=== PATIENT | male | born 1940 | race Caucasian/White ===

== ENCOUNTER → 2020-06-15 13:26 | Outpatient (BNVA) | payer MEDICARE, SELFPAY | PROVIDERS: PCP Nurse Practitioner Acute Care; Referring Provider Nurse Practitioner Acute Care; Visit Provider Internal Medicine | DX: I48.20 Chronic atrial fibrillation, unspecified (principal); Z51.81 Encounter for therapeutic drug level monitoring; Z79.01 Long term (current) use of anticoagulants | CPT/HCPCS: 85610 ==

== ENCOUNTER → 2020-07-13 13:25 | Outpatient (BNVA) | payer MEDICARE, SELFPAY | PROVIDERS: PCP Nurse Practitioner Acute Care; Visit Provider Internal Medicine | DX: I48.20 Chronic atrial fibrillation, unspecified (principal); Z79.01 Long term (current) use of anticoagulants; Z51.81 Encounter for therapeutic drug level monitoring | CPT/HCPCS: 85610; 99211 ==

== ENCOUNTER → 2020-08-10 13:23 | Outpatient (BNVA) | payer MEDICARE, SELFPAY | PROVIDERS: PCP Nurse Practitioner Acute Care; Referring Provider Nurse Practitioner Acute Care; Visit Provider Internal Medicine | DX: I48.20 Chronic atrial fibrillation, unspecified (principal); Z51.81 Encounter for therapeutic drug level monitoring; Z79.01 Long term (current) use of anticoagulants | CPT/HCPCS: 85610; 99211 ==

== ENCOUNTER → 2020-09-14 13:11 | Outpatient (BNVA) | payer MEDICARE, SELFPAY | PROVIDERS: PCP Internal Medicine; Visit Provider Internal Medicine | DX: I48.20 Chronic atrial fibrillation, unspecified (principal); Z79.01 Long term (current) use of anticoagulants; Z51.81 Encounter for therapeutic drug level monitoring | CPT/HCPCS: 85610; 99211 ==

== ENCOUNTER → 2020-10-12 13:17 | Outpatient (BNVA) | payer MEDICARE, SELFPAY | PROVIDERS: PCP Internal Medicine; Visit Provider Internal Medicine | DX: I48.20 Chronic atrial fibrillation, unspecified (principal); Z51.81 Encounter for therapeutic drug level monitoring; Z79.01 Long term (current) use of anticoagulants | CPT/HCPCS: 85610; 99211 ==

== ENCOUNTER → 2020-11-09 13:16 | Outpatient (BNVA) | payer MEDICARE, SELFPAY | PROVIDERS: PCP Internal Medicine; Visit Provider Internal Medicine | DX: I48.20 Chronic atrial fibrillation, unspecified (principal); Z51.81 Encounter for therapeutic drug level monitoring; Z79.01 Long term (current) use of anticoagulants | CPT/HCPCS: 85610; 99211 ==

== ENCOUNTER → 2021-01-11 13:04 | Outpatient (BNVA) | payer MEDICARE, SELFPAY | PROVIDERS: PCP Internal Medicine; Visit Provider Internal Medicine | DX: I48.20 Chronic atrial fibrillation, unspecified (principal); Z79.01 Long term (current) use of anticoagulants; Z51.81 Encounter for therapeutic drug level monitoring | CPT/HCPCS: 85610; 99211 ==

== ENCOUNTER → 2021-02-15 13:07 | Outpatient (BNVA) | payer MEDICARE, SELFPAY | PROVIDERS: PCP Internal Medicine; Visit Provider Internal Medicine | DX: I48.20 Chronic atrial fibrillation, unspecified (principal); Z51.81 Encounter for therapeutic drug level monitoring; Z79.01 Long term (current) use of anticoagulants | CPT/HCPCS: 85610; 99211 ==

== ENCOUNTER → 2021-03-15 13:08 | Outpatient (BNVA) | payer MEDICARE, SELFPAY | PROVIDERS: PCP Internal Medicine; Visit Provider Internal Medicine | DX: I48.20 Chronic atrial fibrillation, unspecified (principal); Z51.81 Encounter for therapeutic drug level monitoring; Z79.01 Long term (current) use of anticoagulants | CPT/HCPCS: 85610; 99211 ==

== ENCOUNTER → 2021-04-12 14:24 | Outpatient (BNVA) | payer MEDICARE, SELFPAY | PROVIDERS: PCP Internal Medicine; Visit Provider Internal Medicine | DX: I48.20 Chronic atrial fibrillation, unspecified (principal); Z51.81 Encounter for therapeutic drug level monitoring; Z79.01 Long term (current) use of anticoagulants | CPT/HCPCS: 85610; 99211 ==

== ENCOUNTER → 2021-05-17 13:02 | Outpatient (BNVA) | payer MEDICARE, SELFPAY | PROVIDERS: PCP Internal Medicine; Visit Provider Internal Medicine | DX: I48.20 Chronic atrial fibrillation, unspecified (principal); Z51.81 Encounter for therapeutic drug level monitoring; Z79.01 Long term (current) use of anticoagulants | CPT/HCPCS: 85610; 99211 ==

== ENCOUNTER → 2021-06-14 13:04 | Outpatient (BNVA) | payer MEDICARE, SELFPAY | PROVIDERS: PCP Internal Medicine; Visit Provider Internal Medicine | DX: I48.20 Chronic atrial fibrillation, unspecified (principal); Z51.81 Encounter for therapeutic drug level monitoring; Z79.01 Long term (current) use of anticoagulants | CPT/HCPCS: 85610; 99211 ==

== ENCOUNTER → 2021-07-12 13:11 | Outpatient (BNVA) | payer MEDICARE, SELFPAY | PROVIDERS: PCP Internal Medicine; Visit Provider Internal Medicine | DX: I48.20 Chronic atrial fibrillation, unspecified (principal); Z51.81 Encounter for therapeutic drug level monitoring; Z79.01 Long term (current) use of anticoagulants | CPT/HCPCS: 85610; 99211 ==

== ENCOUNTER → 2021-08-09 13:18 | Outpatient (BNVA) | payer MEDICARE, SELFPAY | PROVIDERS: PCP Internal Medicine; Visit Provider Internal Medicine | DX: I48.20 Chronic atrial fibrillation, unspecified (principal); Z51.81 Encounter for therapeutic drug level monitoring; Z79.01 Long term (current) use of anticoagulants | CPT/HCPCS: 85610; 99211 ==

== ENCOUNTER → 2021-08-23 13:17 | Outpatient (BNVA) | payer MEDICARE, SELFPAY | PROVIDERS: PCP Internal Medicine; Visit Provider Internal Medicine | DX: I48.20 Chronic atrial fibrillation, unspecified (principal); Z51.81 Encounter for therapeutic drug level monitoring; Z79.01 Long term (current) use of anticoagulants | CPT/HCPCS: 85610; 99211 ==

== ENCOUNTER → 2021-09-20 13:16 | Outpatient (BNVA) | payer MEDICARE, SELFPAY | PROVIDERS: PCP Internal Medicine; Visit Provider Internal Medicine | DX: I48.20 Chronic atrial fibrillation, unspecified (principal); Z51.81 Encounter for therapeutic drug level monitoring; Z79.01 Long term (current) use of anticoagulants | CPT/HCPCS: 85610; 99211 ==

== ENCOUNTER → 2021-10-18 13:29 | Outpatient (BNVA) | payer MEDICARE, SELFPAY | PROVIDERS: PCP Internal Medicine; Visit Provider Internal Medicine | DX: I48.20 Chronic atrial fibrillation, unspecified (principal); Z51.81 Encounter for therapeutic drug level monitoring; Z79.01 Long term (current) use of anticoagulants | CPT/HCPCS: 85610; 99211 ==

== ENCOUNTER → 2021-11-15 13:04 | Outpatient (BNVA) | payer MEDICARE, SELFPAY | PROVIDERS: PCP Internal Medicine; Visit Provider Internal Medicine | DX: I48.20 Chronic atrial fibrillation, unspecified (principal); Z51.81 Encounter for therapeutic drug level monitoring; Z79.01 Long term (current) use of anticoagulants | CPT/HCPCS: 85610; 99211 ==

== ENCOUNTER → 2021-12-13 13:05 | Outpatient (BNVA) | payer MEDICARE, SELFPAY | PROVIDERS: PCP Internal Medicine; Visit Provider Internal Medicine | DX: I48.20 Chronic atrial fibrillation, unspecified (principal); Z51.81 Encounter for therapeutic drug level monitoring; Z79.01 Long term (current) use of anticoagulants | CPT/HCPCS: 85610; 99211 ==

== ENCOUNTER → 2022-01-10 13:00 | Outpatient (BNVA) | payer MEDICARE, SELFPAY | PROVIDERS: PCP Internal Medicine; Visit Provider Internal Medicine | DX: I48.20 Chronic atrial fibrillation, unspecified (principal); Z79.01 Long term (current) use of anticoagulants; Z51.81 Encounter for therapeutic drug level monitoring | CPT/HCPCS: 85610; 99211 ==

== ENCOUNTER → 2022-02-07 13:07 | Outpatient (BNVA) | payer MEDICARE, SELFPAY | PROVIDERS: PCP Internal Medicine; Visit Provider Internal Medicine | DX: I48.20 Chronic atrial fibrillation, unspecified (principal); Z79.01 Long term (current) use of anticoagulants; Z51.81 Encounter for therapeutic drug level monitoring | CPT/HCPCS: 85610; 99211 ==

== ENCOUNTER → 2022-03-14 13:20 | Outpatient (BNVA) | payer MEDICARE, SELFPAY | PROVIDERS: Visit Provider Internal Medicine | DX: I48.20 Chronic atrial fibrillation, unspecified (principal); Z51.81 Encounter for therapeutic drug level monitoring; Z79.01 Long term (current) use of anticoagulants | CPT/HCPCS: 85610; 99211 ==

== ENCOUNTER → 2022-04-11 13:05 | Outpatient (BNVA) | payer MEDICARE, SELFPAY | PROVIDERS: Visit Provider Internal Medicine | DX: I48.20 Chronic atrial fibrillation, unspecified (principal); Z79.01 Long term (current) use of anticoagulants; Z51.81 Encounter for therapeutic drug level monitoring | CPT/HCPCS: 85610; 99211 ==

== ENCOUNTER → 2022-05-09 13:04 | Outpatient (BNVA) | payer MEDICARE, SELFPAY | PROVIDERS: Visit Provider Internal Medicine | DX: I48.20 Chronic atrial fibrillation, unspecified (principal); Z79.01 Long term (current) use of anticoagulants; Z51.81 Encounter for therapeutic drug level monitoring | CPT/HCPCS: 85610; 99211 ==

== ENCOUNTER → 2022-06-13 12:59 | Outpatient (BNVA) | payer MEDICARE, SELFPAY | PROVIDERS: Visit Provider Internal Medicine | DX: I48.20 Chronic atrial fibrillation, unspecified (principal); Z79.01 Long term (current) use of anticoagulants; Z51.81 Encounter for therapeutic drug level monitoring | CPT/HCPCS: 85610; 99211 ==

== ENCOUNTER → 2022-07-11 13:03 | Outpatient (BNVA) | payer MEDICARE, SELFPAY | PROVIDERS: Visit Provider Internal Medicine | DX: I48.20 Chronic atrial fibrillation, unspecified (principal); Z79.01 Long term (current) use of anticoagulants; Z51.81 Encounter for therapeutic drug level monitoring | CPT/HCPCS: 85610; 99211 ==

== ENCOUNTER → 2022-08-15 13:00 | Outpatient (BNVA) | payer MEDICARE, SELFPAY | PROVIDERS: PCP Family Medicine; Visit Provider Internal Medicine | DX: I48.20 Chronic atrial fibrillation, unspecified (principal); Z79.01 Long term (current) use of anticoagulants; Z51.81 Encounter for therapeutic drug level monitoring | CPT/HCPCS: 85610; 99211 ==

== ENCOUNTER → 2022-09-19 13:08 | Outpatient (BNVA) | payer MEDICARE, SELFPAY | PROVIDERS: PCP Family Medicine; Visit Provider Internal Medicine | DX: I48.20 Chronic atrial fibrillation, unspecified (principal); Z79.01 Long term (current) use of anticoagulants; Z51.81 Encounter for therapeutic drug level monitoring | CPT/HCPCS: 85610; 99211 ==

== ENCOUNTER → 2022-10-17 13:01 | Outpatient (BNVA) | payer MEDICARE, SELFPAY | PROVIDERS: PCP Family Medicine; Visit Provider Internal Medicine | DX: I48.20 Chronic atrial fibrillation, unspecified (principal); Z79.01 Long term (current) use of anticoagulants; Z51.81 Encounter for therapeutic drug level monitoring | CPT/HCPCS: 85610; 99211 ==

== ENCOUNTER → 2022-11-14 13:01 | Outpatient (BNVA) | payer MEDICARE, SELFPAY | PROVIDERS: PCP Family Medicine; Visit Provider Internal Medicine | DX: I48.20 Chronic atrial fibrillation, unspecified (principal); Z79.01 Long term (current) use of anticoagulants; Z51.81 Encounter for therapeutic drug level monitoring | CPT/HCPCS: 85610; 99211 ==

== ENCOUNTER → 2022-12-12 12:57 | Outpatient (BNVA) | payer MEDICARE, SELFPAY | PROVIDERS: PCP Family Medicine; Visit Provider Internal Medicine | DX: I48.20 Chronic atrial fibrillation, unspecified (principal); Z79.01 Long term (current) use of anticoagulants; Z51.81 Encounter for therapeutic drug level monitoring | CPT/HCPCS: 85610; 99211 ==

== ENCOUNTER → 2023-01-09 13:04 | Outpatient (BNVA) | payer MEDICARE, SELFPAY | PROVIDERS: PCP Family Medicine; Visit Provider Internal Medicine | DX: I48.20 Chronic atrial fibrillation, unspecified (principal); Z79.01 Long term (current) use of anticoagulants; Z51.81 Encounter for therapeutic drug level monitoring | CPT/HCPCS: 85610; 99211 ==

== ENCOUNTER → 2023-02-13 13:00 | Outpatient (BNVA) | payer MEDICARE, SELFPAY | PROVIDERS: PCP Family Medicine; Visit Provider Internal Medicine | DX: I48.20 Chronic atrial fibrillation, unspecified (principal); Z79.01 Long term (current) use of anticoagulants; Z51.81 Encounter for therapeutic drug level monitoring | CPT/HCPCS: 85610; 99211 ==

== ENCOUNTER 2023-03-20 13:03 | Outpatient (AMB) | payer MEDICARE, SELFPAY ==
[2023-03-20 13:12] LABS: Prothrombin Time Whole Bld POC 31.8 sec (11.1-13.5); ~PT, ~INR - Anti Coag Clinic 2.7 (0.9-1.1)
--- NOTE | 2023-03-20 13:15 | MHC.OFFVISCO ---
Intake Intake Visit Reasons: Anticoagulation Allergies No Known Allergies Allergy (Verified 03/20/23 13:05) Medication List - Last Reconciled 03/20/23 by Vicky Wade RN diltiazem HCl ER (DILT-XR) 180 mg PO DAILY hydrochlorothiazide 12.5 mg PO DAILY metoprolol succinate ER 50 mg PO DAILY warfarin 5 mg See Protocol PO DAILY Nursing Note NO CP,SOB,DIET/MED CHANGES,FALLS OR SX OF BLEEDING. CONTINUE PRESENT DOSE AND FOLLOW-UP IN 4 WEEKS. GOOD UNDERSTANDING OF DOSING INSTR. Coding Level of Care Code Est Patient Level 1 Diagnoses Current use of anticoagulant therapy Z79.01 Assessment & Plan Assessment & Plan (1) Current use of anticoagulant therapy: Code(s): Z79.01 - [facility] (current) use of anticoagulants Category: Medical
== END 2023-03-20 13:17 | disposition home or self-care (01) ==
LOC: HO.ACS 13:03
PROVIDERS: PCP Family Medicine; Visit Provider Internal Medicine
DX: Z79.01 Long term (current) use of anticoagulants (principal)

== ENCOUNTER → 2023-03-20 13:03 | Outpatient (BNVA) | payer MEDICARE, SELFPAY | PROVIDERS: PCP Family Medicine; Visit Provider Internal Medicine | DX: I48.20 Chronic atrial fibrillation, unspecified (principal); Z79.01 Long term (current) use of anticoagulants; Z51.81 Encounter for therapeutic drug level monitoring | CPT/HCPCS: 85610; 99211 ==

== ENCOUNTER 2023-04-17 13:03 | Outpatient (AMB) | payer MEDICARE, SELFPAY ==
[2023-04-17 13:09] LABS: Prothrombin Time Whole Bld POC 35.4 sec (11.1-13.5); ~PT, ~INR - Anti Coag Clinic 2.9 (0.9-1.1)
--- NOTE | 2023-04-17 13:12 | MHC.OFFVISCO ---
Intake Intake Visit Reasons: Anticoagulation Allergies No Known Allergies Allergy (Verified 04/17/23 13:04) Medication List - Last Reconciled 04/17/23 by Bozena Mccracken RN diltiazem HCl ER (DILT-XR) 180 mg PO DAILY hydrochlorothiazide 12.5 mg PO DAILY metoprolol succinate ER 50 mg PO DAILY warfarin 5 mg See Protocol PO DAILY Nursing Note Amb to [facility] feeling well Medications and supplements reviewed No changes in health, diet, medications, or supplements Denies any unusual signs and symptoms of bruising, bleeding Denies any new Chest pain, SOB, or clotting INR: 2.9 in therapeutic range Nutritional guidance given: have a green today then balance greens and reds in diet, be aware of raising effect of the [place] tomatoes Dose: continue usual dosing; 2.5mg x 1 day and 5mg x 6 days F/U INR: 4 weeks Patient verbalizes understanding of instructions given with accurate read back/ teach back of dosing Coding Level of Care Code Est Patient Level 1 Diagnoses Current use of anticoagulant therapy Z79.01 Time Spent (min) 15 Assessment & Plan Assessment & Plan (1) Current use of anticoagulant therapy: Code(s): 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
== END 2023-04-17 13:15 | disposition home or self-care (01) ==
LOC: HO.ACS 13:03
PROVIDERS: PCP Family Medicine; Visit Provider Internal Medicine
DX: Z79.01 Long term (current) use of anticoagulants (principal)

== ENCOUNTER → 2023-04-17 13:03 | Outpatient (BNVA) | payer MEDICARE, SELFPAY | PROVIDERS: PCP Family Medicine; Visit Provider Internal Medicine | DX: I48.20 Chronic atrial fibrillation, unspecified (principal); Z79.01 Long term (current) use of anticoagulants; Z51.81 Encounter for therapeutic drug level monitoring | CPT/HCPCS: 85610; 99211 ==

== ENCOUNTER 2023-05-15 13:02 | Outpatient (AMB) | payer MEDICARE, SELFPAY ==
--- NOTE | 2023-05-15 13:08 | MHC.OFFVISCO ---
Intake Intake Visit Reasons: Anticoagulation Allergies No Known Allergies Allergy (Verified 05/15/23 13:04) Medication List - Last Reconciled 05/15/23 by Jennifer Tolentino RN diltiazem HCl ER (DILT-XR) 180 mg PO DAILY hydrochlorothiazide 12.5 mg PO DAILY metoprolol succinate ER 50 mg PO DAILY warfarin 5 mg See Protocol PO DAILY Nursing Note INR 2.9 in therapeutic range Medications and supplements reviewed No changes in health, diet, medications, or supplements, Denies any signs and symptoms of bleeding or bruising or clotting. 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
[2023-05-15 13:09] LABS: Prothrombin Time Whole Bld POC 34.5 sec (11.1-13.5); ~PT, ~INR - Anti Coag Clinic 2.9 (0.9-1.1)
== END 2023-05-15 13:14 | disposition home or self-care (01) ==
LOC: HO.ACS 13:02
PROVIDERS: PCP Family Medicine; Visit Provider Internal Medicine
DX: Z79.01 Long term (current) use of anticoagulants (principal)

== ENCOUNTER → 2023-05-15 13:02 | Outpatient (BNVA) | payer MEDICARE, SELFPAY | PROVIDERS: PCP Family Medicine; Visit Provider Internal Medicine | DX: I48.20 Chronic atrial fibrillation, unspecified (principal); Z79.01 Long term (current) use of anticoagulants; Z51.81 Encounter for therapeutic drug level monitoring | CPT/HCPCS: 85610; 99211 ==

== ENCOUNTER 2023-06-12 13:02 | Outpatient (AMB) | payer MEDICARE, SELFPAY ==
--- NOTE | 2023-06-12 13:11 | MHC.OFFVISCO ---
Intake Intake Visit Reasons: Anticoagulation Allergies No Known Allergies Allergy (Verified 06/12/23 13:03) Medication List - Last Reconciled 06/12/23 by Bozena Mccracken, RN diltiazem HCl ER (DILT-XR) 180 mg PO DAILY hydrochlorothiazide 12.5 mg PO DAILY metoprolol succinate ER 50 mg PO DAILY warfarin 5 mg See Protocol PO DAILY Nursing Note Amb to [facility] feeling well Medications and supplements reviewed No changes in health, diet, medications, or supplements Denies any unusual signs and symptoms of bruising, bleeding Denies any new Chest pain, SOB, or clotting INR: 2.9 in therapeutic range (same x last 3 visits) Nutritional guidance given: can add an extra good green in weekly as top of range and balance greens and reds in diet Dose: continue usual dosing; 2.5mg x 1 day and 5mg x 6 days F/U INR: 4 weeks Patient verbalizes understanding of instructions given with accurate read back/ teach back of dosing Coding Level of Care Code Est Patient Level 1 Diagnoses Current use of anticoagulant therapy Z79.01 Time Spent (min) 15 Assessment & Plan Assessment & Plan (1) Current use of anticoagulant therapy: Code(s): Z79.01 - nursing home (current) use of anticoagulants Category: Medical
== END 2023-06-12 13:16 | disposition home or self-care (01) ==
LOC: HO.ACS 13:02
PROVIDERS: PCP Family Medicine; Visit Provider Internal Medicine
DX: Z79.01 Long term (current) use of anticoagulants (principal)

== ENCOUNTER → 2023-06-12 13:02 | Outpatient (BNVA) | payer MEDICARE, SELFPAY | PROVIDERS: PCP Family Medicine; Visit Provider Internal Medicine | DX: I48.20 Chronic atrial fibrillation, unspecified (principal); Z79.01 Long term (current) use of anticoagulants; Z51.81 Encounter for therapeutic drug level monitoring | CPT/HCPCS: 85610; 99211 ==

== ENCOUNTER 2023-07-10 13:00 | Outpatient (AMB) | payer MEDICARE, SELFPAY ==
[2023-07-10 13:06] LABS: Prothrombin Time Whole Bld POC 40.5 sec (11.1-13.5); ~PT, ~INR - Anti Coag Clinic 3.4 (0.9-1.1)
--- NOTE | 2023-07-10 13:16 | MHC.OFFVISCO ---
Intake Intake Visit Reasons: Anticoagulation Allergies No Known Allergies Allergy (Verified 07/10/23 13:00) Medication List - Last Reconciled 07/10/23 by Jennifer Tolentino RN diltiazem HCl ER (DILT-XR) 180 mg PO DAILY hydrochlorothiazide 12.5 mg PO DAILY metoprolol succinate ER 50 mg PO DAILY warfarin 5 mg See Protocol PO DAILY Nursing Note INR: 3.4 OUT OF therapeutic range Medications and supplements reviewed EATING ALOT OF ALMOND DARK ANGELICA ICE CREAM Denies any signs and symptoms of bleeding or bruising or clotting. Bleeding, bruising, clotting discussed Nutritional guidance given - EAT RAMIREZ GREENS LIKE SPINACH WEEKLY Dose: ALREADY TOOK TODAY'S DOSE 2.5MG SAT THEN RESUME 5MG C 6 DAYS /2.5MG THUR - IF SITLL ELEVATED THEN DECREASE TO 2.5MG X 2 DAYS F/U INR: 5 WEEKS PER PT INSISTINCE - HE IS AWAR OF RISKS ]Patient verbalizes understanding of instructions given Coding Level of Care Code Est Patient Level 1 Diagnoses Current use of anticoagulant therapy Z79.01 Results AMB INR Fingerstick AMB INR Fingerstick 3.4 Last Edit by Jennifer Tolentino RN on 07/10/23 13:06 manual entry Assessment & Plan Assessment & Plan (1) Current use of anticoagulant therapy: Code(s): 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
== END 2023-07-10 13:21 | disposition home or self-care (01) ==
LOC: HO.ACS 13:00
PROVIDERS: PCP Family Medicine; Visit Provider Internal Medicine
DX: Z79.01 Long term (current) use of anticoagulants (principal)

== ENCOUNTER → 2023-07-10 13:00 | Outpatient (BNVA) | payer MEDICARE, SELFPAY | PROVIDERS: PCP Family Medicine; Visit Provider Internal Medicine | DX: I48.20 Chronic atrial fibrillation, unspecified (principal); Z79.01 Long term (current) use of anticoagulants; Z51.81 Encounter for therapeutic drug level monitoring | CPT/HCPCS: 85610; 99211 ==

== ENCOUNTER 2023-08-14 13:00 | Outpatient (AMB) | payer MEDICARE, SELFPAY ==
--- NOTE | 2023-08-14 13:04 | MHC.OFFVISCO ---
Intake Intake Visit Reasons: Anticoagulation Allergies No Known Allergies Allergy (Verified 08/14/23 13:01) Medication List - Last Reconciled 08/14/23 by Wen Rooney RN diltiazem HCl ER (DILT-XR) 180 mg PO DAILY hydrochlorothiazide 12.5 mg PO DAILY metoprolol succinate ER 50 mg PO DAILY warfarin 5 mg See Protocol PO DAILY Nursing Note INR: 2.7- in therapeutic range of 2-3 Medications and supplements reviewed- no changes No changes in health, diet, medications, or supplements, Denies any signs and symptoms of bleeding or bruising or clotting. 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
[2023-08-14 13:07] LABS: Prothrombin Time Whole Bld POC 32.3 sec (11.1-13.5); ~PT, ~INR - Anti Coag Clinic 2.7 (0.9-1.1)
== END 2023-08-14 13:11 | disposition home or self-care (01) ==
LOC: HO.ACS 13:01
PROVIDERS: PCP Family Medicine; Visit Provider Internal Medicine
DX: Z79.01 Long term (current) use of anticoagulants (principal)

== ENCOUNTER → 2023-08-14 13:00 | Outpatient (BNVA) | payer MEDICARE, SELFPAY | PROVIDERS: PCP Family Medicine; Visit Provider Internal Medicine | DX: I48.20 Chronic atrial fibrillation, unspecified (principal); Z79.01 Long term (current) use of anticoagulants; Z51.81 Encounter for therapeutic drug level monitoring | CPT/HCPCS: 85610; 99211 ==

== ENCOUNTER 2023-09-11 12:58 | Outpatient (AMB) | payer MEDICARE, SELFPAY ==
--- NOTE | 2023-09-11 13:05 | MHC.OFFVISCO ---
Intake Intake Visit Reasons: Anticoagulation Allergies No Known Allergies Allergy (Verified 09/11/23 13:02) Medication List - Last Reconciled 09/11/23 by Wen Rooney RN diltiazem HCl ER (DILT-XR) 180 mg PO DAILY hydrochlorothiazide 12.5 mg PO DAILY metoprolol succinate ER 50 mg PO DAILY warfarin 5 mg See Protocol PO DAILY Nursing Note INR: 2.7- in therapeutic range of 2-3 Medications and supplements reviewed No changes in health, diet, medications, or supplements, Denies any signs and symptoms of bleeding or bruising or clotting. 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
== END 2023-09-11 13:10 | disposition home or self-care (01) ==
LOC: HO.ACS 12:58
PROVIDERS: PCP Family Medicine; Visit Provider Internal Medicine
DX: Z79.01 Long term (current) use of anticoagulants (principal)

== ENCOUNTER → 2023-09-11 12:58 | Outpatient (BNVA) | payer MEDICARE, SELFPAY | PROVIDERS: PCP Family Medicine; Visit Provider Internal Medicine | DX: I48.20 Chronic atrial fibrillation, unspecified (principal); Z79.01 Long term (current) use of anticoagulants; Z51.81 Encounter for therapeutic drug level monitoring | CPT/HCPCS: 85610; 99211 ==

== ENCOUNTER 2023-10-16 12:58 | Outpatient (AMB) | payer MEDICARE, SELFPAY ==
--- NOTE | 2023-10-16 13:16 | MHC.OFFVISCO ---
Intake Intake Visit Reasons: Anticoagulation Allergies No Known Allergies Allergy (Verified 10/16/23 13:02) Medication List - Last Reconciled 10/16/23 by Jennifer Tolentino RN diltiazem HCl ER (DILT-XR) 180 mg PO DAILY hydrochlorothiazide 12.5 mg PO DAILY metoprolol succinate ER 50 mg PO DAILY warfarin 5 mg See Protocol PO DAILY Nursing Note INR: 2.9 in therapeutic range Medications and supplements reviewed No changes in health, medications, or supplements, may be eating more root vegetables and soups that may be raising the INR Denies any signs and symptoms of bleeding or bruising or clotting. Bleeding, bruising, clotting discussed Nutritional guidance given Dose: keep same 2.5mg x 1 day/ 5mg x 6 days F/U INR: 4 weeks Patient verbalizes understanding of instructions given Questionnaires HAS-BLED Does the patient had uncontrolled Hypertension?: No Does the patient have renal disease?: No Does the patient have liver disease?: No Does the patient have a history of stroke?: No Has the patient had major bleeding or predisposition to bleeding?: No Does the patient have labile INRs?: No Is the patient over 65 years of age?: Yes Is the patient on medications that gives them a predisposition to bleeding?: No Does the patient use alcohol?: No HAS-BLED Score: 1 CHADSVASC Age: 75 or over Gender: Male Does the patient have a history of CHF?: No Does the patient have a history of Hypertension?: Yes Does the patient have a history of Stroke/TIA/Thromboembolism?: No Does the patient have a history of Vascular Disease (prior OK, PAD or aortic plaque)?: No Does the patient have a history of Diabetes?: No CHADS VACS Score: 3 Nasim Prediction Score Rsk VTE Active Cancer: No Previous VTE, excluding superficial vein thrombosis: No Reduced mobility: No Already known Thrombophilic Condition: Yes With-in last month Trauma and/or Surgery: No Elderly 70 year or older: Yes Heart and/or Respiratory Failure: No Acute Myocardial infarction and/or Ischemic Stroke: No Acute Infection and/or Rheumatologic Disorder: No Obesity (BMI 30 or greater): No Ongoing Hormonal Treatment: No Score: 4 Nasim Score less than 4; Low Risk of VTE Nasim Score 4 or greater; High Risk of VTE Coding Level of Care Code Est Patient Level 1 Diagnoses Current use of anticoagulant therapy Z79.01 Results AMB INR Fingerstick AMB INR Fingerstick 2.9 Last Edit by Jennifer Tolentino RN on 10/16/23 13:12 manual entry Assessment & Plan Assessment & Plan (1) Current use of anticoagulant therapy: Code(s): 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
[2023-10-16 14:24] LABS: Prothrombin Time Whole Bld POC 35.2 sec (11.1-13.5); ~PT, ~INR - Anti Coag Clinic 2.9 (0.9-1.1)
== END 2023-10-16 13:22 | disposition home or self-care (01) ==
LOC: HO.ACS 12:59
PROVIDERS: PCP Family Medicine; Visit Provider Internal Medicine
DX: Z79.01 Long term (current) use of anticoagulants (principal)

== ENCOUNTER → 2023-10-16 12:58 | Outpatient (BNVA) | payer MEDICARE, SELFPAY | PROVIDERS: PCP Family Medicine; Visit Provider Internal Medicine | DX: I48.20 Chronic atrial fibrillation, unspecified (principal); Z79.01 Long term (current) use of anticoagulants; Z51.81 Encounter for therapeutic drug level monitoring | CPT/HCPCS: 85610; 99211 ==

== ENCOUNTER 2023-11-13 13:04 | Outpatient (AMB) | payer MEDICARE, SELFPAY ==
[2023-11-13 13:10] LABS: Prothrombin Time Whole Bld POC 31.3 sec (11.1-13.5); ~PT, ~INR - Anti Coag Clinic 2.6 (0.9-1.1)
--- NOTE | 2023-11-13 13:11 | MHC.OFFVISCO ---
Intake Intake Visit Reasons: Anticoagulation Allergies No Known Allergies Allergy (Verified 11/13/23 13:04) Medication List - Last Reconciled 11/13/23 by Jennifer Tolentino RN diltiazem HCl ER (DILT-XR) 180 mg PO DAILY hydrochlorothiazide 12.5 mg PO DAILY metoprolol succinate ER 50 mg PO DAILY warfarin 5 mg See Protocol PO DAILY Nursing Note INR: 2.6 in therapeutic range Medications and supplements reviewed No changes in health, diet, medications, or supplements, Denies any signs and symptoms of bleeding or bruising or clotting. 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
== END 2023-11-13 13:16 | disposition home or self-care (01) ==
LOC: HO.ACS 13:04
PROVIDERS: PCP Family Medicine; Visit Provider Internal Medicine
DX: Z79.01 Long term (current) use of anticoagulants (principal)

== ENCOUNTER → 2023-11-13 13:04 | Outpatient (BNVA) | payer MEDICARE, SELFPAY | PROVIDERS: PCP Family Medicine; Visit Provider Internal Medicine | DX: I48.20 Chronic atrial fibrillation, unspecified (principal); Z79.01 Long term (current) use of anticoagulants; Z51.81 Encounter for therapeutic drug level monitoring | CPT/HCPCS: 85610; 99211 ==

== ENCOUNTER 2023-12-18 13:06 | Outpatient (AMB) | payer MEDICARE, SELFPAY ==
[2023-12-18 13:12] LABS: Prothrombin Time Whole Bld POC 39.2 sec (11.1-13.5); ~PT, ~INR - Anti Coag Clinic 3.3 (0.9-1.1)
--- NOTE | 2023-12-18 13:21 | MHC.OFFVISCO ---
Intake Intake Visit Reasons: Anticoagulation Allergies No Known Allergies Allergy (Verified 12/18/23 13:08) Medication List - Last Reconciled 12/18/23 by Bozena Keane, TRUDY diltiazem HCl ER (DILT-XR) 180 mg PO DAILY hydrochlorothiazide 12.5 mg PO DAILY metoprolol succinate ER 50 mg PO DAILY warfarin 5 mg See Protocol PO DAILY Nursing Note INR 3.3?out of therapeutic range Medications and supplements reviewed: no changes Patient status: no changes Medications or supplements: same Diet: pt states he had peanuts yesterday and maybe that is the reason why the INR is high out of range Denies any signs and symptoms of bleeding or clotting or unusual bruising Bleeding, bruising, clotting discussed Nutritional guidance given: to have greens today and tomorrow Dose: continue same dose of 2.5mg X 1 day and 5mg X6 days F/U INR Date : 4 weeks?? Patient verbalizing understanding of instructions given. 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
== END 2023-12-18 13:25 | disposition home or self-care (01) ==
LOC: HO.ACS 13:06
PROVIDERS: PCP Family Medicine; Visit Provider Internal Medicine
DX: Z79.01 Long term (current) use of anticoagulants (principal)

== ENCOUNTER → 2023-12-18 13:06 | Outpatient (BNVA) | payer MEDICARE, SELFPAY | PROVIDERS: PCP Family Medicine; Visit Provider Internal Medicine | DX: I48.20 Chronic atrial fibrillation, unspecified (principal); Z79.01 Long term (current) use of anticoagulants; Z51.81 Encounter for therapeutic drug level monitoring | CPT/HCPCS: 85610; 99211 ==

== ENCOUNTER 2024-01-15 13:03 | Outpatient (AMB) | payer MEDICARE, SELFPAY ==
[2024-01-15 13:08] LABS: Prothrombin Time Whole Bld POC 40.4 sec (11.1-13.5); ~PT, ~INR - Anti Coag Clinic 3.4 (0.9-1.1)
--- NOTE | 2024-01-15 13:17 | MHC.OFFVISCO ---
Intake Intake Visit Reasons: Anticoagulation Allergies No Known Allergies Allergy (Verified 01/15/24 13:04) Medication List - Last Reconciled 01/15/24 by Vicky Wade RN diltiazem HCl ER (DILT-XR) 180 mg PO DAILY hydrochlorothiazide 12.5 mg PO DAILY metoprolol succinate ER 50 mg PO DAILY warfarin 5 mg See Protocol PO DAILY Nursing Note PT.STATES THAT HE HAS HAD INCREASED STRESS WHICH MAY BE CONTRIBUTING TO RECENT ELEVATED INR'S. NO CP,SOB,DIET/MED CHANGES OR SX OF BLEEDING. HOLD WARFARIN TOMORROW(TOOK 5MG TODAY) THEN RESUME USUAL DOSE AND FOLLOW-UP IN 4 WEEKS. GOOD UNDERSTANDING OF DOSING INSTR. 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
== END 2024-01-15 13:19 | disposition home or self-care (01) ==
LOC: HO.ACS 13:03
PROVIDERS: PCP Family Medicine; Visit Provider Internal Medicine
DX: Z79.01 Long term (current) use of anticoagulants (principal)

== ENCOUNTER → 2024-01-15 13:03 | Outpatient (BNVA) | payer MEDICARE, SELFPAY | PROVIDERS: PCP Family Medicine; Visit Provider Internal Medicine | DX: I48.20 Chronic atrial fibrillation, unspecified (principal); Z51.81 Encounter for therapeutic drug level monitoring; Z79.01 Long term (current) use of anticoagulants | CPT/HCPCS: 85610; 99211 ==

== ENCOUNTER 2024-02-12 13:01 | Outpatient (AMB) | payer MEDICARE, SELFPAY ==
--- NOTE | 2024-02-12 13:09 | MHC.OFFVISCO ---
Intake Intake Visit Reasons: Anticoagulation Allergies No Known Allergies Allergy (Verified 02/12/24 13:05) Medication List - Last Reconciled 02/12/24 by Wen Rooney RN diltiazem HCl ER (DILT-XR) 180 mg PO DAILY hydrochlorothiazide 12.5 mg PO DAILY metoprolol succinate ER 50 mg PO DAILY warfarin 5 mg See Protocol PO DAILY Nursing Note INR: 2.7- in therapeutic range of 2-3 Medications and supplements reviewed- no changes No changes in health, diet, medications, or supplements, Denies any signs and symptoms of bleeding or bruising or clotting. 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
[2024-02-12 13:10] LABS: Prothrombin Time Whole Bld POC 32.9 sec (11.1-13.5); ~PT, ~INR - Anti Coag Clinic 2.7 (0.9-1.1)
== END 2024-02-12 13:14 | disposition home or self-care (01) ==
LOC: HO.ACS 13:01
PROVIDERS: PCP Family Medicine; Visit Provider Internal Medicine
DX: Z79.01 Long term (current) use of anticoagulants (principal)

== ENCOUNTER → 2024-02-12 13:01 | Outpatient (BNVA) | payer MEDICARE, SELFPAY | PROVIDERS: PCP Family Medicine; Visit Provider Internal Medicine | DX: I48.20 Chronic atrial fibrillation, unspecified (principal); Z79.01 Long term (current) use of anticoagulants; Z51.81 Encounter for therapeutic drug level monitoring | CPT/HCPCS: 85610; 99211 ==

== ENCOUNTER 2024-03-18 13:03 | Outpatient (AMB) | payer MEDICARE, SELFPAY ==
[2024-03-18 13:09] LABS: Prothrombin Time Whole Bld POC 34.6 sec (11.1-13.5); ~PT, ~INR - Anti Coag Clinic 2.9 (0.9-1.1)
--- NOTE | 2024-03-18 13:14 | MHC.OFFVISCO ---
Intake Intake Visit Reasons: Anticoagulation Allergies No Known Allergies Allergy (Verified 03/18/24 13:05) Medication List - Last Reconciled 03/18/24 by Bozena Keane RN diltiazem HCl ER (DILT-XR) 180 mg PO DAILY hydrochlorothiazide 12.5 mg PO DAILY metoprolol succinate ER 50 mg PO DAILY warfarin 5 mg See Protocol PO DAILY Nursing Note INR: 2.9 in therapeutic range of 2-3 Medications and supplements reviewed No changes in health, diet, medications, or supplements, Denies any signs and symptoms of bleeding or bruising or clotting. 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
== END 2024-03-18 13:17 | disposition home or self-care (01) ==
LOC: HO.ACS 13:03
PROVIDERS: PCP Family Medicine; Visit Provider Internal Medicine
DX: Z79.01 Long term (current) use of anticoagulants (principal)

== ENCOUNTER → 2024-03-18 13:03 | Outpatient (BNVA) | payer MEDICARE, SELFPAY | PROVIDERS: PCP Family Medicine; Visit Provider Internal Medicine | DX: I48.20 Chronic atrial fibrillation, unspecified (principal); Z79.01 Long term (current) use of anticoagulants; Z51.81 Encounter for therapeutic drug level monitoring | CPT/HCPCS: 85610; 99211 ==

== ENCOUNTER 2024-04-15 13:03 | Outpatient (AMB) | payer MEDICARE, SELFPAY ==
[2024-04-15 13:12] LABS: Prothrombin Time Whole Bld POC 29.4 sec (11.1-13.5); ~PT, ~INR - Anti Coag Clinic 2.5 (0.9-1.1)
--- NOTE | 2024-04-15 13:13 | MHC.OFFVISCO ---
Intake Intake Visit Reasons: Anticoagulation Allergies No Known Allergies Allergy (Verified 04/15/24 13:07) Medication List - Last Reconciled 04/15/24 by Bozena Keane RN diltiazem HCl ER (DILT-XR) 180 mg PO DAILY hydrochlorothiazide 12.5 mg PO DAILY metoprolol succinate ER 50 mg PO DAILY warfarin 5 mg See Protocol PO DAILY Nursing Note INR: 2.5 in therapeutic range of 2-3 Medications and supplements reviewed No changes in health, diet, medications, or supplements, Denies any signs and symptoms of bleeding or bruising or clotting. Bleeding, bruising, clotting discussed Nutritional guidance given Dose: continue same dose of 5mg X 6 days and 2.5mg X 1 day F/U INR: 4 weeks Patient verbalizes understanding of instructions given Coding Level of Care Code Est Patient Level 1 Diagnoses Current use of anticoagulant therapy Z79.01 Results AMB INR Fingerstick AMB INR Fingerstick 2.5 Last Edit by Bozena Keane RN on 04/15/24 13:13 interface delay Assessment & Plan Assessment & Plan (1) Current use of anticoagulant therapy: Code(s): Z79.01 - [facility] (current) use of anticoagulants Category: Medical
== END 2024-04-15 13:57 | disposition home or self-care (01) ==
LOC: HO.ACS 13:03
PROVIDERS: PCP Family Medicine; Visit Provider Internal Medicine
DX: Z79.01 Long term (current) use of anticoagulants (principal)

== ENCOUNTER → 2024-04-15 13:03 | Outpatient (BNVA) | payer MEDICARE, SELFPAY | PROVIDERS: PCP Family Medicine; Visit Provider Internal Medicine | DX: I48.20 Chronic atrial fibrillation, unspecified (principal); Z79.01 Long term (current) use of anticoagulants; Z51.81 Encounter for therapeutic drug level monitoring | CPT/HCPCS: 85610; 99211 ==

== ENCOUNTER 2024-05-13 13:00 | Outpatient (AMB) | payer MEDICARE, SELFPAY ==
[2024-05-13 13:07] LABS: Prothrombin Time Whole Bld POC 38.4 sec (11.1-13.5); ~PT, ~INR - Anti Coag Clinic 3.2 (0.9-1.1)
--- NOTE | 2024-05-13 13:16 | MHC.OFFVISCO ---
Intake Intake Visit Reasons: Anticoagulation Allergies No Known Allergies Allergy (Verified 05/13/24 13:03) Medication List - Last Reconciled 05/13/24 by Vicky Wade RN diltiazem HCl ER (DILT-XR) 180 mg PO DAILY hydrochlorothiazide 12.5 mg PO DAILY metoprolol succinate ER 50 mg PO DAILY warfarin 5 mg See Protocol PO DAILY Nursing Note NO CP,SOB,DIET/MED CHANGES,FALLS OR SX OF BLEEDING. REDUCE OSE SLIGHTLY TODAY THEN RESUME PRESENT DOSE AND FOLLOW-UP IN 4 WEEKS. GOOD UNDRSTANDING OF DOSING INSTR. 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
== END 2024-05-13 13:19 | disposition home or self-care (01) ==
LOC: HO.ACS 13:00
PROVIDERS: PCP Family Medicine; Visit Provider Internal Medicine
DX: Z79.01 Long term (current) use of anticoagulants (principal)

== ENCOUNTER → 2024-05-13 13:00 | Outpatient (BNVA) | payer MEDICARE, SELFPAY | PROVIDERS: PCP Family Medicine; Visit Provider Internal Medicine | DX: I48.20 Chronic atrial fibrillation, unspecified (principal); Z79.01 Long term (current) use of anticoagulants; Z51.81 Encounter for therapeutic drug level monitoring | CPT/HCPCS: 85610; 99211 ==

== ENCOUNTER 2024-06-10 13:03 | Outpatient (AMB) | payer MEDICARE, SELFPAY ==
[2024-06-10 13:12] LABS: ~PT, ~INR - Anti Coag Clinic 3.1 (0.9-1.1)
--- NOTE | 2024-06-10 13:18 | MHC.OFFVISCO ---
Intake Intake Visit Reasons: Anticoagulation Allergies No Known Allergies Allergy (Verified 06/10/24 13:06) Medication List - Last Reconciled 06/10/24 by Jennifer Tolentino RN diltiazem HCl ER (DILT-XR) 180 mg PO DAILY hydrochlorothiazide 12.5 mg PO DAILY metoprolol succinate ER 50 mg PO DAILY warfarin 5 mg See Protocol PO DAILY Nursing Note INR: 3.1 ALMOST in therapeutic range Medications and supplements reviewed No changes in medications, or supplements, He states he lost a few lbs - face appears thinner, states eating a little less, Recently had flu vaccine 2 days ago - may have affected the INR Denies any signs and symptoms of bleeding or bruising or clotting. 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
== END 2024-06-10 13:21 | disposition home or self-care (01) ==
LOC: HO.ACS 13:03
PROVIDERS: PCP Family Medicine; Visit Provider Internal Medicine
DX: Z79.01 Long term (current) use of anticoagulants (principal)

== ENCOUNTER → 2024-06-10 13:03 | Outpatient (BNVA) | payer MEDICARE, SELFPAY | PROVIDERS: PCP Family Medicine; Visit Provider Internal Medicine | DX: I48.20 Chronic atrial fibrillation, unspecified (principal); Z79.01 Long term (current) use of anticoagulants; Z51.81 Encounter for therapeutic drug level monitoring | CPT/HCPCS: 85610; 99211 ==

== ENCOUNTER 2024-07-15 13:00 | Outpatient (AMB) | payer MEDICARE, SELFPAY ==
[2024-07-15 13:20] LABS: Prothrombin Time Whole Bld POC 42.3 sec (11.1-13.5); ~PT, ~INR - Anti Coag Clinic 3.5 (0.9-1.1)
--- NOTE | 2024-07-15 13:32 | MHC.OFFVISCO ---
Intake Intake Visit Reasons: Anticoagulation Allergies No Known Allergies Allergy (Verified 07/15/24 13:14) Medication List - Last Reconciled 07/15/24 by Bozena Mccracken, RN diltiazem HCl ER (DILT-XR) 180 mg PO DAILY hydrochlorothiazide 12.5 mg PO DAILY metoprolol succinate ER 50 mg PO DAILY warfarin 5 mg See Protocol PO DAILY Nursing Note Amb to [facility] feeling well, pt HAVASUPAI Medications and supplements reviewed No changes in health, diet, medications, or supplements, Denies any signs and symptoms of bleeding, bruising, or clotting. Bleeding, bruising, clotting discussed INR 3.5 above therapeutic range, noted that pt has been running above range last couple visits (months) Dose: decrease dose today to 2.5mg (vs 5mg) then resume usual dosing 5mg x 6 days and 2.5mg x 1 day pt is not a green eater sts he will have broccoli if he goes out to dinner otherwise no real greens F/U INR: recommended 2 weeks so we could see if needs a weekly dosing adjustment, pt sts 4 weeks Patient verbalizes understanding of instructions given Coding Level of Care Code Est Patient Level 1 Diagnoses Current use of anticoagulant therapy Z79.01 Time Spent (min) 15 Assessment & Plan Assessment & Plan (1) Current use of anticoagulant therapy: Code(s): Z79.01 - [facility] (current) use of anticoagulants Category: Medical
== END 2024-07-15 13:37 | disposition home or self-care (01) ==
LOC: HO.ACS 13:00
PROVIDERS: PCP Family Medicine; Visit Provider Internal Medicine
DX: Z79.01 Long term (current) use of anticoagulants (principal)

== ENCOUNTER → 2024-07-15 13:00 | Outpatient (BNVA) | payer MEDICARE, SELFPAY | PROVIDERS: PCP Family Medicine; Visit Provider Internal Medicine | DX: I48.20 Chronic atrial fibrillation, unspecified (principal); Z79.01 Long term (current) use of anticoagulants; Z51.81 Encounter for therapeutic drug level monitoring | CPT/HCPCS: 85610; 99211 ==

== ENCOUNTER 2024-08-12 13:03 | Outpatient (AMB) | payer MEDICARE, SELFPAY ==
[2024-08-12 13:09] LABS: Prothrombin Time Whole Bld POC 33.9 sec (11.1-13.5); ~PT, ~INR - Anti Coag Clinic 2.8 (0.9-1.1)
--- NOTE | 2024-08-12 13:15 | MHC.OFFVISCO ---
Intake Intake Visit Reasons: Anticoagulation Allergies No Known Allergies Allergy (Verified 08/12/24 13:04) Medication List - Last Reconciled 08/12/24 by Bozena Keane RN diltiazem HCl ER (DILT-XR) 180 mg PO DAILY hydrochlorothiazide 12.5 mg PO DAILY metoprolol succinate ER 50 mg PO DAILY warfarin 5 mg See Protocol PO DAILY Nursing Note INR: 2.8 in therapeutic range of 2-3 Medications and supplements reviewed No changes in health, diet, medications, or supplements, Denies any signs and symptoms of bleeding or bruising or clotting. 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
== END 2024-08-12 13:16 | disposition home or self-care (01) ==
LOC: HO.ACS 13:03
PROVIDERS: PCP Family Medicine; Visit Provider Internal Medicine
DX: Z79.01 Long term (current) use of anticoagulants (principal)

== ENCOUNTER → 2024-08-12 13:03 | Outpatient (BNVA) | payer MEDICARE, SELFPAY | PROVIDERS: PCP Family Medicine; Visit Provider Internal Medicine | DX: I48.20 Chronic atrial fibrillation, unspecified (principal); Z79.01 Long term (current) use of anticoagulants; Z51.81 Encounter for therapeutic drug level monitoring | CPT/HCPCS: 85610; 99211 ==

== ENCOUNTER 2024-09-09 13:04 | Outpatient (AMB) | payer MEDICARE, SELFPAY ==
[2024-09-09 13:19] LABS: Prothrombin Time Whole Bld POC 29.9 sec (11.1-13.5); ~PT, ~INR - Anti Coag Clinic 2.5 (0.9-1.1)
--- NOTE | 2024-09-09 13:22 | MHC.OFFVISCO ---
Intake Intake Visit Reasons: Anticoagulation Allergies No Known Allergies Allergy (Verified 09/09/24 13:14) Medication List - Last Reconciled 09/09/24 by Jennifer Tolentino RN diltiazem HCl ER (DILT-XR) 180 mg PO DAILY hydrochlorothiazide 12.5 mg PO DAILY metoprolol succinate ER 50 mg PO DAILY warfarin 5 mg See Protocol PO DAILY Nursing Note INR: 2.5 in therapeutic range Medications and supplements reviewed No changes in health, diet, medications, or supplements, Denies any signs and symptoms of bleeding or bruising or clotting. 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
== END 2024-09-09 13:23 | disposition home or self-care (01) ==
LOC: HO.ACS 13:04
PROVIDERS: PCP Family Medicine; Visit Provider Internal Medicine
DX: Z79.01 Long term (current) use of anticoagulants (principal)

== ENCOUNTER → 2024-09-09 13:04 | Outpatient (BNVA) | payer MEDICARE, SELFPAY | PROVIDERS: PCP Family Medicine; Visit Provider Internal Medicine | DX: I48.20 Chronic atrial fibrillation, unspecified (principal); Z79.01 Long term (current) use of anticoagulants; Z51.81 Encounter for therapeutic drug level monitoring | CPT/HCPCS: 85610; 99211 ==

== ENCOUNTER → 2024-10-14 12:59 | Outpatient (AMB) | payer MEDICARE, SELFPAY ==
[2024-10-14 13:07] LABS: Prothrombin Time Whole Bld POC 30.1 sec (11.1-13.5); ~PT, ~INR - Anti Coag Clinic 2.5 (0.9-1.1)
== END | disposition home or self-care (01) ==
PROVIDERS: PCP Family Medicine; Visit Provider Internal Medicine

== ENCOUNTER → 2024-10-14 12:59 | Outpatient (BNVA) | payer MEDICARE, SELFPAY | PROVIDERS: PCP Family Medicine; Visit Provider Internal Medicine | DX: I48.20 Chronic atrial fibrillation, unspecified (principal); Z79.01 Long term (current) use of anticoagulants; Z51.81 Encounter for therapeutic drug level monitoring | CPT/HCPCS: 85610; 99211 ==

== ENCOUNTER 2024-11-11 13:01 | Outpatient (AMB) | payer MEDICARE, SELFPAY ==
[2024-11-11 13:12] LABS: Prothrombin Time Whole Bld POC 43.1 sec (11.1-13.5); ~PT, ~INR - Anti Coag Clinic 3.6 (0.9-1.1)
--- NOTE | 2024-11-11 13:17 | MHC.OFFVISCO ---
Intake Intake Visit Reasons: Anticoagulation Allergies No Known Allergies Allergy (Verified 11/11/24 13:07) Medication List - Last Reconciled 11/11/24 by Bozena Mccracken RN diltiazem HCl ER (DILT-XR) 180 mg PO DAILY hydrochlorothiazide 12.5 mg PO DAILY metoprolol succinate ER 50 mg PO DAILY warfarin 5 mg See Protocol PO DAILY Nursing Note Arrival: Patient arrives to [facility] amb, feeling well Status: Denies changes in health, diet, medications or supplements. Denies symptoms of bleeding, bruising or clotting. INR: 3.6 above therapeutic range Therapeutic Range: 2.0-3.0 Dose: reviewed previous dose history and will decrease dose today to 2.5mg vs 5 mg and pt will resume usual dosing tomorrow (2.5mg on and 5mg all other days) Nutritional Guidance:pt indicated he didn't have usual liverwurst sandwiches or greens this past week will increase greens over next 2 days then resume usual diet. Review food list weekly, especially during the holidays, seasonal changes and celebrations. Continue to eat a consistent and balanced diet to keep INR in therapeutic range. Follow-up Appointment: recommended 2 weeks pt sts he relys on a ride so it has to be 12/09/24 scheduled Instructed to monitor for possible increased bruising bleeding. Patient verbalizes understanding of instructions given regarding dosing, diet and next follow-up appointment with read back. Coding Level of Care Code Est Patient Level 1 Diagnoses Current use of anticoagulant therapy Z79.01 Time Spent (min) 15 Assessment & Plan Assessment & Plan (1) Current use of anticoagulant therapy: Code(s): Z79.01 - intermodal customer service (current) use of anticoagulants Category: Medical
--- OUTSIDE RECORDS SUMMARY | 2024-11-11 14:42 | XMS_ITS | Clinical Summary ---
Author Organization [facility] Address [address] [place] [address] Care Team Providers Care Molecular Biologist Name Role Phone Magdalene Barba MD Primary Care Provider Allergies No known active allergies Medications warfarin (COUMADIN) 5 mg tablet TAKE 1 TABLET BY MOUTH ONCE DAILY *MAY CAUSE HEAVY BLEEDING. TAKE AT SAME TIME EVERY DAY. DO NOT CHANGE DIETARY HABITS.* 4 Active hydroCHLOROthi azide 12.5 mg tablet Take 1 tablet by mouth once daily 90 tablet 5 Active metoprolol succinate (TOPROL-XL) 50 mg 24 hr tablet Take 1 tablet by mouth once daily 90 tablet 1 5 Active dilTIAZem XR (DILT-XR) 180 mg 24 hr capsule Take 1 capsule by mouth once daily 90 capsule 1 5 Active metoprolol succinate (TOPROL-XL) 50 mg 24 hr tablet Take 1 Tablet by mouth daily. 4 11/02/19 25 Discontinued dilTIAZem XR (DILT-XR) 180 mg 24 hr capsule Take 1 capsule by mouth once daily 4 11/02/19 25 Discontinued Active Problems Problem Noted Date Diagnosed Date Aneurysm of ascending aorta 06/28/2021 Overview (08/17/2024): Last Assessment & Plan: The patient has a history of ascending aortic aneurysm. His last echocardiogram in March 2022 showed ascending aorta dilation of 4.2 cm. We will update a new echocardiogram to reevaluate for progression. Shortness of breath 02/08/2021 Overview (08/17/2024): Last Assessment & Plan: The patient has been noticing exertional dyspnea. Recent echocardiogram showed normal LV systolic function. The patient does have risk factors for CAD, including: Former smoker and I did hypertension. As such, I will order a stress test in order to evaluate for the possibility of ischemic heart disease as a cause of his exertional symptoms. COVID-19 virus infection 01/24/2021 Prediabetes 05/28/2020 Bilateral hearing loss 08/25/2019 HTN (hypertension) 08/25/2019 Overview (08/17/2024): Last Assessment & Plan: The patient has a history of arterial hypertension. The patient's blood pressure today was noted to be well controlled. We'll continue his current antihypertensive medication regimen. Longstanding persistent atrial fibrillation 08/07 Overview (08/17/2024): Last Assessment & Plan: The patient has a history of atrial fibrillation. The patient continues on rate control therapy with metoprolol and diltiazem. Resting heart rate was noted to be adequate. Also, the patient has a [id number] score of 3 and continues on anticoagulation therapy with warfarin. He denies any excessive bruising or bleeding. We will continue current therapies. Immunizations Name Administration Dates Next Due COVID-19 (Moderna/Spikevax) 12yo and older 06/16/2024,2023 Influenza trivalent, 0.5mL ( Fluad) 65yo and older 06/08/2024,06/05/2023,05/30/2022,2020,06/13/2020 Pfizer SARS-CoV-2 COVID-19, mRNA, LNP-S, preservative free 01/07/2022,08/07/2021,01/04/2021,2020 Surgical History Surgery Date Site/Laterality Comments CATARACT EXTRACTION Left PROCEDURE: HISTORICAL CATARACT REMOVAL; COMMENT: 03/22/2020 Medical History Medical History Date Comments Hypertension DX:Hypertension Atrial fibrillation (CMS/HCC) DX :Atrial fibrillation (HCC) History of tobacco abuse 08/20/2020 DX:Hist ory of tobacco abuse Family History Medical History Relation Name Comments Colon cancer Neg Hx Relation Name Status Comments Daughter Alive Father Mother Sister Alive Social History Tobacco Use Types Packs/Day Years Used Date Smoking Tobacco: Former Cigarettes Smokeless Tobacco: Former Alcohol Use Standard Drinks/Week Comments Yes 1 (1 standard drink = 0.6 oz pur e alcohol) Sex and Gender Information Value Date Recorded Sex Assigned at Not on file Legal Sex Male 8:35 AM EST Gender Identity Not on file Sexual Orientation Not on file Obstetrics History Last Filed Vital Signs Vital Sign Reading Time Taken Comments Blood Pressure 102/58 06/08/2024 1:04 PM EDT Pulse 54 06/08/2024 1:04 PM EDT Temperature - - Respiratory Rate - - Oxygen Saturation - - Inhaled Oxygen Concentration - - Weight 84.8 kg (187 lb) 06/08/2024 1:04 PM EDT Height 182.9 cm (6') 06/08/2024 1:04 PM EDT Body Mass Index 25.36 06/08/2024 1:04 PM EDT Plan of Treatment Upcoming Encounters Date Type Department Care Team (Late st Contact Info) Description 12/08/2024 2:00 PM EDT Office Visit Adult Medicine - [address] [id number] Magdalene Barba MD [address] [place] [id number] Health Maintenance Due Date Last Done Comments DTaP,Tdap,and Td Vaccines (1 - Tdap) 1960 Pneumococcal Vaccine: 50+ Years (1 of 1 - PCV) 1991 Zoster Vaccines (1 of 2) 1991 RSV Immunization Patients 60+ Years Old (1 - 1-dose 75+ series) 2016 Depression Screening 08/16/2022 Falls Risk Assessment 08/16/2022 Social Influencers of Health Screening 08/16/2022 Hypertension/CHF/CAD Annual BMP Blood Test 11/17/2024 11/18/2023 Cholesterol Screening (Lipid Panel) 05/15/2028 05/15/2023 Influenza Vaccine Completed 06/08/2024, , 05/30/2022, Additional history exists COVID-19 Vaccine Completed 06/16/2024, 11/2022, 01/07/2022, Additional history exists HIB Vaccines Aged Out No longer eligi ble based on patient's age to complete this topic HPV Vaccines Aged Out No longer eligi ble based on patient's age to complete this topic Hepatitis A Vaccines Aged Out No long er eligible based on patient's age to complete this topic Hepatitis B Vaccines Aged Out No long er eligible based on patient's age to complete this topic IPV Vaccines Aged Out No longer eligi ble based on patient's age to complete this topic MMR Vaccines Aged Out No longer eligi ble based on patient's age to complete this topic Meningococcal ACWY Vaccine Aged Out N o longer eligible based on patient's age to complete this topic Meningococcal B Vacine Aged Out No lo nger eligible based on patient's age to complete this topic RSV Immunization Patients Under 20 months Aged Out No longer eligible based on patient's age to complete this topic Varicella Vaccines Aged Out No longer eligible based on patient's age to complete this topic Procedures Procedure Name Priority Date/Time Associated Diagnosis Comments ANNUAL BMP BLOOD TEST Routine 11/18/2023 LIPID PANEL Routine 05/15/2023 from Last 3 Months or Most Recently Relevant to Health Maintenance Results * Annual BMP Blood Test (11/18/2023) Pathologist [facility] Annual BMP Blood Test abstracted Historical Provider HEALTH MAINTENANCE Final Result * Lipid panel (05/15/2023) Pathologist [facility] LDL/HDL Ratio 3 0 - 4 Triglycerides 83 0 - 150 mg/dL Cholesterol 151 0 - 200 mg/dL HDL 51 >=40 mg/dL LDL Cholesterol 84 0 - 100 mg/dL Blood Venous blood specimen / Unknown Historical Provider LAB BLOOD ORDERABLES Tracy l Result from Last 3 Months or Most Recently Relevant to Health Maintenance Advance Directives Documents on File Type Date Recorded Patient Combustion Analyst Expl anation Health Care Decision (hx) 12/15/2020 AD VERGARA DIRECTIVE Health Care Decision (hx) 12/15/2020 AD VERGARA DIRECTIVE Health Care Decision (hx) 12/15/2020 AD VERGARA DIRECTIVE Health Care Decision (hx) 12/15/2020 AD VERGARA DIRECTIVE Health Care Decision (hx) 12/15/2020 AD VERGARA DIRECTIVE Health Care Decision (hx) 12/15/2020 AD VERGARA DIRECTIVE Care Teams Molecular Biologist Relationship Specialty Start Date End Date Magdalene Barba MD [address] [place] [address] PCP - General Internal Medicine 11/21/21
== END 2024-11-11 13:27 | disposition home or self-care (01) ==
LOC: HO.ACS 13:01
PROVIDERS: PCP Family Medicine; Visit Provider Internal Medicine
DX: Z79.01 Long term (current) use of anticoagulants (principal)

== ENCOUNTER → 2024-11-11 13:01 | Outpatient (BNVA) | payer MEDICARE, SELFPAY | PROVIDERS: PCP Family Medicine; Visit Provider Internal Medicine | DX: I48.20 Chronic atrial fibrillation, unspecified (principal); Z79.01 Long term (current) use of anticoagulants; Z51.81 Encounter for therapeutic drug level monitoring | CPT/HCPCS: 85610; 99211 ==

== ENCOUNTER 2024-12-09 13:00 | Outpatient (AMB) | payer MEDICARE, SELFPAY ==
[2024-12-09 13:11] LABS: Prothrombin Time Whole Bld POC 27.7 sec (11.1-13.5); ~PT, ~INR - Anti Coag Clinic 2.3 (0.9-1.1)
--- NOTE | 2024-12-09 13:15 | MHC.OFFVISCO ---
Intake Intake Visit Reasons: Anticoagulation Allergies No Known Allergies Allergy (Verified 12/09/24 13:05) Medication List - Last Reconciled 12/09/24 by Jennifer Tolentino RN diltiazem HCl ER (DILT-XR) 180 mg PO DAILY hydrochlorothiazide 12.5 mg PO DAILY metoprolol succinate ER 50 mg PO DAILY warfarin 5 mg See Protocol PO DAILY Nursing Note pt walks to clinic on own A+Ox3 daughter brings him He is well and states he had a clean bill of health with his last Dr appt INR: 2.3 in therapeutic range Medications and supplements reviewed No changes in health, diet, medications, or supplements, Denies any signs and symptoms of bleeding or bruising or clotting. Bleeding, bruising, clotting discussed Nutritional guidance given - cont to eat a mix of fruits and vegetables that balance your INR Dose: keep same dose 2.5mg x 1 day / 5mg x 6 days F/U INR: 1 month Patient verbalizes understanding of instructions given Coding Level of Care Code Est Patient Level 1 Diagnoses Current use of anticoagulant therapy Z79.01 Results AMB INR Fingerstick AMB INR Fingerstick 2.3 Last Edit by Jennifer Tolentino RN on 12/09/24 13:12 manual entry Assessment & Plan Assessment & Plan (1) Current use of anticoagulant therapy: Code(s): Z79.01 - terminal operations supervisor (current) use of anticoagulants Category: Medical
--- OUTSIDE RECORDS SUMMARY | 2024-12-09 14:51 | XMS_ITS | Encounter Summary ---
Author Organization [facility] Address [address] [place] [address] Care Team Providers Care Recruitment Coordinator Name Role Phone Magdalene Barba MD Primary Care Provider Reason for Visit * Reason Comments Follow-up Encounter Details Date Type Department Care Team (Late st Contact Info) Description 12/08/2024 2:00 PM EDT Office Visit Adult Medicine [facility] [address] [place] [phone] Magdalene Barba MD [address] [place] [address] Medicare annual wellness visit, subsequent (Primary Dx); Primary hypertension; Pre-diabetes; Paroxysmal atrial fibrillation (CMS/HCC) Social History Tobacco Use Types Packs/Day Years Used Date Smoking Tobacco: Former Cigarettes Smokeless Tobacco: Former Tobacco Cessation:Counseling Given: Not Answered Alcohol Use Standard Drinks/Week Comments Yes 1 (1 standard drink = 0.6 oz pur e alcohol) Sex and Gender Information Value Date Recorded Sex Assigned at Not on file Legal Sex Male 8:35 AM EST Gender Identity Not on file Sexual Orientation Not on file documented as of this encounter Last Filed Vital Signs Vital Sign Reading Time Taken Comments Blood Pressure 130/70 12/08/2024 1:51 PM EDT Pulse 84 12/08/2024 1:51 PM EDT Temperature 36.1 ??C (97 ??F) 12/08/2024 1:51 PM EDT Respiratory Rate - - Oxygen Saturation - - Inhaled Oxygen Concentration - - Weight 84.6 kg (186 lb 9.6 oz) 12/08/2024 1:51 P M EDT Height 180.3 cm (5' 11 ) 12/08/2024 1:51 PM EDT Body Mass Index 26.03 12/08/2024 1:51 PM EDT documented in this encounter Progress Notes * Magdalene Barba MD - 12/08/2024 2:00 PM EDTAssociated Problem(s): HTN (hypertension) BP well controlled on HCTZ Orders: Comprehensive metabolic panel; Future Lipid panel with reflex to direct LDL; Future CBC and differential; Future Hemoglobin A1c; Future Thyroid stimulating hormone with reflex to free t4 and free t3; Future * Magdalene Barba MD - 12/08/2024 2:00 PM EDT Chief Complaint Wellness visit Patient Name: Giovanni Brumfield Date of : 1940 Race: White Ethnicity: Not Hispan/Lat Date of Service: 12/08/2024 Giovanni is a 84 y.o. male presenting for Follow-up History of Present Illness I am seeing Giovanni today for a wellness visit. He is driven to his appt by daughter Anastacio. He lives with his grandson and 7 yr great grand daughter. Is independent with ADLs and able to makea meal, does his own laundry and some house keeping. Daughter helps pay the bills. Self admnisters his medications. Noticed he has lost weight 3lbs in 12months-reports apetite has decreased as he aged. Energy levelsare good. Atrial fibrillation-rate controlled on diltiazem and toprol. On coumadin for anticoagulation( inr checks at [place]). 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 Denies any CP, SOB, palpitations. BMP was done recently. He is prediabetic. Immunizations: Immunization History Administered Date(s) Administered COVID-19 (Moderna/Spikevax) 12yo and older 2023, 06/16/2024 Influenza trivalent, 0.5mL (Fluad) 65yo and older 06/13/2020, 07/08/2021, 05/30/2022, 06/05/2023, 06/08/2024 Pfizer (ages 12 & older) Bivalent, COVID-19 07/08/2022 Pfizer SARS-CoV-2 COVID-19, mRNA, LNP-S, preservative free 11/26/2020, 01/04/2021, 08/07/2021, 01/07/2022 Hospitalization in the last year: Has not been hospitalized in the past 12 months. Current Providers and Suppliers: Patient Care Team: Magdalene Barba MD as PCP - General (Internal Medicine) Patient does not have/use current medical supplier Medications Current Outpatient Medications Medication Sig Dispense Refill dilTIAZem XR (DILT-XR) 180 mg 24 hr capsule Take 1 capsule by mouth once daily 90 capsule 1 hydroCHLOROthiazide 12.5 mg tablet Take 1 tablet by mouth once daily 90 tablet 0 metoprolol succinate (TOPROL-XL) 50 mg 24 hr tablet Take 1 tablet by mouth once daily 90 tablet 1 warfarin (COUMADIN) 5 mg tablet TAKE 1 TABLET BY MOUTH ONCE DAILY *MAY CAUSE HEAVY BLEEDING. TAKE AT SAME TIME EVERY DAY. DO NOT CHANGE DIETARY HABITS.* No current facility-administered medications for this visit. No Known Allergies Comprehensive Medical and Social History I reviewed the following portions of the patient's chart in this encounter and updated as appropriate: Tobacco Allergies Meds Problems Med Hx Surg Hx Fam Hx Soc Hx Patient Active Problem List Diagnosis Aneurysm of ascending aorta (CMS/HCC) Bilateral hearing loss COVID-19 virus infection HTN (hypertension) Longstanding persistent atrial fibrillation (CMS/HCC) Shortness of breath Prediabetes Past Medical History: Diagnosis Date Atrial fibrillation (CMS/HCC) DX:Atrial fibrillation (HCC) History of tobacco abuse 08/20/2020 DX:History of tobacco abuse Hypertension DX:Hypertension Family History Problem Relation Name Age of Onset Colon cancer Neg Hx Giovanni reports that he has quit smoking. His smoking use included cigarettes. He has quit using smokeless tobacco. He reports current alcohol use of about 1.0 standard drink of alcohol per week. He reports that he does not use drugs. Social History Substance and Sexual Activity Sexual Activity Not Currently Past Surgical History: Procedure Laterality Date CATARACT EXTRACTION Left PROCEDURE: HISTORICAL CATARACT REMOVAL; COMMENT: 03/22/2020 Health Maintenance Topic Date Due DTaP,Tdap,and Td Vaccines (1 - Tdap) Never done Pneumococcal Vaccine: 50+ Years (1 of 1 - PCV) Never done Zoster Vaccines (1 of 2) Never done RSV Immunization Adult Patients (1 - 1-dose 75+ series) Never done Social Influencers of Health Screening Never done Hypertension/CHF/CAD Annual BMP Blood Test 11/24/2025 Falls Risk Assessment 12/08/2025 Depression Screening 12/08/2025 Medicare Annual Wellness Visit 12/08/2025 Cholesterol Screening (Lipid Panel) 05/15/2028 Influenza Vaccine Completed COVID-19 Vaccine Completed HIB Vaccines Aged Out Hepatitis B Vaccines Aged Out IPV Vaccines Aged Out Hepatitis A Vaccines Aged Out MMR Vaccines Aged Out Varicella Vaccines Aged Out Meningococcal ACWY Vaccine Aged Out Meningococcal B Vacine Aged Out HPV Vaccines Aged Out RSV Immunization Patients Under 20 months Aged Out Immunization History Administered Date(s) Administered COVID-19 (Moderna/Spikevax) 12yo and older 2023, 06/16/2024 Influenza trivalent, 0.5mL (Fluad) 65yo and older 06/13/2020, 07/08/2021, 05/30/2022, 06/05/2023, 06/08/2024 Pfizer (ages 12 & older) Bivalent, COVID-19 07/08/2022 Pfizer SARS-CoV-2 COVID-19, mRNA, LNP-S, preservative free 11/26/2020, 01/04/2021, 08/07/2021, 01/07/2022 Depression Screening (PHQ2/9): Depression Screening Over the last 2 weeks, how often have you been bothered by little interest or pleasure in doing things?: Not at all Over the last 2 weeks, how often have you been bothered by feeling down, depressed, or hopeless?: Not at all Depression Risk: 0 PHQ9 Full Set of Questions Over the last 2 weeks, how often have you been bothered by little interest or pleasure in doing things?: Not at all Over the last 2 weeks, how often have you been bothered by feeling down, depressed, or hopeless?: Not at all Depression Risk Score NEW: 0 Depression Plan : Screen was negative Anxiety Screening: none Alcohol Screening: none Substance Abuse Screening: none Pain: Pain Medications: Patient does not take any opioid medications BMI: Body mass index is 26.03 kg/m??. The BMI is in the acceptable range. Functional Ability and Level of Safety Review Health Status: In general, the patient reports health as: good In general, patient reports life as: good Patient reports sleep pattern as: sleeping well Have you seen a dentist in the last year?: No Activity of Daily Living (ADLs): Do you need help from others for your personal care such as eating, dressing, toileting, or gettingaround the house?: No Do you experience incontinence?: No Instrumental Activities of Daily Living (IADLs): Do you need help with using the telephone?: No Do you need help with shopping?: No Do you need help with food preparation?: No Do you need help with housekeeping?: Yes Do you need help with laundry?: No Do you need help handling finances?: Yes Do you drive?: No Do you manage your own medication?: Yes, independent Physical Activity: Do you exercise for about 20 minutes or more three days a week?: Yes, most of the time Nutritional Assessment: Do you eat a balanced diet including daily serving of fruits, vegetables, and whole grains?: Yes, most of the time Social Influencer of Health (SIOH): Fall Risk: Have you fallen in the past year? no. Are you worried about falling? no. . Mini Cog Clock Drawing Test: 2 Word Recall: 3 Mini Cog Score: 5 Mini Cog Results: Negative screen for dementia Hearing: No data recorded Vision Screening No data recorded Review of Systems GENERAL: No malaise, significant weight loss or fever HEENT: No changes in hearing or vision, nose bleeds or other nasal problems NECK: No lumps, goiter, pain or significant neck swelling RESPIRATORY: No cough, wheezing or shortness of breath CARDIOVASCULAR: No chest pain, leg swelling or palpitations GI: No constipation/diarrhea. No abdominal discomfort, blood in stools or black stools : No dysuria, frequency or incontinence MUSCULOSKELETAL: No joint pain or swelling, back pain, or muscle pain. PSYCH: No sleep disturbance, mood disorder or recent psychosocial stressors. NEURO: No persistent headache, syncope, seizures, weakness or numbness The remainder of review of systems is noncontributory. Code status: Daughter is his agent Health Maintenance Topic Date Due DTaP,Tdap,and Td Vaccines (1 - Tdap) Never done Pneumococcal Vaccine: 50+ Years (1 of 1 - PCV) Never done Zoster Vaccines (1 of 2) Never done RSV Immunization Adult Patients (1 - 1-dose 75+ series) Never done Social Influencers of Health Screening Never done Hypertension/CHF/CAD Annual BMP Blood Test 11/24/2025 Falls Risk Assessment 12/08/2025 Depression Screening 12/08/2025 Medicare Annual Wellness Visit 12/08/2025 Cholesterol Screening (Lipid Panel) 05/15/2028 Influenza Vaccine Completed COVID-19 Vaccine Completed HIB Vaccines Aged Out Hepatitis B Vaccines Aged Out IPV Vaccines Aged Out Hepatitis A Vaccines Aged Out MMR Vaccines Aged Out Varicella Vaccines Aged Out Meningococcal ACWY Vaccine Aged Out Meningococcal B Vacine Aged Out HPV Vaccines Aged Out RSV Immunization Patients Under 20 months Aged Out Objective Vitals: 12/08/24 1351 BP: 130/70 Pulse: 84 Temp: 36.1 ??C (97 ??F) TempSrc: Temporal Weight: 84.6 kg (186 lb 9.6 oz) Height: 1.803 m (71 ) PHYSICAL EXAM: APPEARANCE: Alert and in no acute distress HEART: RRR with normal S1 and S2, no murmurs LUNG:Clear to auscultation NEURO: AAO x3, no focal deficits GAIT; normal Assessment & Plan Medicare annual wellness visit, subsequent No signs of depression or dementia. Fall precautions discussed. Orders: Comprehensive metabolic panel; Future Lipid panel with reflex to direct LDL; Future CBC and differential; Future Hemoglobin A1c; Future Thyroid stimulating hormone with reflex to free t4 and free t3; Future Primary hypertension BP well controlled on HCTZ Orders: Comprehensive metabolic panel; Future Lipid panel with reflex to direct LDL; Future CBC and differential; Future Hemoglobin A1c; Future Thyroid stimulating hormone with reflex to free t4 and free t3; Future Pre-diabetes Monitor [id number]. Orders: Comprehensive metabolic panel; Future Lipid panel with reflex to direct LDL; Future CBC and differential; Future Hemoglobin A1c; Future Thyroid stimulating hormone with reflex to free t4 and free t3; Future Paroxysmal atrial fibrillation (CMS/HCC) Rate controlled on toprol and cardizem. Fby cardio. On coumadin,, INR monitored at [facility]. Orders: Comprehensive metabolic panel; Future Lipid panel with reflex to direct LDL; Future CBC and differential; Future Hemoglobin A1c; Future Thyroid stimulating hormone with reflex to free t4 and free t3; Future Get labs prior to next visit. Follow up in about 6 months (around 06/09/2025) for chronic care management w/ julian. documented in this encounter Plan of Treatment Upcoming Encounters Date Type Department Care Team (Late st Contact Info) Description 06/16/2025 3:30 PM EDT Office Visit Adult Medicine - [address] [phone] Julian Caro PA [address] [place] [id number] Scheduled Orders Name Type Priority Associated Diagnoses Orde r Schedule Comprehensive metabolic panel Lab Routine Medicare annual wellness visit, subsequent Primary hypertension Pre-diabetes Paroxysmal atrial fibrillation (CMS/HCC) Expected: 12/08/2024 (Approximate), Expires: 12/08/2025 Lipid panel with reflex to direct LDL Lab Routine Medicare annual wellness visit, subsequent Primary hypertension Pre-diabetes Paroxysmal atrial fibrillation (CMS/HCC) 1 Occurrences starting 12/08/2024 until 12/08/2025 CBC and differential Lab Routine Medicare annual wellness visit, subsequent Primary hypertension Pre-diabetes Paroxysmal atrial fibrillation (CMS/HCC) Expected: 12/08/2024 (Approximate), Expires: 12/08/2025 Hemoglobin A1c Lab Routine Medicare annual wellness visit, subsequent Primary hypertension Pre-diabetes Paroxysmal atrial fibrillation (CMS/HCC) Expected: 12/08/2024 (Approximate), Expires: 12/08/2025 Thyroid stimulating hormone with reflex to free t4 and free t3 Lab Routine Medicare annual wellness visit, subsequent Primary hypertension Pre-diabetes Paroxysmal atrial fibrillation (CMS/HCC) 1 Occurrences starting 12/08/2024 until 12/08/2025 documented as of this encounter Visit Diagnoses Diagnosis Medicare annual wellness visit, subsequent- Primary Primary hypertension Unspecified essential hypertension Pre-diabetes Other abnormal glucose Paroxysmal atrial fibrillation (CMS/HCC) Atrial fibrillation documented in this encounter Additional Health Concerns Assessment Noted Time PHQ-9 Depression Total Score: 0 12/09/19 25 2:20 PM EDT documented as of this encounter Care Teams Recruitment Coordinator Relationship Specialty Start Date End Date Magdalene Barba MD [address] [place] [id number] PCP - General Internal Medicine 11/21/21 documented as of this encounter
--- OUTSIDE RECORDS SUMMARY | 2024-12-09 14:51 | XMS_ITS | Clinical Summary ---
Author Organization [facility] [address] [facility] Address [address] [place] [address] Phone Care Team Providers Care Seal Delivery Vehicle Team Technician Name Role Phone Magdalene Barba MD Primary Care Provider Allergies No known active allergies Medications warfarin (COUMADIN) 5 mg tablet TAKE 1 TABLET BY MOUTH ONCE DAILY *MAY CAUSE HEAVY BLEEDING. TAKE AT SAME TIME EVERY DAY. DO NOT CHANGE DIETARY HABITS.* 12/07/2023 Active hydroCHLOROthia zide 12.5 mg tablet Take 1 tablet by mouth once daily 90 tablet 10/06/2024 Active metoprolol succinate (TOPROL-XL) 50 mg 24 hr tablet Take 1 tablet by mouth once daily 90 tablet 1 11/02/2024 Active dilTIAZem XR (DILT-XR) 180 mg 24 hr capsule Take 1 capsule by mouth once daily 90 capsule 1 11/02/2024 Active Active Problems Problem Noted Date Diagnosed Date [...] We'll continue his current antihypertensive medication regimen. Assessment & Plan (12/08/2024 2:36 PM EDT): BP well controlled on HCTZ Orders: Comprehensive metabolic panel; Future Lipid panel with reflex to direct LDL; Future CBC and differential; Future Hemoglobin A1c; Future Thyroid stimulating hormone with reflex to free t4 and free t3; Future Longstanding persistent atrial fibrillation 08/07 Overview (08/17/2024): Last Assessment & Plan: The patient has a history of atrial fibrillation. The patient continues on rate control therapy with metoprolol and diltiazem. Resting heart rate was noted to be adequate. Also, the patient has a PHF2AD1-FABg score of 3 and continues on anticoagulation therapy with warfarin. He denies any excessive bruising or bleeding. We will continue current therapies. Encounters Date Type Department Care Team Description 12/08/2024 2:00 PM EDT Office Visit Adult Medicine [address] [phone] Magdalene Barba MD Medicare annual wellness visit, subsequent (Primary Dx); Primary hypertension; Pre-diabetes; Paroxysmal atrial fibrillation (CMS/HCC) from Last 3 Months Immunizations Name Administration Dates Next Due COVID-19 [...] Mass Index 26.03 12/08/2024 1:51 PM EDT Plan of Treatment Upcoming Encounters Date Type Department Care Team (Late st Contact Info) Description 06/16/2025 3:30 PM EDT Office Visit Adult Medicine - [address] [phone] Julian Caro PA [address] [place] [address] Health Maintenance Due Date Last Done Comments DTaP,Tdap,and Td Vaccines (1 - Tdap) 1959 Pneumococcal Vaccine: 50+ Years (1 of 1 - PCV) 1991 Zoster Vaccines (1 of 2) 1991 RSV Immunization Adult Patients (1 - 1-dose 75+ series) 2016 Social Influencers of Health Screening 08/16/2022 Hypertension/CHF/CAD Annual BMP Blood Test 11/24/2025 11/24/2024, 11/18/2023 Depression Screening 12/08/2025 12/08/2024 Falls Risk Assessment 12/08/2025 12/08/2024 Medicare Annual Wellness Visit 12/08/2025 12/08/2024 Cholesterol Screening (Lipid Panel) 05/15/2028 05/15/2023 Influenza Vaccine Completed 06/08/2024, , 05/30/2022, Additional history exists COVID-19 Vaccine Completed 06/16/2024, 11/2022, 07/08/2022, Additional history exists HIB Vaccines Aged Out [...] Procedure Name Priority Date/Time Associated Diagnosis Comments BASIC METABOLIC PANEL Routine 11/24/2024 11:53 AM EDT Longstanding persistent atrial fibrillation (CMS/HCC) LIPID PANEL Routine 05/15/2023 from Last 3 Months or Most Recently Relevant to Health Maintenance Results * (ABNORMAL) Basic metabolic panel (11/24/2024 11:53 AM EDT) Sodium 138 133 - 145 mmol/L LAB CHEMISTRY METHOD 11/24/2024 3:28 PM [facility] Potassium 3.7 3.5 - 5.5 mmol/L LAB CHEMISTRY METHOD 11/24/2024 3:28 PM [facility] Chloride 102 96 - 110 mmol/L LAB CHEMISTRY METHOD 11/24/2024 3:28 PM [facility] CO2 28 21 - 32 mmol/L LAB CHEMISTRY METHOD 11/24/2024 3:28 PM [facility] Anion Gap 8 3 - 11 LAB CHEMISTRY METHOD 11/24/2024 3:28 PM [facility] Glucose 104(H) 70 - 100 mg/dL LAB CHEMISTRY METHOD 11/24/2024 3:28 PM [facility] BUN 22 5 - 25 mg/dL LAB CHEMISTRY METHOD 11/24/2024 3:28 PM [facility] Creatinine 0.82 0.70 - 1.30 mg/dL LAB CHEMISTRY METHOD 11/24/2024 3:28 PM [facility] eGFR 87 >=60 mL/min/1. 73m2 LAB CHEMISTRY METHOD 11/24/2024 3:28 PM [facility] Comment:Calculation based on the??Chronic Kidney Disease Epidemiology Collaboration (CKD-EPI) equation refit??without adjustment for race. BUN/Creatinine Ratio 26.8 LAB CHEMISTRY METHOD 11/24/2024 3:28 PM [facility] Calcium 9.6 8.5 - 10.5 mg/dL LAB CHEMISTRY METHOD 11/24/2024 3:28 PM [facility] Blood Venous blood specimen / Unknown Venipuncture / Unknown 11/24/2024 11:53 AM EDT 11/24/2024 11:53 AM EDT Armando Gilbert MD LAB BLOOD ORDERABLES F [facility]al [facility] [address] [place] [address], * Lipid panel (05/15/2023) LDL/HDL Ratio 3 0 - 4 Triglycerides 83 0 - 150 mg/dL Cholesterol 151 0 - 200 mg/dL HDL 51 >=40 mg/dL LDL Cholesterol 84 0 - 100 mg/dL Blood Venous blood specimen / Unknown us Historical Provider LAB BLOOD ORDERABLES Tracy l Result from Last 3 Months or Most Recently Relevant to Health Maintenance Insurance [employer] MEDICARE Advance Directives Documents on File Type Date Recorded Patient Rare/Endangered Species Specialist Expl anation Health Care Decision (hx) 12/15/2020 AD [place]GARA DIRECTIVE Health Care Decision (hx) 12/15/2020 AD [place]GARA DIRECTIVE Health Care Decision (hx) 12/15/2020 AD [place]GARA DIRECTIVE Health Care Decision (hx) 12/15/2020 AD [place]GARA DIRECTIVE Health Care Decision (hx) 12/15/2020 AD VERGARA DIRECTIVE Health Care Decision (hx) 12/15/2020 AD VERGARA DIRECTIVE Care Teams Seal Delivery Vehicle Team Technician Relationship Specialty Start Date End Date Magdalene Barba MD [address] [place] [id number] PCP - General Internal Medicine 11/21/21
== END 2024-12-09 13:17 | disposition home or self-care (01) ==
LOC: HO.ACS 13:00
PROVIDERS: PCP Family Medicine; Visit Provider Internal Medicine Medical Oncology
DX: Z79.01 Long term (current) use of anticoagulants (principal)

== ENCOUNTER → 2024-12-09 13:00 | Outpatient (BNVA) | payer MEDICARE, SELFPAY | PROVIDERS: PCP Family Medicine; Visit Provider Internal Medicine Medical Oncology | DX: I48.20 Chronic atrial fibrillation, unspecified (principal); Z51.81 Encounter for therapeutic drug level monitoring; Z79.01 Long term (current) use of anticoagulants | CPT/HCPCS: 85610; 99211 ==

== ENCOUNTER 2025-01-13 13:06 | Outpatient (AMB) | payer MEDICARE, SELFPAY ==
--- OUTSIDE RECORDS SUMMARY | 2025-01-13 13:10 | XMS_ITS | Clinical Summary ---
Author Organization [address] [facility] Address [address] [place] [address] Phone Care Team Providers Care Broommaker Name Role Phone Magdalene Barba MD Primary Care Provider Allergies No known active allergies Medications metoprolol succinate (TOPROL-XL) 50 mg 24 hr tablet Take 1 tablet by mouth once daily 90 tablet 1 5 Active dilTIAZem XR (DILT-XR) 180 mg 24 hr capsule Take 1 capsule by mouth once daily 90 capsule 1 5 Active warfarin (COUMADIN) 5 mg tablet TAKE 1 TABLET BY MOUTH ONCE DAILY MAY CAUSE HEAVY BLEEDING. TAKE AT SAME TIME EVERY DAY. DO NOT CHANGE DIETARY HABITS 90 tablet 1 5 Active hydroCHLOROthi azide 12.5 mg tablet Take 1 tablet by mouth once daily 90 tablet 1 5 Active warfarin (COUMADIN) 5 mg tablet TAKE 1 TABLET BY MOUTH ONCE DAILY *MAY CAUSE HEAVY BLEEDING. TAKE AT SAME TIME EVERY DAY. DO NOT CHANGE DIETARY HABITS.* 4 01/05/20 25 Discontinued hydroCHLOROthi azide 12.5 mg tablet Take 1 tablet by mouth once daily 90 tablet 5 01/04/20 25 Discontinued Active Problems Problem Noted Date Diagnosed Date Aneurysm of ascending aorta (CMS/HCC V24) 2020 Overview (08/17/2024): Last Assessment & Plan: The [...] t4 and free t3; Future Longstanding persistent atri al fibrillation (CMS/HCC V24, CMS/HCC V28) 08/25/2019 Overview (08/17/2024): Last Assessment & Plan: The patient has a history of atrial fibrillation. The patient continues on rate control therapy with metoprolol and diltiazem. Resting heart rate was noted to be adequate. Also, the patient has a [id number] score of 3 and continues on anticoagulation therapy with warfarin. He denies any excessive bruising or bleeding. We will continue current therapies. Encounters Date Type Department Care Team Description 12/08/2024 2:00 PM EDT Office Visit Adult Medicine - [address] [phone] Magdalene Barba MD Medicare annual wellness visit, subsequent (Primary Dx); Primary hypertension; Pre-diabetes; Paroxysmal atrial fibrillation (CMS/HCC V24, [facility] V28) from Last 3 Months Immunizations Name Administration Dates Next Due COVID-19 (Moderna/Spikevax) 12yo and older 06/16/2024,2023 Influenza trivalent, 0.5mL ( Fluad) 65yo and older 06/08/2024,06/05/2023,05/30/2022,2020,06/13/2020 Pfizer SARS-CoV-2 COVID-19, mRNA, LNP-S, preservative free 01/07/2022,08/07/2021,01/04/2021,2020 Surgical History Surgery Date Site/Laterality Comments CATARACT EXTRACTION Left PROCEDURE: HISTORICAL CATARACT REMOVAL; COMMENT: 03/22/2020 Medical History Medical History Date Comments Hypertension DX:Hypertension Atrial fibrillation ([facility] V24, [facility] V28) DX:Atrial fibrillation (HCC) History of tobacco abuse [...] PM EDT Office Visit Adult Medicine - [place] [address] [place] [phone] Julian Caro PA [address] [place] [address] Health Maintenance Due Date Last Done Comments DTaP,Tdap,and Td Vaccines (1 - Tdap) 1959 Pneumococcal Vaccine: 50+ Years (1 of 1 - PCV) 1991 Zoster Vaccines (1 of 2) 1991 RSV Immunization Adult Patients (1 - 1-dose 75+ series) 2016 Social Influencers of Health Screening 08/16/2022 COVID-19 Vaccine ( season) 2024 06/16/2024, 2023, 07/08/2022, Additional history exists Hypertension/CHF/CAD Annual BMP Blood Test 11/24/2025 11/24/2024, 11/18/2023 Depression Screening 12/08/2025 12/08/2024 Falls Risk Assessment 12/08/2025 12/08/2024 Medicare Annual Wellness Visit 12/08/2025 12/08/2024 Cholesterol Screening (Lipid Panel) 05/15/2028 05/15/2023 Influenza Vaccine Completed 06/08/2024, , 05/30/2022, Additional history exists HIB Vaccines Aged Out [...] age to complete this topic Meningococcal B Vaccine Aged Out No l onger eligible based on patient's age to complete this topic RSV Immunization Patients Under 20 months Aged Out No longer eligible based on patient's age to complete this topic Varicella Vaccines Aged Out No longer eligible based on patient's age to complete this topic Procedures Procedure Name Priority Date/Time Associated Diagnosis Comments BASIC METABOLIC PANEL Routine 11/24/2024 11:53 AM EDT Longstanding persistent atrial fibrillation (CMS/HCC V24, CMS/HCC V28) LIPID PANEL Routine 05/15/2023 from Last 3 Months or Most Recently Relevant to Health Maintenance Results * (ABNORMAL) Basic metabolic panel (11/24/2024 11:53 AM EDT) Sodium 138 133 - 145 mmol/L LAB CHEMISTRY METHOD 11/24/2024 3:28 PM [facility] Potassium 3.7 3.5 - 5.5 mmol/L LAB CHEMISTRY METHOD 11/24/2024 3:28 PM [facility] Chloride 102 96 - 110 mmol/L LAB CHEMISTRY METHOD 11/24/2024 3:28 PM [facility] CO2 28 21 - 32 mmol/L LAB CHEMISTRY METHOD 11/24/2024 3:28 PM [facility] Anion Gap 8 3 - 11 LAB CHEMISTRY METHOD 11/24/2024 3:28 PM [facility] Glucose 104(H) 70 - 100 mg/dL LAB CHEMISTRY METHOD 11/24/2024 3:28 PM [facility] BUN 22 5 - 25 mg/dL LAB CHEMISTRY METHOD 11/24/2024 3:28 PM [facility] Creatinine 0.82 0.70 - 1.30 mg/dL LAB CHEMISTRY METHOD 11/24/2024 3:28 PM [facility] eGFR 87 >=60 mL/min/1. 73m2 LAB CHEMISTRY METHOD 11/24/2024 3:28 PM [facility] Comment:Calculation based on the??Chronic Kidney Disease Epidemiology Collaboration (CKD-EPI) equation refit??without adjustment for race. BUN/Creatinine Ratio 26.8 LAB CHEMISTRY METHOD 11/24/2024 3:28 PM EDT [facility] Calcium 9.6 8.5 - 10.5 mg/dL LAB CHEMISTRY METHOD 11/24/2024 3:28 PM EDT [facility] Blood Venous blood specimen / Unknown Venipuncture / Unknown 11/24/2024 11:53 AM EDT 11/24/2024 11:53 AM EDT Armando Gilbert MD LAB BLOOD ORDERABLES F inal Result [facility] ([facility] [address] [place] [address], * Lipid panel (05/15/2023) LDL/HDL Ratio 3 0 - 4 Triglycerides 83 0 - 150 mg/dL Cholesterol 151 0 - 200 mg/dL HDL 51 >=40 mg/dL LDL Cholesterol 84 0 - 100 mg/dL Blood Venous blood specimen / Unknown Historical Provider LAB BLOOD ORDERABLES Tracy l Result from Last 3 Months or Most Recently Relevant to Health Maintenance Insurance [facility] MEDICARE Advance Directives Documents on File Type Date Recorded 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
--- NOTE | 2025-01-13 13:12 | MHC.OFFVISCO ---
Intake Intake Visit Reasons: Anticoagulation Allergies No Known Allergies Allergy (Verified 01/13/25 13:06) Medication List - Last Reconciled 01/13/25 by Bozena Keane RN diltiazem HCl ER (DILT-XR) 180 mg PO DAILY hydrochlorothiazide 12.5 mg PO DAILY metoprolol succinate ER 50 mg PO DAILY warfarin 5 mg See Protocol PO DAILY Nursing Note INR: 2.7 in therapeutic range of 2-3 Medications and supplements reviewed No changes in health, diet, medications, or supplements, Denies any signs and symptoms of bleeding or bruising or clotting. Bleeding, bruising, clotting discussed Nutritional guidance given Dose: 5mg X 6 days and 2.5mg X 1 day () F/U INR: 4 weeks Patient verbalizes understanding of instructions given Coding Level of Care Code Est Patient Level 1 Diagnoses Current use of anticoagulant therapy Z79.01 Results AMB INR Fingerstick AMB INR Fingerstick 2.7 Last Edit by Bozena Keane RN on 01/13/25 13:12 INTERFACE DELAY Assessment & Plan Assessment & Plan (1) Current use of anticoagulant therapy: Code(s): Z79.01 - terminal carman (current) use of anticoagulants Category: Medical
[2025-01-13 13:21] LABS: ~PT, ~INR - Anti Coag Clinic 2.7 (0.9-1.1)
== END 2025-01-13 13:17 | disposition home or self-care (01) ==
LOC: HO.ACS 13:06
PROVIDERS: PCP Family Medicine; Visit Provider Internal Medicine Medical Oncology
DX: Z79.01 Long term (current) use of anticoagulants (principal)

== ENCOUNTER → 2025-01-13 13:06 | Outpatient (BNVA) | payer MEDICARE, SELFPAY | PROVIDERS: PCP Family Medicine; Visit Provider Internal Medicine Medical Oncology | DX: I48.20 Chronic atrial fibrillation, unspecified (principal); Z79.01 Long term (current) use of anticoagulants; Z51.81 Encounter for therapeutic drug level monitoring | CPT/HCPCS: 85610; 99211 ==

== ENCOUNTER 2025-02-10 13:04 | Outpatient (AMB) | payer MEDICARE, SELFPAY ==
--- OUTSIDE RECORDS SUMMARY | 2025-02-10 13:06 | XMS_ITS | Clinical Summary ---
Author Organization LL [address] [facility] Address [address] [place] [address] Phone Care Team Providers Care Flat Folder Name Role Phone Magdalene Barba MD Primary Care Provider Allergies No known active allergies Medications metoprolol succinate (TOPROL-XL) 50 mg 24 hr tablet Take 1 tablet by mouth once daily 90 tablet 1 11/02/2024 Active dilTIAZem XR (DILT-XR) 180 mg 24 hr capsule Take 1 capsule by mouth once daily 90 capsule 1 11/02/2024 Active warfarin (COUMADIN) 5 mg tablet TAKE 1 TABLET BY MOUTH ONCE DAILY MAY CAUSE HEAVY BLEEDING. TAKE AT SAME TIME EVERY DAY. DO NOT CHANGE DIETARY HABITS 90 tablet 1 01/04/2025 Active hydroCHLOROthia zide 12.5 mg tablet Take 1 tablet by mouth once daily 90 tablet 1 01/03/2025 Active Active Problems Problem Noted Date Diagnosed Date Aneurysm of ascending aorta (CMS/[facility] V24) 2020 Overview (08/17/2024): Last Assessment & [...] be adequate. Also, the patient has a [id number] score of 3 and continues on anticoagulation therapy with warfarin. He denies any excessive bruising or bleeding. We will continue current therapies. Encounters Date Type Department Care Team Description 12/08/2024 2:00 PM EDT Office Visit Adult Medicine [address] [phone] Magdalene Barba MD Medicare annual wellness visit, subsequent (Primary Dx); Primary hypertension; Pre-diabetes; Paroxysmal atrial fibrillation (CMS/HCC V24, CMS/HCC V28) from Last 3 Months Immunizations Name Administration Dates Next Due COVID-19 (Moderna/Spikevax) 12yo and older 06/16/2024,2023 Influenza trivalent, 0.5mL ( Fluad) 65yo and older 06/08/2024,06/05/2023,05/30/2022,2020,06/13/2020 Pfizer SARS-CoV-2 COVID-19, mRNA, LNP-S, preservative free 01/07/2022,08/07/2021,01/04/2021,2020 Surgical History Surgery Date Site/Laterality Comments CATARACT EXTRACTION Left PROCEDURE: HISTORICAL CATARACT REMOVAL; COMMENT: 03/22/2020 Medical History Medical History Date Comments Hypertension DX:Hypertension Atrial fibrillation (CMS/HCC V24, CMS/HCC V28) DX:Atrial fibrillation (HCC) History of tobacco [...] PM EDT Office Visit Adult Medicine - [address] [phone] Julian Caro, PA [address] [place] [address] Health Maintenance Due Date Last Done Comments [...] mmol/L LAB CHEMISTRY METHOD 11/24/2024 3:28 PM [facility] Potassium 3.7 3.5 - 5.5 mmol/L LAB CHEMISTRY METHOD 11/24/2024 3:28 PM [facility] Chloride 102 96 - 110 mmol/L LAB CHEMISTRY METHOD 11/24/2024 3:28 PM [facility] CO2 28 21 - 32 mmol/L LAB CHEMISTRY METHOD 11/24/2024 3:28 PM [facility] Anion Gap 8 3 - 11 LAB CHEMISTRY METHOD 11/24/2024 3:28 PM [facility] Glucose 104(H) 70 - 100 mg/dL LAB CHEMISTRY METHOD 11/24/2024 3:28 PM [facility] BUN 22 5 - 25 mg/dL LAB CHEMISTRY METHOD 11/24/2024 3:28 PM [facility] Creatinine 0.82 0.70 - 1.30 mg/dL LAB CHEMISTRY METHOD 11/24/2024 3:28 PM [facility] eGFR 87 >=60 mL/min/1. 73m2 LAB CHEMISTRY METHOD 11/24/2024 3:28 PM [facility] Comment:Calculation based on the??Chronic Kidney Disease Epidemiology Collaboration (CKD-EPI) equation refit??without adjustment for race. BUN/Creatinine Ratio 26.8 LAB CHEMISTRY METHOD 11/24/2024 3:28 PM [facility] Calcium 9.6 8.5 - 10.5 mg/dL LAB CHEMISTRY METHOD 11/24/2024 3:28 PM EDT [facility] Blood Venous blood specimen / Unknown Venipuncture / Unknown 11/24/2024 11:53 AM EDT 11/24/2024 11:53 AM EDT Armando Gilbert MD LAB BLOOD ORDERABLES F inal Result [facility] [address] [place] [address], * Lipid panel (05/15/2023) LDL/HDL Ratio 3 0 - 4 Triglycerides 83 0 - 150 mg/dL Cholesterol 151 0 - 200 mg/dL HDL 51 >=40 mg/dL LDL Cholesterol 84 0 - 100 mg/dL Blood Venous blood specimen / Unknown Historical Provider LAB BLOOD ORDERABLES Tracy l Result from Last 3 Months or Most Recently Relevant to Health Maintenance Insurance [employer] [place] [address] Advance Directives Documents on File Type Date Recorded 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
[2025-02-10 13:10] LABS: Prothrombin Time Whole Bld POC 26.5 sec (11.1-13.5); ~PT, ~INR - Anti Coag Clinic 2.2 (0.9-1.1)
--- NOTE | 2025-02-10 13:16 | MHC.OFFVISCO ---
Intake Intake Visit Reasons: Anticoagulation Allergies No Known Allergies Allergy (Verified 02/10/25 13:05) Medication List - Last Reconciled 02/10/25 by Bozena Keane, RN diltiazem HCl ER (DILT-XR) 180 mg PO DAILY hydrochlorothiazide 12.5 mg PO DAILY metoprolol succinate ER 50 mg PO DAILY warfarin 5 mg See Protocol PO DAILY Nursing Note INR: 2.2 in therapeutic range of 2-3 Medications and supplements reviewed No changes in health, diet, medications, or supplements, Denies any signs and symptoms of bleeding or bruising or clotting. Bleeding, bruising, clotting discussed Nutritional guidance given to avoid greens today and to focus on foods that raise INR. Food list reviewed. 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
== END 2025-02-10 13:19 | disposition home or self-care (01) ==
LOC: HO.ACS 13:04
PROVIDERS: PCP Family Medicine; Visit Provider Internal Medicine Medical Oncology
DX: Z79.01 Long term (current) use of anticoagulants (principal)

== ENCOUNTER → 2025-02-10 13:04 | Outpatient (BNVA) | payer MEDICARE, SELFPAY | PROVIDERS: PCP Family Medicine; Visit Provider Internal Medicine Medical Oncology | DX: I48.20 Chronic atrial fibrillation, unspecified (principal); Z79.01 Long term (current) use of anticoagulants; Z51.81 Encounter for therapeutic drug level monitoring | CPT/HCPCS: 85610; 99211 ==

== ENCOUNTER 2025-03-17 13:02 | Outpatient (AMB) | payer MEDICARE, SELFPAY ==
--- OUTSIDE RECORDS SUMMARY | 2025-03-17 13:06 | XMS_ITS | Clinical Summary ---
Author Organization LL [address] [facility] Address [address] [place] [address] Phone Care Team Providers Care Adjunct Professor Name Role Phone Magdalene Barba MD Primary [...] Date Diagnosed Date Aneurysm of ascending aorta (CMS/[facility] V24) 2020 Overview (08/17/2024): Last Assessment & [...] be adequate. Also, the patient has a [id number] score of 3 and continues on anticoagulation [...] 84 12/08/2024 1:51 PM EDT Temperature 36.1 C (97 F) 12/08/2024 1:51 PM EDT Respiratory Rate - [...] PM EDT Office Visit Adult Medicine - [address] [phone] Julian Caro PA [address] [place] [address] Health Maintenance Due Date Last Done Comments DTaP,Tdap,and Td Vaccines (1 - Tdap) 1959 Pneumococcal Vaccine: 50+ Years (1 of 1 - PCV) 1991 Zoster Vaccines (1 of 2) 1991 RSV Immunization Adult Patients (1 - 1-dose 75+ series) 2016 Social Influencers of Health Screening 08/16/2022 COVID-19 Vaccine ( season) 2024 06/16/2024, 2023, 07/08/2022, Additional history exists Influenza Vaccine (#1) 2025 , 06/05/2023, 05/30/2022, Additional history exists Hypertension/CHF/CAD Annual BMP Blood Test 11/24/2025 11/24/2024, 11/18/2023 Depression Screening 12/08/2025 12/08/2024 Falls Risk Assessment 12/08/2025 12/08/2024 Medicare Annual Wellness Visit 12/08/2025 12/08/2024 Cholesterol Screening (Lipid Panel) 05/15/2028 05/15/2023 HIB Vaccines Aged Out No longer eligi [...] mmol/L LAB CHEMISTRY METHOD 11/24/2024 3:28 PM [facility] Potassium 3.7 3.5 - 5.5 mmol/L LAB CHEMISTRY METHOD 11/24/2024 3:28 PM [facility] Chloride 102 96 - 110 mmol/L LAB CHEMISTRY METHOD 11/24/2024 3:28 PM [facility] CO2 28 21 - 32 mmol/L LAB CHEMISTRY METHOD 11/24/2024 3:28 PM [facility] Anion Gap 8 3 - 11 LAB CHEMISTRY METHOD 11/24/2024 3:28 PM [facility] Glucose 104(H) 70 - 100 mg/dL LAB CHEMISTRY METHOD 11/24/2024 3:28 PM [facility] BUN 22 5 - 25 mg/dL LAB CHEMISTRY METHOD 11/24/2024 3:28 PM [facility] Creatinine 0.82 0.70 - 1.30 mg/dL LAB CHEMISTRY METHOD 11/24/2024 3:28 PM [facility] eGFR 87 >=60 mL/min/1. 73m2 LAB CHEMISTRY METHOD 11/24/2024 3:28 PM [facility] Comment:Calculation based on the Chronic Kidney Disease Epidemiology Collaboration (CKD-EPI) equation refit without adjustment for race. 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
[2025-03-17 13:08] LABS: Prothrombin Time Whole Bld POC 32.8 sec (11.1-13.5); ~PT, ~INR - Anti Coag Clinic 2.7 (0.9-1.1)
--- NOTE | 2025-03-17 13:15 | MHC.OFFVISCO ---
Intake Intake Visit Reasons: Anticoagulation Allergies No Known Allergies Allergy (Verified 03/17/25 13:02) Medication List - Last Reconciled 03/17/25 by Bozena Keane RN diltiazem HCl ER (DILT-XR) 180 mg PO DAILY hydrochlorothiazide 12.5 mg PO DAILY metoprolol succinate ER 50 mg PO DAILY warfarin 5 mg See Protocol PO DAILY Nursing Note INR: 2.7 in therapeutic range of 2-3 Medications and supplements reviewed No changes in health, diet, medications, or supplements, Denies any signs and symptoms of bleeding or bruising or clotting. Bleeding, bruising, clotting discussed Nutritional guidance given Dose: 5mg X 6 days and 2.5mg X 1 day () F/U INR: 5 weeks per pt request Patient verbalizes understanding of instructions given Coding Level of Care Code Est Patient Level 1 Diagnoses Current use of anticoagulant therapy Z79.01 Results AMB INR Fingerstick AMB INR Fingerstick 2.7 Last Edit by Bozena Keane RN on 03/17/25 13:07 interface delay Assessment & Plan Assessment & Plan (1) Current use of anticoagulant therapy: Code(s): Z79.01 - [facility] (current) use of anticoagulants Category: Medical
== END 2025-03-17 13:35 | disposition home or self-care (01) ==
LOC: HO.ACS 13:02
PROVIDERS: PCP Family Medicine; Visit Provider Internal Medicine Medical Oncology
DX: Z79.01 Long term (current) use of anticoagulants (principal)

== ENCOUNTER → 2025-03-17 13:02 | Outpatient (BNVA) | payer MEDICARE, SELFPAY | PROVIDERS: PCP Family Medicine; Visit Provider Internal Medicine Medical Oncology | DX: I48.20 Chronic atrial fibrillation, unspecified (principal); Z79.01 Long term (current) use of anticoagulants; Z51.81 Encounter for therapeutic drug level monitoring | CPT/HCPCS: 85610; 99211 ==

== ENCOUNTER 2025-04-21 13:03 | Outpatient (AMB) | payer MEDICARE, SELFPAY ==
--- OUTSIDE RECORDS SUMMARY | 2025-04-21 13:04 | XMS_ITS | Clinical Summary ---
Author Organization LL [address] [facility] Address [address] [place] [address] Phone Care Team Providers Care Title Agent Name Role Phone Magdalene Barba MD Primary [...] Date Diagnosed Date Aneurysm of ascending aorta (CMS/[facility] V24) 2020 Overview (08/17/2024): Last Assessment & [...] be adequate. Also, the patient has a [id number] score of 3 and continues on anticoagulation therapy with warfarin. He denies any excessive bruising or bleeding. We will continue current therapies. Encounters Date Type Department Care Team Description 04/10/2025 Telephone Adult Medicine [address] [phone] Magdalene Barba MD Faxed Order- INR renewal form from Last 3 Months Immunizations Name Administration [...] PM EDT Office Visit Adult Medicine - [place] [address] [place] [phone] Julian Caro PA [address] [place] [address] Health Maintenance Due Date Last Done Comments DTaP,Tdap,and Td Vaccines (1 - Tdap) 1959 Pneumococcal Vaccine: 50+ Years (1 of 1 - PCV) 1991 Zoster Vaccines (1 of 2) 1991 RSV Immunization Adult Patients (1 - 1-dose 75+ series) 2016 Social Influencers of Health Screening 08/16/2022 COVID-19 Vaccine (8 - season) 2024 06/16/2024, 2023, 07/08/2022, Additional history exists Influenza Vaccine (#1) 2025 , 06/05/2023, 05/30/2022, Additional history exists Hypertension/CHF/CAD Annual BMP Blood Test 11/24/2025 11/24/2024, 11/18/2023 Falls Risk Assessment 12/08/2025 12/08/2024 Medicare Annual Wellness Visit 12/08/2025 12/08/2024 Cholesterol Screening (Lipid Panel) 05/15/2028 05/15/2023 Depression Screening Completed 12/08/2024 HIB Vaccines Aged Out No longer eligi [...] mmol/L LAB CHEMISTRY METHOD 11/24/2024 3:28 PM [facility] Potassium 3.7 3.5 - 5.5 mmol/L LAB CHEMISTRY METHOD 11/24/2024 3:28 PM [facility] Chloride 102 96 - 110 mmol/L LAB CHEMISTRY METHOD 11/24/2024 3:28 PM [facility] CO2 28 21 - 32 mmol/L LAB CHEMISTRY METHOD 11/24/2024 3:28 PM [facility] Anion Gap 8 3 - 11 LAB CHEMISTRY METHOD 11/24/2024 3:28 PM [facility] Glucose 104(H) 70 - 100 mg/dL LAB CHEMISTRY METHOD 11/24/2024 3:28 PM [facility] BUN 22 5 - 25 mg/dL LAB CHEMISTRY METHOD 11/24/2024 3:28 PM [facility] Creatinine 0.82 0.70 - 1.30 mg/dL LAB CHEMISTRY METHOD 11/24/2024 3:28 PM [facility] eGFR 87 >=60 mL/min/1. 73m2 LAB CHEMISTRY METHOD 11/24/2024 3:28 PM [facility] Comment:Calculation based on the Chronic Kidney Disease Epidemiology Collaboration (CKD-EPI) equation refit without adjustment for race. BUN/Creatinine Ratio 26.8 LAB CHEMISTRY METHOD 11/24/2024 3:28 PM [facility] Calcium 9.6 8.5 - 10.5 mg/dL LAB CHEMISTRY METHOD 11/24/2024 3:28 PM [facility] Blood Venous blood specimen / Unknown Venipuncture / Unknown 11/24/2024 11:53 AM EDT 11/24/2024 11:53 AM EDT Armando Gilbert MD LAB BLOOD ORDERABLES F inal Result [facility] [address] [place] [address], [place] [phone] * Lipid panel (05/15/2023) LDL/HDL Ratio 3 0 - 4 Triglycerides 83 0 - 150 mg/dL Cholesterol 151 0 - 200 mg/dL HDL 51 >=40 mg/dL LDL Cholesterol 84 0 - 100 mg/dL Blood Venous blood specimen / Unknown Historical Provider LAB BLOOD ORDERABLES Tracy l Result from Last 3 Months or Most Recently Relevant to Health Maintenance Insurance [facility] MEDICARE Advance Directives Documents on File Type Date Recorded Patient K 12 Principal Expl anation Health Care Decision (hx) 12/15/2020 AD VERGARA DIRECTIVE Health Care Decision (hx) 12/15/2020 AD VERGARA DIRECTIVE Health Care Decision (hx) 12/15/2020 AD VERGARA DIRECTIVE Health Care Decision (hx) 12/15/2020 AD VERGARA DIRECTIVE Health Care Decision (hx) 12/15/2020 AD VERGARA DIRECTIVE Health Care Decision (hx) 12/15/2020 AD VERGARA DIRECTIVE Care Teams Title Agent Relationship Specialty Start Date End Date Magdalene Barba MD [address] [place] [address] PCP - General Internal Medicine 11/21/21
[2025-04-21 13:09] LABS: Prothrombin Time Whole Bld POC 26.3 sec (11.1-13.5); ~PT, ~INR - Anti Coag Clinic 2.2 (0.9-1.1)
--- NOTE | 2025-04-21 13:22 | MHC.OFFVISCO ---
Intake Intake Visit Reasons: Anticoagulation Allergies No Known Allergies Allergy (Verified 04/21/25 13:05) Medication List - Last Reconciled 04/21/25 by Vicky Wade RN diltiazem HCl ER (DILT-XR) 180 mg PO DAILY hydrochlorothiazide 12.5 mg PO DAILY metoprolol succinate ER 50 mg PO DAILY warfarin 5 mg See Protocol PO DAILY Nursing Note NO CP,SOB,DIET/MED CHANGES,FALLS OR SX OF BLEEDING. CONTINUR PRESENT DOSING AND FOLLOW-UP IN 4 WEEKS GOOD UNDERSTANDING OF DOSING INSTR. 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
== END 2025-04-21 13:31 | disposition home or self-care (01) ==
LOC: HO.ACS 13:03
PROVIDERS: PCP Family Medicine; Visit Provider Internal Medicine Medical Oncology
DX: Z79.01 Long term (current) use of anticoagulants (principal)

== ENCOUNTER → 2025-04-21 13:03 | Outpatient (BNVA) | payer MEDICARE, SELFPAY | PROVIDERS: PCP Family Medicine; Visit Provider Internal Medicine Medical Oncology | DX: Z51.81 Encounter for therapeutic drug level monitoring (principal); Z79.01 Long term (current) use of anticoagulants | CPT/HCPCS: 85610; 99211 ==

== ENCOUNTER 2025-05-19 13:05 | Outpatient (AMB) | payer MEDICARE, SELFPAY ==
[2025-05-19 13:10] LABS: Prothrombin Time Whole Bld POC 31.3 sec (11.1-13.5); ~PT, ~INR - Anti Coag Clinic 2.6 (0.9-1.1)
--- NOTE | 2025-05-19 13:17 | MHC.OFFVISCO ---
Intake Intake Visit Reasons: Anticoagulation Allergies No Known Allergies Allergy (Verified 05/19/25 13:06) Medication List - Last Reconciled 05/19/25 by Bozena Keane, TRUDY diltiazem HCl ER (DILT-XR) 180 mg PO DAILY hydrochlorothiazide 12.5 mg PO DAILY metoprolol succinate ER 50 mg PO DAILY warfarin 5 mg See Protocol PO DAILY Nursing Note INR: 2.6 in therapeutic range of 2-3 Medications and supplements reviewed No changes in health, diet, medications, or supplements, Denies any signs and symptoms of bleeding or bruising or clotting. Bleeding, bruising, clotting discussed Nutritional guidance given Dose: 5mg X 6 days and 2.5mg X 1 day () F/U INR: 5 weeks Patient verbalizes understanding of instructions given Coding Level of Care Code Est Patient Level 1 Diagnoses Current use of anticoagulant therapy Z79.01 Assessment & Plan Assessment & Plan (1) Current use of anticoagulant therapy: Code(s): Z79.01 - prison (current) use of anticoagulants Category: Medical
--- OUTSIDE RECORDS SUMMARY | 2025-05-19 15:37 | XMS_ITS | Clinical Summary ---
Author Organization [address] [facility] Address [address] [place] [address] Phone Care Team Providers Care Sales Support Advisor Name Role Phone Magdalene Barba MD Primary [...] once daily 90 tablet 1 5 Active metoprolol succinate (TOPROL-XL) 50 mg 24 hr tablet Take 1 tablet by mouth once daily 90 tablet 1 5 Active dilTIAZem XR (DILT-XR) 180 mg 24 hr capsule Take 1 capsule by mouth once daily 90 capsule 1 5 Active metoprolol succinate (TOPROL-XL) 50 mg 24 hr tablet Take 1 tablet by mouth once daily 90 tablet 1 5 05/04/20 25 Discontinued dilTIAZem XR (DILT-XR) 180 mg 24 hr capsule Take 1 capsule by mouth once daily 90 capsule 1 5 05/04/20 25 Discontinued Active Problems Problem Noted Date [...] be adequate. Also, the patient has a [id number] score of 3 and continues on anticoagulation therapy with warfarin. He denies any excessive bruising or bleeding. We will continue current therapies. Encounters Date Type Department Care Team Description 04/10/2025 Telephone Adult Medicine - [address] [address] Magdalene Barba MD from Last 3 Months Immunizations Name Administration [...] Upcoming Encounters Date Type Department Care Team ([facility] st Contact Info) Description 06/16/2025 3:30 PM EDT Office Visit Adult Medicine [address] [address] Julian Caro PA [facility] [place] [address] Health Maintenance Due Date Last Done Comments DTaP,Tdap,and Td Vaccines (1 - Tdap) 1960 Pneumococcal Vaccine: 50+ Years (1 of 1 - PCV) 1991 Zoster Vaccines (1 of 2) 1991 RSV Immunization Adult Patients (1 - 1-dose 75+ series) 2016 Social Influencers of Health Screening 08/16/2022 COVID-19 Vaccine ( season) 2025 06/16/2024, 2023, 07/08/2022, Additional history exists Influenza Vaccine (#1) 2025 , 06/05/2023, 05/30/2022, Additional history exists Falls Risk Assessment 12/08/2025 12/08/2024 Medicare Annual Wellness Visit 12/08/2025 12/08/2024 Hypertension/CHF/CAD Annual BMP Blood Test 05/17/2026 05/17/2025, 11/24/2024, 11/18/2023 Cholesterol Screening (Lipid Panel) 05/17/2030 05/17/2025, 05/15/2023 Depression Screening Completed 12/08/2024 HIB Vaccines [...] Procedure Name Priority Date/Time Associated Diagnosis Comments CBC WITH AUTO DIFFERENTIAL Routine 05/17/2025 12:04 PM EDT Medicare annual wellness visit, subsequent Primary hypertension Pre-diabetes Paroxysmal atrial fibrillation ([facility]/HCC V24, CMS/HCC V28) THYROID STIMULATING HORMONE WITH REFLEX TO FREE T4 AND FREE T3 Routine 05/17/2025 12:04 PM EDT Medicare annual wellness visit, subsequent Primary hypertension Pre-diabetes Paroxysmal atrial fibrillation ([facility]/HCC V24, CMS/HCC V28) HEMOGLOBIN A1C Routine 05/17/2025 12:04 PM EDT Medicare annual wellness visit, subsequent Primary hypertension Pre-diabetes Paroxysmal atrial fibrillation (CMS/HCC V24, CMS/HCC V28) CBC AND DIFFERENTIAL Routine 05/17/2025 12:04 PM EDT Medicare annual wellness visit, subsequent Primary hypertension Pre-diabetes Paroxysmal atrial fibrillation (CMS/HCC V24, CMS/HCC V28) LIPID PANEL WITH REFLEX TO DIRECT LDL Routine 05/17/2025 12:04 PM EDT Medicare annual wellness visit, subsequent Primary hypertension Pre-diabetes Paroxysmal atrial fibrillation (CMS/HCC V24, CMS/HCC V28) COMPREHENSIVE METABOLIC PANEL Routine 05/17/2025 12:04 PM EDT Medicare annual wellness visit, subsequent Primary hypertension Pre-diabetes Paroxysmal atrial fibrillation ([facility]/HCC V24, CMS/HCC V28) from Last 3 Months Results * Thyroid stimulating hormone with reflex to free t4 and free t3 (05/17/2025 12:04 PM EDT) TSH 2.75 0.40 - 4.00 mcIU/mL LAB CHEMISTRY METHOD 05/17/2025 2:26 PM EDT [facility] ([facility]) [facility] Blood Venous blood specimen / Unknown Venipuncture / Unknown 05/17/2025 12:04 PM EDT 05/17/2025 12:04 PM EDT us Magdalene Barba MD LAB BLOOD ORDERABLES F inal Result Performing Organization Address City/[facility]/ZIP Co de Phone Number [facility] [address] [place] [address], [place] [phone] * Lipid panel with reflex to direct LDL (05/17/2025 12:04 PM EDT) Cholesterol 137 0 - 200 mg/dL LAB CHEMISTRY METHOD 05/17/2025 1:48 PM EDT [facility] Triglycerides 66 0 - 150 mg/dL LAB CHEMISTRY METHOD 05/17/2025 1:48 PM EDT [facility] HDL 63 >=40 mg/dL LAB CHEMISTRY METHOD 05/17/2025 1:48 PM EDT [facility] LDL Calculated 61 0 - 100 mg/dL LAB CHEMISTRY METHOD 05/17/2025 1:48 PM EDT [facility] Comment:Estimated LDL Calcul ated using equation: Total cholesterol - HDL cholesterol - (Triglycerides/5) VLDL Cholesterol Kavon 13.2 mg/dL LAB CHEMISTRY METHOD 05/17/2025 1:48 PM EDT [facility] Non HDL Chol. (LDL+VLDL) 74 <145 mg/dL LAB CHEMISTRY METHOD 05/17/2025 1:48 PM EDT [facility] Chol/HDL Ratio 2.2 0.0 - 4.4 LAB CHEMISTRY METHOD 05/17/2025 1:48 PM EDT [facility] Blood Venous blood specimen / Unknown Venipuncture / Unknown 05/17/2025 12:04 PM EDT 05/17/2025 12:04 PM EDT Magdalene Barba MD LAB BLOOD ORDERABLES F inal Result [facility] [address] [place] [address], [place] [phone] * (ABNORMAL) CBC auto differential (05/17/2025 12:04 PM EDT) [facility] WBC 8.4 4.8 - 10.8 K/mcL LAB HEMETOLOGY METHOD 05/17/2025 1:38 PM EDT [facility] RBC 4.70 4.50 - 5.50 M/mcL LAB HEMETOLOGY METHOD 05/17/2025 1:38 PM EDT [facility] Hemoglobin 14.6 13.5 - 17.5 g/dL LAB HEMETOLOGY METHOD 05/17/2025 1:38 PM EDT [facility] Hematocrit 44.9 42.0 - 54.0 % LAB HEMETOLOGY METHOD 05/17/2025 1:38 PM EDT [facility] MCV 94.7 79.0 - 98.0 FL LAB HEMETOLOGY METHOD 05/17/2025 1:38 PM [facility] MCH 30.8 27.0 - 32.0 pcg LAB HEMETOLOGY METHOD 05/17/2025 1:38 PM EDT [facility] MCHC 32.5 32.0 - 37.0 g/dL LAB HEMETOLOGY METHOD 05/17/2025 1:38 PM EDT [facility] RDW 15.3(H) 11.0 - 15.0 % LAB HEMETOLOGY METHOD 05/17/2025 1:38 PM EDT [facility] Platelets 184 130 - 400 K/mcL LAB HEMETOLOGY METHOD 05/17/2025 1:38 PM EDT [facility] MPV 12.1(H) 7.0 - 11.0 FL LAB HEMETOLOGY METHOD 05/17/2025 1:38 PM EDT [facility] NRBC 0.0 <1.0 % LAB HEMETOLOGY METHOD 05/17/2025 1:38 PM EDT [facility] NRBC Absolute 0.00 <0.10 K/[facility] LAB HEMETOLOGY METHOD 05/17/2025 1:38 PM [facility] Neutrophils Relative 67.3 % LAB HEMETOLOGY METHOD 05/17/2025 1:38 PM [facility] Lymphocytes Relative 22.6 % LAB HEMETOLOGY METHOD 05/17/2025 1:38 PM [facility] Monocytes Relative 7.3 % LAB HEMETOLOGY METHOD 05/17/2025 1:38 PM [facility] Eosinophils Relative 1.3 % LAB HEMETOLOGY METHOD 05/17/2025 1:38 PM [facility] Basophils Relative 1.1 % LAB HEMETOLOGY METHOD 05/17/2025 1:38 PM [facility] Immature Granulocytes Relative 0.4 % LAB HEMETOLOGY METHOD 05/17/2025 1:38 PM [facility] Neutrophils Absolute 5.65 1.50 - 7.00 K/mcL LAB HEMETOLOGY METHOD 05/17/2025 1:38 PM [facility] Lymphocytes Absolute 1.90 1.00 - 5.00 K/mcL LAB HEMETOLOGY METHOD 05/17/2025 1:38 PM [facility] Monocytes Absolute 0.61 0.20 - 1.00 K/mcL LAB HEMETOLOGY METHOD 05/17/2025 1:38 PM [facility] Eosinophils Absolute 0.11 0.00 - 0.50 K/mcL LAB HEMETOLOGY METHOD 05/17/2025 1:38 PM [facility] Basophils Absolute 0.09 0.00 - 0.20 K/mcL LAB HEMETOLOGY METHOD 05/17/2025 1:38 PM [facility] Immature Granulocytes Absolute 0.03 0.00 - 0.03 K/mcL LAB HEMETOLOGY METHOD 05/17/2025 1:38 PM [facility] Blood Venous blood specimen / Unknown Venipuncture / Unknown 05/17/2025 12:04 PM EDT 05/17/2025 12:04 PM EDT Magdalene Barba MD LAB BLOOD ORDERABLES F inal Result Performing Organization Address [facility]/ZIP Co de Phone Number [facility] [address] [place] [address], [place] [phone] * Hemoglobin A1c (05/17/2025 12:04 PM EDT) [facility] Hemoglobin A1C 6.3 <6.5 % LAB CHEMISTRY METHOD 05/17/2025 9:41 PM EDT [facility] Mean Bld Glu Estim. 134 mg/dL LAB CHEMISTRY METHOD 05/17/2025 9:41 PM EDT [facility] Blood Venous blood specimen / Unknown Venipuncture / Unknown 05/17/2025 12:04 PM EDT 05/17/2025 12:04 PM EDT Magdalene Barba MD LAB BLOOD ORDERABLES F inal Result Performing Organization Address [facility]/ZIP Co de Phone Number [facility] [address] [place] [address], [place] [phone] * (ABNORMAL) Comprehensive metabolic panel (05/17/2025 12:04 PM EDT) [facility] Sodium 140 133 - 145 mmol/L LAB CHEMISTRY METHOD 05/17/2025 1:48 PM EDT [facility] Potassium 4.0 3.5 - 5.5 mmol/L LAB CHEMISTRY METHOD 05/17/2025 1:48 PM EDT [facility] Chloride 105 96 - 110 mmol/L LAB CHEMISTRY METHOD 05/17/2025 1:48 PM EDT [facility] CO2 32 21 - 32 mmol/L LAB CHEMISTRY METHOD 05/17/2025 1:48 PM [facility] Anion Gap 3 3 - 11 LAB CHEMISTRY METHOD 05/17/2025 1:48 PM [facility] Glucose 111(H) 70 - 100 mg/dL LAB CHEMISTRY METHOD 05/17/2025 1:48 PM [facility] BUN 22 5 - 25 mg/dL LAB CHEMISTRY METHOD 05/17/2025 1:48 PM [facility] Creatinine 0.90 0.70 - 1.30 mg/dL LAB CHEMISTRY METHOD 05/17/2025 1:48 PM [facility] eGFR 85 >=60 mL/min/1. 73m2 LAB CHEMISTRY METHOD 05/17/2025 1:48 PM [facility] Comment:Calculation based on the Chronic Kidney Disease Epidemiology Collaboration (CKD-EPI) equation refit without adjustment for race. BUN/Creatinine Ratio 24.4 LAB CHEMISTRY METHOD 05/17/2025 1:48 PM [facility] Calcium 9.5 8.5 - 10.5 mg/dL LAB CHEMISTRY METHOD 05/17/2025 1:48 PM [facility] AST (SGOT) 21 10 - 42 unit/L LAB CHEMISTRY METHOD 05/17/2025 1:48 PM [facility] ALT (SGPT) 12 10 - 60 unit/L LAB CHEMISTRY METHOD 05/17/2025 1:48 PM [facility] Alkaline Phosphatase 86 42 - 121 unit/L LAB CHEMISTRY METHOD 05/17/2025 1:48 PM [facility] Total Protein 7.3 6.0 - 8.0 g/dL LAB CHEMISTRY METHOD 05/17/2025 1:48 PM [facility] Albumin 4.0 3.2 - 5.0 g/dL LAB CHEMISTRY METHOD 05/17/2025 1:48 PM [facility] Total Bilirubin 0.5 0.0 - 1.4 mg/dL LAB CHEMISTRY METHOD 05/17/2025 1:48 PM EDT [facility] ([facility] Blood Venous blood specimen / Unknown Venipuncture / Unknown 05/17/2025 12:04 PM EDT 05/17/2025 12:04 PM EDT Magdalene Barba MD LAB BLOOD ORDERABLES F inal Result [facility] ([facility]) [facility] [address] [place] [address], [place] [phone] from Last 3 Months Insurance [employer] MEDICARE Advance Directives Documents on File Type Date Recorded Patient Motion Study Analyst Expl anation Health Care Decision (hx) 12/15/2020 AD VERGARA DIRECTIVE Health Care Decision (hx) 12/15/2020 AD VERGARA DIRECTIVE Health Care Decision (hx) 12/15/2020 AD VERGARA DIRECTIVE Health Care Decision (hx) 12/15/2020 AD VERGARA DIRECTIVE Health Care Decision (hx) 12/15/2020 AD VERGARA DIRECTIVE Health Care Decision (hx) 12/15/2020 AD VERGARA DIRECTIVE Care Teams Sales Support Advisor Relationship Specialty Start Date End Date Magdalene Barba MD [address] [place] [id number] PCP - General Internal Medicine 11/21/21
== END 2025-05-19 13:19 | disposition home or self-care (01) ==
LOC: HO.ACS 13:05
PROVIDERS: PCP Family Medicine; Visit Provider Internal Medicine Medical Oncology
DX: Z79.01 Long term (current) use of anticoagulants (principal)

== ENCOUNTER → 2025-05-19 13:05 | Outpatient (BNVA) | payer MEDICARE, SELFPAY | PROVIDERS: PCP Family Medicine; Visit Provider Internal Medicine Medical Oncology | DX: Z51.81 Encounter for therapeutic drug level monitoring (principal); Z79.01 Long term (current) use of anticoagulants | CPT/HCPCS: 85610; 99211 ==

== ENCOUNTER 2025-06-23 13:02 | Outpatient (AMB) | payer MEDICARE, SELFPAY ==
[2025-06-23 13:08] LABS: Prothrombin Time Whole Bld POC 41.7 sec (11.1-13.5); ~PT, ~INR - Anti Coag Clinic 3.5 (0.9-1.1)
--- NOTE | 2025-06-23 13:14 | MHC.OFFVISCO ---
Intake Intake Visit Reasons: Anticoagulation Allergies No Known Allergies Allergy (Verified 06/23/25 13:03) Medication List - Last Reconciled 06/23/25 by Bozena Keane RN diltiazem HCl ER (DILT-XR) 180 mg PO DAILY hydrochlorothiazide 12.5 mg PO DAILY metoprolol succinate ER 50 mg PO DAILY warfarin 5 mg See Protocol PO DAILY Nursing Note INR: 3.5 out of therapeutic range 2-3 Medications and supplements reviewed Patient status: Pt does not feel well. States he has a pain in left mid back radiating to the front on left moving up to chest and shoulder. States it is gas. States has been having it for a week. Has been taking tylenol. Is here with a family member and is going to the ER at [facility] when he leaves here. Denies SOB, Denies nausea. Pt states he has held 2 doses of warfarin due to taking tylenol. Skin warm and dry. Medications or supplements: no Diet: states has not been eating Denies any signs and symptoms of bleeding or clotting or unusual bruising Bleeding, bruising, clotting discussed Dose: decrease today's dose to 2.5mg (5mg) then 5mg X 6 days and 2.5mg X 1 day () F/U INR Date: 4 weeks. Preferred 2 weeks but pt refused? Patient verbalizing understanding of instructions given. 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
--- OUTSIDE RECORDS SUMMARY | 2025-06-23 15:25 | XMS_ITS | Encounter Summary ---
Author Organization [facility] Address [address] [place] [address] Care Team Providers Care Size Changer Name Role Phone Magdalene Barba MD Primary Care Provider Reason for Visit * Reason Comments Abdominal Pain Abdominal Pain x 10 days Encounter Details Date Type Department Care Team (Late st Contact Info) Description 06/23/2025 3:25 PM EDT - Present Emergency [facility] Emergency [address] [place] [phone] Concetta Artis MD [address] [place] [address] Chest pain, unspecified type (Primary Dx); Acute bilateral back pain, unspecified back location Social History Tobacco Use Types Packs/Day Years [...] Sign Reading Time Taken Comments Blood Pressure 158/103 06/23/2025 2:08 PM EDT Pulse 73 06/23/2025 2:08 PM EDT Temperature 36.5 C (97.7 F) 06/23/2025 2:08 PM EDT Respiratory Rate 18 06/23/2025 2:08 PM EDT Oxygen Saturation 96% 06/23/2025 2:08 PM EDT Inhaled Oxygen Concentration - - Weight 84.4 kg (186 lb) 06/23/2025 2:08 PM EDT Height 180.3 cm (5' 11 ) 06/23/2025 2:08 PM EDT Body Mass Index 25.94 06/23/2025 2:08 PM EDT documented in this encounter Functional Status * Calculated C-SSRS Risk Score (Lifetime/Recent) Answer Date of Assessment Author No Risk Indicated 06/23/2025 2:07 PM EDT Yonathan Mejía RN * [place] Suicide Severity Rating Scale (Screener/Recent Self-Report) Question Answer Date of Assessment Author 1. Wish to be (Past 1 Month) No 025 2:07 PM EDT Yonathan Mejía RN 2. Non-Specific Active Suici ben Thoughts (Past 1 Month) No 06/23/2025 2:07 PM EDT Yonathan Mejía RN 6. Suicidal Behavior (Lifetime) No 2:07 PM EDT Yonathan Mejía RN documented as of this encounter Progress Notes * Yonathan Mejía RN - 06/23/2025 2:07 PM EDT Patient states that he has had back/abdominal pain for one week. States he thought it was gas . Butunable to get rid of . States some chest pressure documented in this encounter Plan of Treatment Upcoming Encounters Date Type Department Care Team (Late st Contact Info) Description 12/15/2025 2:30 PM EDT Office Visit Adult Medicine - [place] [address] [place] [address] Magdalene Barba MD [address] [place] [address] Pending Results Name Type Priority Associated Diagnoses Date /Time ECG 12 lead ECG STAT 06/23/2025 2: 14 PM EDT Troponin I high sensitivity Lab Timed 06/23/2025 3:20 PM EDT CBC and differential Lab STAT 06/07 3:20 PM EDT Comprehensive metabolic panel Lab STAT 06/23/2025 3:20 PM EDT Lipase Lab STAT 06/23/2025 3:2 0 PM EDT Magnesium Lab STAT 06/23/2025 3:2 0 PM EDT B-type natriuretic peptide Lab STAT 06/23/2025 3:20 PM EDT CBC auto differential Lab STAT 3:20 PM EDT Scheduled Orders Name Type Priority Associated Diagnoses Orde r Schedule ECG 12 lead ECG STAT Every 2 hours for 2 Occurrences starting 06/23/2025 until 06/23/2025, 1 completed Troponin I high sensitivity Lab Timed Now then every 1 hour for 2 Occurrences starting 06/23/2025 until 06/23/2025 CBC and differential Lab STAT STAT for 1 Occurrences starting 06/23/2025 until 06/23/2025 Comprehensive metabolic panel Lab STAT STAT for 1 Occurrences starting 06/23/2025 until 06/23/2025 Lipase Lab STAT STAT for 1 Occurrences starting 06/23/2025 until 06/23/2025 Magnesium Lab STAT STAT for 1 Occurrences starting 06/23/2025 until 06/23/2025 B-type natriuretic peptide Lab STAT STAT for 1 Occurrences starting 06/23/2025 until 06/23/2025 CBC auto differential Lab Routine Onc e for 1 Occurrences starting 06/23/2025 until 06/23/2025 CT Angio Chest/Abdomen/Pelvis wo and/or w Contrast Cardiac CT/MRI STAT Chest pain, unspecified type Acute bilateral back pain, unspecified back location Once for 1 Occurrences starting 06/23/2025 until 06/23/2025 Urinalysis with reflex microscopic ([id number]) Lab STAT STAT for 1 Occurrences starting 06/23/2025 until 06/23/2025 Urinalysis with reflex microscopic Lab Routine Once for 1 Occurrences starting 06/23/2025 until 06/23/2025 documented as of this encounter Procedures * The patient is currently admitted. The information in this section might not be complete until the patient is discharged. Procedure Name Priority Date/Time Associated Diagnosis Comments ECG 12-LEAD STAT 06/23/2025 2:14 PM EDT documented in this encounter Visit Diagnoses Diagnosis Chest pain, unspecified type- Primary Acute bilateral back pain, unspecified back location documented in this encounter Active and Recently Administered Medications Times are shown in EDT. Scheduled Medication Order 06/21/2025 06/22/2025 06/23/2025 acetaminophen (TYLENOL) tablet 1,000 mg 1,000 mg, oral, Once, On Thu06/23/25 at 1518, For 1 dose 1518 (Due) aluminum-magnesium hydroxide-simethicone (MAALOX) 200-200-20 mg/5 mL suspension 30 mL 30 mL, oral, Once, On Thu06/23/25 at 1525, For 1 dose 1525 (Due) methocarbamoL (ROBAXIN) tablet 1,000 mg 1,000 mg, oral, Once, On Thu06/23/25 at 1518, For 1 dose 1518 (Due) pantoprazole (PROTONIX) EC tablet 40 mg 40 mg, oral, Once, On Thu06/23/25 at 1526, For 1 dose, Do not crush, chew, or split. 1526 (Due) documented in this encounter Orders Medications Ordered That Geoff ht Not Have Been Administered Count Last Ordered Date First Ordered Date acetaminophen (TYLENOL) tablet 1,000 mg 1 1 aluminum-magnesium hydroxide -simethicone (MAALOX) 200-200-20 mg/5 mL suspension 30 mL 1 06/23/2025 methocarbamoL (ROBAXIN) tablet 1,000 mg 1 1 pantoprazole (PROTONIX) EC tablet 40 mg 1 1 documented in this encounter Additional Health Concerns Assessment Noted Time PHQ-9 Depression Total Score: 0 12/09/19 25 2:20 PM EDT documented as of this encounter Care Teams Size Changer Relationship Specialty Start Date End Date Magdalene Barba MD [address] [place] [id number] PCP - General Internal Medicine 11/21/21 documented as of this encounter
--- OUTSIDE RECORDS SUMMARY | 2025-06-23 15:40 | XMS_ITS | Clinical Summary ---
Author Organization LL [address] [facility] Address [address] [place] [address] Phone Care Team Providers Care I O Psychologist Name Role Phone Magdalene Barba MD Primary [...] once daily 90 tablet 1 01/03/2025 Active metoprolol succinate (TOPROL-XL) 50 mg 24 hr tablet Take 1 tablet by mouth once daily 90 tablet 1 05/04/2025 Active dilTIAZem XR (DILT-XR) 180 mg 24 hr capsule Take 1 capsule by mouth once daily 90 capsule 1 05/04/2025 Active Active Problems Problem Noted Date Diagnosed Date Aneurysm of ascending aorta (CMS/[facility] V24) 2020 Overview (08/17/2024): Last [...] be adequate. Also, the patient has a [id number] score of 3 and continues on anticoagulation therapy with warfarin. He denies any excessive bruising or bleeding. We will continue current therapies. Encounters Date Type Department Care Team Description 06/23/2025 3:25 PM EDT - Present Emergency [facility] Emergency [address] [place] [id number] Concetta Artis MD Chest pain, unspecified type (Primary Dx); Acute bilateral back pain, unspecified back location 06/16/2025 3:30 PM EDT Office Visit Adult Medicine - [address] [phone] Julian Caro PA Aneurysm of 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 (CMS/HCC V24) (Primary Dx); Longstanding persistent atrial fibrillation (CMS/HCC V24, CMS/HCC V28); Primary hypertension; Prediabetes; Gas pain 04/10/2025 Telephone Adult Medicine - [place] [address] [place] [address] Magdalene Barba MD from Last 3 Months Immunizations Immunization Administration Dates Next Due COVID-19 (Moderna/Spikevax) 12yo and older 06/16/2024,2023 Influenza trivalent, 0.5mL ( Fluad) 65yo and older 06/16/2025,06/08/2024,06/05/2023,05/30,07/08/2021,06/13/2020 06/17/2027 Pfizer SARS-CoV-2 COVID-19, mRNA, LNP-S, preservative free 01/07/2022,08/07/2021,01/04/2021,11/26 Surgical History Surgery Date Site/Laterality Comments CATARACT EXTRACTION Left PROCEDURE: HISTORICAL CATARACT REMOVAL; COMMENT: 03/22/2020 Medical History Medical History Date Comments Hypertension DX:Hypertension Atrial fibrillation ([facility] V24, [facility] V28) DX:Atrial fibrillation ([facility]) History of tobacco abuse 08/20/2020 DX:Hist ory [...] Mass Index 25.94 06/23/2025 2:08 PM EDT Plan of Treatment Upcoming Encounters Date Type Department Care Team (Late st Contact Info) Description 12/15/2025 2:30 PM EDT Office Visit Adult Medicine - [place] [address] [place] [address] Magdalene Barba MD [address] [place] [address] Health Maintenance Due Date Last Done Comments DTaP,Tdap,and Td Vaccines (1 - Tdap) 1960 Pneumococcal Vaccine: 50+ Years (1 of 1 - PCV) 1991 Zoster Vaccines (1 of 2) 1991 RSV Immunization Adult Patients (1 - 1-dose 75+ series) 2016 Social Influencers of Health Screening 08/16/2022 COVID-19 Vaccine ( season) 2025 06/16/2024, 2023, 07/08/2022, Additional history exists Falls Risk Assessment 12/08/2025 12/08/2024 Medicare Annual Wellness Visit 12/08/2025 12/08/2024 Hypertension/CHF/CAD Annual BMP Blood Test 05/17/2026 05/17/2025, 11/24/2024, 11/18/2023 Cholesterol Screening (Lipid Panel) 05/17/2030 05/17/2025, 05/15/2023 Depression Screening Completed 12/08/2024 Influenza Vaccine Completed 06/16/2025, , 06/05/2023, Additional history exists HIB Vaccines Aged Out [...] patient's age to complete this topic Procedures * The patient is currently admitted. The information in this section might not be complete until the patient is discharged. Procedure Name Priority Date/Time Associated Diagnosis Comments ECG 12-LEAD STAT 06/23/2025 2:14 PM EDT CBC WITH AUTO DIFFERENTIAL Routine 05/17/2025 12:04 PM EDT Medicare annual wellness visit, subsequent Primary hypertension Pre-diabetes Paroxysmal atrial fibrillation (CMS/HCC V24, CMS/HCC V28) THYROID STIMULATING HORMONE WITH REFLEX TO FREE T4 AND FREE T3 Routine 05/17/2025 12:04 PM EDT Medicare annual wellness visit, subsequent Primary hypertension Pre-diabetes Paroxysmal atrial fibrillation (CMS/HCC V24, CMS/HCC V28) HEMOGLOBIN A1C Routine 05/17/2025 [...] and free t3 (05/17/2025 12:04 PM EDT) Pathologist [facility] TSH 2.75 0.40 - 4.00 mcIU/mL LAB CHEMISTRY METHOD 05/17/2025 2:[address] [facility] Blood Venous blood specimen / Unknown Venipuncture / Unknown 05/17/2025 12:04 PM EDT 05/17/2025 12:04 PM EDT us Magdalene Barba MD LAB BLOOD ORDERABLES F inal Result [facility] [address] [place] [address], [place] [phone] * Lipid panel with reflex to direct LDL (05/17/2025 12:04 PM EDT) [facility] Cholesterol 137 0 - 200 mg/dL LAB CHEMISTRY METHOD 05/17/2025 1:[address] [facility] Triglycerides 66 0 - 150 mg/dL LAB CHEMISTRY METHOD 05/17/2025 1:[address] [facility] HDL 63 >=40 mg/dL LAB CHEMISTRY METHOD 05/17/2025 1:[address] [facility] LDL Calculated 61 0 - 100 mg/dL LAB CHEMISTRY METHOD 05/17/2025 1:[address] [facility] Comment:Estimated LDL Calcul ated using equation: Total cholesterol - HDL cholesterol - (Triglycerides/5) VLDL Cholesterol Kavon 13.2 mg/dL LAB CHEMISTRY METHOD 05/17/2025 1:[address] [facility] Non HDL Chol. (LDL+VLDL) 74 <145 mg/dL LAB CHEMISTRY METHOD 05/17/2025 1:[address] [facility] Chol/HDL Ratio 2.2 0.0 - 4.4 LAB CHEMISTRY METHOD 05/17/2025 1:[address] [facility] Blood Venous blood specimen / Unknown Venipuncture / Unknown 05/17/2025 12:04 PM EDT 05/17/2025 12:04 PM EDT us Magdalene Barba MD LAB BLOOD ORDERABLES F inal Result [facility] [address] [place] [address], * (ABNORMAL) CBC auto differential (05/17/2025 12:04 PM EDT) WBC 8.4 4.8 - 10.8 K/mcL LAB HEMETOLOGY METHOD 05/17/2025 1:[address] [facility] RBC 4.70 4.50 - 5.50 M/mcL LAB HEMETOLOGY METHOD 05/17/2025 1:[address] [facility] Hemoglobin 14.6 13.5 - 17.5 g/dL LAB HEMETOLOGY METHOD 05/17/2025 1:[address] [facility] Hematocrit 44.9 42.0 - 54.0 % LAB HEMETOLOGY METHOD 05/17/2025 1:[address] [facility] MCV 94.7 79.0 - 98.0 FL LAB HEMETOLOGY METHOD 05/17/2025 1:[address] [facility] MCH 30.8 27.0 - 32.0 pcg LAB HEMETOLOGY METHOD 05/17/2025 1:[address] [facility] MCHC 32.5 32.0 - 37.0 g/dL LAB HEMETOLOGY METHOD 05/17/2025 1:[address] [facility] RDW 15.3(H) 11.0 - 15.0 % LAB HEMETOLOGY METHOD 05/17/2025 1:38 PM [facility] Platelets 184 130 - 400 K/mcL LAB HEMETOLOGY METHOD 05/17/2025 1:38 PM [facility] MPV 12.1(H) 7.0 - 11.0 FL LAB HEMETOLOGY METHOD 05/17/2025 1:38 PM [facility] NRBC 0.0 <1.0 % LAB HEMETOLOGY METHOD 05/17/2025 1:38 PM [facility] NRBC Absolute 0.00 <0.10 K/mcL LAB HEMETOLOGY METHOD 05/17/2025 1:38 PM [facility] Neutrophils Relative 67.3 % LAB HEMETOLOGY METHOD 05/17/2025 1:38 PM [facility] Lymphocytes Relative 22.6 % LAB HEMETOLOGY METHOD 05/17/2025 1:38 PM [facility] Monocytes Relative 7.3 % LAB HEMETOLOGY METHOD 05/17/2025 1:38 PM [facility] Eosinophils Relative 1.3 % LAB HEMETOLOGY METHOD 05/17/2025 1:38 PM [facility] Basophils Relative 1.1 % LAB HEMETOLOGY METHOD 05/17/2025 1:38 PM [facility] Immature Granulocytes Relative 0.4 % LAB HEMETOLOGY METHOD 05/17/2025 1:38 PM [facility] Neutrophils Absolute 5.65 1.50 - 7.00 K/mcL LAB HEMETOLOGY METHOD 05/17/2025 1:38 PM [facility] Lymphocytes Absolute 1.90 1.00 - 5.00 K/mcL LAB HEMETOLOGY METHOD 05/17/2025 1:38 PM [facility] Monocytes Absolute 0.61 0.20 - 1.00 K/mcL LAB HEMETOLOGY METHOD 05/17/2025 1:[address] [facility] Eosinophils Absolute 0.11 0.00 - 0.50 K/mcL LAB HEMETOLOGY METHOD 05/17/2025 1:[address] [facility] Basophils Absolute 0.09 0.00 - 0.20 K/[facility] LAB HEMETOLOGY METHOD 05/17/2025 1:[address] [facility] Immature Granulocytes Absolute 0.03 0.00 - 0.03 K/[facility] LAB HEMETOLOGY METHOD 05/17/2025 1:[address] [facility] Blood Venous blood specimen / Unknown Venipuncture / Unknown 05/17/2025 12:04 PM EDT 05/17/2025 12:04 PM EDT us Magdalene Barba MD LAB BLOOD ORDERABLES F inal Result [facility] [address] [place] [address], [place] [phone] * Hemoglobin A1c (05/17/2025 12:04 PM EDT) [facility] Hemoglobin A1C 6.3 <6.5 % LAB CHEMISTRY METHOD 05/17/2025 9:[address] [facility] Mean Bld Glu Estim. 134 mg/dL LAB CHEMISTRY METHOD 05/17/2025 9:[address] [facility] Blood Venous blood specimen / Unknown Venipuncture / Unknown 05/17/2025 12:04 PM EDT 05/17/2025 12:04 PM EDT us Magdalene Barba MD LAB BLOOD ORDERABLES F inal Result [facility] [address] [place] [address], [place] [phone] * (ABNORMAL) Comprehensive metabolic panel (05/17/2025 12:04 PM EDT) Sodium 140 133 - 145 mmol/L LAB CHEMISTRY METHOD 05/17/2025 1:48 PM [facility] Potassium 4.0 3.5 - 5.5 mmol/L LAB CHEMISTRY METHOD 05/17/2025 1:48 PM [facility] Chloride 105 96 - 110 mmol/L LAB CHEMISTRY METHOD 05/17/2025 1:48 PM [facility] CO2 32 21 - 32 mmol/L LAB CHEMISTRY METHOD 05/17/2025 1:48 PM [facility] Anion Gap 3 3 - 11 LAB CHEMISTRY METHOD 05/17/2025 1:48 PM [facility] Glucose 111(H) 70 - 100 mg/dL LAB CHEMISTRY METHOD 05/17/2025 1:48 PM [facility] BUN 22 5 - 25 mg/dL LAB CHEMISTRY METHOD 05/17/2025 1:48 PM [facility] Creatinine 0.90 0.70 - 1.30 mg/dL LAB CHEMISTRY METHOD 05/17/2025 1:48 PM [facility] eGFR 85 >=60 mL/min/1. 73m2 LAB CHEMISTRY METHOD 05/17/2025 1:48 PM [facility] Comment:Calculation based on the Chronic Kidney Disease Epidemiology Collaboration (CKD-EPI) equation refit without adjustment for race. BUN/Creatinine Ratio 24.4 LAB CHEMISTRY METHOD 05/17/2025 1:48 PM [facility] Calcium 9.5 8.5 - 10.5 mg/dL LAB CHEMISTRY METHOD 05/17/2025 1:48 PM [facility] AST (SGOT) 21 10 - 42 unit/L LAB CHEMISTRY METHOD 05/17/2025 1:48 PM [facility] ALT (SGPT) 12 10 - 60 unit/L LAB CHEMISTRY METHOD 05/17/2025 1:[address] [facility] Alkaline Phosphatase 86 42 - 121 unit/L LAB CHEMISTRY METHOD 05/17/2025 1:[address] [facility] Total Protein 7.3 6.0 - 8.0 g/dL LAB CHEMISTRY METHOD 05/17/2025 1:[address] [facility] Albumin 4.0 3.2 - 5.0 g/dL LAB CHEMISTRY METHOD 05/17/2025 1:[address] [facility] Total Bilirubin 0.5 0.0 - 1.4 mg/dL LAB CHEMISTRY METHOD 05/17/2025 1:[address] [facility] Blood Venous blood specimen / Unknown Venipuncture / Unknown 05/17/2025 12:04 PM EDT 05/17/2025 12:04 PM EDT Magdalene Barba MD LAB BLOOD ORDERABLES F inal Result [facility] [address] [place] [address], from Last [address] Insurance [facility] MEDICARE Advance Directives Documents on File Type Date Recorded Patient Licensing Coordinator Expl anation Health Care Decision (hx) 12/15/2020 AD VERGARA DIRECTIVE Health Care Decision (hx) 12/15/2020 AD VERGARA DIRECTIVE Health Care Decision (hx) 12/15/2020 AD VERGARA DIRECTIVE Health Care Decision (hx) 12/15/2020 AD VERGARA DIRECTIVE Health Care Decision (hx) 12/15/2020 AD VERGARA DIRECTIVE Health Care Decision (hx) 12/15/2020 AD VERGARA DIRECTIVE Care Teams I O Psychologist Relationship Specialty Start Date End Date Magdalene Barba MD [address] [place] [id number] PCP - General Internal Medicine 11/21/21
== END 2025-06-23 13:23 | disposition home or self-care (01) ==
LOC: HO.ACS 13:02
PROVIDERS: PCP Family Medicine; Visit Provider Internal Medicine Medical Oncology
DX: Z79.01 Long term (current) use of anticoagulants (principal)

== ENCOUNTER → 2025-06-23 13:02 | Outpatient (BNVA) | payer MEDICARE, SELFPAY | PROVIDERS: PCP Family Medicine; Visit Provider Internal Medicine Medical Oncology | DX: I48.20 Chronic atrial fibrillation, unspecified (principal); Z51.81 Encounter for therapeutic drug level monitoring; Z79.01 Long term (current) use of anticoagulants | CPT/HCPCS: 85610; 99211 ==

== ENCOUNTER 2025-07-03 13:07 | Outpatient (AMB) | payer MEDICARE, SELFPAY ==
--- OUTSIDE RECORDS SUMMARY | 2025-06-24 00:13 | XMS_ITS | Encounter Summary ---
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, CMS/HCC V28) Chest Pain Procedures / Benson Cartwright MD [address] [place] [address] [place] [id number] Phone: tel: fax: [facility] Cardiac CICU 5-[address] [place] [address] Phone: tel: Referral ID Status Reason Start Date Expiration Date Visits Re quested Visits Authorized [id number] 1 1 Encounter Details Date Type Department Care Team (Latest Contact Info) Description 06/24/2025 12:13 AM EDT - 06/29/2025 2:00 PM EDT Hospital Encounter [facility] CV Surg Card 8-[address] [place] [address] Benson Cartwright MD [address] [place] [address] [place] [address] Aneurysm of 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 (CMS/HCC V24) (Primary Dx); 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 Never true 06/28/2025 Within the past 12 months th e food we bought just didn't last and we didn't have money to get more. Never true 06/28/2025 Sex and Gender Information Value Date Recorded Sex Assigned at Not on file Legal Sex Male 8:35 AM EST Gender Identity Not on file Sexual Orientation Not on file documented as of this encounter Last Filed Vital Signs Vital Sign Reading Time Taken Comments Blood Pressure 123/75 06/29/2025 12:23 PM EDT Pulse 101 06/29/2025 12:23 PM EDT Temperature 36.8 C (98.2 F) 06/29/2025 12:22 PM EDT Respiratory Rate 19 06/29/2025 12:23 PM EDT Oxygen Saturation 90% 06/29/2025 12:23 PM EDT Inhaled Oxygen Concentration - - Weight 82.6 kg (182 lb 1.6 oz) 06/27/2025 6:00 A M EDT Height - - Body Mass Index 25.4 06/23/2025 2:08 PM EDT documented in this encounter Functional Status * Calculated C-SSRS Risk Score (Lifetime/Recent) Answer Date of Assessment Author No Risk Indicated 06/24/2025 1:56 AM EDT Elieser Chambers RN * [place] Suicide Severity Rating Scale (Screener/Recent Self-Report) Question Answer Date of Assessment Author 1. Wish to be (Past 1 Month) No 025 1:56 AM EDT Kristine Chambers RN 2. Non-Specific Active Suici ben Thoughts (Past 1 Month) No 06/24/2025 1:56 AM EDT Bud Chambers RN 6. Suicidal Behavior (Lifetime) No 1:56 AM EDT Kristine Chambers RN documented as of this encounter Medications at Time of Discharge acetaminophen (TYLENOL) 325 mg tablet Take 1 tablet (325 mg total) by mouth every 6 (six) hours if needed for mild pain, fever - temperature GREATER than 38 C (100.4 F), moderate pain or headaches for up to 10 days. 06/29/2025 5 labetaloL (NORMODYNE) 100 mg tablet Take 1 tablet (100 mg total) by mouth 3 (three) times a day. 90 tablet 1 06/29/2025 1:51 PM EDT 06/29/2025 losartan (COZAAR) 50 mg tablet Take 1 tablet (50 mg total) by mouth 1 (one) time each day. 30 tablet 1 06/29/2025 1:51 PM EDT 06/30/2025 warfarin (COUMADIN) 5 mg tablet TAKE 1 TABLET BY MOUTH ONCE DAILY MAY CAUSE HEAVY BLEEDING. TAKE AT SAME TIME EVERY DAY. DO NOT CHANGE DIETARY HABITS 90 tablet 1 01/04/2025 documented as of this encounter Ordered Prescriptions Prescription Sig Dispense Quantity Refills Last Filled Start Date End Date losartan (COZAAR) 50 mg tablet Take 1 tablet (50 mg total) by mouth 1 (one) time each day. 30 tablet 1 06/29/2025 1:51 PM EDT 06/30/2025 acetaminophen (TYLENOL) 325 mg tablet Take 1 tablet (325 mg total) by mouth every 6 (six) hours if needed for mild pain, fever - temperature GREATER than 38 C (100.4 F), moderate pain or headaches for up to 10 days. 06/29/2025 labetaloL (NORMODYNE) 100 mg tablet Take 1 tablet (100 mg total) by mouth 3 (three) times a day. 90 tablet 1 06/29/2025 1:51 PM EDT 06/29/2025 documented in this encounter Discharge Disposition Disposition Code Departure Means Destination Comment s Home or Self Care Car documented in this encounter Progress Notes * Latoya Morrell RN - 06/29/2025 1:45 PM EDT Patient is medically stable and discharged to home. Discharge instructions reviewed and patient is in agreement with current plan of care. Telemetry discontinued and peripheral IV removed with catheter tip intact. All patient belongings are accounted for upon discharge. Patient transported safely via W/C to private car. Problem: Cardiac:Cardiac Output Alteration Goal: Ability to maintain an adequate cardiac output will improve Outcome: Adequate for Discharge Problem: Cognitive:Cardiac Output Alteration Goal: Ability to state signs and symptoms to report to health care provider will improve Outcome: Adequate for Discharge Goal: Knowledge of the prescribed therapeutic regimen will improve Outcome: Adequate for Discharge Problem: Fluid Volume: Cardiac Output Alteration Goal: Ability to achieve a balanced intake and output will improve Outcome: Adequate for Discharge Problem: Physical Regulation:Cardiac Output Alteration Goal: Will achieve and/or maintain hemodynamic stability Outcome: Adequate for Discharge Problem: Falls: Fall Risk (Adult IP BH) Goal: (Goal) Patient will experience maximum safety and reduce risk for falls. Outcome: Adequate for Discharge Goal: Patient will not fall or injure themselves during hospitalization. Outcome: Adequate for Discharge Problem: Self-Care: IPR IPOC Goal: Patient/caregiver collaborates in the IPR process in person or with shipping team leader Outcome: Adequate for Discharge * Ambrocio Muñoz MD - 06/29/2025 12:16 PM EDT Vascular surgery attending Patient seen and examined again this morning. Blood pressure remains reasonable, pain-free. Plans to reevaluate him again as an outpatient in roughly 2 weeks in the office. If stable at that time we will likely discuss proceeding with TEVAR for definitive treatment of his type B dissection. Ambrocio Muñoz MD * Cindy Ornelas RN - 06/29/2025 9:08 AM EDT 06/29/25 0900 Initial Transition Plan Initial Transition Plan Home Transportation Transportation at discharge Family Final Discharge Disposition Home or Self Care driver trainee Notes - Discharge Planning Discharge planning is ongoing and remains unchanged. The patient???s discharge goals, needs, and coordination with the interdisciplinary team continue as planned. No adjustments to the discharge planare necessary at this time. Plan: Home no needs per provider, Follow-up with primary care provider (PCP) Refused [facility] * DELMA Webster - 06/29/2025 6:45 AM EDT Cardiothoracic Surgery Progress Note Hospital Day: #5 Diagnosis: Type B Aortic Dissection Switch Operator: Dr. Cortes Cardiology notes reviewed Subjective Pt is an 84yo male no acute events overnight. He is tolerating his labetolol 100 mg tid and losartan 50mg. He had one episode of high blood pressure in the evening. All other blood pressures were within acceptable range. I switched his timing to 02/06/10, with losartan at 0900 50mg. I spoke to patients family at bedside and explained the timing of any procedure and they should make an appointment with Dr. Muñoz within 2 weeks, and he should see his therapeutic program worker Dr. Cortes during that timeas well. Telemetry: A-Fib in the 80's-90's Vitals Vitals: 06/29/25 0604 BP: (!) 131/93 Pulse: 98 Resp: 26 Temp: SpO2: 96% Intake / Output Temp Av.6 ??C (97.9 ??F) Min: 36.6 ??C (97.8 ??F) Max: 36.6 ??C (97.9 ??F) Intake/Output Summary (Last 24 hours) at 06/29/2025 0645 Last data filed at 06/28/2025 2200 Gross per 24 hour Intake 240 ml Output -- Net 240 ml Physical Exam General Appearance: Appears well, in no acute distress, GCS 15 Cardiac: Regular rate and rhythm; no murmurs, rubs, or gallops Pulmonary: Lungs clear bilaterally; no rales, rhonchi, or wheezing Abdomen: Soft and non-tender; normal bowel sounds Extremities: Peripheral pulses 2+; no edema; warm Medications MEDSSCHEDULED[1] Labs Lab Results Component Value Date WBC 9.6 06/28/2025 RBC 3.84 (L) 06/28/2025 HGB 11.7 (L) 06/28/2025 HCT 36.1 (L) 06/28/2025 MCV 94.0 06/28/2025 MCHC 32.5 06/28/2025 RDW 15.0 06/28/2025 PLT 248 06/28/2025 MPV 8.8 06/28/2025 NRBC 0.0 06/23/2025 Lab Results Component Value Date NA 143 06/28/2025 K 3.7 06/28/2025 CL 106 06/28/2025 BUN 16 06/28/2025 CREATININE 0.50 (L) 06/28/2025 CALCIUM 8.7 06/28/2025 PHOS 2.4 (L) 06/25/2025 MG 1.7 06/28/2025 Lab Results Component Value Date PT 14.6 (H) 06/28/2025 INR 1.3 (H) 06/28/2025 Lab Results Component Value Date HGBA1C 6.3 05/17/2025 Assessment Hospital day # 5 with stable Type B Aortic Dissection Plan CVS: - Continue Labetalol 100mg tid - Continue Losartan 50mg QD - continue Coumadin 5mg QD - Maintain continuous telemetry monitoring Respiratory: - Maintaining SpO2 >92% on RA - Continue SpO2 monitoring GI: - Continue Protonix 40mg QD - Continue adult cardiac diet Renal & : - stable renal function Endocrine: - No acute issues Neuro & Psych: - Alert/Oriented x 4 ID: - Remains afebrile - WBC's 9.6 - No concerns at this time Heme: - H/H remains stable, Follow up with Dr. Muñoz on dc, will discuss dc today with Dr. Cartwright and vascular this am. DVT Prophylaxis: Intermittent Pneumatic Compression Device & Ambulation Code Status: Full Code - Confirmed I have examined the patient, reviewed the lab work / imaging / Rx, and discussed the plan with the multidisciplinary team. Time spent for this patient was a total of [address] Surgery Attending: Benson Cartwright MD DELMA Webster Cardiothoracic Surgery [1] labetaloL, 100 mg, oral, TID losartan, 50 mg, oral, Daily pantoprazole, 40 mg, oral, q AM AC warfarin, 1 EA, Not Applicable, Daily sodium chloride, 10 mL, intravenous, BID sodium chloride, 10 mL, intravenous, Once in imaging * Sherly Singh RN - 06/28/2025 6:08 PM EDT Problem: Cardiac:Cardiac Output Alteration Goal: Ability to maintain an adequate cardiac output will improve Outcome: Progressing Problem: Cognitive:Cardiac Output Alteration Goal: Ability to state signs and symptoms to report to health care provider will improve Outcome: Progressing Goal: Knowledge of the prescribed therapeutic regimen will improve Outcome: Progressing Problem: Fluid Volume: Cardiac Output Alteration Goal: Ability to achieve a balanced intake and output will improve Outcome: Progressing Problem: Physical Regulation:Cardiac Output Alteration Goal: Will achieve and/or maintain hemodynamic stability Outcome: Progressing Problem: Falls: Fall Risk (Adult IP BH) Goal: (Goal) Patient will experience maximum safety and reduce risk for falls. Outcome: Progressing Goal: Patient will not fall or injure themselves during hospitalization. Outcome: Progressing Problem: Self-Care: IPR IPOC Goal: Patient/caregiver collaborates in the IPR process in person or with shipping team leader Outcome: Progressing Afib on monitor. Denies pain or respiratory distress. SBPs 110-120s. Sherly Signh RN * Radha Pizarro, STEFANI - 06/28/2025 9:57 AM EDT Initial Nutrition Assessment and Recommendations (length of stay) Patient: Giovanni Brumfield Sex: male : 1940 84 year old male presents as transfer from [facility] for type B aortic dissection and ascending aortic aneurysm. Pain resolved and blood pressure reasonably controlled. Vascular surgery following; plan for outpatient follow-up with plan for interval repair once out of acute phase window.Appetite so so on admit, now improving. Typically uses a lot of salt and tends to eat higher sodium foods (I.e. deli sandwiches, hot dogs) that are easier to prepare. Verbally discussed low sodium diet with patient (declined written handout when offered). ASSESSMENT: Medical History[1] Surgical History[2] Prediabetes Labs: Lab Results Component Value Date BUN 16 06/28/2025 CREATININE 0.50 (L) 06/28/2025 NA 143 06/28/2025 K 3.7 06/28/2025 CL 106 06/28/2025 CO2 27 06/28/2025 CALCIUM 8.7 06/28/2025 ALKPHOS 84 06/23/2025 PHOS 2.4 (L) 06/25/2025 MG 1.7 06/28/2025 EGFR 101 06/28/2025 Lab Results Component Value Date AST 26 06/23/2025 ALT 20 06/23/2025 No results found for: AMYLASE , LIPASE Lab Results Component Value Date CHOL 137 05/17/2025 HDL 63 05/17/2025 LDLCALC 61 05/17/2025 VLDL 13.2 05/17/2025 TRIG 66 05/17/2025 Lab Results Component Value Date HGBA1C 6.3 05/17/2025 HA1C, as above, aligns with documented history of prediabetes POCT not checked in past 24 hours Noted orders for IV repletion of Mg (06/28, however, patient refused), PO repletion of K+ (06/27 and 06/28) Medications: MEDSSCHEDULED[3]MEDSCONTINUOUS[4] Anthropometrics: Height: 71 - per [facility] records Admit Weight: 80.8 kg (178 lb 2.1 oz) - ? Accuracy Most Recent Weight:82.6 kg (182 lb 1.6 oz) Current Calculated Body mass index is 25.4 kg/m??. Weight History: Wt Readings from Last 10 Encounters: 06/27/25 82.6 kg (182 lb 1.6 oz) 06/23/25 84.4 kg (186 lb) 06/16/25 84.6 kg (186 lb 6.4 oz) 12/08/24 84.6 kg (186 lb 9.6 oz) 06/08/24 84.8 kg (187 lb) 12/11/23 85.7 kg (189 lb) 12/04/23 85.9 kg (189 lb 6.4 oz) 10/09/23 86.6 kg (190 lb 14.4 oz) 06/05/23 87.9 kg (193 lb 12.8 oz) 12/02/22 91.6 kg (202 lb) Reports usual body weight of 186 lbs. Denies weight changes prior to admission. Current Diet Order: Dietary Orders (From admission, onward) Start Ordered 06/24/25 0900 Adult diet [facility]; Cardiac; Sodium 2 gm Restriction Diet effective now Question Answer Comment Location [facility] Diet Type (req) Cardiac Diet Type (cardiac) Sodium 2 gm Restriction 06/24/25 0859 Nutrition since admit: NPO on admit (06/24); 2 g sodium diet initiated same day. Consuming 50-100% of documented meals per nursing flowsheets. Allergies: Patient has no known allergies. Social Influencers of Health & Nutrition - Hunger Vital Signs: Within the past 12 months we worried whether our food would run out before we got money to buy more: Never true Within the past 12 months the food we bought just didn't last and we didn't have money to get more: Never true Who obtained answers? Hunger vital signs completed by RD. Assistance: No assistance needed at this time Nutrition Focused Physical Exam: Appearance: no overt muscle/fat wasting Per Nursing Assessment: Edema: non-pitting bilateral lower extremities Skin: Intact GI: last BM 06/27; soft, non-distended abdomen - current bowel regimen: none DIAGNOSIS: Decreased nutrient needs (sodium) related to Physiologic causes as evidenced by documentation, low sodium diet. Status: New Nutrition Goal: PO intake > 75% of most meals Goal Status: Initial assessment - unable to assess INTERVENTION/RECOMMENDATIONS: Continue 2 g sodium diet as ordered. 2. Verbally reviewed low sodium diet. Patient declined written handout when offered. MONITORING/EVALUATION: Monitor intake, Monitor appetite, and Monitor pertinent lab values Radha Pizarro RD, CD-N [1] Past Medical History: Diagnosis Date Atrial fibrillation (CMS/HCC V24, CMS/HCC V28) DX:Atrial fibrillation (HCC) History of tobacco abuse 08/20/2020 DX:History of tobacco abuse Hypertension DX:Hypertension [2] Past Surgical History: Procedure Laterality Date CATARACT EXTRACTION Left PROCEDURE: HISTORICAL CATARACT REMOVAL; COMMENT: 03/22/2020 [3] labetaloL, 100 mg, oral, TID losartan, 50 mg, oral, Daily magnesium sulfate, 2 g, intravenous, Once pantoprazole, 40 mg, oral, q AM AC warfarin, 1 EA, Not Applicable, Daily sodium chloride, 10 mL, intravenous, BID sodium chloride, 10 mL, intravenous, Once in imaging warfarin, 5 mg, oral, Once [4] * DELMA Webster - 06/28/2025 6:49 AM EDT Cardiothoracic Surgery Progress Note Hospital Day: #4 Diagnosis: Type B Aortic Dissection Switch Operator: Dr. Cortes Cardiology notes reviewed Subjective Pt is an 84yo male with PMHx of: HTN, A-fib, and remote smoking history. Pt initially presented as a transder from [facility] for a type B aortic dissection and a 5cm ascending aortic aneurysm. Pt has been medically managed and is doing well and stable on the floor. On exam today he appears well and has no complaints. A/O x 4 with GCS 15. Pt denies CP, SOB, [place], N/V/D, numbness, tingling, or dizziness. No acute events overnight. Telemetry: A-Fib in the 80's-90's Vitals Vitals: 06/28/25 0317 BP: 96/60 Pulse: 87 Resp: 19 Temp: 36.5 ??C (97.7 ??F) SpO2: 91% Intake / Output Temp Av.7 ??C (98 ??F) Min: 36.5 ??C (97.7 ??F) Max: 36.8 ??C (98.3 ??F) Intake/Output Summary (Last 24 hours) at 06/28/2025 0650 Last data filed at 06/27/20252052 Gross per 24 hour Intake 490 ml Output 225 ml Net 265 ml Chest Tube Output: N/A Physical Exam General Appearance: Appears well, in no acute distress, GCS 15 Cardiac: Regular rate and rhythm; no murmurs, rubs, or gallops Pulmonary: Lungs clear bilaterally; no rales, rhonchi, or wheezing Abdomen: Soft and non-tender; normal bowel sounds Extremities: Peripheral pulses 2+; no edema; warm Medications MEDSSCHEDULED[1] Labs Lab Results Component Value Date WBC 9.6 06/28/2025 RBC 3.84 (L) 06/28/2025 HGB 11.7 (L) 06/28/2025 HCT 36.1 (L) 06/28/2025 MCV 94.0 06/28/2025 MCHC 32.5 06/28/2025 RDW 15.0 06/28/2025 PLT 248 06/28/2025 MPV 8.8 06/28/2025 NRBC 0.0 06/23/2025 Lab Results Component Value Date NA 143 06/28/2025 K 3.7 06/28/2025 CL 106 06/28/2025 BUN 16 06/28/2025 CREATININE 0.50 (L) 06/28/2025 CALCIUM 8.7 06/28/2025 PHOS 2.4 (L) 06/25/2025 MG 1.7 06/28/2025 Lab Results Component Value Date PT 15.1 (H) 06/28/2025 INR 1.3 (H) 06/28/2025 Lab Results Component Value Date HGBA1C 6.3 05/17/2025 Assessment Hospital day # 4 s/p Type B Aortic Dissection Plan CVS: - Continue Labetalol 100mg tid - Continue Losartan 50mg QD - Start Coumadin 5mg QD today - Maintain continuous telemetry monitoring Respiratory: - Maintaining SpO2 >92% on RA - Continue SpO2 monitoring GI: - Continue Protonix 40mg QD - Continue adult cardiac diet Renal & : - Mg replaced today - K replaced today - Continue to monitor BMP Endocrine: - No acute issues Neuro & Psych: - Pain well controlled - Alert/Oriented x 4 ID: - Remains afebrile - WBC's 9.6 - No concerns at this time Heme: - H/H remains stable, today 11.7/36.1 - Continue monitoring CBC DVT Prophylaxis: Intermittent Pneumatic Compression Device & Ambulation Code Status: Full Code - Confirmed I have examined the patient, reviewed the lab work / imaging / Rx, and discussed the plan with the multidisciplinary team. Time spent for this patient was a total of [address] Surgery Attending: Benson Cartwright MD DELMA Webster Cardiothoracic Surgery [1] labetaloL, 200 mg, oral, BID losartan, 25 mg, oral, Daily magnesium sulfate, 2 g, intravenous, Once pantoprazole, 40 mg, intravenous, q24h warfarin, 1 EA, Not Applicable, Daily potassium chloride oral extended release, 20 mEq, oral, Once sodium chloride, 10 mL, intravenous, BID sodium chloride, 10 mL, intravenous, Once in imaging warfarin, 5 mg, oral, Once * DELMA Patel - 06/28/2025 6:20 AM EDT Coumadin Management Coumadin anticoagulation required for this patient due to a secondary hypercoagulable state given the presence of atrial fibrillation. The patient has been off of their Coumadin secondary to a type Baortic dissection and ascending aortic aneurysm while they are hemodynamic stabilized and their blood pressure was optimized. The patient will be managed as an outpatient for both instances and the Coumadin will be resumed for stroke prophylaxis/embolic prophylaxis prior to discharge. Goal INR for this patient is 2.0-3.0 and they were previously maintained on 5 mg of Coumadin nightly. INR this morning 1.3. Will administer previous home dose of 5 mg of Coumadin and continue to trend PT/INR dailyand dose accordingly. DELMA Patel-C Cardiovascular surgery [facility] * Aren Kitchen RN - 06/28/2025 2:54 AM EDT A&Ox4 VSS RA Afib 80's on monitor Team aware of pts BP No c/o pain All questions/concerns regarding plan of care addressed with patient at the bedside. See Epic for full assessment. Pt resting comfortably overnight in hospital bed. Bed is locked and in lowest position. Fall alarm on. Call doll within reach. Purposeful rounding continued. Problem: Cardiac:Cardiac Output Alteration Goal: Ability to maintain an adequate cardiac output will improve Outcome: Progressing Problem: Cognitive:Cardiac Output Alteration Goal: Ability to state signs and symptoms to report to health care provider will improve Outcome: Progressing Goal: Knowledge of the prescribed therapeutic regimen will improve Outcome: Progressing Problem: Fluid Volume: Cardiac Output Alteration Goal: Ability to achieve a balanced intake and output will improve Outcome: Progressing Problem: Physical Regulation:Cardiac Output Alteration Goal: Will achieve and/or maintain hemodynamic stability Outcome: Progressing Problem: Falls: Fall Risk (Adult IP BH) Goal: (Goal) Patient will experience maximum safety and reduce risk for falls. Outcome: Progressing Goal: Patient will not fall or injure themselves during hospitalization. Outcome: Progressing Problem: Self-Care: IPR IPOC Goal: Patient/caregiver collaborates in the IPR process in person or with shipping team leader Outcome: Progressing * Nanda Martines RN - 06/27/2025 4:18 PM EDT Received the patient from ICU. Patient is alert. Oriented. On room air. Saturating well. No respiratory distress seen. Peripheral line in place. Denies nausea, vomiting. Skin assessment done and documented. Tolerating orally. Voids spontaneously. Fall and skin precautions maintained. Will continue the plan of care. * Zac Fleming RN - 06/27/2025 2:09 PM EDT Goals: Problem: Cardiac:Cardiac Output Alteration Goal: Ability to maintain an adequate cardiac output will improve Outcome: Progressing Problem: Cognitive:Cardiac Output Alteration Goal: Ability to state signs and symptoms to report to health care provider will improve Outcome: Progressing Goal: Knowledge of the prescribed therapeutic regimen will improve Outcome: Progressing Problem: Fluid Volume: Cardiac Output Alteration Goal: Ability to achieve a balanced intake and output will improve Outcome: Progressing Problem: Physical Regulation:Cardiac Output Alteration Goal: Will achieve and/or maintain hemodynamic stability Outcome: Progressing Problem: Falls: Fall Risk (Adult IP BH) Goal: (Goal) Patient will experience maximum safety and reduce risk for falls. Outcome: Progressing Goal: Patient will not fall or injure themselves during hospitalization. Outcome: Progressing Problem: Self-Care: IPR IPOC Goal: Patient/caregiver collaborates in the IPR process in person or with shipping team leader Outcome: Progressing Identify possible barriers to meeting goals/advancing plan of care: Chest pain Stability of the patient: Moderately Stable - Low risk of patient condition declining or worsening End of Shift Summary: pt transferred to [facility] w/ no issue. Report given. * DELMA Crane - 06/27/2025 9:46 AM EDT Vascular Surgery Progress Note Subjective Pt has been transitioned to oral BP meds with successful HR and BP control. He denies any chest pain, abdominal pain, back pain. He is tolerating a diet, having bowel function. Reports normal function and sensation in the extremities. Pt denies nausea, vomiting, chest pain, SOB, fevers, chills. Objective Vitals: I&O Last 24 hours: Vitals: 06/27/25 0900 BP: Pulse: 92 Resp: 19 Temp: SpO2: 90% Intake/Output Summary (Last 24 hours) at 06/27/2025 0947 Last data filed at 06/27/2025 0735 Gross per 24 hour Intake 930 ml Output 600 ml Net 330 ml Infusions: MEDSCONTINUOUS[1] Physical Exam: General: awake, alert, in NAD Lungs: comfortable respirations, normal work of breathing Heart: RRR Focused: BUE sensation/motor intact, warm, well perfused, palpable DP pulses; BLE sensation/motor intact, warm, well perfused;l Abdomen soft, ND, NTTP Labs: Cr 0.5 K 3.5 Hgb 11.3 Imaging: No new imaging Assessment/Plan Pt is a 84 y.o. 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 BP and HR are now controlled with oral agents. He is asymptomatic from his dissection. -BP goal < 120 -HR goal < 90 -okay to resume anticoagulation from vascular standpoint -outpatient follow-up in ~2 weeks for interval repair outside of the acute phase window Radha Pickett PA-C Department of Surgery Red Surgery Team: Vascular, Breast, Plastic, Thoracic, Surgical Oncology Contact via Epic: [facility] Red Surgery PA Provider Team Time spent on patient encounter: 30 minutes. Time included review of medical history, review and interpretation of labs & imaging, patient interview, physical exam, discussion with patient/family, care coordination, and documentation. [1] * Ambrocio Muñoz MD - 06/27/2025 9:14 AM EDT Vascular surgery attending Patient's blood pressure is overall quite reasonable on oral agents. Planned for transfer out of the ICU. As noted yesterday, no plans for surgical intervention on this admission during the acute phase of his dissection. Will likely see him as an outpatient and then plan for interval repair once heis out of the acute period. Continue blood pressure control - no contraindication for anticoagulatio n from my standpoint this can be resumed. Ambrocio Muñoz MD * Divya Rosenthal RN - 06/27/2025 7:32 AM EDT Problem: Cardiac:Cardiac Output Alteration Goal: Ability to maintain an adequate cardiac output will improve Outcome: Progressing Problem: Cognitive:Cardiac Output Alteration Goal: Ability to state signs and symptoms to report to health care provider will improve Outcome: Progressing Goal: Knowledge of the prescribed therapeutic regimen will improve Outcome: Progressing Problem: Fluid Volume: Cardiac Output Alteration Goal: Ability to achieve a balanced intake and output will improve Outcome: Progressing Problem: Physical Regulation:Cardiac Output Alteration Goal: Will achieve and/or maintain hemodynamic stability Outcome: Progressing Problem: Falls: Fall Risk (Adult IP BH) Goal: (Goal) Patient will experience maximum safety and reduce risk for falls. Outcome: Progressing Goal: Patient will not fall or injure themselves during hospitalization. Outcome: Progressing Problem: Self-Care: IPR IPOC Goal: Patient/caregiver collaborates in the IPR process in person or with shipping team leader Outcome: Progressing * Vivian Wick RN - 06/26/2025 3:56 PM EDT 06/26/25 1500 Initial Transition Plan Initial Transition Plan Home Discharge Planning Contact (Name, Phone #, Relationship) for DC Planning Radha Sanchez (Daughter) Type of Residence Private residence Assistive Devices None Medication Coverage Has Med Coverage Under Insurance Plan Yes Medication Affordability No concerns related to payment for meds Transportation Transportation at discharge Family Final Discharge Disposition Home or Self Care CM following for dispo readiness; no needs identified, anticipate dc to home w/ outpatient follow up per recommendations. Pt transfer from [facility], CTA found type B aortic dissection and 5 cm ascending aorticaneurysm; vascular surgery consulted, no urgent surgical needs at this time, recommendation to follow up outpatient with vascular surgery; pt has been weaned off esmolol gtt, taking po antihypertensive medications, good bp control, tolerating diet. CM confirmed healthcare proxy in media. Met with patient at bedside, introduced self and role. Pt provided the following information. States at baseline he is independent, declining any services. States his daughter and grandchildren can assist at home if he needs anything. His daughter or grandchildren will provide transportation home when he is medically cleared. Patient lives with his grandson in a single family home, 4STE, full fight to second floor. AD: none O2 baseline: none VNA: none CM confirmed PCP: Magdalene Barba Pharmacy: [facility] CM confirmed health insurance: [facility] Advantage Complete Challenges (housing, finances, food) none Transportation when cleared: family * DELMA Aguilar - 06/26/2025 1:54 PM EDT Cardiothoracic Surgery ICU Progress Note Admit Date: 06/24/2025 Code Status: Full Code - Confirmed HD: #2 Admission Dx: Type B aortic dissection Switch Operator: Dr. Cortes Subjective HPI: Patient is an 84 y.o. male with a history of hypertension, atrial fibrillation on Coumadin, and remote history of smoking who presents as a transfer from [facility] for a type B aorticdissection, and a 5 cm ascending aortic aneurysm. He presented to [facility] ED complaining of a 4-5 day history of back, flank, and abdominal pain that felt like persistent gas. He developed bilateral scapular pain that didn't resolve, which prompted him to go to the ED. In the ED they obtained a CTA which showed the aneurysm and dissection he was then transferred to [facility] for further management. Last 24 hours: No acute events in the last 24 hours. Pt has been weaned off esmolol and started on PO antihypertensives. Pt continues in his afib. He is on room air. He is making adequate urine and has normal kidney function. He is tolerating po meds and diet. Vascular is following the patient for the Type B dissection. Problem List Problem List[1] Telemetry: afib Vitals Intake / Output Vitals: 06/26/25 1300 BP: 97/80 Pulse: 89 Resp: 13 Temp: SpO2: 92% Temp Av.8 ??C (98.3 ??F) Min: 36.7 ??C (98 ??F) Max: 37 ??C (98.6 ??F) Intake/Output Summary (Last 24 hours) at 06/26/2025 1358 Last data filed at 06/26/2025 1200 Gross per 24 hour Intake 320 ml Output 1445 ml Net -1125 ml Physical Exam General Appearance: Appears well, in no acute distress Cardiac: Irregularly Irregular; no murmurs, rubs, or gallops Pulmonary: Lungs clear bilaterally; no rales, rhonchi, or wheezing Abdomen: Soft and non-tender; normal bowel sounds Extremities: Peripheral pulses 2+; no edema; warm Medications MEDSSCHEDULED[2] MEDSCONTINUOUS[3] Labs Lab Results Component Value Date WBC 8.1 06/25/2025 RBC 4.03 (L) 06/25/2025 HGB 12.6 (L) 06/25/2025 HCT 36.8 (L) 06/25/2025 MCV 91.4 06/25/2025 MCHC 34.1 06/25/2025 RDW 14.7 06/25/2025 PLT 218 06/25/2025 MPV 8.5 06/25/2025 NRBC 0.0 06/23/2025 Lab Results Component Value Date NA 139 06/25/2025 K 3.4 (L) 06/25/2025 CL 100 06/25/2025 BUN 15 06/25/2025 CREATININE 0.50 (L) 06/25/2025 CALCIUM 8.3 (L) 06/25/2025 PHOS 2.4 (L) 06/25/2025 MG 1.7 06/25/2025 Lab Results Component Value Date PT 13.9 (H) 06/25/2025 INR 1.2 (H) 06/25/2025 Lab Results Component Value Date BNP 227 (H) 06/23/2025 Lab Results Component Value Date HGBA1C 6.3 05/17/2025 Lab Results Component Value Date CHOL 137 05/17/2025 HDL 63 05/17/2025 LDL 84 05/15/2023 EKG Encounter Date: 06/23/25 ECG 12 lead Result Value Ventricular Rate ECG 91 QRS Duration 90 Q-T Interval 370 QTc 455 R [place] 41 T [place] 62 ECG Interpretation Atrial fibrillation Abnormal ECG When compared with ECG of 23-JUN-2025 14:14, (unconfirmed) No significant change was found Confirmed by DECLAN WALTER ([id number]) on 06/24/2025 6:34:13 PM *Note: Due to a large number of results and/or encounters for the requested time period, some results have not been displayed. A complete set of results can be found in Results Review. Imaging CT Angio Chest/Abdomen/Pelvis wo and/or w Contrast Narrative: EXAM: CT ANGIO CHEST/ABDOMEN/PELVIS WO AND/OR W CONTRAST INDICATIONS: f/u descending aortic dissection TECHNIQUE: CT of the chest, abdomen, and pelvis was obtained and reconstructed in axial, coronal, and sagittal images from the thoracic inlet through the ischial tuberosities. 90 mL Isovue-370 low osmolar IV contrast was administered to the patient via power injector withoutcomplication. COMPARISON: None. FINDINGS: Vasculature: Measurements of the aortic root are degraded by cardiac motion. Descending thoracic and proximal abdominal aortic dissection extending from the distal arch to the celiac artery with high-density contrast in the false that is most pronounced around the proximal descending thoracic aortano extends to the level of the celiac artery. Measurements as follows: Annulus: 30.9 x 21.8 mm Sinus: 43.2 x 37.3 mm Sinotubular junction: 33.6 x 30.9 mm Ascending aorta (level of right pulmonary artery): 50.7 x 49.5 mm Proximal arch (proximal to the brachiocephalic origin): 35.9 x 28.9 mm Mid arch (proximal to the left subclavian origin): 59.2 x 52.6 mm Distal arch/isthmus: 58.1 x 49.3 mm Proximal descending aorta: 51.4 x 48.5 mm Mid descending aorta: 53.6 x 49.9 mm Distal descending aorta/hiatus: 51.2 x 47.6 mm Abdominal aorta (just above celiac origin): 53.9 x 44.8 mm. Celiac artery supplied by the true lumen. Mild abdominal aortic calcified plaque with mild stenosisof the renal and superior mesenteric artery origins. Cardiac: Mildly dilated left atrium. Severe right atrial dilatation. Right and left ventricular cavity size is normal. No atrial appendage thrombus. No significant aortic valvular calcification. Mildmitral annular calcification and leaflet thickening. Lungs: Central airways patent. Diffuse bronchial wall thickening. Severe upper lobe predominant centrilobular and paraseptal emphysema. Right lower lobe postsurgical change and/or scar with associated volume loss. More linear bandlike scarring in the lingula. Bilateral lower lobe posterior basal sub segmental atelectasis and/or scarring. Scattered clustered pulmonary nodules probably in the anterior aspect of the upper lobes and posterior aspect of the lower lobes measuring up to 4 mm on the right and 6 mm on the left (series 11, images 128 and 125, respectively). No consolidation. Pleura: No pleural abnormality. Thyroid: Unremarkable. Liver: Unremarkable. Spleen: Unremarkable. Pancreas: Unremarkable. Gallbladder, bile ducts: Unremarkable. No biliary ductal dilatation. Adrenal glands: Unremarkable. Kidneys, ureters: Unremarkable. No hydronephrosis. Bladder: Unremarkable. Pelvis: No pelvic mass. Stomach, bowel: No bowel wall thickening, obstruction, or free intraperitoneal air. Colonic diverticulosis without peridiverticular fat stranding or edema. Normal appendix. Stomach is unremarkable. Lymph nodes: No thoracic, abdominal, or pelvic lymphadenopathy. Bones: No aggressive osseous lesions. Old healed rib fractures. Body wall, miscellaneous: Unremarkable. Impression: 1. Thoracic and abdominal aortic aneurysm with concurrent dissection extending from thedistal arch to the level of the celiac artery with measurements detailed above. High density contrast in the false lumen is most pronounced around the proximal descending thoracic aorta though extends to the level of the celiac artery. 2. Scattered pulmonary nodules measuring up to 6 mm. Findings may represent infectious or inflammatory small airways disease, however follow-up chest CT in 6 months is recommended to assess for interval change. A Red message has been communicated to Unknown Provider SF via the [employer] system on06/26/2025 9:16 AM, Message ID [id number]. -------- FINAL REPORT -------- Dictated By: Harsh Perdomo Dictated Date: 06/26/2025 08:33 ET Assigned Physician: Harsh Perdomo Reviewed and Electronically Signed By: Harsh Perdomo Signed Date: 06/26/2025 09:16 ET Workstation ID: [id number] Transcribed By: Self Edit Transcribed Date: 06/26/2025 08:33 ET Echocardiogram 06/24/25 TRANSTHORACIC ECHOCARDIOGRAM (TTE) COMPLETE (CONTRAST/BUBBLE/3D PRN) 06/24/2025 06/24/2025 Interpretation Summary Left ventricle cavity size is normal. Left ventricular systolic function is low normal with an ejection fraction of 50-55%. No regional LV wall motion abnormalities noted. Left ventricle wall thickness is normal. Right ventricle cavity is moderately enlarged. Right ventricular systolic function is mildly reduced. RV S' 10 cm/sec. Mitral valve demonstrates moderate regurgitation with a centrally directed jet. Mild aortic and tricuspid regurgitation. Pulmonic Valve: The estimated pulmonary artery systolic pressure is 35 mmHg. There is mild pulmonary hypertension. Signed by: Carly Call MD on 06/24/2025 11:49 AM Nutrition Dietary Orders (From admission, onward) Start Ordered 06/24/25 0900 Adult diet [facility]; Cardiac; Sodium 2 gm Restriction Diet effective now Question Answer Comment Location [facility] Diet Type (req) Cardiac Diet Type (cardiac) Sodium 2 gm Restriction 06/24/25 0859 Assessment HTN Afib on coumadin Ascending aortic aneurysm Type B dissection Plan Type B aortic dissection - antihypertensive and counterpulsation therapy - P.O. labetalol - goal systolic BP<120 - appreciate vascular surgery input 5 cm ascending aortic dissection - hypertensive control - surgical intervention as an outpatient Atrial fibrillation - beta sandra - holding anticoagulation for now will discuss with attendings DVT Prophylaxis: Intermittent Pneumatic Compression Device Code Status: Full Code - Confirmed I have examined the patient, reviewed the lab work / imaging / Rx, and discussed the plan with the multidisciplinary team. Critical care time spent for this patient was a total of [address] Surgery Attending: Benson Cartwright MD DELMA Aguilar Cardiothoracic Surgery [1] Patient Active Problem List Diagnosis Aneurysm of ascending aorta ([facility] V24) Bilateral hearing loss COVID-19 virus infection HTN (hypertension) Longstanding persistent atrial fibrillation (CMS/HCC V24, CMS/HCC V28) Shortness of breath Prediabetes 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, CMS/HCC V28) Permanent atrial fibrillation (CMS/HCC V24, CMS/HCC V28) Acute on chronic diastolic (congestive) heart failure (CMS/[facility] V24, CMS/HCC V28) Secondary hypercoagulable state ([facility] V24) [2] labetaloL, 200 mg, oral, BID losartan, 25 mg, oral, Daily pantoprazole, 40 mg, intravenous, q24h sodium chloride, 10 mL, intravenous, BID sodium chloride, 10 mL, intravenous, Once in imaging [3] esmolol, 50-300 mcg/kg/min, Last Rate: Stopped (06/25/25 09) niCARdipine, 2.5-15 mg/hr * Romel Chinjose manuel - 06/26/2025 9:06 AM EDT SPIRITUAL CARE Date/Time:06/26/25 at 10:42 AM EDT Type of Visit:Buying Intern Rounding Reason for Visit: Spiritual/Emotional Support and Spiritual Assessment Time Spent: 13 Minutes Location: [id number] Sacramental Encounters: Spiritual Distress Assessment: Spiritual Distress Assessment at beginning of visit Meaning - Overall Life Balance: Substantial evidence of unmet spiritual need Transcendence: No evidence of unmet spiritual need Values - Acknowledgement: No evidence of unmet spiritual need Values - Control: Some evidence of unmet spiritual need Psycho-Social Identity: Some evidence of unmet spiritual need SDAT Beginning of Visit Average Score: 0.8 Spiritual Distress Assessment at end of visit Meaning - Overall Life Balance: Some evidence of unmet spiritual need Transcendence: No evidence of unmet spiritual need Values - Acknowledgement: No evidence of unmet spiritual need Values - Control: No evidence of unmet spiritual need Psycho-Social Identity: Some evidence of unmet spiritual need SDAT End of Visit Average Score: 0.4 Spiritual Assessment/Distress Spiritual Care Assessment: Assessment: Patient displayed evidence of spiritual distress for meaning and psycho-social identity. Patient has fears of unknown. Patient stated that he desperately wants to go home. He said he feels a bit stronger. He was in elevated nervousness. Patient reported supportive relationships with his grandchildren. Intervention: NE Spiritual Care Interventions : focus on the present, encouraged self-care, provided anxiety containment, explored spiritual needs and resources, listened empathically, provided prayer, and explored alternatives Outcomes: debriefed/defused experience, distress reduced, identified priorities, progressed toward acceptance, and verbally processed emotions Plan of Care: No Follow up required. Please re-consult if new need comes up. *Reference: Spiritual Distress Assessment Tool: The SDAT is a clinical tool used by chaplains to identify unmet spiritual and emotional needs that can impact Goals of Care in the following categories: Spiritual Distress Assessment Legend Spiritual Needs Related Questions Meaning Are you having difficulties coping with what is happening to your now? Does your hospitalization have any repercussions on the way you live usually? Transcendence Do you have a particular rastafarian, suzan, or spirituality? Is your rastafarian/spirituality/suzan challenged by what is happening to you now? Values Do you think that the health professionals caring for you know you well enough? Do you feel that you are participating in the decisions made about your care? Psycho-Social Identity Do you have any worries or difficulties regarding your family or other persons close to you? Do you feel lonely? Do you have links to your suzan community? SCALE 0= no evidence of unmet spiritual needs 1= some evidence of unmet spiritual needs 2= substantial evidence of unmet spiritual needs 3= evidence of severe unmet spiritual needs * Ambrocio Muñoz MD - 06/26/2025 6:12 AM EDT Vascular Surgery Progress Note Length of stay: 3 days S: Patient has remained off of esmolol drip since Thursday. He was originally trialed on PO labetolol 200mg BID but developed hypotension to 88/63mmHg. He is now receiving labetolol 100mg TID and hissystolic pressures have been above target goal, most recently 159/94 via a line. His heat rate has ranged between the 80s-low 100s. This morning patient continues to deny any pain in his chest or abdomen. He underwent a repeat CTA yesterday which has not yet been read but appears stable from his scan on presentation. O: Vitals: 06/26/25 0600 BP: (!) 143/89 Pulse: (!) 122 Resp: 18 Temp: SpO2: 91% General: Alert, resting comfortably and in no acute distress Lungs: Breathing unlabored on room air Heart: HR in the 80s during my time of examination this morning, appears to be in SR on monitor. Abdomen: soft, non-distended, non-tender to palpation Extremities: bilateral lower extremities are warm and well perfused with motor and sensation intact Peripheral pulses: palpable femoral pulses, and dp pulses bilaterally A/P: 84 y.o. 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 He remains in the CICU on antiimpulse control and has been transitioned from esmolol drip to PO labetalol. SBP readings have been higher than goal after he was transitioned to PO antihypertensives. He underwent a repeat CTA yesterday which has not been read by a radiologist but his dissection appears stable. Please continue to treat blood pressure with a systolic BP goal of less than 120. Rema Carmona PA-C Vascular, Thoracic, Breast, Plastic, Surgical Oncology Available via Secure Chat: [facility] Red Surgery PAs Vascular Attending: Taking patient care over from the covering locums for the weekend. I have reviewed the presentationof this patient with acute type B dissection. Imaging reviewed as well. Reportedly back and chest pain has improved and resolved at this point. Now on oral blood pressure medication. He has a roughly 5 cm ascending aortic aneurysm. His arch is relatively normal in caliber and then a type B dissection starts immediately after the left subclavian ostium. It is quite dilated in excess of 5 cm throughout the descending thoracic aorta and terminates at the celiac artery. There appears to be at least 2-2.5 cm of obtainable seal zone if a stent graft could be landed at the left carotid takeoff. Branched thoracic endograft could also maintain flow into the subclavian and vertebral artery. At this time patient is being successfully managed medically with cessation of his presenting pain and reasonable blood pressure control. Unless there was some unresolved issue, it is much preferable/ safer to treat this operatively outside of the acute window in the subacute phase, at least 14 days out from initial presentation. As such we will size up an appropriate graft but would recommend continuing appropriate impulse control and blood pressure control. Assuming he is stable can be restarted on his anticoagulation and then follow-up with me in the office once discharged to discuss operative planning in the subacute versus chronic phase. Ambrocio Muñoz MD * Paty Mcnair RN - 06/25/2025 8:12 PM EDT Problem: Cardiac:Cardiac Output Alteration Goal: Ability to maintain an adequate cardiac output will improve Outcome: Progressing Problem: Cognitive:Cardiac Output Alteration Goal: Knowledge of the prescribed therapeutic regimen will improve Outcome: Progressing Problem: Falls: Fall Risk (Adult IP BH) Goal: (Goal) Patient will experience maximum safety and reduce risk for falls. Outcome: Progressing * Li Ramey MD - 06/25/2025 5:13 AM EDT Vascular Progress Note S: Esmolol drip weaned off yesterday mid day, has been transitioned to PO labetalol and SBP maintained at <120. With HR in the 80-90's. Reports some back pain from being in bed this morning but not the same as the pain that brought him in. Denies abdominal or chest pain. Tolerating his diet without nausea or vomiting, has not have a bowel movement yet. Making urine via barrett. Denies pain or numbness in LE. O: Vitals: 06/25/25 0000 06/25/25 0100 06/25/25 0300 06/25/25 0400 BP: BP Location: Patient Position: Pulse: 93 88 88 95 Resp: 20 15 17 16 Temp: TempSrc: SpO2: 96% 94% 95% 97% Weight: I/O last 3 completed shifts: In: 1091.8 (13.5 mL/kg) [P.O.:180; I.V.:811.8 (10 mL/kg); IV Piggyback:100] Out: 850 (10.5 mL/kg) [Urine:850 (0.3 mL/kg/hr)] Weight: 80.8 kg Infusions: MEDSCONTINUOUS[1] - Constitutional: lying in bed in no acute distress, answering questions appropriately, alert and oriented, a bit hard of hearing - Cardiovascular: 100/min on monitor, BP 140's systolic on my visit. - Lungs: breathing is even and unlabored - Abdomen: soft, non-distended, non-tender to palpation - Extremities: bilateral lower extremities are warm and well perfused with motor and sensation intact - Peripheral pulses: palpable femoral pulses, and dp pulses bilaterally - Skin: warm, and dry A/P: 84 y.o. 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 He is in the CICU receiving antiimpulse control and has been transitioned from esmolol drip to PO labetalol. Agree with systolic blood pressure goal of less than 120. Vascular surgery will continue to follow. Will discuss 3D reconstructions with Dr. Tristan Cormier. BP management per primary cardiac surgery team. Will discuss with Attending DELMA Barber Vascular/Breast/Plastic surgery Please contact [facility] VASCULAR SURGERY ATTENDING Patient seen and examined. Transitioned to oral beta sandra overnight, Denies chest pain/back pain. SBP 120s. Abdomen soft, non-tender; palpable pulses throughout. Type B aortic dissection from left subclavian to celiac artery, stable. No indication for urgent intervention. Further recommendations to follow. Li Ramey MD Vascular Surgery [1] esmolol, 50-300 mcg/kg/min, Last Rate: 50 mcg/kg/min (06/25/25 0452) niCARdipine, 2.5-15 mg/hr * Paty Mcnair RN - 06/24/2025 6:45 PM EDT Problem: Fluid Volume: Cardiac Output Alteration Goal: Ability to achieve a balanced intake and output will improve Outcome: Progressing Problem: Falls: Fall Risk (Adult IP BH) Goal: (Goal) Patient will experience maximum safety and reduce risk for falls. Outcome: Progressing Goal: Patient will not fall or injure themselves during hospitalization. Outcome: Progressing * DELMA Gonzalez - 06/24/2025 6:52 AM EDT Pt on coumadin for secondary hypercoaguable state due to permanent afib Pt with bnp 227,echo with l atrial dilation and r atrial dilation,pt with acute on chronic diastolic heart failure * Kristine Chambers RN - 06/24/2025 3:33 AM EDT Problem: Cardiac:Cardiac Output Alteration Goal: Ability to maintain an adequate cardiac output will improve Outcome: Progressing Problem: Cognitive:Cardiac Output Alteration Goal: Ability to state signs and symptoms to report to health care provider will improve Outcome: Progressing Goal: Knowledge of the prescribed therapeutic regimen will improve Outcome: Progressing Problem: Fluid Volume: Cardiac Output Alteration Goal: Ability to achieve a balanced intake and output will improve Outcome: Progressing Problem: Physical Regulation:Cardiac Output Alteration Goal: Will achieve and/or maintain hemodynamic stability Outcome: Progressing Problem: Falls: Fall Risk (Adult IP BH) Goal: (Goal) Patient will experience maximum safety and reduce risk for falls. Outcome: Progressing Goal: Patient will not fall or injure themselves during hospitalization. Outcome: Progressing Problem: Self-Care: IPR IPOC Goal: Patient/caregiver collaborates in the IPR process in person or with shipping team leader Outcome: Progressing 0000 Pt transferred from [facility] for higher level or care.Pt was on esmolol drip and maintained drip rate/dose per DELMA Rouse.Nicardipine drip on hold currently.Pt assessed and documented.CHGbath provided.Fall prevention measures initiated.Bed in low position,rails up ,alarms on,call lightwithin reach.Labs drawn and electrolytes currently being replaced. documented in this encounter H&P Notes * Benson Cartwright MD - 06/24/2025 7:45 AM EDT HPI: Patient is an 84 y.o. male with a history of hypertension, atrial fibrillation on Coumadin, and remote history of smoking who presents as a transfer from [facility] for a type B aorticdissection, and a 5 cm ascending aortic aneurysm. He presented to [facility] ED complaining of a 4-5 day history of back, flank, and abdominal pain that felt like persistent gas. He developed bilateral scapular pain that didn't resolve, which prompted him to go to the ED. Blood pressure was 158/103. 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 The mesenteric and renal vessels are all perfused by the true lumen. He was treated with esmolol and nicardipine. He had a therapeutic PT/INR secondary to taking Coumadin for his Afib. He was given IV Vitamin K, and post-treatment his INR was 1.7. He was transferred to [facility]. On arrival he is symptom free. Esmolol gtt for hypertensive and counterpulsation control. No complaints other than being tired. Physical Exam: Gen: No acute distress. Well-nourished. CV: Irregular rhythm. No murmurs appreciated. Pulm: Clear to auscultation. Abd: Soft, nontender, nondistended. Neuro: No gross motor deficits Ext: warm and well-perfused. Palpable distal pulses. Review of systems: Neuro: no issues CV: chest pain Pulm: no issues GI: abdominal and flank pain; epigastric fullness and bloating Ext: No issues A/P: Type B aortic dissection - antihypertensive and counterpulsation therapy - Esmolol gtt - start p.o. labetalol - goal systolic BP<120 - consult vascular surgery 5 cm ascending aortic dissection - hypertensive control - surgical intervention as an outpatient Atrial fibrillation - beta sandra - holding anticoagulation Therapeutic PT INR - getting 2nd dose of Vitamin K - goal INR < 1.[address] Cartwright. DELMA Aaron-C Patient seen and examined. Chart reviewed. Agree with the above. Vascular surgery consulted for follow-up and determination of possible need for endovascular repair due to large tad-aortic hematoma (greater than 5 cm) in the presence of anticoagulation. Continue medical management for now. documented in this encounter Consult Notes * Li Ramey MD - 06/24/2025 6:02 AM EDTAssociated Order(s): IP CONSULT TO VASCULAR SURGERY Vascular Surgery Consult Note Requested by: CT Surgery Reason for Consult: Type B aortic dissection Admitting MD: Benson Cartwright MD PCP: Magdalene Barba MD Code Status: Full Code - Confirmed History of Present Illness: Patient is a 84 y.o. male with a history of hypertension, atrial fibrillation on Coumadin, and former smoker who presents as a transfer from [facility] for a type B aortic dissection extension as well as an ascending aortic aneurysm. He presented to the [facility] emergency department yesterday complaining of a 1 week history of back ,chest and abdominal pain. Blood pressure upon arrival was 158/103. 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 The mesenteric and renal vessels are all perfused by the true lumen. He was treated with esmolol and nicardipine and was accepted by CT surgery for transfer to the [facility] CICU. Patient is currently on an esmolol drip with a systolic blood pressure goal of less than 120. His blood pressure readings since arrival are largely within this goal. Heart rate is currently in the 80s. This morning patient complains of some lower back pain which he attributes to positioning in the hospital bed, however he reports his chest pain and abdominal pain have resolved. He additionally denies any pain or paresthesias in his bilateral lower extremities. Labs show normal renal function. Past Medical History: Past Surgical History: Medical History[1] Surgical History[2] Family / Social History: Family History[3] Social History Socioeconomic History Marital status: Spouse name: Not on file Number of children: Not on file Years of education: Not on file Highest education level: Not on file Occupational History Not on file Tobacco Use Smoking status: Former Current packs/day: 0.50 Types: Cigarettes Smokeless tobacco: Former Substance and Sexual Activity Alcohol use: Yes Alcohol/week: 1.0 standard drink of alcohol Drug use: No Sexual activity: Not Currently Other Topics Concern Not on file Social History Narrative Not on file Allergies: Allergies[4] Scheduled Medications: MEDSSCHEDULED[5] Review of Systems: Please see HPI for relevant ROS Vitals: Vitals: 06/24/25 0515 BP: Pulse: 85 Resp: 11 Temp: SpO2: 94% Physical Exam: - Constitutional: lying in bed in no acute distress, answering questions appropriately, alert and oriented - Cardiovascular: regular rate and normal rhythm - Lungs: breathing is even and unlabored on 2L NC - Abdomen: soft, non-distended, non-tender to palpation - Extremities: bilateral upper and lower extremities are warm and well perfused with motor and sensation intact - Peripheral pulses: palpable femoral pulses, and dp pulses bilaterally - Skin: pink, warm, and dry Labs: Lab Results Component Value Date NA 137 06/24/2025 K 3.6 06/24/2025 CL 98 06/24/2025 CO2 29 06/24/2025 GLUCOSE 135 (H) 06/24/2025 BUN 16 06/24/2025 CREATININE 0.60 (L) 06/24/2025 CALCIUM 8.2 (L) 06/24/2025 PROT 7.2 06/23/2025 ALBUMIN 3.4 06/23/2025 BILITOT 1.0 06/23/2025 AST 26 06/23/2025 ALT 20 06/23/2025 MG 1.6 (L) 06/24/2025 ALKPHOS 84 06/23/2025 EGFR 96 06/24/2025 @CBC@ Imaging: CT Angio Chest/Abdomen/Pelvis wo and/or w Contrast Addendum Date: 06/23/2025 Addendum: ADDENDUM: This report was discussed with Remy Steward MD on Jun 23, 2025 20:04:00 EDT. Thisdocument has been electronically signed by: Anita Matt on 06/23/2025 20:04:24 Result Date: 06/23/2025 Narrative: INDICATION: chest and back pain, bloating, eval dissection, other acute CT angiography chest, abdomen and pelvis with contrast. 3-D postprocessing. Comparison: None provided Findings: Originating in the aortic arch, at the posterior aspect of the left subclavian artery is a dissection flap extending inferiorly along the posterior left aspect of the thoracic aorta extending to the levelof the celiac artery. Mesenteric vessels and renal arteries are filled via the true lumen. No significant vessels appear to be filled by the false lumen. The ascending thoracic aorta is enlarged measuring up to 5.1 x 4.9 cm. No dissection flap extends into the ascending aorta or aortic root. Heart size is mildly enlarged. Coronary artery calcifications are present. No pericardial effusion. No mediastinal adenopathy. There is a background of moderately severe centrilobular emphysema in the lungsand multiple calcified pulmonary nodules present in the lungs, evidence of previous granulomatous di sease. Focal scarring in the lateral mid lingula. The gallbladder and solid organs are within normal limits. No renal stones. No bowel obstruction, pneumoperitoneum, or pneumatosis. The prostate gland is enlarged. Urinary bladder is unremarkable. Moderate narrowing at the origin of the celiac artery. Mild narrowing at the origin superior mesenteric artery. Inferior mesenteric artery is patent. There is a single right renal artery and 2 left renal arteries, origins are patent. Infrarenal abdominal aorta is normal caliber. Bilateral iliac, external iliac and common femoral arteries are patent. There is a subcutaneous right buttock 2.8 cm cystic lesion, likely a sebaceous cyst. No acute fractures. Impression: 1. 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 All significant arterial vessels filled by the true lumen. 2. Aneurysmal ascending aorta measuring 5.1 x 4.9 cm. 3. Moderately severe centrilobular emphysema. 4. Enlarged prostate gland. This document has been electronically signed by: Tien Partida MD on 06/23/2025 19:58:03 Impression/Recommendations: 84-year-old male with a history of hypertension, atrial fibrillation, and former smoker who presents as a transfer from [facility] for a type B aortic dissection extending to the level of the celiac artery and a 5.1 x 4.9 ascending aortic aneurysm. He is in the CICU receiving antiimpulse control via esmolol drip and his pain has resolved with treatment. Agree with systolic blood pressure goal of less than 120. Vascular surgery will continue to follow. Patient was discussed with Dr. Tristan Cormier. Rema Carmona PA-C Vascular, Thoracic, Breast, Plastic and Surgical Oncology Available via Secure Chat: [facility] Red Surgery PAs Total time spent managing this patient on the date of the [id number] encounter (including direct patient interaction, review of applicable labs and imaging, documentation, and communication with other providers involved in patient???s care): 60 minutes VASCULAR SURGERY ATTENDING Type B aortic dissection extending from the left subclavian to the celiac trunk. No involvement of visceral vessels. The false lumen is patent and measures about 5cm in largest dimension. It has not thrombosed, presumably secondary to anticoagulation. Since admission, chest pain has resolved. Systolic BP now in the 120s, HR in the 80s. INR has been reversed with Vitamin K. Echo cardiogram preliminarily shows diastolic congestive head failure with right and left atrial dilation. On review of the imaging, there is no landing zone distal to the left subclavian artery for a thoracic stent graft. The aortic arch appears to be non-aneurysmal and of adequate caliber with about 1.5cm of landing zone for a TBE. 3D reconstruction needed for accurate measurement. No indication for urgent intervention at this time. Continue with anti-impulse control. Patient at risk for cardioembolism while off anticoagulation. Will determine appropriateness for repair as wellas timing, to facilitate resumption of anticoagulation. Li Ramey MD Vascular & Endovascular Surgery. [1] Past Medical History: Diagnosis Date Atrial fibrillation (CMS/HCC V24, CMS/HCC V28) DX:Atrial fibrillation (HCC) History of tobacco abuse 08/20/2020 DX:History of tobacco abuse Hypertension DX:Hypertension [2] Past Surgical History: Procedure Laterality Date CATARACT EXTRACTION Left PROCEDURE: HISTORICAL CATARACT REMOVAL; COMMENT: 03/22/2020 [3] Family History Problem Relation Name Age of Onset Colon cancer Neg Hx [4] No Known Allergies [5] pantoprazole, 40 mg, intravenous, q24h sodium chloride, 10 mL, intravenous, BID documented in this encounter Plan of Treatment Upcoming Encounters Date Type Department Care Team (Late st Contact Info) Description 2025 11:15 AM EST Office Visit Vascular Surgery [facility] [address] [place] [address] Ambrocio Muñoz MD [address] [place] [address] 2025 1:00 PM EST Office Visit Cardiothoracic Surgery [facility] [address] [place] [address] Shelbi Bowling MD [address] [place] [address] 07/12/2025 1:40 PM EST Office Visit [facility] - [address] [place] [phone] Shelby Ramos NP [address] [place] [address] [address] [place] [phone] 12/15/2025 2:30 PM EDT Office Visit Adult Medicine - [facility] [address] [place] [phone] Magdalene Barba MD [address] [place] [address] Scheduled Orders Name Type Priority Associated Diagnoses Orde r Schedule Prothrombin time with INR Lab Routine Permanent atrial fibrillation (CMS/HCC V24, CMS/HCC V28) Expected: 07/03/2025, Expires: 06/29/2026 documented as of this encounter Procedures Procedure Name Priority Date/Time Associated Diagnosis Comments PROTHROMBIN TIME WITH INR Timed 06/29/2025 6:35 AM EDT PROTHROMBIN TIME WITH INR Timed 06/28/2025 8:16 AM EDT PROTHROMBIN TIME WITH INR Timed 06/28/2025 5:36 AM EDT COMPLETE BLOOD COUNT Timed 06/28/2025 5:36 AM EDT MAGNESIUM Timed 06/28/2025 5:36 AM EDT BASIC METABOLIC PANEL Timed 06/28/2025 5:36 AM EDT PROTHROMBIN TIME WITH INR Routine 06/27/2025 8:23 AM EDT COMPLETE BLOOD COUNT Routine 06/27/2025 4:10 AM EDT BASIC METABOLIC PANEL Routine 06/27/2025 4:[address] ANGIO CHEST/ABDOMEN/PELVIS WO AND/OR W CONTRAST Routine 06/25/2025 12:18 PM EDT 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, CMS/HCC V28) PROTHROMBIN TIME WITH INR Routine 06/25/2025 4:15 AM EDT COMPLETE BLOOD COUNT Routine 06/25/2025 4:15 AM EDT PHOSPHORUS Routine 06/25/2025 4:15 AM EDT MAGNESIUM Routine 06/25/2025 4:15 AM EDT CALCIUM, IONIZED Routine 06/25/2025 4:15 AM EDT BASIC METABOLIC PANEL Routine 06/25/2025 4:15 AM EDT PROTHROMBIN TIME WITH INR Routine 06/24/2025 12:00 PM EDT TRANSTHORACIC ECHOCARDIOGRAM (TTE) COMPLETE STAT 06/24/2025 9:32 AM EDT Aneurysm of 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 (CMS/HCC V24) CBC WITH AUTO DIFFERENTIAL Routine 06/24/2025 1:37 AM EDT ACTIVATED PARTIAL THROMBOPLASTIN TIME Routine 06/24/2025 1:37 AM EDT PROTHROMBIN TIME WITH INR Routine 06/24/2025 1:37 AM EDT CBC AND DIFFERENTIAL Routine 06/24/2025 1:37 AM EDT TYPE AND SCREEN Routine 06/24/2025 1:37 AM EDT MAGNESIUM Routine 06/24/2025 1:37 AM EDT CALCIUM, IONIZED Routine 06/24/2025 1:37 AM EDT BASIC METABOLIC PANEL Routine 06/24/2025 1:37 AM EDT POCT GLUCOSE BLOOD Routine 06/24/2025 1: 36 AM EDT documented in this encounter Results * (ABNORMAL) Prothrombin time with INR (06/29/2025 6:35 AM EDT) Protime 14.9(H) 10.5 - 13.3 sec LAB COAGULATION METHOD 06/29/2025 7:23 AM EDT [facility] INR 1.3(H) 0.8 - 1.1 LAB COAGULATION METHOD 06/29/2025 7:23 AM EDT [facility] Blood Venous blood specimen / Unknown Venipuncture / Unknown 06/29/2025 6:35 AM EDT 06/29/2025 6:54 AM EDT Narrative [facility] - 06/29/2025 7:23 AM EDT Std. Therapy 2.0-3.0 INR High Dose Therapy 3.0-4.5 INR Ranges may vary depending on clinical indications and protocol. us Garth NGUYỄN LAB BLOOD ORDERABLES Final Resul t [facility] [address] [place] [address], * (ABNORMAL) Prothrombin time with INR (06/28/2025 8:16 AM EDT) Protime 14.6(H) 10.5 - 13.3 sec LAB COAGULATION METHOD 06/28/2025 8:58 AM EDT [facility] INR 1.3(H) 0.8 - 1.1 LAB COAGULATION METHOD 06/28/2025 8:58 AM EDT [facility] Blood Venous blood specimen / Unknown Venipuncture / Unknown 06/28/2025 8:16 AM EDT 06/28/2025 8:42 AM EDT Narrative [facility] - 06/28/2025 8:58 AM EDT Std. Therapy 2.0-3.0 INR High Dose Therapy 3.0-4.5 INR Ranges may vary depending on clinical indications and protocol. Garth NGUYỄN LAB BLOOD ORDERABLES Final Resul t Performing Organization Address [facility] Co de Phone Number [facility] [address] [place] [address], [place] [phone] * (ABNORMAL) Prothrombin time with INR (06/28/2025 5:36 AM EDT) Protime 15.1(H) 10.5 - 13.3 sec LAB COAGULATION METHOD 06/28/2025 5:54 AM EDT [facility] INR 1.3(H) 0.8 - 1.1 LAB COAGULATION METHOD 06/28/2025 5:54 AM EDT [facility] Blood Venous blood specimen / Unknown Venipuncture / Unknown 06/28/2025 5:36 AM EDT 06/28/2025 5:42 AM EDT Narrative [facility] - 06/28/2025 5:54 AM EDT Std. Therapy 2.0-3.0 INR High Dose Therapy 3.0-4.5 INR Ranges may vary depending on clinical indications and protocol. us Garth NGUYỄN LAB BLOOD ORDERABLES Final Resul t Performing Organization Address City/[facility]/ZIP Co de Phone Number [facility] [address] [place] [address], [place] [phone] * (ABNORMAL) Complete blood count (06/28/2025 5:36 AM EDT) WBC 9.6 4.0 - 10.5 K/mcL LAB HEMETOLOGY METHOD 06/28/2025 5:49 AM EDT [facility] RBC 3.84(L) 4.70 - 6.00 M/mcL LAB HEMETOLOGY METHOD 06/28/2025 5:49 AM EDT [facility] Hemoglobin 11.7(L) 13.5 - 18.0 g/dL LAB HEMETOLOGY METHOD 06/28/2025 5:49 AM EDT [facility] Hematocrit 36.1(L) 40.0 - 54.0 % LAB HEMETOLOGY METHOD 06/28/2025 5:49 AM EDT [facility] MCV 94.0 78.0 - 100.0 FL LAB HEMETOLOGY METHOD 06/28/2025 5:49 AM EDT [facility] MCH 30.6 25.0 - 33.0 pcg LAB HEMETOLOGY METHOD 06/28/2025 5:49 AM EDT [facility] MCHC 32.5 32.0 - 36.0 g/dL LAB HEMETOLOGY METHOD 06/28/2025 5:49 AM EDT [facility] RDW 15.0 12.1 - 17.7 % LAB HEMETOLOGY METHOD 06/28/2025 5:49 AM EDT [facility] Platelets 248 150 - 450 K/mcL LAB HEMETOLOGY METHOD 06/28/2025 5:49 AM EDT [facility] MPV 8.8 7.4 - 11.4 FL LAB HEMETOLOGY METHOD 06/28/2025 5:49 AM EDT [facility] Blood Venous blood specimen / Unknown Venipuncture / Unknown 06/28/2025 5:36 AM EDT 06/28/2025 5:43 AM EDT us Garth NGUYỄN LAB BLOOD ORDERABLES Final Resul t [facility] [address] [place] [address], [place] [phone] * (ABNORMAL) Basic metabolic panel (06/28/2025 5:36 AM EDT) Sodium 143 135 - 145 mmol/L LAB CHEMISTRY METHOD 06/28/2025 6:15 AM EDT [facility] Potassium 3.7 3.5 - 5.1 mmol/L LAB CHEMISTRY METHOD 06/28/2025 6:15 AM EDT [facility] Chloride 106 98 - 107 mmol/L LAB CHEMISTRY METHOD 06/28/2025 6:15 AM EDT [facility] CO2 27 24 - 32 mmol/L LAB CHEMISTRY METHOD 06/28/2025 6:15 AM EDT [facility] Anion Gap 10 5 - 14 LAB CHEMISTRY METHOD 06/28/2025 6:15 AM EDT [facility] Glucose 126 70 - 199 mg/dL LAB CHEMISTRY METHOD 06/28/2025 6:15 AM [facility] BUN 16 9 - 20 mg/dL LAB CHEMISTRY METHOD 06/28/2025 6:15 AM T [facility] Creatinine 0.50(L) 0.70 - 1.30 mg/dL LAB CHEMISTRY METHOD 06/28/2025 6:15 AM EDT [facility] eGFR 101 >=60 mL/min/1. 73m2 LAB CHEMISTRY METHOD 06/28/2025 6:15 AM T [facility] Comment:Calculation based on the Chronic Kidney Disease Epidemiology Collaboration (CKD-EPI) equation refit without adjustment for race. BUN/Creatinine Ratio 32.0(H) 12.0 - 20.0 LAB CHEMISTRY METHOD 06/28/2025 6:15 AM EDT [facility] Calcium 8.7 8.4 - 10.2 mg/dL LAB CHEMISTRY METHOD 06/28/2025 6:15 AM [facility] Blood Venous blood specimen / Unknown Venipuncture / Unknown 06/28/2025 5:36 AM EDT 06/28/2025 5:42 AM EDT Garth NGUYỄN LAB BLOOD ORDERABLES Final Resul t Performing Organization Address City/[facility]/ZIP Co de Phone Number [facility] [address] [place] [address], [place] [phone] * Magnesium (06/28/2025 5:36 AM EDT) Magnesium 1.7 1.7 - 2.8 mg/dL LAB CHEMISTRY METHOD 06/28/2025 6:15 AM EDT [facility] Blood Venous blood specimen / Unknown Venipuncture / Unknown 06/28/2025 5:36 AM EDT 06/28/2025 5:42 AM EDT us Garth NGUYỄN LAB BLOOD ORDERABLES Final Resul t Performing Organization Address [facility] Co de Phone Number [facility] [address] [place] [address], [place] [phone] * (ABNORMAL) Prothrombin time with INR (06/27/2025 8:23 AM EDT) Protime 14.8(H) 10.5 - 13.3 sec LAB COAGULATION METHOD 06/27/2025 8:58 AM EDT [facility] INR 1.3(H) 0.8 - 1.1 LAB COAGULATION METHOD 06/27/2025 8:58 AM EDT [facility] Blood Arterial blood specimen / Unknown Arterial Puncture / Unknown 06/27/2025 8:23 AM EDT 06/27/2025 8:34 AM EDT Narrative [facility] - 06/27/2025 8:58 AM EDT Std. Therapy 2.0-3.0 INR High Dose Therapy 3.0-4.5 INR Ranges may vary depending on clinical indications and protocol. us Aiden NGUYỄN LAB BLOOD ORDERABLES Final Res ult Performing Organization Address City/[facility]/ZIP Co de Phone Number [facility] [address] [place] [address], [place] [phone] * (ABNORMAL) Basic metabolic panel (06/27/2025 4:10 AM EDT) Sodium 138 135 - 145 mmol/L LAB CHEMISTRY METHOD 06/27/2025 5:11 AM [facility] Potassium 3.5 3.5 - 5.1 mmol/L LAB CHEMISTRY METHOD 06/27/2025 5:11 AM [facility] Chloride 102 98 - 107 mmol/L LAB CHEMISTRY METHOD 06/27/2025 5:11 AM [facility] CO2 29 24 - 32 mmol/L LAB CHEMISTRY METHOD 06/27/2025 5:11 AM [facility] Anion Gap 7 5 - 14 LAB CHEMISTRY METHOD 06/27/2025 5:11 AM [facility] Glucose 117 70 - 199 mg/dL LAB CHEMISTRY METHOD 06/27/2025 5:11 AM [facility] BUN 12 9 - 20 mg/dL LAB CHEMISTRY METHOD 06/27/2025 5:11 AM [facility] Creatinine 0.50(L) 0.70 - 1.30 mg/dL LAB CHEMISTRY METHOD 06/27/2025 5:11 AM [facility] eGFR 101 >=60 mL/min/1. 73m2 LAB CHEMISTRY METHOD 06/27/2025 5:11 AM [facility] Comment:Calculation based on the Chronic Kidney Disease Epidemiology Collaboration (CKD-EPI) equation refit without adjustment for race. BUN/Creatinine Ratio 24.0(H) 12.0 - 20.0 LAB CHEMISTRY METHOD 06/27/2025 5:11 AM [facility] Calcium 8.3(L) 8.4 - 10.2 mg/dL LAB CHEMISTRY METHOD 06/27/2025 5:11 AM [facility] Blood Venous blood specimen / Unknown Venipuncture / Unknown 06/27/2025 4:10 AM EDT 06/27/2025 4:39 AM EDT us Derek NGUYỄN LAB BLOOD ORDERABLES Final Result [facility] [address] [place] [address], [place] [phone] * (ABNORMAL) Complete blood count (06/27/2025 4:10 AM EDT) [facility] WBC 9.2 4.0 - 10.5 K/mcL LAB HEMETOLOGY METHOD 06/27/2025 4:45 AM EDT [facility] RBC 3.67(L) 4.70 - 6.00 M/mcL LAB HEMETOLOGY METHOD 06/27/2025 4:45 AM EDT [facility] Hemoglobin 11.3(L) 13.5 - 18.0 g/dL LAB HEMETOLOGY METHOD 06/27/2025 4:45 AM EDT [facility] Hematocrit 34.3(L) 40.0 - 54.0 % LAB HEMETOLOGY METHOD 06/27/2025 4:45 AM EDT [facility] MCV 93.6 78.0 - 100.0 FL LAB HEMETOLOGY METHOD 06/27/2025 4:45 AM EDT [facility] MCH 30.7 25.0 - 33.0 pcg LAB HEMETOLOGY METHOD 06/27/2025 4:45 AM EDT [facility] MCHC 32.8 32.0 - 36.0 g/dL LAB HEMETOLOGY METHOD 06/27/2025 4:45 AM EDT [facility] RDW 15.0 12.1 - 17.7 % LAB HEMETOLOGY METHOD 06/27/2025 4:45 AM EDT [facility] Platelets 218 150 - 450 K/mcL LAB HEMETOLOGY METHOD 06/27/2025 4:45 AM EDT [facility] MPV 9.1 7.4 - 11.4 FL LAB HEMETOLOGY METHOD 06/27/2025 4:45 AM EDT [facility] Blood Venous blood specimen / Unknown Venipuncture / Unknown 06/27/2025 4:10 AM EDT 06/27/2025 4:38 AM EDT us Derek NGUYỄN LAB BLOOD ORDERABLES Final Result [facility] [address] [place] [address], [place] [phone] * CT Angio Chest/Abdomen/Pelvis wo and/or w Contrast (06/25/2025 12:18 PM EDT) Anatomical Region Laterality Modality Body Computed Tomogra phy 06/26/2025 8:33 AM EDT Impressions 06/26/2025 9:16 AM EDT 1. Thoracic and abdominal aortic aneurysm with concurrent dissection extending from the distal arch to the level of the celiac artery with measurements detailed above. High density contrast in the false lumen is most pronounced around the proximal descending thoracic aorta though extends to the level of the celiac artery. 2. Scattered pulmonary nodules measuring up to 6 mm. Findings may represent infectious or inflammatory small airways disease, however follow-up chest CT in 6 months is recommended to assess for interval change. A Red message has been communicated to Unknown Provider SF via the [employer] system on 06/26/2025 9:16 AM, Message ID [id number]. -------- FINAL REPORT -------- Dictated By: Harsh Perdomo Dictated Date: 06/26/2025 08:33 ET Assigned Physician: Harsh Perdomo Reviewed and Electronically Signed By: Harsh Perdomo Signed Date: 06/26/2025 09:16 ET Workstation ID: [id number] Transcribed By: Self Edit Transcribed Date: 06/26/2025 08:33 ET Narrative 06/26/2025 9:16 AM EDT EXAM: CT ANGIO CHEST/ABDOMEN/PELVIS WO AND/OR W CONTRAST INDICATIONS: f/u descending aortic dissection TECHNIQUE: CT of the chest, abdomen, and pelvis was obtained and reconstructed in axial, coronal, and sagittal images from the thoracic inlet through the ischial tuberosities. 90 mL Isovue-370 low osmolar IV contrast was administered to the patient via power injector without complication. COMPARISON: None. FINDINGS: Vasculature: Measurements of the aortic root are degraded by cardiac motion. 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 Measurements as follows: Annulus: 30.9 x 21.8 mm Sinus: 43.2 x 37.3 mm Sinotubular junction: 33.6 x 30.9 mm Ascending aorta (level of right pulmonary artery): 50.7 x 49.5 mm Proximal arch (proximal to the brachiocephalic origin): 35.9 x 28.9 mm Mid arch (proximal to the left subclavian origin): 59.2 x 52.6 mm Distal arch/isthmus: 58.1 x 49.3 mm Proximal descending aorta: 51.4 x 48.5 mm Mid descending aorta: 53.6 x 49.9 mm Distal descending aorta/hiatus: 51.2 x 47.6 mm Abdominal aorta (just above celiac origin): 53.9 x 44.8 mm. Celiac artery supplied by the true lumen. Mild abdominal aortic calcified plaque with mild stenosis of the renal and superior mesenteric artery origins. Cardiac: Mildly dilated left atrium. Severe right atrial dilatation. Right and left ventricular cavity size is normal. No atrial appendage thrombus. No significant aortic valvular calcification. Mild mitral annular calcification and leaflet thickening. Lungs: Central airways patent. Diffuse bronchial wall thickening. Severe upper lobe predominant centrilobular and paraseptal emphysema. Right lower lobe postsurgical change and/or scar with associated volume loss. More linear bandlike scarring in the lingula. Bilateral lower lobe posterior basal subsegmental atelectasis and/or scarring. Scattered clustered pulmonary nodules probably in the anterior aspect of the upper lobes and posterior aspect of the lower lobes measuring up to 4 mm on the right and 6 mm on the left (series 11, images 128 and 125, respectively). No consolidation. Pleura: No pleural abnormality. Thyroid: Unremarkable. Liver: Unremarkable. Spleen: Unremarkable. Pancreas: Unremarkable. Gallbladder, bile ducts: Unremarkable. No biliary ductal dilatation. Adrenal glands: Unremarkable. Kidneys, ureters: Unremarkable. No hydronephrosis. Bladder: Unremarkable. Pelvis: No pelvic mass. Stomach, bowel: No bowel wall thickening, obstruction, or free intraperitoneal air. Colonic diverticulosis without peridiverticular fat stranding or edema. Normal appendix. Stomach is unremarkable. Lymph nodes: No thoracic, abdominal, or pelvic lymphadenopathy. Bones: No aggressive osseous lesions. Old healed rib fractures. Body wall, miscellaneous: Unremarkable. Procedure Note Harsh Perdomo MD - 06/26/2025 EXAM: CT ANGIO CHEST/ABDOMEN/PELVIS WO AND/OR W CONTRAST INDICATIONS: f/u descending aortic dissection TECHNIQUE: CT of the chest, abdomen, and pelvis was obtained andreconstructed in axial, coronal, and sagittal images from the thoracicinlet through the ischial tuberosities. 90 mL Isovue-370 low osmolar IV contrast was administered to the patientvia power injector without complication. COMPARISON: None. FINDINGS: Vasculature: Measurements of the aortic root are degraded by cardiacmotion. Descending thoracic and proximal abdominal aortic dissectionextending from the distal arch to the celiac artery with high-densitycontrast in the false that is most pronounced around the proximaldescending thoracic aorta no extends to the level of the celiac artery.Measurements as follows: Annulus: 30.9 x 21.8 mm Sinus: 43.2 x 37.3 mm Sinotubular junction: 33.6 x 30.9 mm Ascending aorta (level of right pulmonary artery): 50.7 x 49.5 mm Proximal arch (proximal to the brachiocephalic origin): 35.9 x 28.9 mm Mid arch (proximal to the left subclavian origin): 59.2 x 52.6 mm Distal arch/isthmus: 58.1 x 49.3 mm Proximal descending aorta: 51.4 x 48.5 mm Mid descending aorta: 53.6 x 49.9 mm Distal descending aorta/hiatus: 51.2 x 47.6 mm Abdominal aorta (just above celiac origin): 53.9 x 44.8 mm. Celiac artery supplied by the true lumen. Mild abdominal aortic calcifiedplaque with mild stenosis of the renal and superior mesenteric arteryorigins. Cardiac: Mildly dilated left atrium. Severe right atrial dilatation. Rightand left ventricular cavity size is normal. No atrial appendage thrombus.No significant aortic valvular calcification. Mild mitral annularcalcification and leaflet thickening. Lungs: Central airways patent. Diffuse bronchial wall thickening. Severeupper lobe predominant centrilobular and paraseptal emphysema. Right lowerlobe postsurgical change and/or scar with associated volume loss. Morelinear bandlike scarring in the lingula. Bilateral lower lobe posteriorbasal subsegmental atelectasis and/or scarring. Scattered clusteredpulmonary nodules probably in the anterior aspect of the upper lobes andposterior aspect of the lower lobes measuring up to 4 mm on the right and6 mm on the left (series 11, images 128 and 125, respectively). Noconsolidation. Pleura: No pleural abnormality. Thyroid: Unremarkable. Liver: Unremarkable. Spleen: Unremarkable. Pancreas: Unremarkable. Gallbladder, bile ducts: Unremarkable. No biliary ductal dilatation. Adrenal glands: Unremarkable. Kidneys, ureters: Unremarkable. No hydronephrosis. Bladder: Unremarkable. Pelvis: No pelvic mass. Stomach, bowel: No bowel wall thickening, obstruction, or freeintraperitoneal air. Colonic diverticulosis without peridiverticular fatstranding or edema. Normal appendix. Stomach is unremarkable. Lymph nodes: No thoracic, abdominal, or pelvic lymphadenopathy. Bones: No aggressive osseous lesions. Old healed rib fractures. Body wall, miscellaneous: Unremarkable. IMPRESSION: 1. 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 High density contrast in the false lumen ismost pronounced around the proximal descending thoracic aorta thoughextends to the level of the celiac artery. 2. Scattered pulmonary nodules measuring up to 6 mm. Findings mayrepresent infectious or inflammatory small airways disease, howeverfollow-up chest CT in 6 months is recommended to assess for intervalchange. A Red message has been communicated to Unknown Provider SF via [employer] system on 06/26/2025 9:16 AM, Message ID [id number]. -------- FINAL REPORT -------- Dictated By: Harsh Perdomo Dictated Date: 06/26/2025 08:33 ET Assigned Physician: Harsh Perdomo Reviewed and Electronically Signed By: Harsh Perdomo Signed Date: 06/26/2025 09:16 ET Workstation ID: [id number] Transcribed By: Self Edit Transcribed Date: 06/26/2025 08:33 ET Pita NGUYỄN IMG CT PROCEDURES Final Re sult * (ABNORMAL) Prothrombin time with INR (06/25/2025 4:15 AM EDT) Protime 13.9(H) 10.5 - 13.3 sec LAB COAGULATION METHOD 06/25/2025 4:52 AM EDT [facility] INR 1.2(H) 0.8 - 1.1 LAB COAGULATION METHOD 06/25/2025 4:52 AM EDT [facility] Blood Venous blood specimen / Unknown Venipuncture / Unknown 06/25/2025 4:15 AM EDT 06/25/2025 4:35 AM EDT Narrative [facility] - 06/25/2025 4:52 AM EDT Std. Therapy 2.0-3.0 INR High Dose Therapy 3.0-4.5 INR Ranges may vary depending on clinical indications and protocol. Derek NGUYỄN LAB BLOOD ORDERABLES Final Result [facility] [address] [place] [address], [place] [phone] * (ABNORMAL) Basic metabolic panel (06/25/2025 4:15 AM EDT) Sodium 139 135 - 145 mmol/L LAB CHEMISTRY METHOD 06/25/2025 5:06 AM EDT [facility] Potassium 3.4(L) 3.5 - 5.1 mmol/L LAB CHEMISTRY METHOD 06/25/2025 5:06 AM EDT [facility] Chloride 100 98 - 107 mmol/L LAB CHEMISTRY METHOD 06/25/2025 5:06 AM EDT [facility] CO2 32 24 - 32 mmol/L LAB CHEMISTRY METHOD 06/25/2025 5:06 AM EDT [facility] Anion Gap 7 5 - 14 LAB CHEMISTRY METHOD 06/25/2025 5:06 AM EDT [facility] Glucose 133 70 - 199 mg/dL LAB CHEMISTRY METHOD 06/25/2025 5:06 AM EDT [facility] BUN 15 9 - 20 mg/dL LAB CHEMISTRY METHOD 06/25/2025 5:06 AM EDT [facility] Creatinine 0.50(L) 0.70 - 1.30 mg/dL LAB CHEMISTRY METHOD 06/25/2025 5:06 AM EDT [facility] eGFR 101 >=60 mL/min/1. 73m2 LAB CHEMISTRY METHOD 06/25/2025 5:06 AM EDT [facility] Comment:Calculation based on the Chronic Kidney Disease Epidemiology Collaboration (CKD-EPI) equation refit without adjustment for race. BUN/Creatinine Ratio 30.0(H) 12.0 - 20.0 LAB CHEMISTRY METHOD 06/25/2025 5:06 AM EDT [facility] Calcium 8.3(L) 8.4 - 10.2 mg/dL LAB CHEMISTRY METHOD 06/25/2025 5:06 AM EDT [facility] Blood Venous blood specimen / Unknown Venipuncture / Unknown 06/25/2025 4:15 AM EDT 06/25/2025 4:35 AM EDT us Derek NGUYỄN LAB BLOOD ORDERABLES Final Result [facility] [address] [place] [address], * (ABNORMAL) Complete blood count (06/25/2025 4:15 AM EDT) WBC 8.1 4.0 - 10.5 K/mcL LAB HEMETOLOGY METHOD 06/25/2025 4:42 AM EDT [facility] RBC 4.03(L) 4.70 - 6.00 M/mcL LAB HEMETOLOGY METHOD 06/25/2025 4:42 AM EDT [facility] Hemoglobin 12.6(L) 13.5 - 18.0 g/dL LAB HEMETOLOGY METHOD 06/25/2025 4:42 AM EDT [facility] Hematocrit 36.8(L) 40.0 - 54.0 % LAB HEMETOLOGY METHOD 06/25/2025 4:42 AM EDT [facility] MCV 91.4 78.0 - 100.0 FL LAB HEMETOLOGY METHOD 06/25/2025 4:42 AM EDT [facility] MCH 31.2 25.0 - 33.0 pcg LAB HEMETOLOGY METHOD 06/25/2025 4:42 AM EDT [facility] MCHC 34.1 32.0 - 36.0 g/dL LAB HEMETOLOGY METHOD 06/25/2025 4:42 AM EDT [facility] RDW 14.7 12.1 - 17.7 % LAB HEMETOLOGY METHOD 06/25/2025 4:42 AM EDT [facility] Platelets 218 150 - 450 K/mcL LAB HEMETOLOGY METHOD 06/25/2025 4:42 AM EDT [facility] MPV 8.5 7.4 - 11.4 FL LAB HEMETOLOGY METHOD 06/25/2025 4:42 AM EDT [facility] Blood Venous blood specimen / Unknown Venipuncture / Unknown 06/25/2025 4:15 AM EDT 06/25/2025 4:35 AM EDT us Derek NGUYỄN LAB BLOOD ORDERABLES Final Result [facility] [address] [place] [address], * (ABNORMAL) Phosphorus (06/25/2025 4:15 AM EDT) Pathologist [facility] Phosphorus 2.4(L) 2.5 - 4.5 mg/dL LAB CHEMISTRY METHOD 06/25/2025 5:06 AM EDT [facility] Blood Venous blood specimen / Unknown Venipuncture / Unknown 06/25/2025 4:15 AM EDT 06/25/2025 4:35 AM EDT Derek NGUYỄN LAB BLOOD ORDERABLES Final Result [facility] [address] [place] [address], * Magnesium (06/25/2025 4:15 AM EDT) [facility] Magnesium 1.7 1.7 - 2.8 mg/dL LAB CHEMISTRY METHOD 06/25/2025 5:06 AM EDT [facility] Blood Venous blood specimen / Unknown Venipuncture / Unknown 06/25/2025 4:15 AM EDT 06/25/2025 4:35 AM EDT Derek NGUYỄN LAB BLOOD ORDERABLES Final Result [facility] [address] [place] [address], * (ABNORMAL) Calcium, ionized (06/25/2025 4:15 AM EDT) [facility] Calcium Ionized 1.09(L) 1.19 - 1.35 mg/dL LAB BLOOD GAS METHOD 06/25/2025 4:49 AM EDT [facility] Blood Venous blood specimen / Unknown Venipuncture / Unknown 06/25/2025 4:15 AM EDT 06/25/2025 4:35 AM EDT us Derek NGUYỄN LAB BLOOD ORDERABLES Final Result Performing Organization Address [facility]/ZIP Co de Phone Number [facility] [address] [place] [address], [place] [phone] * (ABNORMAL) Prothrombin time with INR (06/24/2025 12:00 PM EDT) Protime 16.2(H) 10.5 - 13.3 sec LAB COAGULATION METHOD 06/24/2025 12:27 PM EDT [facility] INR 1.4(H) 0.8 - 1.1 LAB COAGULATION METHOD 06/24/2025 12:27 PM EDT [facility] Blood Venous blood specimen / Unknown Venipuncture / Unknown 06/24/2025 12:00 PM EDT 06/24/2025 12:06 PM EDT Narrative [facility] - 06/24/2025 12:27 PM EDT Std. Therapy 2.0-3.0 INR High Dose Therapy 3.0-4.5 INR Ranges may vary depending on clinical indications and protocol. us Derek NGUYỄN LAB BLOOD ORDERABLES Final Result Performing Organization Address City/[facility]/ZIP Co de Phone Number [facility] [address] [place] [address], [place] [phone] * (ABNORMAL) TRANSTHORACIC ECHOCARDIOGRAM (TTE) COMPLETE (06/24/2025 9:32 AM EDT) Est. RA Pressure 8 mmHg CV PACS LV EDV (A2C) 152 mL CV PACS LV EDV (A4C) 96 mL CV PACS LV Diastolic Volume (BP) 125 62 - 150 mL CV PACS LV ESV (A2C) 71 mL CV PACS LV ESV (A4C) 44 mL CV PACS LV Systolic Volume (BP) 57 21 - 61 mL CV PACS IVSD 0.8 0.6 - 1.0 cm CV PACS LVIDD 4.6 4.2 - 5.8 cm CV PACS LVOT Diameter 2.1 cm CV PACS LVOT Mean Grad 1 mmHg CV PACS LVOT Peak VTI 15.4 cm CV PACS LVOT Mean Vince 0.5 m/s CV PACS LVOT Peak Vince 0.8 m/s CV PACS LVOT Peak Gradient 3 mmHg CV PACS LVPWD 0.8 0.6 - 1.0 cm CV PACS Ejection Fraction (A2C) 53 % CV PACS Ejection Fraction (A4C) 54 % CV PACS Ejection Fraction (BP) 55 % CV PACS LVOT Area 3.5 cm2 CV PACS LVOT Stroke Volume 53 mL CV PACS Left Atrium Minor [place] 7.1 cm CV PACS Left Atrium Major [place] 6.3 cm CV PACS LA Area Sys (A2C) 26 cm2 CV PACS LA Area Sys (A4C) 21 cm2 CV PACS LA Volume (BP) 70 mL CV PACS RA Area 31.2 cm2 CV PACS RA 2D Volume 109 mL CV PACS Aortic Root 3.8 cm CV PACS Ascending Aorta 3.6 cm CV PACS IVC Proximal 2.5 cm CV PACS MR VTI 163.0 cm CV PACS MR PISA Max Velocity 0.1 m/s CV PACS MR Peak Gradient 103 mmHg CV PACS RV Diastolic Basal Dimension 4.6(A) 2.5 - 4.1 cm CV PACS RV S' 10 cm/s CV PACS TAPSE 13 mm CV PACS TR Peak Velocity 2.60 m/s CV PACS TR Peak Gradient 27 mmHg CV PACS Right Ventricular Peak Systolic Pressure 35 mmHg CV PACS Relative Wall Thickness ratio 0.35 0.24 - 0.42 CV PACS LV Mass 2D 118 96 - 200 g CV PACS LVOT flow 173 mL/s CV PACS LA Volume (A-L) 43 mL CV PACS RV Free Wall Peak S' 10 cm/s CV PACS RA Major [place] 7.1 cm CV PACS Inferior Vena Cava Diameter At Expiration 2.5 cm CV PACS LV EF MOD 2C 53 % CV PACS LV EF 4C A-L 56 % CV PACS LV EDV 4C A-L 98 mL CV PACS LV Length Sys (A4C) 7.5 cm CV PACS LV Length [place] (A4C) 8.4 cm CV PACS Aortic Root Dimension Index 1.9 cm/m2 CV PACS Left Ventricular Stroke Volume by 2-D Biplane-MOD 68 mL CV PACS PASP 35 mmHg CV PACS Anatomical Region Laterality Modality Ultrasound Narrative 06/24/2025 11:49 AM EDT Left ventricle cavity size is normal. Left ventricular systolic function is low normal with an ejection fraction of 50-55%. No regional LV wall motion abnormalities noted. Left ventricle wall thickness is normal. Right ventricle cavity is moderately enlarged. Right ventricular systolic function is mildly reduced. RV S' 10 cm/sec. Mitral valve demonstrates moderate regurgitation with a centrally directed jet. Mild aortic and tricuspid regurgitation. Pulmonic Valve: The estimated pulmonary artery systolic pressure is 35 mmHg. There is mild pulmonary hypertension. Left Ventricle Left ventricle cavity size is normal. Wall thickness is normal. Systolic function is low normal with an ejection fraction of 50-55%. There are no regional LV wall motion abnormalities. Left atrial pressure is elevated. Right Ventricle Right ventricle cavity is moderately dilated. Systolic function is mildly reduced. RV S' 10 cm/sec. Abnormal TAPSE (< 17 mm). Left Atrium Left atrium cavity is mildly dilated. Left atrium volume index is mildly increased. Right Atrium Right atrium cavity is severely dilated. IVC/SVC Inferior vena cava is dilated. RA pressures is estimated to be 8 mmHg (IVC diameter >21 mm and decreases >50% during inspiration). Mitral Valve The leaflets are mildly thickened. There is mild annular calcification. There is moderate regurgitation with a centrally directed jet. There is no evidence of mitral valve stenosis. Tricuspid Valve Tricuspid valve structure is normal. There is mild regurgitation. There is no evidence of tricuspid valve stenosis. Aortic Valve Number of aortic valve cusps cannot be determined. There is mild regurgitation. There is no evidence of aortic valve stenosis. Pulmonic Valve The pulmonic valve was not well visualized. There is no regurgitation or stenosis. The estimated pulmonary artery systolic pressure is 35 mmHg. There is mild pulmonary hypertension. Ascending Aorta The aorta appears normal in size. Pericardium Pericardium appears normal. There is no pericardial effusion. Study Details Overall the study quality was adequate. The underlying ECG rhythm was atrial fibrillation. us Aiden NGUYỄN CV ECHO PROCEDURES Final Resul t * (ABNORMAL) CBC auto differential (06/24/2025 1:37 AM EDT) [facility] Signature WBC 7.2 4.0 - 10.5 K/mcL LAB HEMETOLOGY METHOD 06/24/2025 1:52 AM EDT [facility] RBC 4.06(L) 4.70 - 6.00 M/mcL LAB HEMETOLOGY METHOD 06/24/2025 1:52 AM EDT [facility] Hemoglobin 12.7(L) 13.5 - 18.0 g/dL LAB HEMETOLOGY METHOD 06/24/2025 1:52 AM EDT [facility] Hematocrit 37.1(L) 40.0 - 54.0 % LAB HEMETOLOGY METHOD 06/24/2025 1:52 AM EDT [facility] MCV 91.4 78.0 - 100.0 FL LAB HEMETOLOGY METHOD 06/24/2025 1:52 AM EDT [facility] MCH 31.2 25.0 - 33.0 pcg LAB HEMETOLOGY METHOD 06/24/2025 1:52 AM EDT [facility] MCHC 34.1 32.0 - 36.0 g/dL LAB HEMETOLOGY METHOD 06/24/2025 1:52 AM EDT [facility] RDW 14.9 12.1 - 17.7 % LAB HEMETOLOGY METHOD 06/24/2025 1:52 AM EDT [facility] Platelets 231 150 - 450 K/mcL LAB HEMETOLOGY METHOD 06/24/2025 1:52 AM EDT [facility] MPV 8.6 7.4 - 11.4 FL LAB HEMETOLOGY METHOD 06/24/2025 1:52 AM EDT [facility] Neutrophils Relative 77.3(H) 44.0 - 74.0 % LAB HEMETOLOGY METHOD 06/24/2025 1:52 AM EDT [facility] Lymphocytes Relative 11.4(L) 20.0 - 48.0 % LAB HEMETOLOGY METHOD 06/24/2025 1:52 AM EDT [facility] Monocytes Relative 9.5 2.0 - 12.0 % LAB HEMETOLOGY METHOD 06/24/2025 1:52 AM EDT [facility] Eosinophils Relative 1.2 0.0 - 6.0 % LAB HEMETOLOGY METHOD 06/24/2025 1:52 AM EDT [facility] Basophils Relative 0.6 0.0 - 2.0 % LAB HEMETOLOGY METHOD 06/24/2025 1:52 AM EDT [facility] Neutrophils Absolute 5.50 1.80 - 7.80 K/mcL LAB HEMETOLOGY METHOD 06/24/2025 1:52 AM EDT [facility] Lymphocytes Absolute 0.80(L) 1.00 - 3.20 K/mcL LAB HEMETOLOGY METHOD 06/24/2025 1:52 AM EDT [facility] Monocytes Absolute 0.70 0.00 - 0.80 K/mcL LAB HEMETOLOGY METHOD 06/24/2025 1:52 AM EDT [facility] Eosinophils Absolute 0.10 0.00 - 0.50 K/mcL LAB HEMETOLOGY METHOD 06/24/2025 1:52 AM EDT [facility] Basophils Absolute 0.00 0.00 - 0.20 K/mcL LAB HEMETOLOGY METHOD 06/24/2025 1:52 AM EDT [facility] Blood Venous blood specimen / Unknown Venipuncture / Unknown 06/24/2025 1:37 AM EDT 06/24/2025 1:45 AM EDT us Aiden NGUYỄN LAB BLOOD ORDERABLES Final Res ult [facility] [address] [place] [address], [place] [phone] * (ABNORMAL) Calcium, ionized (06/24/2025 1:37 AM EDT) Calcium Ionized 1.04(L) 1.19 - 1.35 mg/dL LAB BLOOD GAS METHOD 06/24/2025 1:48 AM EDT [facility] Blood Venous blood specimen / Unknown Venipuncture / Unknown 06/24/2025 1:37 AM EDT 06/24/2025 1:45 AM EDT us Aiden NGUYỄN LAB BLOOD ORDERABLES Final Res ult Performing Organization Address City/[facility]/ZIP Co de Phone Number [facility] [address] [place] [address], [place] [phone] * Type and screen (06/24/2025 1:37 AM EDT) Pathologist [facility]BO [facility] A 06/24/2025 3:06 AM EDT [facility] Rh Type Positive 06/24/2025 3:06 AM EDT [facility] Antibody Screen Negative 06/24/2025 3:06 AM EDT [facility] Blood Venous blood specimen / Unknown Venipuncture / Unknown 06/24/2025 1:37 AM EDT 06/24/2025 1:45 AM EDT us Aiden NGUYỄN LAB BLOOD BANK TEST ORDERABLES Final Result [facility] [address] [place] [address], [place] [phone] * (ABNORMAL) Magnesium (06/24/2025 1:37 AM EDT) Pathologist [facility] Magnesium 1.6(L) 1.7 - 2.8 mg/dL LAB CHEMISTRY METHOD 06/24/2025 2:16 AM EDT [facility] Blood Venous blood specimen / Unknown Venipuncture / Unknown 06/24/2025 1:37 AM EDT 06/24/2025 1:45 AM EDT us Aiden NGUYỄN LAB BLOOD ORDERABLES Final Res ult [facility] [address] [place] [address], [place] [phone] * (ABNORMAL) Basic metabolic panel (06/24/2025 1:37 AM EDT) Sodium 137 135 - 145 mmol/L LAB CHEMISTRY METHOD 06/24/2025 2:16 AM EDT [facility] Potassium 3.6 3.5 - 5.1 mmol/L LAB CHEMISTRY METHOD 06/24/2025 2:16 AM EDT [facility] Chloride 98 98 - 107 mmol/L LAB CHEMISTRY METHOD 06/24/2025 2:16 AM EDT [facility] CO2 29 24 - 32 mmol/L LAB CHEMISTRY METHOD 06/24/2025 2:16 AM EDT [facility] Anion Gap 10 5 - 14 LAB CHEMISTRY METHOD 06/24/2025 2:16 AM EDT [facility] Glucose 135(H) 70 - 99 mg/dL LAB CHEMISTRY METHOD 06/24/2025 2:16 AM EDT [facility] BUN 16 9 - 20 mg/dL LAB CHEMISTRY METHOD 06/24/2025 2:16 AM EDT [facility] Creatinine 0.60(L) 0.70 - 1.30 mg/dL LAB CHEMISTRY METHOD 06/24/2025 2:16 AM EDT [facility] eGFR 96 >=60 mL/min/1. 73m2 LAB CHEMISTRY METHOD 06/24/2025 2:16 AM EDT [facility] Comment:Calculation based on the Chronic Kidney Disease Epidemiology Collaboration (CKD-EPI) equation refit without adjustment for race. BUN/Creatinine Ratio 26.7(H) 12.0 - 20.0 LAB CHEMISTRY METHOD 06/24/2025 2:16 AM EDT [facility] Calcium 8.2(L) 8.4 - 10.2 mg/dL LAB CHEMISTRY METHOD 06/24/2025 2:16 AM EDT [facility] Blood Venous blood specimen / Unknown Venipuncture / Unknown 06/24/2025 1:37 AM EDT 06/24/2025 1:45 AM EDT us Aiden NGUYỄN LAB BLOOD ORDERABLES Final Res ult [facility] [address] [place] [address], [place] [phone] * Activated partial thromboplastin time (06/24/2025 1:37 AM EDT) aPTT 35.8 25.0 - 37.0 sec LAB COAGULATION METHOD 06/24/2025 2:09 AM EDT [facility] Blood Venous blood specimen / Unknown Venipuncture / Unknown 06/24/2025 1:37 AM EDT 06/24/2025 1:45 AM EDT us Aiden NGUYỄN LAB BLOOD ORDERABLES Final Res ult [facility] [address] [place] [address], [place] [phone] * (ABNORMAL) Prothrombin time with INR (06/24/2025 1:37 AM EDT) Protime 20.0(H) 10.5 - 13.3 sec LAB COAGULATION METHOD 06/24/2025 2:28 AM EDT [facility] INR 1.7(H) 0.8 - 1.1 LAB COAGULATION METHOD 06/24/2025 2:28 AM EDT [facility] Blood Venous blood specimen / Unknown Venipuncture / Unknown 06/24/2025 1:37 AM EDT 06/24/2025 1:45 AM EDT Narrative [facility] - 06/24/2025 2:28 AM EDT Std. Therapy 2.0-3.0 INR High Dose Therapy 3.0-4.5 INR Ranges may vary depending on clinical indications and protocol. Aiden NGUYỄN LAB BLOOD ORDERABLES Final Res ult [facility] [address] [place] [address], [place] [phone] * POCT Glucose, blood (06/24/2025 1:36 AM EDT) [facility] Glucose POCT 140 70 - 199 mg/dL 06/24/2025 1:38 AM EDT [facility] Comment: Fasting Reference Range: 70-99 mg/dL Non-Fasting Reference Range: 70-199 mg/dL Blood Capillary blood specimen / Unknown 06/24/2025 1:36 AM EDT 06/24/2025 1:39 AM EDT Benson Cartwright MD LAB POINT OF CAR E TEST DOCKED DEVICE UNSOLICITED RESULTS Final Result [facility] [address] [place] [address], [place] [phone] documented in this encounter Visit Diagnoses Diagnosis 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, 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 (CMS/HCC V24) 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, CMS/HCC V28) Permanent atrial fibrillation (CMS/HCC V24, CMS/HCC V28) Atrial fibrillation Permanent atrial fibrillation (CMS/HCC V24, CMS/HCC V28) Atrial fibrillation Acute on chronic diastolic (congestive) heart failure (CMS/HCC V24, CMS/HCC V28) Secondary hypercoagulable state (CMS/HCC V24) Secondary hypercoagulable state documented in this encounter Admitting Diagnoses Diagnosis 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 Cardiac Surgery New Bag 06/26/2025 9:46 AM EDT 25 g 120 mL/hr albumin human 25 % infusion 25 g 25 g, intravenous, at 120 mL/hr, Once, On Thu06/26/25 at 1000, For 1 dose, Indication? Cardiac Surgery New Bag 06/26/2025 9:46 AM EDT 25 g 120 mL/hr albumin human 5 % infusion - ADS Override Pull Starting on Thu06/25/25 at 1027, For 1 dose, Created by cabinet override albumin human 5 % infusion 12.5 g 12.5 g, intravenous, Once, On Thu06/25/25 at 1145, For 1 dose New Bag 06/25/2025 11:05 AM EDT 12.5 g albumin human 5 % infusion 25 g 25 g, intravenous, Once, On Thu06/27/25 at 1115, For 1 dose New Bag 06/27/2025 11:01 AM EDT 25 g calcium gluconate 1 gram/50 mL IVPB (premix) 1 g 1 g, intravenous, at 50 mL/hr, Administer over 60 Minutes, Once, On 06/24/25 at 0300, For 1 dose New Bag 06/24/2025 2:49 AM EDT 1 g 50 mL/hr calcium gluconate 2 gram/100 mL IVPB (premix) 2 g 2 g, intravenous, at 100 mL/hr, Administer over 60 Minutes, Once, On 06/25/25 at 0615, For 1 dose New Bag 06/25/2025 6:43 AM EDT 2 g 100 mL/hr esmolol 10 mg/mL in sterile water (premix) 50-300 mcg/kg/min 84.4 kg (25.32-151.92 mL/hr, rounded to 25.3-151.9 mL/hr), intravenous, Continuous, Starting on 06/24/25 at 0115, GOAL EFFECT: -SBP LESS than 120mmHg -Decrease HR to LESS than 110 BPM INITIAL RATE: 50 mcg/kg/min USUAL DOSE RANGE: 50 300 mcg/kg/min TITRATION DOSE: 50 mcg/kg/min (check with provider for need for additional bolus) TITRATION FREQUENCY: 5 min CONTACT PRESCRIBER: -HR LESS than 60 BPM -HR GREATER than 120 BPM -SBP LESS than 90 mmHg -SBP GREATER than 180 mmHg -Infusion rate EXCEEDS 200 mcg/kg/min *Individual cases may require deviation from parameters (with prescriber approval)* Rate/Dose Change 06/25/2025 9:15 AM EDT 50 mcg/kg/min 25.3 mL/hr Rate/Dose Change 06/25/2025 9:10 AM EDT 100 mcg/kg/min 50. 6 mL/hr Rate/Dose Change 06/25/2025 9:00 AM EDT 150 mcg/kg/min 76 mL/hr iopamidoL (ISOVUE-370) 370 mg iodine /mL (76 %) injection 100 mL 100 mL, intravenous, Once in imaging, Starting on [place] 06/25/25 at 1209, For 1 dose Given 06/25/2025 12:1 2 PM EDT 90 mL labetaloL (NORMODYNE) tablet 100 mg 100 mg, oral, 2 times daily, First dose on 06/24/25 at 0900 Given 06/24/2025 8:21 PM EDT 100 mg Given 06/24/2025 10:29 AM EDT 100 mg labetaloL (NORMODYNE) tablet 100 mg 100 mg, oral, Every 8 hours, First dose (after last modification) on [place] 06/25/25 at 1530 Given 06/26/2025 12:04 AM EDT 100 mg Given 06/25/2025 3:17 PM EDT 100 mg labetaloL (NORMODYNE) tablet 100 mg 100 mg, oral, 3 times daily, First dose (after last modification) on Thu06/28/25 at 0900 Given 06/28/2025 10:50 PM EDT 100 mg Given 06/28/2025 1:21 PM EDT 100 mg Given 06/28/2025 9:43 AM EDT 100 mg labetaloL (NORMODYNE) tablet 100 mg 100 mg, oral, 3 times daily, First dose (after last modification) on [facility] 06/29/25 at 0630 Given 06/29/2025 6:19 AM EDT 100 mg labetaloL (NORMODYNE) tablet 200 mg 200 mg, oral, 2 times daily, First dose (after last modification) on [place] 06/25/25 at 0900 Given 06/25/2025 8:38 AM EDT 200 mg labetaloL (NORMODYNE) tablet 200 mg 200 mg, oral, 2 times daily, First dose (after last modification) on Thu06/26/25 at 0545 Given 06/27/2025 9:15 PM EDT 200 mg Given 06/27/2025 8:02 AM EDT 200 mg Given 06/26/2025 7:31 PM EDT 200 mg losartan (COZAAR) tablet 25 mg 25 mg, oral, Daily, First dose on Thu06/26/25 at 0800 Given 06/27/2025 8:03 AM EDT 25 mg Given 06/26/2025 8:25 AM EDT 25 mg losartan (COZAAR) tablet 50 mg 50 mg, oral, Daily, First dose (after last modification) on Thu06/28/25 at 0900 Given 06/29/2025 9:11 AM EDT 50 mg Given 06/28/2025 9:43 AM EDT 50 mg magnesium sulfate 2 gram/50 mL (4 %) IVPB 2 g 2 g, intravenous, at 25 mL/hr, Administer over 2 Hours, Once, On 06/24/25 at 0300, For 1 dose Rate/Dose Verify 06/24/2025 4:00 AM EDT 25 mL/hr Rate/Dose Verify 06/24/2025 3:00 AM EDT 25 mL/h r New Bag 06/24/2025 2:49 AM EDT 2 g 25 mL/hr pantoprazole (PROTONIX) EC tablet 40 mg 40 mg, oral, Every morning before breakfast, First dose on Thu06/28/25 at 0715, Do not crush, chew, or split. Given 06/29/2025 6:19 AM EDT 40 mg Given 06/28/2025 9:43 AM EDT 40 mg pantoprazole (PROTONIX) injection 40 mg 40 mg, intravenous, Administer over 2 Minutes, Every 24 hours, First dose on 06/24/25 at 0200, Patient MUST have BOTH: -Strict NPO (unable to take oral or liquid PPI) -Contraindication to H2RA Pantroprazole - IV push: Reconstitute powder for injection with 10 mL NS; final concentration: 4 mg/mL., Indication for IV Push Pantoprazole? Stress Ulcer Prophylaxis for patients with STRICT NPO status AND contraindication to H2RA Given 06/28/2025 3:00 AM EDT 40 mg Given 06/27/2025 3:00 AM EDT 40 mg Given 06/26/2025 2:03 AM EDT 40 mg Patient is on: warfarin (COUMADIN) one time dosing *This is a reminder to check that a warfarin order is placed for today* phytonadione (VITAMIN K) 10 mg in sodium chloride 0.9 % 50 mL IVPB 10 mg, intravenous, at 100 mL/hr, Administer over 30 Minutes, Once, On 06/24/25 at 0800, For 1 dose, Protect from light, Indication for IVPB phytonadione (VITAMIN K)? HIGH Risk Bleed New Bag 06/24/2025 8:31 AM EDT 10 mg 10 0 mL/hr potassium chloride (KLOR-CON M20) CR tablet 20 mEq 20 mEq, oral, Once, On 06/25/25 at 0615, For 1 dose, Tablet may be swallowed whole (do not crush/chew/suck on) OR broken in half and each half swallowed separately OR dissolved (whole tablet) in ~4 ounces of water (allow ~2 minutes to dissolve, stir well and administer immediately). Given 06/25/2025 6:43 AM EDT 20 mEq potassium chloride (KLOR-CON M20) CR tablet 20 mEq 20 mEq, oral, Once, On Thu06/28/25 at 0645, For 1 dose, Tablet may be swallowed whole (do not crush/chew/suck on) OR broken in half and each half swallowed separately OR dissolved (whole tablet) in ~4 ounces of water (allow ~2 minutes to dissolve, stir well and administer immediately). Given 06/28/2025 9:43 AM EDT 20 mEq potassium chloride (KLOR-CON M20) CR tablet 40 mEq 40 mEq, oral, Once, On 06/24/25 at 0600, For 1 dose, Tablet may be swallowed whole (do not crush/chew/suck on) OR broken in half and each half swallowed separately OR dissolved (whole tablet) in ~4 ounces of water (allow ~2 minutes to dissolve, stir well and administer immediately). Given 06/24/2025 5:51 AM EDT 40 mEq potassium chloride (KLOR-CON M20) CR tablet 40 mEq 40 mEq, oral, Once, On 06/27/25 at 0545, For 1 dose, Tablet may be swallowed whole (do not crush/chew/suck on) OR broken in half and each half swallowed separately OR dissolved (whole tablet) in ~4 ounces of water (allow ~2 minutes to dissolve, stir well and administer immediately). Given 06/27/2025 6:12 AM EDT 40 mEq sodium chloride 0.9 % flush 10 mL 10 mL, intravenous, 2 times daily, First dose on 06/24/25 at 0200, Recovery & On Unit Given 06/29/2025 9:11 AM EDT 10 mL Given 06/28/2025 9:00 AM EDT 10 mL Given 06/27/2025 9:15 PM EDT 10 mL sodium chloride 0.9 % flush 10 mL 10 mL, intravenous, As needed, line care, Starting on 06/24/25 at 0139, Recovery & On Unit sodium chloride 0.9 % flush 10 mL 10 mL, intravenous, Once, On 06/25/25 at 1230, For 1 dose Given 06/25/2025 12:12 PM EDT 10 mL sodium chloride 0.9 % intravenous solution 10 mL 10 mL, intravenous, Once in imaging, Starting on 06/25/25 at 1209, For 1 dose warfarin (COUMADIN) tablet 5 mg 5 mg, oral, Once, On Thu06/28/25 at 1700, For 1 dose, Hazardous Medication Intact: - Single pair of ASTM standard [id number] certified gloves - Eye/face protection if vomit or potential to spit up Manipulated: - Double pair of ASTM standard [id number] certified gloves - Eye/face protection if vomit or potential to spit up - Staff at reproductive risk must also wear a hazardous gown IF RECEIVING ENTERAL NUTRITION: Hold tube feeds at least 1 hour before and 1 hour after administration of warfarin., Indication for use of Warfarin: Atrial fibrillation (INR Target: 2-3) Given 06/28/2025 5:11 PM EDT 5 mg documented in this encounter Discontinued Medications Medication Sig Discontinue Reason Start Date End Da te hydroCHLOROthiazide 12.5 mg tablet Take 1 tablet by mouth once daily Stop Taking at Discharge 01/03/2025 06/29/2025 metoprolol succinate (TOPROL-XL) 50 mg 24 hr tablet Take 1 tablet by mouth once daily Stop Taking at Discharge 05/04/2025 06/29/2025 dilTIAZem XR (DILT-XR) 180 mg 24 hr capsule Take 1 capsule by mouth once daily Stop Taking at Discharge 05/04/2025 06/29/2025 labetaloL (NORMODYNE) 100 mg tablet Take 1 tablet (100 mg total) by mouth 2 (two) times a day. Stop Taking at Discharge 06/29/2025 documented as of this encounter Historical Medications * This list may reflect changes made after this encounter. labetaloL (NORMODYNE) 100 mg tablet Take 1 tablet (100 mg total) by mouth 2 (two) times a day. 06/29/2025 added in this encounter Active and Recently Administered Medications Times are shown in EDT. Scheduled Medication Order 06/27/2025 06/28/2025 06/29/2025 albumin human 5 % infusion 25 g (COMPLETED) 25 g, intravenous, Once, On Thu06/27/25 at 1115, For 1 dose 1101 (New Bag - Provider: Zac Fleming RN) labetaloL (NORMODYNE) tablet 100 mg (CANCELED) 100 mg, oral, 3 times daily, First dose (after last modification) on Thu06/28/25 at 0900 0943 (Given - Provider: Sherly Singh, TRUDY)1321 (Given - Provider: Sherly Singh, TRUDY)2250 (Given - Provider: Vivian Singleton, TRUDY) labetaloL (NORMODYNE) tablet 100 mg 100 mg, oral, 3 times daily, First dose (after last modification) on [place] 06/29/25 at 0630 0619 (Given - Provider: Vivian Singleton, TRUDY)1400 (Canceled Entry - Provider: Automatic Discharge Provider - Comment: Automatically canceled at discontinue of medication order) labetaloL (NORMODYNE) tablet 200 mg (CANCELED) 200 mg, oral, 2 times daily, First dose (after last modification) on Thu06/26/25 at 0545 0802 (Given - Provider: Zac Fleming RN)2115 (Given - Provider: Aren Kitchen RN) losartan (COZAAR) tablet 25 mg (CANCELED) 25 mg, oral, Daily, First dose on Thu06/26/25 at 0800 0803 (Given - Provider: Zac Fleming RN) losartan (COZAAR) tablet 50 mg 50 mg, oral, Daily, First dose (after last modification) on Thu06/28/25 at 0900 0943 (Given - Provider: Sherly Singh RN) 0911 (Given - Provider: Latoya Morrell RN) pantoprazole (PROTONIX) EC tablet 40 mg 40 mg, oral, Every morning before breakfast, First dose on Thu06/28/25 at 0715, Do not crush, chew, or split. 0943 (Given - Provider: Sherly Singh RN) 0619 (Given - Provider: Vivian Singleton, TRUDY) pantoprazole (PROTONIX) injection 40 mg (CANCELED) 40 mg, intravenous, Administer over 2 Minutes, Every 24 hours, First dose on 06/24/25 at 0200, Patient MUST have BOTH: -Strict NPO (unable to take oral or liquid PPI) -Contraindication to H2RA Pantroprazole - IV push: Reconstitute powder for injection with 10 mL NS; final concentration: 4 mg/mL., Indication for IV Push Pantoprazole? Stress Ulcer Prophylaxis for patients with STRICT NPO status AND contraindication to H2RA 0300 (Given - Provider: Divya Rosenthal, TRUDY) 0300 (Given - Provider: Aren Kitchen, TRUDY) Patient is on: warfarin (COUMADIN) one time dosing *This is a reminder to check that a warfarin order is placed for today* potassium chloride (KLOR-CON M20) CR tablet 20 mEq (COMPLETED) 20 mEq, oral, Once, On Thu06/28/25 at 0645, For 1 dose, Tablet may be swallowed whole (do not crush/chew/suck on) OR broken in half and each half swallowed separately OR dissolved (whole tablet) in ~4 ounces of water (allow ~2 minutes to dissolve, stir well and administer immediately). 0943 (Given - Provider: Sherly Singh RN) potassium chloride (KLOR-CON M20) CR tablet 40 mEq (COMPLETED) 40 mEq, oral, Once, On Thu06/27/25 at 0545, For 1 dose, Tablet may be swallowed whole (do not crush/chew/suck on) OR broken in half and each half swallowed separately OR dissolved (whole tablet) in ~4 ounces of water (allow ~2 minutes to dissolve, stir well and administer immediately). 0612 (Given - Provider: Divya Rosenthal RN) sodium chloride 0.9 % flush 10 mL(Linked Group 1) 10 mL, intravenous, 2 times daily, First dose on 06/24/25 at 0200, Recovery & On Unit 0805 (Given - Provider: Zac Fleming RN)2115 (Given - Provider: Aren Kitchen RN) 0900 (Given - Provider: Sherly Singh, TRUDY)2100 (Not Given - Provider: Latoya Morrell RN - Reason: Other - Comment: not charted from previous shift) 0911 (Given - Provider: Latoya Morrell RN) sodium chloride 0.9 % intravenous solution 10 mL 10 mL, intravenous, Once in imaging, Starting on 06/25/25 at 1209, For 1 dose warfarin (COUMADIN) tablet 5 mg (COMPLETED) 5 mg, oral, Once, On Thu06/28/25 at 1700, For 1 dose, Hazardous Medication Intact: - Single pair of ASTM standard [id number] certified gloves - Eye/face protection if vomit or potential to spit up Manipulated: - Double pair of ASTM standard [id number] certified gloves - Eye/face protection if vomit or potential to spit up - Staff at reproductive risk must also wear a hazardous gown IF RECEIVING ENTERAL NUTRITION: Hold tube feeds at least 1 hour before and 1 hour after administration of warfarin., Indication for use of Warfarin: Atrial fibrillation (INR Target: 2-3) 1711 (Given - Provider: Sherly Singh RN) PRN Medication Order 06/27/2025 06/28/2025 06/29/2025 acetaminophen (TYLENOL) tablet 650 mg 650 mg, oral, Every 6 hours PRN, mild pain, fever - temperature GREATER than 38 C (100.4 F), Starting on 06/24/25 at 0142, Recovery & On Unit sodium chloride 0.9 % flush 10 mL(Linked Group 1) 10 mL, intravenous, As needed, line care, Starting on 06/24/25 at 0139, Recovery & On Unit Linked Groups Order Group 1: Insert peripheral IV (CANCELED) STAT, Once, On 06/24/25 at 0140, For 1 occurrence, Recovery & On Unit And Maintain IV access (CANCELED) Until discontinued, Starting on 06/24/25 at 0140, Until Specified, Recovery & On Unit And Saline lock IV (CANCELED) Routine, Once, On 06/24/25 at 0140, For 1 occurrence, When tolerating PO fluids, Recovery & On Unit And sodium chloride 0.9 % flush 10 mLJump to med 10 mL, intravenous, 2 times daily, First dose on 06/24/25 at 0200, Recovery & On Unit And sodium chloride 0.9 % flush 10 mLJump to med 10 mL, intravenous, As needed, line care, Starting on 06/24/25 at 0139, Recovery & On Unit documented in this encounter Orders Medications Ordered That Geoff ht Not Have Been Administered Count Last Ordered Date First Ordered Date losartan (COZAAR) tablet 50 mg 1 06/28/2025 magnesium sulfate 2 gram/50 mL (4 %) IVPB 2 g 1 06/28/2025 albumin human 5 % infusion - ADS Override Pull 1 06/27/2025 losartan (COZAAR) tablet 25 mg 1 06/27/2025 Patient is on: warfarin (COU MADIN) one time dosing 1 06/27/2025 warfarin (COUMADIN) tablet 5 mg 1 sodium chloride 0.9 % intrav enous solution 10 mL 1 06/25/2025 esmolol (BREVIBLOC) bolus fr om infusion 42,200 mcg 1 06/24/2025 niCARdipine (CARDENE) 25 mg in sodium chloride 0.9 % 250 mL (0.1 mg/mL) infusion 1 06/24/2025 sodium chloride 0.9 % flush 10 mL 1 025 Lab Orders Without Results Count Last Ordered D ate First Ordered Date PROTHROMBIN TIME WITH INR 1 06/25/2025 Consult Count Last Ordered Date First Orde red Date IP CONSULT TO VASCULAR SURGERY 1 06/24/2025 Admission Count Last Ordered Date First Orde red Date ADMIT TO INPATIENT 1 06/24/2025 Transfer Count Last Ordered Date First Orde red Date TRANSFER PATIENT TO NEW UNIT 1 06/27/2025 Discharge Count Last Ordered Date First Orde red Date DISCHARGE PATIENT 1 06/29/2025 documented in this encounter Additional Health Concerns Assessment Noted Time PHQ-9 Depression Total Score: 0 12/09/19 25 2:20 PM EDT documented as of this encounter Care Teams Environmental Services Attendant Relationship Specialty Start Date End Date Magdalene Barba MD [address] [address] PCP - General Internal Medicine 11/21/21 documented as of this encounter
[2025-07-03 13:48] LABS: Prothrombin Time Whole Bld POC 22.7 sec (11.1-13.5); ~PT, ~INR - Anti Coag Clinic 1.9 (0.9-1.1)
--- NOTE | 2025-07-03 14:08 | MHC.OFFVISCO ---
Intake Intake Visit Reasons: Anticoagulation Allergies No Known Allergies Allergy (Verified 07/03/25 13:29) Medication List - Last Reconciled 07/03/25 by Jennifer Tolentino, RN labetalol 100 mg PO TID losartan 50 mg PO DAILY metoprolol succinate ER 50 mg PO DAILY warfarin 5 mg See Protocol PO DAILY Nursing Note Pt came to [facility] with daughter Jesika LIM but able to ambulate hallway. New dx of Partial Aortic Dissection- has cardiology appts next Thursday. INR 1.9 out of therapeutic range- 2.0-3.0 - med change and diet(had boost) could lower INR. Medications and supplements reviewed Patient status: b/p 124/82 both arms, HR afib 100 BPM apically, no edema, lungs clear bilat, pt states when lying down to get up to go to the BR pain becomes a 6/10 through side, back and up into upper part of his chest , then aches most of the time, LIM but able to ambulate hallway [place] [facility] [place] [facility], lips and nail beds pink sitting, legs normal color no edma, Medications or supplements: switched from diltiazem to labetolol, then d/c hydrochlorothiazide to losartan. Diet: decreased appetite - had boost which could lower INR - pt not sure if he is going to keep it - thinks it may have given him diarrhea Denies any signs and symptoms of bleeding or clotting or unusual bruising Bleeding, bruising, clotting discussed Nutritional guidance given: instructed that boost is like eating 2 servings of dark greens. Dose: keep same dose for now 2.5mg x 1 day/ 5mg x 6 days due to decreased appetite. F/U INR Date: 1 week or per MD?? Patient and daughter Jesika verbalizing understanding of instructions given. Coding Level of Care Code Est Patient Level 1 Diagnoses Current use of anticoagulant therapy Z79.01 Results AMB INR Fingerstick AMB INR Fingerstick 1.9 Last Edit by Jennifer Tolentino RN on 07/03/25 13:42 MANUAL ENTRY Assessment & Plan Assessment & Plan (1) Current use of anticoagulant therapy: Code(s): Z79.01 - technician terminal and repeater (current) use of anticoagulants Category: Medical
--- OUTSIDE RECORDS SUMMARY | 2025-07-03 16:40 | XMS_ITS ---
Author Name [facility] Organization Unknown Results Test Name/Text Value Interpretation Date Range Source INR PPP 1.3 Above high normal 06/29/2025 0.8 - 1.1 C T_[facility] PT Bld 14.9 sec Above high normal 06/29/2025 10.5 - 13.3 [facility] INR PPP 1.3 Above high normal 06/28/2025 0.8 - 1.1 C T_[facility] PT Bld 14.6 sec Above high normal 06/28/2025 10.5 - 13.3 [facility] Magnesium SerPl-mCnc 1.7 mg/dL 06/28/2025 1.7 - 2.8 [facility] BUN SerPl-mCnc 16.0 mg/dL 06/28/2025 9 - 20 CT_ [facility] Potassium SerPl-sCnc 3.7 mmol/L 06/28/2025 3.5 - 5.1 [facility] Chloride SerPl-sCnc 106.0 mmol/L 06/28/2025 98 - 107 [facility] eGFRcr SerPlBld CKD-EPI 2020 101.0 mL/min/1.73m2 06/28/2025 - [facility] Sodium SerPl-sCnc 143.0 mmol/L 06/28/2025 135 - 14 5 [facility] Creat SerPl-mCnc 0.5 mg/dL Below low normal 06/28/2025 0.7 - 1.3 [facility] CO2 SerPl-sCnc 27.0 mmol/L 06/28/2025 24 - 32 CT _[facility] Calcium SerPl-mCnc 8.7 mg/dL 06/28/2025 8.4 - 10.2 [facility] BUN/Creat SerPl 32.0 Above high normal 06/28/2025 12 - 20 [facility] Anion Gap SerPl Calc-sCnc 10.0 06/28/2025 5 - 14 [facility] Glucose SerPl-mCnc 126.0 mg/dL 06/28/2025 70 - 199 [facility] INR PPP 1.3 Above high normal 06/28/2025 0.8 - 1.1 C T_[facility] PT Bld 15.1 sec Above high normal 06/28/2025 10.5 - 13.3 [facility] Hct VFr Bld Auto 36.1 % Below low normal 06/28/2025 40 - 54 [facility] Hgb Bld-mCnc 11.7 g/dL Below low normal 06/28/2025 13.5 - 18 [facility] RBC # Bld Auto 3.84 M/mcL Below low normal 06/28/2025 4.7 - 6 [facility] MCV RBC Auto 94.0 FL 06/28/2025 78 - 100 [facility] MCHC RBC Auto-EntMCnc 32.5 g/dL 06/28/2025 32 - 36 [facility] MCH RBC Qn Auto 30.6 pcg 06/28/2025 25 - 33 CT_ [facility] WBC # Bld Auto 9.6 K/mcL 06/28/2025 4 - 10.5 CT_T [facility] Platelet # Bld Auto 248.0 K/mcL 06/28/2025 150 - 450 [facility] Erythrocyte DistWidth Bld Auto 15.0 % 06/28/2025 12.1 - 17.7 CT_[facility]RA N PMV Bld Auto 8.8 FL 06/28/2025 7.4 - 11.4 CT_TH SFRAN INR PPP 1.3 Above high normal 06/27/2025 0.8 - 1.1 C T_THSFRAN PT Bld 14.8 sec Above high normal 06/27/2025 10.5 - 13.3 [facility] BUN SerPl-mCnc 12.0 mg/dL 06/27/2025 9 - 20 [facility]_ [facility] Creat SerPl-mCnc 0.5 mg/dL Below low normal 06/27/2025 0.7 - 1.3 [facility] eGFRcr SerPlBld CKD-EPI 2020 101.0 mL/min/1.73m2 06/27/2025 - [facility] Glucose SerPl-mCnc 117.0 mg/dL 06/27/2025 70 - 199 [facility] Anion Gap SerPl Calc-sCnc 7.0 06/27/2025 5 - 14 [facility] Chloride SerPl-sCnc 102.0 mmol/L 06/27/2025 98 - 107 [facility] Calcium SerPl-mCnc 8.3 mg/dL Below low normal 06/27/2025 8.4 - 10.2 [facility] CO2 SerPl-sCnc 29.0 mmol/L 06/27/2025 24 - 32 CT _[facility] Sodium SerPl-sCnc 138.0 mmol/L 06/27/2025 135 - 14 5 [facility] BUN/Creat SerPl 24.0 Above high normal 06/27/2025 12 - 20 [facility] Potassium SerPl-sCnc 3.5 mmol/L 06/27/2025 3.5 - 5.1 [facility] Platelet # Bld Auto 218.0 K/mcL 06/27/2025 150 - 450 [facility] Hgb Bld-mCnc 11.3 g/dL Below low normal 06/27/2025 13.5 - 18 [facility] MCHC RBC Auto-EntMCnc 32.8 g/dL 06/27/2025 32 - 36 [facility] MCV RBC Auto 93.6 FL 06/27/2025 78 - 100 [facility] WBC # Bld Auto 9.2 K/mcL 06/27/2025 4 - 10.5 CT_T [facility] Hct VFr Bld Auto 34.3 % Below low normal 06/27/2025 40 - 54 [facility] PMV Bld Auto 9.1 FL 06/27/2025 7.4 - 11.4 CT_[facility] SFR[facility] RBC # Bld Auto 3.67 M/mcL Below low normal 06/27/2025 4.7 - 6 [facility] Erythrocyte DistWidth Bld Auto 15.0 % 06/27/2025 12.1 - 17.7 CT_[facility]RA N MCH RBC Qn Auto 30.7 pcg 06/27/2025 25 - 33 CT_ [facility] Magnesium SerPl-mCnc 1.7 mg/dL 06/25/2025 1.7 - 2.8 [facility] Phosphate SerPl-mCnc 2.4 mg/dL Below low normal 06/25/2025 2.5 - 4.5 [facility] Anion Gap SerPl Calc-sCnc 7.0 06/25/2025 5 - 14 [facility] Glucose SerPl-mCnc 133.0 mg/dL 06/25/2025 70 - 199 [facility] BUN/Creat SerPl 30.0 Above high normal 06/25/2025 12 - 20 [facility] Potassium SerPl-sCnc 3.4 mmol/L Below low normal 06/25/2025 3.5 - 5.1 [facility] Chloride SerPl-sCnc 100.0 mmol/L 06/25/2025 98 - 107 [facility] CO2 SerPl-sCnc 32.0 mmol/L 06/25/2025 24 - 32 CT _[facility] eGFRcr SerPlBld CKD-EPI 2020 101.0 mL/min/1.73m2 06/25/2025 - [facility] Calcium SerPl-mCnc 8.3 mg/dL Below low normal 06/25/2025 8.4 - 10.2 [facility] Creat SerPl-mCnc 0.5 mg/dL Below low normal 06/25/2025 0.7 - 1.3 [facility] Sodium SerPl-sCnc 139.0 mmol/L 06/25/2025 135 - 14 5 [facility] BUN SerPl-mCnc 15.0 mg/dL 06/25/2025 9 - 20 CT_ [facility] PT Bld 13.9 sec Above high normal 06/25/2025 10.5 - 13.3 [facility] INR PPP 1.2 Above high normal 06/25/2025 0.8 - 1.1 C T_[facility] Ca-I Bld-mCnc 1.09 mg/dL Below low normal 06/25/2025 1.19 - 1.35 [facility] MCH RBC Qn Auto 31.2 pcg 06/25/2025 25 - 33 CT_ [facility] Erythrocyte DistWidth Bld Auto 14.7 % 06/25/2025 12.1 - 17.7 [facility]RA N WBC # Bld Auto 8.1 K/mcL 06/25/2025 4 - 10.5 [facility]_T [facility] Hgb Bld-mCnc 12.6 g/dL Below low normal 06/25/2025 13.5 - 18 [facility] PMV Bld Auto 8.5 FL 06/25/2025 7.4 - 11.4 CT_TH SFR[facility] Platelet # Bld Auto 218.0 K/mcL 06/25/2025 150 - 450 [facility] Hct VFr Bld Auto 36.8 % Below low normal 06/25/2025 40 - 54 [facility] MCHC RBC Auto-EntMCnc 34.1 g/dL 06/25/2025 32 - 36 [facility] MCV RBC Auto 91.4 FL 06/25/2025 78 - 100 [facility] RBC # Bld Auto 4.03 M/mcL Below low normal 06/25/2025 4.7 - 6 [facility] PT Bld 16.2 sec Above high normal 06/24/2025 10.5 - 13.3 [facility] INR PPP 1.4 Above high normal 06/24/2025 0.8 - 1.1 C T_[facility]AN Rh Bld Positive 06/24/2025 CT_[facility]RA N ABO Group Bld A 06/24/2025 CT_TH SFRAN Bld gp Ab Scn SerPl Ql Negative 06/24/2025 [facility] INR PPP 1.7 Above high normal 06/24/2025 0.8 - 1.1 C T_[facility] PT Bld 20.0 sec Above high normal 06/24/2025 10.5 - 13.3 [facility] eGFRcr SerPlBld CKD-EPI 2020 96.0 mL/min/1.73m2 06/24/2025 - [facility] Sodium SerPl-sCnc 137.0 mmol/L 06/24/2025 135 - 14 5 [facility] Calcium SerPl-mCnc 8.2 mg/dL Below low normal 06/24/2025 8.4 - 10.2 [facility] Creat SerPl-mCnc 0.6 mg/dL Below low normal 06/24/2025 0.7 - 1.3 [facility] Anion Gap SerPl Calc-sCnc 10.0 06/24/2025 5 - 14 [facility] Potassium SerPl-sCnc 3.6 mmol/L 06/24/2025 3.5 - 5.1 [facility] BUN/Creat SerPl 26.7 Above high normal 06/24/2025 12 - 20 [facility] CO2 SerPl-sCnc 29.0 mmol/L 06/24/2025 24 - 32 CT _[facility] Chloride SerPl-sCnc 98.0 mmol/L 06/24/2025 98 - 107 [facility] BUN SerPl-mCnc 16.0 mg/dL 06/24/2025 9 - 20 CT_ [facility] Glucose SerPl-mCnc 135.0 mg/dL Above high normal 06/24/2025 70 - 99 [facility] Magnesium SerPl-mCnc 1.6 mg/dL Below low normal 06/24/2025 1.7 - 2.8 [facility] aPTT PPP 35.8 sec 06/24/2025 25 - 37 [facility]RA N MCH RBC Qn Auto 31.2 pcg 06/24/2025 25 - 33 CT_ [facility] WBC # Bld Auto 7.2 K/mcL 06/24/2025 4 - 10.5 CT_T [facility] Neutrophils NFr Bld Auto 77.3 % Above high normal 06/24/2025 44 - 74 [facility] PMV Bld Auto 8.6 FL 06/24/2025 7.4 - 11.4 [facility] Eosinophil # Bld Auto 0.1 K/mcL 06/24/2025 0 - 0.5 [facility] Basophils NFr Bld Auto 0.6 % 06/24/2025 0 - 2 [facility] RBC # Bld Auto 4.06 M/mcL Below low normal 06/24/2025 4.7 - 6 [facility] Monocytes NFr Bld Auto 9.5 % 06/24/2025 2 - 12 [facility] Hct VFr Bld Auto 37.1 % Below low normal 06/24/2025 40 - 54 [facility] MCV RBC Auto 91.4 FL 06/24/2025 78 - 100 [facility] Lymphocytes NFr Bld Auto 11.4 % Below low normal 06/24/2025 20 - 48 [facility] Neutrophils # Bld Auto 5.5 K/mcL 06/24/2025 1.8 - 7.8 [facility] Hgb Bld-mCnc 12.7 g/dL Below low normal 06/24/2025 13.5 - 18 [facility] Basophils # Bld Auto 0.0 K/mcL 06/24/2025 0 - 0.2 [facility] Monocytes # Bld Auto 0.7 K/mcL 06/24/2025 0 - 0.8 [facility] Erythrocyte DistWidth Bld Auto 14.9 % 06/24/2025 12.1 - 17.7 [facility] N Eosinophil NFr Bld Auto 1.2 % 06/24/2025 0 - 6 [facility] MCHC RBC Auto-EntMCnc 34.1 g/dL 06/24/2025 32 - 36 [facility] Platelet # Bld Auto 231.0 K/mcL 06/24/2025 150 - 450 [facility] Lymphocytes # Bld Auto 0.8 K/mcL Below low normal 06/24/2025 1 - 3.2 [facility] Ca-I Bld-mCnc 1.04 mg/dL Below low normal 06/24/2025 1.19 - 1.35 [facility] Glucose Bld-mCnc 140.0 mg/dL 06/24/2025 70 - 199 [facility] History of Medication Use Medication Directions Dispensed Refills Start Date End Date Status acetaminophen (TYLENOL) 325 mg tablet Take 1 tablet (325 mg total) by mouth every 6 (six) hours if needed for mild pain, fever - temperature GREATER than 38 C (100.4 F), moderate pain or headaches for up to 10 days. active labetaloL (NORMODYNE) tablet 100 mg 100 mg, oral, 3 times daily, First dose (after last modification) on Lay 06/29/25 at 0630 06/29/20 active losartan (COZAAR) 50 mg tablet Take 1 tablet (50 mg total) by mouth 1 (one) time each day. active pantoprazole (PROTONIX) EC tablet 40 mg 40 mg, oral, Every morning before breakfast, First dose on Thu06/28/25 at 0715, Do not crush, chew, or split. active warfarin (COUMADIN) tablet 5 mg 5 mg, oral, Once, On Thu06/28/25 at 1700, For 1 dose, Hazardous Medication Intact: - Single pair of ASTM standard [id number] certified gloves - Eye/face protection if vomit or potential to spit up Manipulated: - Double pair of ASTM standard [id number] certified gloves - Eye/face protection if vomit or pote active albumin human 5 % infusion 25 g 25 g, intravenous, Once, On Thu06/27/25 at 1115, For 1 dose 06/27/20 completed Patient is on: warfarin (COUMADIN) one time dosing *This is a reminder to check that a warfarin order is placed for today* active labetaloL (NORMODYNE) tablet 200 mg 200 mg, oral, 2 times daily, First dose (after last modification) on Thu06/26/25 at 0545 06/28/20 aborted losartan (COZAAR) tablet 25 mg 25 mg, oral, Daily, First dose on Thu06/26/25 at 0800 06/27/20 aborted albumin human 25 % infusion 25 g 25 g, intravenous, at 120 mL/hr, Once, On Thu06/26/25 at 1000, For 1 dose, Indication? Cardiac Surgery 06/26/20 completed potassium chloride (KLOR-CON M20) CR tablet 20 mEq 20 mEq, oral, Once, On 06/28/25 at 0645, For 1 dose, Tablet may be swallowed whole (do not crush/chew/suck on) OR broken in half and each half swallowed separately OR dissolved (whole tablet) in ~4 ounces of water (allow ~2 minutes to dissolve, stir well and administer immediately). 06/28/20 completed albumin human 5 % infusion - ADS Override Pull Starting on Thu06/25/25 at 1027, For 1 dose, Created by cabinet override 06/25/20 completed albumin human 5 % infusion 12.5 g 12.5 g, intravenous, Once, On Thu06/25/25 at 1145, For 1 dose 06/25/20 completed calcium gluconate 2 gram/100 mL IVPB (premix) 2 g 2 g, intravenous, at 100 mL/hr, Administer over 60 Minutes, Once, On Thu06/25/25 at 0615, For 1 dose 06/25/20 completed iopamidoL (ISOVUE-370) 370 mg iodine /mL (76 %) injection 100 mL 100 mL, intravenous, Once in imaging, Starting on Thu06/25/25 at 1209, For 1 dose 06/25/20 completed labetaloL (NORMODYNE) tablet 200 mg 200 mg, oral, 2 times daily, First dose (after last modification) on Thu06/25/25 at 0900 06/25/20 aborted sodium chloride 0.9 % intravenous solution 10 mL 10 mL, intravenous, Once in imaging, Starting on Thu06/25/25 at 1209, For 1 dose active labetaloL (NORMODYNE) 100 mg tablet Take 1 tablet (100 mg total) by mouth 3 (three) times a day. 5 06/29/20 active pantoprazole (PROTONIX) injection 40 mg 40 mg, intravenous, Administer over 2 Minutes, Every 24 hours, First dose on 06/24/25 at 0200, Patient MUST have BOTH: -Strict NPO (unable to take oral or liquid PPI) -Contraindicatio n to H2RA Pantroprazole - IV push: Reconstitute powder for injection with 10 mL NS; final concentration: 4 mg/mL. 06/28/20 aborted potassium chloride (KLOR-CON M20) CR tablet 40 mEq 40 mEq, oral, Once, On 06/27/25 at 0545, For 1 dose, Tablet may be swallowed whole (do not crush/chew/suck on) OR broken in half and each half swallowed separately OR dissolved (whole tablet) in ~4 ounces of water (allow ~2 minutes to dissolve, stir well and administer immediately). 06/27/20 completed sodium chloride 0.9 % flush 10 mL 10 mL, intravenous, Once, On 06/25/25 at 1230, For 1 dose 06/25/20 completed calcium gluconate 1 gram/50 mL IVPB (premix) 1 g 1 g, intravenous, at 50 mL/hr, Administer over 60 Minutes, Once, On 06/24/25 at 0300, For 1 dose 06/24/20 completed magnesium sulfate 2 gram/50 mL (4 %) IVPB 2 g 2 g, intravenous, at 25 mL/hr, Administer over 2 Hours, Once, On 06/24/25 at 0300, For 1 dose 06/24/20 completed phytonadione (VITAMIN K) 10 mg in sodium chloride 0.9 % 50 mL IVPB 10 mg, intravenous, at 100 mL/hr, Administer over 30 Minutes, Once, On 06/24/25 at 0800, For 1 dose, Protect from light, Indication for IVPB phytonadione (VITAMIN K)? HIGH Risk Bleed 06/24/20 completed acetaminophen (TYLENOL) tablet 650 mg 650 mg, oral, Every 6 hours PRN, mild pain, fever - temperature GREATER than 38 C (100.4 F), Starting on 06/24/25 at 0142, Recovery & On Unit active dilTIAZem XR (DILT-XR) 180 mg 24 hr capsule Take 1 capsule by mouth once daily 5 06/29/20 25 aborted metoprolol succinate (TOPROL-XL) 50 mg 24 hr tablet Take 1 tablet by mouth once daily 06/29/20 25 aborted warfarin (COUMADIN) 5 mg tablet TAKE 1 TABLET BY MOUTH ONCE DAILY MAY CAUSE HEAVY BLEEDING. TAKE AT SAME TIME EVERY DAY. DO NOT CHANGE DIETARY HABITS active hydroCHLOROthiazide 12.5 mg tablet Take 1 tablet by mouth once daily 06/29/20 25 aborted Problems Problem Status Onset Date Problem Type Date of Resoluti on Source Acute on chronic diastolic (congestive) heart failure ([facility] V24, [facility] V28) active 2025-06-24 ProblemAct [facility] Shortness of breath active 2021-02-08 ProblemAct [facility] COVID-19 virus infection active 2021-01-24 ProblemAct [facility] Bilateral hearing loss active 2019-08-25 ProblemAct [facility] Prediabetes active 2020-05-28 ProblemAct [facility] Secondary hypercoagulable state ([facility] V24) active 2025-06-24 ProblemAct [facility] HTN (hypertension) active 2019-08-25 ProblemAct [facility] 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 ([facility] V24, [facility] V28) active 2025-06-24 ProblemAct [facility] Aneurysm of ascending aorta ([facility] V24) active 2021-06-28 ProblemAct [facility] Permanent atrial fibrillation ([facility] V24, [facility] V28) active 2025-06-24 ProblemAct [facility] Longstanding persistent atrial fibrillation ([facility] V24, [facility] V28) active 2019-08-25 ProblemAct [facility] Immunizations Vaccine Date Source Lot Number Status Influenza trivalent, 0.5mL ( Fluad) 65yo and older 06/16/2025 [facility] [id number] completed COVID-19 (Moderna/Spikevax) 12yo and older 06/16/2024 [facility]_T [facility] [id number] completed Influenza trivalent, 0.5mL ( Fluad) 65yo and older 06/08/2024 CT_[facility] [id number] completed COVID-19 (Moderna/Spikevax) 12yo and older 2023 [facility]_T [facility] [id number] completed Influenza trivalent, 0.5mL ( Fluad) 65yo and older 06/05/2023 [facility] [id number] completed Influenza trivalent, 0.5mL ( Fluad) 65yo and older 05/30/2022 [facility] [id number] completed Pfizer SARS-CoV-2 COVID-19, mRNA, LNP-S, preservative free 01/07/2022 [facility] completed Pfizer SARS-CoV-2 COVID-19, mRNA, LNP-S, preservative free 08/07/2021 CT_[facility] [id number] completed Influenza trivalent, 0.5mL ( Fluad) 65yo and older 07/08/2021 [facility] completed Pfizer SARS-CoV-2 COVID-19, mRNA, LNP-S, preservative free 01/04/2021 [facility] [id number] completed Pfizer SARS-CoV-2 COVID-19, mRNA, LNP-S, preservative free 11/26/2020 [facility] completed Influenza trivalent, 0.5mL ( Fluad) 65yo and older 06/13/2020 [facility] [id number] completed Encounters Encounter Type Encounter Reason Primary Diagnosis Location Date Inpatient Chest Pain Aneurysm of the ascending aorta, without rupture ([facility] V24) [facility] 06/24/2025 Care Team Organization Name Specialty Phone Email Start Date End Da te [facility] 06/24/2025 [facility] 06/24/2025
--- OUTSIDE RECORDS SUMMARY | 2025-07-03 16:41 | XMS_ITS | Encounter Summary ---
Author Organization [facility] Address [address] [place] [address] Care Team Providers Care Agricultural Plow Operator Name Role Phone Magdalene Barba MD Primary Care Provider Reason for Visit * Reason Onset Date Comments Call from [facility] Anticoagulation 07/03/2025 Encounter Details Date Type Department Care Team (Late st Contact Info) Description 07/03/2025 Telephone [facility] [address] [place] [address] SophiaArmando Solo MD [address] [place] [address] [address] [place] [address] Social History Tobacco Use Types Packs/Day Years [...] on file documented as of this encounter Progress Notes * Shelby Ramos NP - 07/03/2025 4:00 PM EDT I called and spoke with Radha the patient's daughter. We discussed his symptoms and given his ongoing back and chest pain, I recommend he be evaluated at the hospital. She agreed to go to [facility] for further evaluation with him. I attempted to call an expect. * Evangelina Martines RN - 07/03/2025 3:22 PM EDT Giovanni Brumfield is a 84 y.o. male, followed by Dr. Cortes/ RICCI Ramos with cardiac historyof permanent atrial fibrillation, ascending aorta aneurysm, and arterial hypertension. Recent [facility] visit 06/23/25 for CP and he was transferred to [facility] for type B aortic dissection. He was last seen in the office 10/09/23 and pending a visit on 07/12/25. I called Jennifer. She [facility] the [facility] today [facility]. 1) He reported 6/10 aching pain that starts in his back, radiates to his abdomen and up into his chest that he's had all along when he gets out of bed in the morning. The patient also reported presence of mid sternal dull aching constantly. The patient gets short of breath on exertion and his appetite is decreased. His lungs were noted to be clear today and he does not have any edema. BP of both arms today resulted 124/82, HR 95-100 bpm and she noted his pulse was a little irregular. His Diltiazem was stopped and Labetalol was started. HCTZ was also stopped and Losartan was started in the hospital. 2) His INR today is 1.9. Last week, his INR was 3.5. His goal range is 2-3. The patient takes Warfarin 2.5 mg on and 5 mg the rest of the week. Her plan is no change and recheck next week. She questioned if you want to keep his INR on the lower side around 2 due to type B aortic dissection discovered during his recent hospital stay at [place] this month [facility] * Armando Gilbert MD - 07/03/2025 2:22 PM EDT Triage team: Please investigate further. * Polina Cunningham MA - 07/03/2025 2:11 PM EDT Jennifer from [facility] called stating patient is partial aortic dissection and wanted to speak about INR value. Jennifer would like a call back and can be [phone] documented in this encounter Plan of Treatment Upcoming Encounters Date Type Department Care Team (Late st Contact Info) Description 2025 11:15 AM EST Office Visit Vascular Surgery [facility] [address] [place] [address] Ambrocio Muñoz MD [address] [place] [address] 2025 1:00 PM EST Office Visit Cardiothoracic Surgery [facility] [address] [place] [address] Shelbi Bowling MD [address] [place] [address] 07/12/2025 1:40 PM EST Office Visit [facility] [address] [place] [phone] Shelby Ramos NP [address] [facility] [address] [place] [phone] 12/15/2025 2:30 PM EDT Office Visit Adult Medicine - [place] [address] [place] [address] Magdalene Barba MD [address] [place] [address] documented as of this encounter Visit Diagnoses Not on filedocumented in this encounter Additional Health Concerns Assessment Noted Time PHQ-9 Depression Total Score: 0 12/09/19 25 2:20 PM EDT documented as of this encounter Care Teams Agricultural Plow Operator Relationship Specialty Start Date End Date Magdalene Barba MD [address] [address] PCP - General Internal Medicine 11/21/21 documented as of this encounter
--- OUTSIDE RECORDS SUMMARY | 2025-07-03 16:41 | XMS_ITS | Clinical Summary ---
Author Organization LL [address] [facility] Address [address] [place] [address] Phone Care Team Providers Care Attendant Arcade Name Role Phone Magdalene Barba MD Primary Care Provider Allergies No known active allergies Medications warfarin (COUMADIN) 5 mg tablet TAKE 1 TABLET BY MOUTH ONCE DAILY MAY CAUSE HEAVY BLEEDING. TAKE AT SAME TIME EVERY DAY. DO NOT CHANGE DIETARY HABITS 90 tablet 1 5 Active labetaloL (NORMODYNE) 100 mg tablet Take 1 tablet (100 mg total) by mouth 3 (three) times a day. 90 tablet 1 06/29/2025 1:51 PM EDT 5 Active acetaminophen (TYLENOL) 325 mg tablet Take 1 tablet (325 mg total) by mouth every 6 (six) hours if needed for mild pain, fever - temperature GREATER than 38 C (100.4 F), moderate pain or headaches for up to 10 days. 5 07/09/20 25 Active losartan (COZAAR) 50 mg tablet Take 1 tablet (50 mg total) by mouth 1 (one) time each day. 30 tablet 1 06/29/2025 1:51 PM EDT 5 Active hydroCHLOROthi azide 12.5 mg tablet Take 1 tablet by mouth once daily 90 tablet 1 5 06/29/20 25 Discontin ued(Stop Taking at Discharge ) metoprolol succinate (TOPROL-XL) 50 mg 24 hr tablet Take 1 tablet by mouth once daily 90 tablet 1 5 06/29/20 25 Discontin ued(Stop Taking at Discharge ) dilTIAZem XR (DILT-XR) 180 mg 24 hr capsule Take 1 capsule by mouth once daily 90 capsule 1 5 06/29/20 25 Discontin ued(Stop Taking at Discharge ) labetaloL (NORMODYNE) 100 mg tablet Take 1 tablet (100 mg total) by mouth 2 (two) times a day. 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 ([facility] V24, [facility] V28) 06/24/2025 Permanent atrial fibrillation ([facility]/HCC V24, CMS/ HCC V28) 06/24/2025 Acute on chronic diastolic ( congestive) heart failure ([facility] V24, [facility] V28) 06/24/2025 Secondary hypercoagulable state ([facility] V24) Aneurysm of ascending aorta ([facility] V24) 2020 Overview (08/17/2024): Last Assessment & [...] be adequate. Also, the patient has a [id number] score of 3 and continues on anticoagulation therapy with warfarin. He denies any excessive bruising or bleeding. We will continue current therapies. Encounters Date Type Department Care Team Description 07/03/2025 Telephone [facility] Cardiology [facility] [address] [place] [phone] Armando Gilbert MD 06/29/2025 Telephone [facility] Cardiology 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, CMS/HCC V28); Permanent atrial fibrillation (CMS/HCC V24, CMS/HCC V28) Discharge Disposition: Home or Self Care 06/23/2025 3:25 PM EDT - 06/23/2025 11:00 PM EDT Emergency [facility] Emergency [address] [place] [phone] Concetta Artis MD Goebel, Mathew, MD Chest pain, unspecified type (Primary Dx); Acute bilateral back pain, unspecified back location; Hypokalemia; Hypomagnesemia; Longstanding persistent atrial fibrillation (CMS/HCC V24, CMS/HCC V28); Dissection of aorta, unspecified portion of aorta (CMS/HCC V24, CMS/HCC V28); Aneurysm of 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 ([facility]/HCC V24) Discharge Disposition: Another Health Care Institution Not Defined 06/16/2025 3:30 PM EDT Office Visit Adult Medicine [facility] [address] [place] [address] Julian Caro PA Aneurysm of 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 ([facility] V24) (Primary Dx); Longstanding persistent atrial fibrillation (CMS/HCC V24, CMS/HCC V28); Primary hypertension; Prediabetes; Gas pain 04/10/2025 Telephone Adult [facility] [address] [place] [address] Magdalene Barba MD from Last [...] oz) 06/27/2025 6:00 A M EDT Height 180.3 cm (5' 11 ) 06/23/2025 2:08 PM EDT Body Mass Index 25.4 06/23/2025 2:08 PM EDT Plan of Treatment Upcoming Encounters Date Type Department Care Team (Late st Contact Info) Description 2025 11:15 AM EST Office Visit Vascular Surgery [facility] [address] [place] [address] Ambrocio Muñoz MD [address] [place] [address] 2025 1:00 PM EST Office Visit Cardiothoracic Surgery [facility] [address] [place] [address] Shelbi Bowling MD [address] [place] [address] 07/12/2025 1:40 PM EST Office Visit [facility] [address] [place] [address] Shelby Ramos NP [address] [place] [address] [address] [place] [address] 12/15/2025 2:30 PM EDT Office Visit Adult Medicine - [place] [address] [place] [phone] Magdalene Barba MD [address] [place], [place] [phone] Health Maintenance Due Date Last Done Comments DTaP,Tdap,and Td Vaccines (1 - Tdap) 1959 Pneumococcal Vaccine: 50+ Years (1 of 2 - PCV) 1960 Zoster Vaccines (1 of 2) 1991 RSV Immunization Adult Patients (1 - 1-dose 75+ series) 2016 COVID-19 Vaccine ( season) 2025 06/16/2024, 2023, 07/08/2022, Additional history exists Medicare Annual Wellness Visit 12/08/2025 12/08/2024 Hypertension/CHF/CAD Annual BMP Blood Test 06/28/2026 06/28/2025, 06/27/2025, 06/25/2025, Additional history exists Social Influencers of Health Screening 06/28/2026 06/28/2025 Falls Risk Assessment 06/29/2026 06/29/2025, 025 Cholesterol Screening (Lipid Panel) 05/17/2030 05/17/2025, 05/15/2023 [...] WITH INR Timed 06/28/2025 8:16 AM EDT COMPLETE BLOOD COUNT Timed 06/28/2025 5:36 AM EDT BASIC METABOLIC PANEL Timed 06/28/2025 5:36 AM EDT MAGNESIUM Timed 06/28/2025 5:36 AM EDT PROTHROMBIN TIME WITH INR Timed 06/28/2025 5:36 AM EDT PROTHROMBIN TIME WITH INR Routine 06/27/2025 8:23 AM EDT BASIC METABOLIC PANEL Routine 06/27/2025 4:10 AM EDT COMPLETE BLOOD COUNT Routine 06/27/2025 4:[address] ANGIO CHEST/ABDOMEN/PELVIS WO AND/OR W CONTRAST Routine 06/25/2025 12:18 PM EDT 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, CMS/HCC V28) PROTHROMBIN TIME WITH INR Routine 06/25/2025 4:15 AM EDT BASIC METABOLIC PANEL Routine 06/25/2025 4:15 AM EDT COMPLETE BLOOD COUNT Routine 06/25/2025 4:15 AM EDT PHOSPHORUS Routine 06/25/2025 4:15 AM EDT MAGNESIUM Routine 06/25/2025 4:15 AM EDT CALCIUM, IONIZED Routine 06/25/2025 4:15 AM EDT PROTHROMBIN TIME WITH INR Routine 06/24/2025 12:00 PM EDT TRANSTHORACIC ECHOCARDIOGRAM (TTE) COMPLETE STAT 06/24/2025 9:32 AM EDT Aneurysm of 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 ([facility] V24) CBC WITH AUTO DIFFERENTIAL Routine 06/24/2025 1:37 AM EDT CALCIUM, IONIZED Routine 06/24/2025 1:37 AM EDT TYPE AND SCREEN Routine 06/24/2025 1:37 AM EDT MAGNESIUM Routine 06/24/2025 1:37 AM EDT BASIC METABOLIC PANEL Routine 06/24/2025 1:37 AM EDT CBC AND DIFFERENTIAL Routine 06/24/2025 1:37 AM EDT ACTIVATED PARTIAL THROMBOPLASTIN TIME Routine 06/24/2025 1:37 AM EDT PROTHROMBIN TIME WITH INR Routine 06/24/2025 1:37 AM EDT POCT GLUCOSE BLOOD Routine 06/24/2025 1: 36 AM EDT ECG ANNOTATED 06/24/2025 HC INSERTION/REMOVAL/REPL ACEMENT CATH Routine 06/23/2025 9:39 PM EDT [place] CATHETERIZATION/CANNUL ATION ARTERIAL SAMPLE/MONITORING/MARTINEZ SFUSION PERC Routine 06/23/2025 9:39 PM EDT ACTIVATED PARTIAL THROMBOPLASTIN TIME STAT 06/23/2025 9:32 PM EDT PROTHROMBIN TIME WITH INR STAT 06/23/2025 9:32 PM EDT [place] CRITICAL CARE 30-74 MINUTES Routine 06/23/2025 7:[address] ANGIO CHEST/ABDOMEN/PELVIS WO AND/OR W CONTRAST STAT 06/23/2025 6:45 PM EDT Chest pain, unspecified type Acute bilateral back pain, unspecified back location ECG 12-LEAD STAT 06/23/2025 4:28 PM EDT TROPONIN I HIGH SENSITIVITY Timed 06/23/2025 4:26 PM EDT CBC WITH AUTO DIFFERENTIAL STAT 06/23/2025 3:20 PM EDT B-TYPE NATRIURETIC PEPTIDE STAT 06/23/2025 3:20 PM EDT MAGNESIUM STAT 06/23/2025 3:20 PM EDT LIPASE STAT 06/23/2025 3:20 PM EDT COMPREHENSIVE METABOLIC PANEL STAT 06/23/2025 3:20 PM EDT CBC AND DIFFERENTIAL STAT 06/23/2025 3:20 PM EDT TROPONIN I HIGH SENSITIVITY Timed 06/23/2025 3:20 PM EDT ECG 12-LEAD STAT 06/23/2025 2:14 PM EDT CBC WITH AUTO DIFFERENTIAL Routine 05/17/2025 12:04 PM EDT Medicare annual wellness visit, subsequent Primary hypertension Pre-diabetes Paroxysmal atrial fibrillation ([facility]/HCC V24, CMS/HCC V28) THYROID STIMULATING HORMONE WITH REFLEX TO FREE T4 AND FREE T3 Routine 05/17/2025 12:04 PM EDT Medicare annual wellness visit, subsequent Primary hypertension Pre-diabetes Paroxysmal atrial fibrillation ([facility]/HCC V24, CMS/HCC V28) HEMOGLOBIN A1C Routine [...] V28) from Last 3 Months Results * (ABNORMAL) Prothrombin time with INR (06/29/2025 6:35 AM EDT) Only the most recent of8 resultswithin the time period is included. Protime 14.9(H) 10.5 - 13.3 sec LAB COAGULATION METHOD 06/29/2025 7:23 AM EDT [facility] INR 1.3(H) 0.8 - 1.1 LAB COAGULATION METHOD 06/29/2025 7:23 AM T [facility] Blood Venous blood specimen / Unknown Venipuncture / Unknown 06/29/2025 6:35 AM EDT 06/29/2025 6:54 AM EDT Narrative [facility] - 06/29/2025 7:23 AM EDT Std. Therapy 2.0-3.0 INR High Dose Therapy 3.0-4.5 INR Ranges may vary depending on clinical indications and protocol. us Garth NGUYỄN LAB BLOOD ORDERABLES Final Resul t [facility] [address] [place] [address], [place] [phone] * (ABNORMAL) Complete blood count (06/28/2025 5:36 AM EDT) Only the most recent of3 resultswithin the time period is included. WBC 9.6 4.0 - 10.5 K/mcL LAB HEMETOLOGY METHOD 06/28/2025 5:49 AM EDT [facility] RBC 3.84(L) 4.70 - 6.00 M/mcL LAB HEMETOLOGY METHOD 06/28/2025 5:49 AM EDT [facility] Hemoglobin 11.7(L) 13.5 - 18.0 g/dL LAB HEMETOLOGY METHOD 06/28/2025 5:49 AM EDT [facility] Hematocrit 36.1(L) 40.0 - 54.0 % LAB HEMETOLOGY METHOD 06/28/2025 5:49 AM EDT [facility] MCV 94.0 78.0 - 100.0 FL LAB HEMETOLOGY METHOD 06/28/2025 5:49 AM EDT [facility] MCH 30.6 25.0 - 33.0 pcg LAB HEMETOLOGY METHOD 06/28/2025 5:49 AM EDT [facility] MCHC 32.5 32.0 - 36.0 g/dL LAB HEMETOLOGY METHOD 06/28/2025 5:49 AM EDT [facility] RDW 15.0 12.1 - 17.7 % LAB HEMETOLOGY METHOD 06/28/2025 5:49 AM EDT [facility] Platelets 248 150 - 450 K/mcL LAB HEMETOLOGY METHOD 06/28/2025 5:49 AM EDT [facility] MPV 8.8 7.4 - 11.4 FL LAB HEMETOLOGY METHOD 06/28/2025 5:49 AM EDT [facility] Blood Venous blood specimen / Unknown Venipuncture / Unknown 06/28/2025 5:36 AM EDT 06/28/2025 5:43 AM EDT us Garth NGUYỄN LAB BLOOD ORDERABLES Final Resul t Performing Organization Address City/[facility]/ZIP Co de Phone Number [facility] [address] [place] [address], [place] [phone] * Magnesium (06/28/2025 5:36 AM EDT) Only the most recent of4 resultswithin the time period is included. Magnesium 1.7 1.7 - 2.8 mg/dL LAB CHEMISTRY METHOD 06/28/2025 6:15 AM EDT [facility] Blood Venous blood specimen / Unknown Venipuncture / Unknown 06/28/2025 5:36 AM EDT 06/28/2025 5:42 AM EDT us Garth NGUYỄN LAB BLOOD ORDERABLES Final Resul t [facility] [address] [place] [address], [place] [phone] * (ABNORMAL) Basic metabolic panel (06/28/2025 5:36 AM EDT) Only the most recent of4 resultswithin the time period is included. Sodium 143 135 - 145 mmol/L LAB CHEMISTRY METHOD 06/28/2025 6:15 AM EDT [facility] Potassium 3.7 3.5 - 5.1 mmol/L LAB CHEMISTRY METHOD 06/28/2025 6:15 AM EDT [facility] Chloride 106 98 - 107 mmol/L LAB CHEMISTRY METHOD 06/28/2025 6:15 AM EDT [facility] CO2 27 24 - 32 mmol/L LAB CHEMISTRY METHOD 06/28/2025 6:15 AM EDT [facility] Anion Gap 10 5 - 14 LAB CHEMISTRY METHOD 06/28/2025 6:15 AM EDT [facility] Glucose 126 70 - 199 mg/dL LAB CHEMISTRY METHOD 06/28/2025 6:15 AM EDT [facility] BUN 16 9 - 20 mg/dL LAB CHEMISTRY METHOD 06/28/2025 6:15 AM EDT [facility] Creatinine 0.50(L) 0.70 - 1.30 mg/dL LAB CHEMISTRY METHOD 06/28/2025 6:15 AM EDT [facility] eGFR 101 >=60 mL/min/1. 73m2 LAB CHEMISTRY METHOD 06/28/2025 6:15 AM EDT [facility] Comment:Calculation based on the Chronic Kidney Disease Epidemiology Collaboration (CKD-EPI) equation refit without adjustment for race. BUN/Creatinine Ratio 32.0(H) 12.0 - 20.0 LAB CHEMISTRY METHOD 06/28/2025 6:15 AM EDT [facility] Calcium 8.7 8.4 - 10.2 mg/dL LAB CHEMISTRY METHOD 06/28/2025 6:15 AM EDT [facility] Blood Venous blood specimen / Unknown Venipuncture / Unknown 06/28/2025 5:36 AM EDT 06/28/2025 5:42 AM EDT us Garth NGUYỄN LAB BLOOD ORDERABLES Final Resul t [facility] [address] [place] [address], * CT Angio Chest/Abdomen/Pelvis wo and/or w Contrast (06/25/2025 12:18 PM EDT) Only the most recent of2 resultswithin the time period is included. Anatomical Region Laterality Modality Body Computed Tomogra [...] communicated to Unknown Provider SF via the [employer] system on 06/26/2025 9:16 AM, Message ID [id number]. -------- FINAL REPORT -------- Dictated By: Harsh Perdomo Dictated Date: 06/26/2025 08:33 ET Assigned Physician: Harsh Perdomo Reviewed and Electronically Signed By: Harsh Perdomo Signed Date: 06/26/2025 09:16 ET Workstation ID: [id number] Transcribed By: Self Edit Transcribed Date: 06/26/2025 [...] been communicated to Unknown Provider SF via [employer] system on 06/26/2025 9:16 AM, Message ID [id number]. -------- FINAL REPORT -------- Dictated By: Harsh Perdomo Dictated Date: 06/26/2025 08:33 ET Assigned Physician: Harsh Perdomo Reviewed and Electronically Signed By: Harsh Perdomo Signed Date: 06/26/2025 09:16 ET Workstation ID: [id number] Transcribed By: Self Edit Transcribed Date: 06/26/2025 08:33 ET us Pita NGUYỄN [facility] [place]EDURES Final Re sult * (ABNORMAL) Phosphorus (06/25/2025 4:15 AM EDT) Phosphorus 2.4(L) 2.5 - 4.5 mg/dL LAB CHEMISTRY METHOD 06/25/2025 5:06 AM EDT [facility] Blood Venous blood specimen / Unknown Venipuncture / Unknown 06/25/2025 4:15 AM EDT 06/25/2025 4:35 AM EDT us Derek NGUYỄN LAB BLOOD ORDERABLES Final Result Performing Organization Address [facility]/ZIP Co de Phone Number [facility] [address] [place] [address], [place] [phone] * (ABNORMAL) Calcium, ionized (06/25/2025 4:15 AM EDT) Only the most recent of2 resultswithin the time period is included. Pathologist [facility] Calcium Ionized 1.09(L) 1.19 - 1.35 mg/dL LAB BLOOD GAS METHOD 06/25/2025 4:49 AM EDT [facility] Blood Venous blood specimen / Unknown Venipuncture / Unknown 06/25/2025 4:15 AM EDT 06/25/2025 4:35 AM EDT us Derek NGUYỄN LAB BLOOD ORDERABLES Final Result Performing Organization Address [facility] Co de Phone Number [facility] [address] [place] [address], [place] [phone] * (ABNORMAL) TRANSTHORACIC ECHOCARDIOGRAM (TTE) COMPLETE (06/24/2025 [...] 53 mL CV PACS Left Atrium Minor [place] 7.1 cm CV PACS Left Atrium Major [place] 6.3 cm CV PACS LA Area Sys [...] S' 10 cm/s CV PACS RA Major [place] 7.1 cm CV PACS Inferior Vena Cava [...] CBC auto differential (06/24/2025 1:37 AM EDT) Only the most recent of3 resultswithin the time period is included. WBC 7.2 4.0 - 10.5 K/mcL LAB HEMETOLOGY METHOD 06/24/2025 1:52 AM EDT [facility] RBC 4.06(L) 4.70 - 6.00 M/mcL LAB HEMETOLOGY METHOD 06/24/2025 1:52 AM EDT [facility] Hemoglobin 12.7(L) 13.5 - 18.0 g/dL LAB HEMETOLOGY METHOD 06/24/2025 1:52 AM EDT [facility] Hematocrit 37.1(L) 40.0 - 54.0 % LAB HEMETOLOGY METHOD 06/24/2025 1:52 AM EDT [facility] MCV 91.4 78.0 - 100.0 FL LAB HEMETOLOGY METHOD 06/24/2025 1:52 AM EDT [facility] MCH 31.2 25.0 - 33.0 pcg LAB HEMETOLOGY METHOD 06/24/2025 1:52 AM EDT [facility] MCHC 34.1 32.0 - 36.0 g/dL LAB HEMETOLOGY METHOD 06/24/2025 1:52 AM EDT [facility] RDW 14.9 12.1 - 17.7 % LAB HEMETOLOGY METHOD 06/24/2025 1:52 AM EDT [facility] Platelets 231 150 - 450 K/mcL LAB HEMETOLOGY METHOD 06/24/2025 1:52 AM EDT [facility] MPV 8.6 7.4 - 11.4 FL LAB HEMETOLOGY METHOD 06/24/2025 1:52 AM EDT [facility] Neutrophils Relative 77.3(H) 44.0 - 74.0 % LAB HEMETOLOGY METHOD 06/24/2025 1:52 AM EDT [facility] Lymphocytes Relative 11.4(L) 20.0 - 48.0 % LAB HEMETOLOGY METHOD 06/24/2025 1:52 AM EDT [facility] Monocytes Relative 9.5 2.0 - 12.0 % LAB HEMETOLOGY METHOD 06/24/2025 1:52 AM EDT [facility] Eosinophils Relative 1.2 0.0 - 6.0 % LAB HEMETOLOGY METHOD 06/24/2025 1:52 AM EDT [facility] Basophils Relative 0.6 0.0 - 2.0 % LAB HEMETOLOGY METHOD 06/24/2025 1:52 AM EDT [facility] Neutrophils Absolute 5.50 1.80 - 7.80 K/mcL LAB HEMETOLOGY METHOD 06/24/2025 1:52 AM EDT [facility] Lymphocytes Absolute 0.80(L) 1.00 - 3.20 K/mcL LAB HEMETOLOGY METHOD 06/24/2025 1:52 AM EDT [facility] Monocytes Absolute 0.70 0.00 - 0.80 K/mcL LAB HEMETOLOGY METHOD 06/24/2025 1:52 AM EDT [facility] Eosinophils Absolute 0.10 0.00 - 0.50 K/mcL LAB HEMETOLOGY METHOD 06/24/2025 1:52 AM EDT [facility] Basophils Absolute 0.00 0.00 - 0.20 K/mcL LAB HEMETOLOGY METHOD 06/24/2025 1:52 AM EDT [facility] Blood Venous blood specimen / Unknown Venipuncture / Unknown 06/24/2025 1:37 AM EDT 06/24/2025 1:45 AM EDT us Aiden NGUYỄN LAB BLOOD ORDERABLES Final Res ult [facility] [address] [place] [address], [place] [phone] * Activated partial thromboplastin time (06/24/2025 1:37 AM EDT) Only the most recent of2 resultswithin the time period is included. Pathologist [facility] aPTT 35.8 25.0 - 37.0 sec LAB COAGULATION METHOD 06/24/2025 2:09 AM EDT [facility] Blood Venous blood specimen / Unknown Venipuncture / Unknown 06/24/2025 1:37 AM EDT 06/24/2025 1:45 AM EDT us Aiden NGUYỄN LAB BLOOD ORDERABLES Final Res ult [facility] [address] [place] [address], [place] [phone] * Type and screen (06/24/2025 1:37 AM EDT) [facility] ABO Group A 06/24/2025 3:06 AM EDT [facility] Rh Type Positive 06/24/2025 3:06 AM EDT [facility] Antibody Screen Negative 06/24/2025 3:06 AM EDT [facility] Blood Venous blood specimen / Unknown Venipuncture / Unknown 06/24/2025 1:37 AM EDT 06/24/2025 1:45 AM EDT us Aiden NGUYỄN LAB BLOOD BANK TEST ORDERABLES Final Result [facility] [address] [place] [address], [place] [phone] * POCT Glucose, blood (06/24/2025 1:36 AM EDT) [facility] Glucose POCT 140 70 - 199 mg/dL 06/24/2025 1:38 AM EDT [facility] Comment: Fasting Reference Range: 70-99 mg/dL Non-Fasting Reference Range: 70-199 mg/dL Blood Capillary blood specimen / Unknown 06/24/2025 1:36 AM EDT 06/24/2025 1:39 AM EDT Benson Cartwright MD LAB POINT OF CAR E TEST DOCKED DEVICE UNSOLICITED RESULTS Final Result [facility] ([facility]) [facility] [address] [place] [address], * ECG-Annotated (06/24/2025) us Provider Onbase ECG ORDERABLES Final Result * [place] CATHETERIZATION/CANNULATION ARTERIAL SAMPLE/MONITORING/TRANSFUSION PERC, HC INSERTION/REMOVAL/REPLACEMENT CATH (06/23/2025 9:39 PM EDT) Narrative Pramod Sutton MD - 06/23/2025 9:39 PM EDT Pramod Sutton MD 06/23/2025 11:07 PM Insert arterial line Date/Time: 06/23/2025 9:39 PM Performed by: Pramod Sutton MD Authorized by: Pramod Sutton MD Consent: Consent obtained: Verbal Risks discussed: Bleeding and pain Indications: Indications: hemodynamic monitoring Pre-procedure details: Skin preparation: Chlorhexidine Sedation: Sedation type: None Anesthesia: Anesthesia method: None Procedure details: Location: L radial Neo's test performed: yes Neo's test abnormal: no Needle gauge: 20 G Placement technique: Ultrasound guided and Seldinger Number of attempts: 1 Transducer: waveform confirmed Post-procedure details: Post-procedure: Secured with tape and sterile dressing applied CMS: Normal Procedure completion: Tolerated us Pramod Sutton MD IV THERAPY ORDERABLES Edited Re sult - Final * [place] CRITICAL CARE 30-74 MINUTES (06/23/2025 7:51 PM EDT) Narrative Pramod Sutton MD - 06/23/2025 7:51 PM EDT Pramod Sutton MD 06/23/2025 11:07 PM Critical Care Performed by: Pramod Sutton MD Authorized by: Pramod Sutton MD Critical care provider statement: Critical care time (minutes): 75 Total face to face critical care time (minutes): 75 Critical care time was exclusive of: Separately billable procedures and treating other patients Critical care was necessary to treat or prevent imminent or life-threatening deterioration of the following conditions: Aortic aneurysm, thoracic dissection. Critical care was time spent personally by me on the following activities: Development of treatment plan with patient or surrogate, discussions with consultants, evaluation of patient's response to treatment, examination of patient, obtaining history from patient or surrogate, ordering and performing treatments and interventions, ordering and review of laboratory studies and re-evaluation of patient's condition Care discussed with: accepting provider at another facility us Pramod Sutton MD IN CLINIC/BEDSIDE ORDERABLES Fi nal Result * ECG 12 lead (06/23/2025 4:28 PM EDT) Only the most recent of2 resultswithin the time period is included. Ventricular Rate ECG 91 BPM GEMUSE QRS Duration 90 ms GEMUSE Q-T Interval 370 ms GEMUSE QTc 455 ms GEMUSE R [place] 41 degrees GEMUSE T [place] 62 degrees GEMUSE ECG Interpretation Atrial fibrillation Abnormal ECG When compared with ECG of 23-JUN-2025 14:14, (unconfirmed) No significant change was found Confirmed by DECLAN WALTER ([id number]) on 06/24/2025 6:34:13 PM GEMUSE 06/23/2025 4:28 PM EDT 06/24/2025 6:34 PM EDT us Serge Newman MD ECG ORDERABLES Final Result GEMUSE * Troponin I high sensitivity (06/23/2025 4:26 PM EDT) Only the most recent of2 resultswithin the time period is included. Pathologist [facility] High Sensitivity Troponin I 12 <=79 ng/L LAB CHEMISTRY METHOD 06/23/2025 5:30 PM EDT [facility] Blood Venous blood specimen / Unknown Venipuncture / Unknown 06/23/2025 4:26 PM EDT 06/23/2025 4:56 PM EDT Narrative [facility] - 06/23/2025 5:30 PM EDT High levels of biotin in samples may falsely decrease hsTroponin values. Use caution when interpreting hsTroponin results in patients taking biotin who exhibit renal impairment (eGFR <60) or in patients taking more than 20 mg/day of biotin. us Serge Newman MD LAB BLOOD ORDERABLES Final R esult Performing Organization Address [facility] Co de Phone Number [facility] [address] [place] [address], [place] [phone] * (ABNORMAL) B-type natriuretic peptide (06/23/2025 3:20 PM EDT) Pathologist [facility] BNP 227(H) <=100 pcg/mL LAB CHEMISTRY METHOD 06/23/2025 4:24 PM EDT [facility] Blood Venous blood specimen / Unknown Venipuncture / Unknown 06/23/2025 3:20 PM EDT 06/23/2025 3:30 PM EDT Serge Newman MD LAB BLOOD ORDERABLES Final R esult Performing Organization Address [facility] de Phone Number [facility] [address] [place] [address], [place] [phone] * Lipase (06/23/2025 3:20 PM EDT) Pathologist [facility] Lipase 38 13 - 75 unit/L LAB CHEMISTRY METHOD 06/23/2025 4:17 PM EDT [facility] Blood Venous blood specimen / Unknown Venipuncture / Unknown 06/23/2025 3:20 PM EDT 06/23/2025 3:30 PM EDT us Serge Newman MD LAB BLOOD ORDERABLES Final R esult Performing Organization Address City/[facility] Co de Phone Number [facility] [address] [place] [address], [place] [phone] * (ABNORMAL) Comprehensive metabolic panel (06/23/2025 3:20 PM EDT) Only the most recent of2 resultswithin the time period is included. Sodium 139 133 - 145 mmol/L LAB CHEMISTRY METHOD 06/23/2025 4:20 PM EDT [facility] Potassium 3.4(L) 3.5 - 5.5 mmol/L LAB CHEMISTRY METHOD 06/23/2025 4:20 PM T [facility] Chloride 98 96 - 110 mmol/L LAB CHEMISTRY METHOD 06/23/2025 4:20 PM [facility] CO2 35(H) 21 - 32 mmol/L LAB CHEMISTRY METHOD 06/23/2025 4:20 PM [facility] Anion Gap 6 3 - 11 LAB CHEMISTRY METHOD 06/23/2025 4:20 PM [facility] Glucose 132(H) 70 - 100 mg/dL LAB CHEMISTRY METHOD 06/23/2025 4:20 PM [facility] BUN 20 5 - 25 mg/dL LAB CHEMISTRY METHOD 06/23/2025 4:20 PM [facility] Creatinine 0.92 0.70 - 1.30 mg/dL LAB CHEMISTRY METHOD 06/23/2025 4:20 PM [facility] eGFR 83 >=60 mL/min/1. 73m2 LAB CHEMISTRY METHOD 06/23/2025 4:20 PM [facility] Comment:Calculation based on the Chronic Kidney Disease Epidemiology Collaboration (CKD-EPI) equation refit without adjustment for race. BUN/Creatinine Ratio 21.7 LAB CHEMISTRY METHOD 06/23/2025 4:20 PM [facility] Calcium 9.0 8.5 - 10.5 mg/dL LAB CHEMISTRY METHOD 06/23/2025 4:20 PM [facility] AST (SGOT) 26 10 - 42 unit/L LAB CHEMISTRY METHOD 06/23/2025 4:20 PM EDT [facility] ALT (SGPT) 20 10 - 60 unit/L LAB CHEMISTRY METHOD 06/23/2025 4:20 PM EDT [facility] Alkaline Phosphatase 84 42 - 121 unit/L LAB CHEMISTRY METHOD 06/23/2025 4:20 PM EDT [facility] Total Protein 7.2 6.0 - 8.0 g/dL LAB CHEMISTRY METHOD 06/23/2025 4:20 PM EDT [facility] Albumin 3.4 3.2 - 5.0 g/dL LAB CHEMISTRY METHOD 06/23/2025 4:20 PM EDT [facility] Total Bilirubin 1.0 0.0 - 1.4 mg/dL LAB CHEMISTRY METHOD 06/23/2025 4:20 PM EDT [facility] Blood Venous blood specimen / Unknown Venipuncture / Unknown 06/23/2025 3:20 PM EDT 06/23/2025 3:30 PM EDT Serge Newman MD LAB BLOOD ORDERABLES Final R esult [facility] [address] [place] [address], * Thyroid stimulating hormone with reflex to free t4 and free t3 (05/17/2025 12:04 PM EDT) TSH 2.75 0.40 - 4.00 mcIU/mL LAB CHEMISTRY METHOD 05/17/2025 2:26 PM EDT [facility] Blood Venous blood specimen / Unknown Venipuncture / Unknown 05/17/2025 12:04 PM EDT 05/17/2025 12:04 PM EDT Magdalene Barba MD LAB BLOOD ORDERABLES F inal Result Performing Organization Address City/[facility]/ZIP Co de Phone Number [facility] [address] [place] [address], [place] [phone] * Lipid panel with reflex to direct LDL (05/17/2025 12:04 PM EDT) Cholesterol 137 0 - 200 mg/dL LAB CHEMISTRY METHOD 05/17/2025 1:48 PM EDT [facility] Triglycerides 66 0 - 150 mg/dL LAB CHEMISTRY METHOD 05/17/2025 1:48 PM EDT [facility] HDL 63 >=40 mg/dL LAB CHEMISTRY METHOD 05/17/2025 1:48 PM EDT [facility] LDL Calculated 61 0 - 100 mg/dL LAB CHEMISTRY METHOD 05/17/2025 1:48 PM EDT [facility] Comment:Estimated LDL Calcul ated using equation: Total cholesterol - HDL cholesterol - (Triglycerides/5) VLDL Cholesterol Kavon 13.2 mg/dL LAB CHEMISTRY METHOD 05/17/2025 1:48 PM EDT [facility] Non HDL Chol. (LDL+VLDL) 74 <145 mg/dL LAB CHEMISTRY METHOD 05/17/2025 1:48 PM EDT [facility] Chol/HDL Ratio 2.2 0.0 - 4.4 LAB CHEMISTRY METHOD 05/17/2025 1:48 PM EDT [facility] Blood Venous blood specimen / Unknown Venipuncture / Unknown 05/17/2025 12:04 PM EDT 05/17/2025 12:04 PM EDT Magdalene Barba MD LAB BLOOD ORDERABLES F inal Result [facility] [address] [place] [address], [place] [phone] * Hemoglobin A1c (05/17/2025 12:04 PM EDT) Hemoglobin A1C 6.3 <6.5 % LAB CHEMISTRY METHOD 05/17/2025 9:41 PM EDT [facility] Mean Bld Glu Estim. 134 mg/dL LAB CHEMISTRY METHOD 05/17/2025 9:41 PM EDT [facility] Blood Venous blood specimen / Unknown Venipuncture / Unknown 05/17/2025 12:04 PM EDT 05/17/2025 12:04 PM EDT us Magdalene Barba MD LAB BLOOD ORDERABLES F inal Result [facility] ([facility] [address] [place] [address], [place] [phone] from Last 3 Months Insurance [place] [id number] Advance Directives Documents on File Type Date Recorded Patient Doctor'S Assistant Expl anation Health Care Decision (hx) 12/15/2020 AD VERGARA DIRECTIVE Health Care Decision (hx) 12/15/2020 AD VERGARA DIRECTIVE Health Care Decision (hx) 12/15/2020 AD VERGARA DIRECTIVE Health Care Decision (hx) 12/15/2020 AD VERGARA DIRECTIVE Health Care Decision (hx) 12/15/2020 AD VERGARA DIRECTIVE Health Care Decision (hx) 12/15/2020 AD VERGARA DIRECTIVE * Full Code - Confirmed (Latest Code Status on File) Date Activated Date Inactivated Comments 06/24/2025 1:43 AM 06/29/2025 4:01 PM This code status was ascertained in the following way: Code status discussion: discussion with patient To update the patient's code status, place a code status order. Do not modify or discontinue any currently active code status orders. Care Teams Attendant Arcade Relationship Specialty Start Date End Date Magdalene Barba MD [address] [place] [id number] PCP - General Internal Medicine 11/21/21
--- OUTSIDE RECORDS SUMMARY | 2025-07-03 16:41 | XMS_ITS | Encounter Summary ---
Author Organization [facility] Address [address] [place] [address] Care Team Providers Care Conveyor Belt Repairer Name Role Phone Magdalene Barba MD Primary Care Provider Reason for Visit * Reason Onset Date Comments Appointment 06/29/2025 Follow up appoin tment needed Encounter Details Date Type Department Care Team (Late st Contact Info) Description 06/29/2025 Telephone [facility] - [facility] [address] [facility] [address] [place] [phone] Armando Gilbert MD [address] [place] [address] [place] [phone] Social History Tobacco Use Types Packs/Day Years [...] as of this encounter Progress Notes * Dania Bran - 06/30/2025 2:34 PM EDT Spoke with his daughter and scheduled for 07/12/25, called back Alexis and let him know of the appointment date. * Gina Godwin MA - 06/29/2025 9:51 AM EDT Alexis NGUYỄN from Cardiac Surgery at [facility] called. The patient is being discharged from the hospital today. He is looking to set up a follow up appointment for the patient to be seen by Dr Cortes. Please contact Alexis to schedule. All hospital records are in the patient's chart. documented in this encounter Plan of Treatment Upcoming Encounters Date Type Department Care Team (Late st Contact Info) Description 2025 11:15 AM EST Office Visit Vascular Surgery [facility] [address] [place] [address] Ambrocio Muñoz MD [address] [place] [address] 2025 1:00 PM EST Office Visit Cardiothoracic Surgery [facility] [address] [place] [address] Shelbi Bowling MD [address] [place] [address] 07/12/2025 1:40 PM EST Office Visit [facility] - [facility] [address] [place] [address] Shelby Ramos NP [address] [place] [address] Dr [address] [place] [phone] 12/15/2025 2:30 PM EDT Office Visit [facility] [address] [address] Magdalene Barba MD [address] [place] [address] documented as of this encounter Visit Diagnoses Not on filedocumented in this encounter Additional Health Concerns Assessment Noted Time PHQ-9 Depression Total Score: 0 12/09/19 25 2:20 PM EDT documented as of this encounter Care Teams Conveyor Belt Repairer Relationship Specialty Start Date End Date Magdalene Barba MD [address] [place] [id number] PCP - General Internal Medicine 11/21/21 documented as of this encounter
== END 2025-07-03 14:27 | disposition home or self-care (01) ==
LOC: HO.ACS 13:07
PROVIDERS: PCP Family Medicine; Visit Provider Internal Medicine Medical Oncology
DX: Z79.01 Long term (current) use of anticoagulants (principal)

== ENCOUNTER → 2025-07-03 13:07 | Outpatient (BNVA) | payer MEDICARE, SELFPAY | PROVIDERS: PCP Family Medicine; Visit Provider Internal Medicine Medical Oncology | DX: I48.20 Chronic atrial fibrillation, unspecified (principal); Z51.81 Encounter for therapeutic drug level monitoring; Z79.01 Long term (current) use of anticoagulants | CPT/HCPCS: 85610; 99211 ==

== ENCOUNTER 2025-07-11 13:01 | Outpatient (AMB) | payer MEDICARE, SELFPAY ==
--- OUTSIDE RECORDS SUMMARY | 2025-07-10 11:15 | XMS_ITS | Encounter Summary ---
Author Organization [facility] Address [address] [place] [address] Care Team Providers Care Casino Cage Manager Name Role Phone Magdalene Barba MD Primary Care Provider Reason for Visit * Reason Comments Follow-up To discuss possible surgery after Type B dissection Encounter Details Date Type Department Care Team (Late st Contact Info) Description 2025 11:15 AM EST Office Visit Vascular Surgery - [place] [address] [place] [phone] Ambrocio Muñoz MD [address] [place] [address] [place] [phone] 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, CMS/HCC V28) (Primary Dx) Social History Tobacco Use Types Packs/Day Years [...] Sign Reading Time Taken Comments Blood Pressure 120/78 2025 11:09 AM EST Pulse - - Temperature - - Respiratory Rate 18 2025 11:09 AM EST Oxygen Saturation 95% 2025 11:09 AM EST Inhaled Oxygen Concentration - - Weight 82.6 kg (182 lb 1.6 oz) 2025 11:09 AM EST Height 180.3 cm (5' 11 ) 2025 11:09 AM EST Body Mass Index 25.4 2025 11:09 AM EST documented in this encounter Progress Notes * Ambrocio Muñoz MD - 2025 11:15 AM EST History and Physical Provider MD: @ANTHONY@ PCP: Magdalene Barba MD Code Status:@RRCODESTATUS@ HPI: Patient follows up for 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 He was treated medically with blood pressure control and his back pain/chest pain fortunately resolved. He also has a known ascending aortic aneurysm which is currently being observed. Patient is anticoagulated chronically with Coumadin for A-fib. He is on antihypertensive medicationand blood pressure today is 118 systolic. He is accompanied by his daughter and granddaughter over the phone. Past Medical History: Medical History[1] Past Surgical History: Surgical History[2] Family / Social History: Family [...] History Narrative Not on file Allergies: Allergies[4] Medications: Prior to Admission medications Medication Sig Start Date End Date Taking? Authorizing Provider acetaminophen (TYLENOL) 325 mg tablet Take 1 tablet (325 mg total) by mouth every 6 (six) hours if needed for mild pain, fever - temperature GREATER than 38 C (100.4 F), moderate pain or headaches for up to 10 days. 06/29/25 07/09/25 DELMA Fraire labetaloL (NORMODYNE) 100 mg tablet Take 1 tablet (100 mg total) by mouth 3 (three) times a day. 06/29/25 DELMA Fraire losartan (COZAAR) 50 mg tablet Take 1 tablet (50 mg total) by mouth 1 (one) time each day. 06/30/25DELMA Fraire warfarin (COUMADIN) 5 mg tablet TAKE 1 TABLET BY MOUTH ONCE DAILY. *MAY CAUSE HEAVY BLEEDING. TAKE AT SAME TIME EVERY DAY. DO NOT CHANGE DIETARY HABITS* 07/05/25 DELMA Delaney warfarin (COUMADIN) 5 mg tablet TAKE 1 TABLET BY MOUTH ONCE DAILY MAY CAUSE HEAVY BLEEDING. TAKE AT SAME TIME EVERY DAY. DO NOT CHANGE DIETARY HABITS 01/04/25 07/05/25 DELMA Delaney Review of Systems: Pertinent items are noted in HPI. Vitals: Ht / Wt: Visit Vitals Smoking Status Former Physical Exam: Physical Exam Constitutional: Appearance: Normal appearance. HENT: Head: Normocephalic and atraumatic. Nose: Nose normal. Mouth/Throat: Mouth: Mucous membranes are moist. Pharynx: Oropharynx is clear. Eyes: Extraocular Movements: Extraocular movements intact. Pupils: Pupils are equal, round, and reactive to light. Cardiovascular: Rate and Rhythm: Normal rate and regular rhythm. Pulmonary: Effort: Pulmonary effort is normal. Abdominal: General: Abdomen is flat. Palpations: Abdomen is soft. Musculoskeletal: General: Normal range of motion. Cervical back: Normal range of motion and neck supple. Skin: General: Skin is warm and dry. Capillary Refill: Capillary refill takes less than 2 seconds. Neurological: General: No focal deficit present. Mental Status: He is alert. Mental status is at baseline. Psychiatric: Mood and Affect: Mood normal. Vascular Exam: Palpable left brachial and carotid pulses, femoral pulses are palpable bilaterally. Labs: @[id number](na,k,bun,creatinine,cl,lhb0iqsdrznv,glucrandom,wbc,hematocrit,h emoglobin,pltcount,mg,phos,calciumioni,calcium,pt,pttheparinpr,inr)@ Imaging: No images are attached to the encounter. EKG: @SFCRESULTRCNTEKG(797M)@ Other Studies: Problem List: @PROBLS@ Assessment / Plan: I had an extensive discussion with the patient as well as his daughter and granddaughter. We talkedabout the overall pathophysiology of his aortic dissection and current medical treatment with bloodpressure control. We also discussed ongoing risks if not repaired which include continued aneurysmal degeneration and ruptured as well as potential worsening dissection and endorgan ischemia. I discussed the option of endovascular thoracic branch endoprosthesis placement to essentially repair his dissection. We discussed what would be involved in this procedure as well as the inherent risks. Patient is 85 years old and apparently has not had many medical issues prior to this. He currently overall seems relatively disinterested in pursuing any type of surgical intervention. He is also complaining of some worsening fatigue and shortness of breath since surgery. He is due to meet with hiscardiac surgeon later today to discuss his ascending aortic aneurysm, as well as his sanitor back at home later this week. I have recommended they meet with all of the specialists and discuss further. They should also confer together as a family and we will revisit the option of elective repair early next week with a phone visit. All questions at this time and were answered and I look forward to speaking with them again next week. In the meantime I strongly recommended he continue with strict blood pressure control.30 Total time spent managing this patient on the date of the imdw-[id number] encounter (including direct patient interaction, review of applicable labs and imaging, documentation, and communication with other providers involved in patient's care): 30 minutes Thank you for allowing me to participate in the care of this patient. Please do not hesitate to contact me with any further concerns. Sincerely, Ambrocio Muñoz MD FACS [1] Past Medical History: Diagnosis Date Atrial fibrillation (CMS/HCC V24, CMS/HCC V28) DX:Atrial fibrillation (HCC) History of tobacco abuse 08/20/2020 DX:History of tobacco abuse Hypertension DX:Hypertension [2] Past Surgical History: Procedure Laterality Date CATARACT EXTRACTION Left PROCEDURE: HISTORICAL CATARACT REMOVAL; COMMENT: 03/22/2020 [3] Family History Problem Relation Name Age of Onset Colon cancer Neg Hx [4] No Known Allergies documented in this encounter Plan of Treatment Upcoming Encounters Date Type Department Care Team (Late st Contact Info) Description 07/12/2025 1:40 PM EST Office Visit [facility] - [facility] [address] [place] [phone] Shelby Ramos NP [address] [facility] [address] [place] [phone] 07/17/2025 9:30 AM EST Telemedicine Vascular Surgery [facility] [address] [facility] [place] [phone] Ambrocio Muñoz MD [address] [place] [address] [place] [address] 12/15/2025 2:30 PM EDT Office Visit Adult Medicine [facility] [address] [place] [address] Magdalene Barba MD [address] [place] [address] documented as of this encounter Visit Diagnoses Diagnosis 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, CMS/HCC V28)- Primary documented in this encounter Additional Health Concerns Assessment Noted Time PHQ-9 Depression Total Score: 0 07/10/20 25 11:10 AM EST documented as of this encounter Care Teams Casino Cage Manager Relationship Specialty Start Date End Date Magdalene Barba MD [address] [facility] [address] [place] [address] PCP - General Internal Medicine 11/21/21 documented as of this encounter
--- OUTSIDE RECORDS SUMMARY | 2025-07-10 13:00 | XMS_ITS | Encounter Summary ---
Author Organization [facility] Address [address] [place] [address] Care Team Providers Care [employer] Professor Name Role Phone Magdalene Barba MD Primary Care Provider Encounter Details Date Type Department Care Team (Late st Contact Info) Description 2025 1:00 PM EST Office Visit Cardiothoracic Surgery - [place] [address] [place] [address] Shelbi Bowling MD [address] [place] [address] Aneurysm of 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 (CMS/HCC V24) (Primary Dx); 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, CMS/HCC V28) Social History Tobacco Use Types Packs/Day Years [...] Sign Reading Time Taken Comments Blood Pressure 132/87 2025 12:09 PM EST Pulse 86 2025 12:09 PM EST Temperature - - Respiratory Rate - - Oxygen Saturation 96% 2025 12:09 PM EST Inhaled Oxygen Concentration - - Weight 84.4 kg (186 lb) 2025 12:09 PM EST Height 180.3 cm (5' 11 ) 2025 12:09 PM EST Body Mass Index 25.94 2025 12:09 PM EST documented in this encounter Progress Notes * Shelbi Bowling MD - 2025 1:00 PM EST Cardiac surgery clinic visit Net Maker: Dr Sophia Solo Reason for visit: Type B dissection, ascending aortic aneurysm History of Present Illness The patient is an 85-year-old male with persistent atrial fibrillation, currently on Coumadin, who presents for evaluation of type B aortic dissection and ascending aortic aneurysm. Admitted -06/29/2025 for type B dissection, p/w chest/back pain. He reports no significant chest or back pain since his last hospital visit on 06/25/2025. However, he was referred to the emergency room at [facility] on 07/02/2025 due to persistent chest pressure. He has been experiencing shortness of breath after walking approximately 5 steps but does not report any associated chest pain. He just met w vascualr surgery to discuss TEVAR (TBE) but is hesitant about proceeding w any surgery considering his age. He also reports fatigue and lack of energy. He has a follow-up appointment with his ict support technicians, Dr. Cortes, on Thursday. He has been under observation for an aneurysm for several years. His blood pressure is managed with losartan and labetalol. His systolic blood pressure readings have been consistently between 110s to 120s. He reports smoking cigarettes approximately 50 years ago. SOCIAL HISTORY Tobacco: Smoked cigarettes about 50 years ago. FAMILY HISTORY - Negative for dissection or aneurysm in family history. Physical Exam General: Patient appears well and in no acute distress. Vitals: 07/10/25 1209 BP: 132/87 Pulse: 86 SpO2: 96% In afib Ext warm Well appearing Results Imaging - CTA 06/25/25: maximum ascending aorta was 5 x 5.1 and the maximum descending aorta 5, false lumen~2.5 cm, small left pleural effusion, and all mesenteric and renal branches come off the true lumen. Assessment & Plan 85-year-old male who was admitted 2 weeks ago for a type B aortic dissection. The patient does havehigh risk features including a diameter of 5 cm and a false lumen greater than 2.5 cm. Agree with vascular surgery recommendation to consider TEVAR, in this case would be a thoracic branch endoprosthesis. The patient does have a 5.1 cm ascending aorta. I did explain to the patient and his daughter that we will consider repair for diameter of 5 to 5.5 cm. The repair would be open heart surgery, either a hemiarch or zone 2 total arch replacement. Expected mortality at at the age of 85 approximately 4 to 5%. The patient is relatively independent and has had no significant medical problems up to this point.He is somewhat reluctant to proceed with any intervention. However I did explain that a TEVAR is not open surgery and that access is percutaneous to the groin and the wrist. The patient will have a phone conversation with Dr. Colon in next week about his final decision. I recommended that for the ascending aortic aneurysm consider any intervention would be open heartsurgery that we continue to follow with CT surveillance. If there is any significant growth i.e. 3 mm in 1 year or diameter reaches 5.5 cm, I would recommend open repair which would be a hemiarch or a zone 2 arch replacement. In the interim patient should keep blood pressure less than 130/80 and goal LDL less than 100 whichhe is doing. Of note the patient is having shortness of breath with ambulation. He did have a small left pleuraleffusion on the CAT scan at [facility] per report. I offered a chest x-ray today as a type B dissection can certainly cause a reactive effusion. The patient at this time has declined a chest x-ray. It was a pleasure meeting with the patient and his today. I provided them my number. Should hehave any chest or back pain he should call right away and undergo TEVAR sooner. Shelbi Bowling MD/HATTIE Cardiac Surgeon documented in this encounter Plan of Treatment Upcoming Encounters Date Type Department Care Team (Tyler Contact Info) Description 07/12/2025 1:40 PM EST Office Visit [facility] [address] [place] [phone] Shelby Ramos NP [address] [facility] [address] [place] [phone] 07/17/2025 9:30 AM EST Telemedicine Vascular Surgery [facility] [address] [place] [phone] Ambrocio Muñoz MD [address] [place] [address] [place] [address] 12/15/2025 2:30 PM EDT Office Visit Adult Medicine - [place] [address] [place] [address] Magdalene Barba MD [address] [place] [address] documented as of this encounter Visit Diagnoses Diagnosis Aneurysm of 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 (CMS/HCC V24)- Primary 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, CMS/HCC V28) documented in this encounter Additional Health Concerns Assessment Noted Time PHQ-9 Depression Total Score: 0 07/10/20 25 11:10 AM EST documented as of this encounter Care Teams [employer] Professor Relationship Specialty Start Date End Date Magdalene Barba MD [address] [facility] [address] [place] [address] PCP - General Internal Medicine 11/21/21 documented as of this encounter
[2025-07-11 13:10] LABS: Prothrombin Time Whole Bld POC 60.3 sec (11.1-13.5); ~PT, ~INR - Anti Coag Clinic 5.0 (0.9-1.1)
--- NOTE | 2025-07-11 13:23 | MHC.OFFVISCO ---
Intake Intake Visit Reasons: Anticoagulation Allergies No Known Allergies Allergy (Verified 07/11/25 13:04) Medication List - Last Reconciled 07/11/25 by Jennifer Tolentino RN labetalol 100 mg PO TID losartan 50 mg PO DAILY metoprolol succinate ER 50 mg PO DAILY warfarin 5 mg See Protocol PO DAILY Nursing Note INR 5.0 out of therapeutic range Medications and supplements reviewed Patient status: REFUSING TREATMENT FOR AORTIC DISSECTING Medications or supplements: NO CHANGS Diet: DECRREASED Denies any signs and symptoms of bleeding or clotting or unusual bruising Bleeding, bruising, clotting discussed Nutritional guidance given: GREENS TODAY Dose: ALREADY TOOK TODAYS' DOSE HOLD Thu RECHECK THURSDAY F/U INR Date : 07/14/2025?? PT AND DAUGHTER AWARE OF RISK OF BLEEDING AND TO GO TO ER Patient verbalizing understanding of instructions given WILL NOTIFY CLASS A [employer] DR[employer] Coding Level of Care Code Est Patient Level 1 Diagnoses Current use of anticoagulant therapy Z79.01 Results AMB INR Fingerstick AMB INR Fingerstick 5.0 Last Edit by Jennifer Tolentino RN on 07/11/25 13:10 md notified Jennifer Tolentino 07/11/25 13:10 manual entry Assessment & Plan Assessment & Plan (1) Current use of anticoagulant therapy: Code(s): Z79.01 - nursing home (current) use of anticoagulants Category: Medical
--- OUTSIDE RECORDS SUMMARY | 2025-07-11 15:40 | XMS_ITS | Clinical Summary ---
Author Organization LL [address] [facility] Address [address] [place] [address] Phone Care Team Providers Care Salt Maker Name Role Phone Magdalene Barba MD Primary Care Provider Allergies No known active allergies Medications labetaloL (NORMODYNE) 100 mg tablet Take 1 tablet (100 mg total) by mouth 3 (three) times a day. 90 tablet 1 5 1:51 PM EDT 06/29/20 25 Active losartan (COZAAR) 50 mg tablet Take 1 tablet (50 mg total) by mouth 1 (one) time each day. 30 tablet 1 5 1:51 PM EDT 06/30/20 25 Active warfarin (COUMADIN) 5 mg tablet TAKE 1 TABLET BY MOUTH ONCE DAILY. *MAY CAUSE HEAVY BLEEDING. TAKE AT SAME TIME EVERY DAY. DO NOT CHANGE DIETARY HABITS* 90 tablet 1 07/05/20 25 Active warfarin (COUMADIN) 5 mg tablet TAKE 1 TABLET BY MOUTH ONCE DAILY MAY CAUSE HEAVY BLEEDING. TAKE AT SAME TIME EVERY DAY. DO NOT CHANGE DIETARY HABITS 90 tablet 1 01/05/20 25 025 Discontinued hydroCHLOROth iazide 12.5 mg tablet Take 1 tablet by mouth once daily 90 tablet 1 01/04/20 25 025 Discontinued(St op Taking at Discharge) metoprolol succinate (TOPROL-XL) 50 mg 24 hr tablet Take 1 tablet by mouth once daily 90 tablet 1 05/04/20 25 025 Discontinued(St op Taking at Discharge) dilTIAZem XR (DILT-XR) 180 mg 24 hr capsule Take 1 capsule by mouth once daily 90 capsule 1 05/04/20 025 Discontinued(St op Taking at Discharge) labetaloL (NORMODYNE) 100 mg tablet Take 1 tablet (100 mg total) by mouth 2 (two) times a day. 025 Discontinued(St op Taking at Discharge) acetaminophen (TYLENOL) 325 mg tablet Take 1 tablet (325 mg total) by mouth every 6 (six) hours if needed for mild pain, fever - temperature GREATER than 38 C (100.4 F), moderate pain or headaches for up to 10 days. 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 ([facility] V24, [facility] V28) 06/24/2025 Permanent atrial fibrillation ([facility] V24, [facility] V28) 06/24/2025 Acute on chronic diastolic ( congestive) heart failure ([facility] V24, [facility] V28) 06/24/2025 Secondary hypercoagulable state ([facility] V24) Aneurysm of ascending aorta ([facility] V24) 2020 Overview (08/17/2024): Last Assessment & [...] be adequate. Also, the patient has a [id number] score of 3 and continues on anticoagulation therapy with warfarin. He denies any excessive bruising or bleeding. We will continue current therapies. 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 ([facility] V24, CMS/HCC V28) (Primary Dx) 07/03/2025 Telephone [facility] [address] [facility] [place] [address] Armando Gilbert MD 06/29/2025 Telephone [facility] [address] [place] [address] Armando Gilbert MD 06/24/2025 12:13 AM EDT - 06/29/2025 2:00 PM EDT Hospital Encounter [facility] CV Surg Card [address] [place] [phone] Benson Cartwright MD Aneurysm of 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 (CMS/HCC V24) (Primary Dx); 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, CMS/HCC V28); Permanent atrial fibrillation (CMS/HCC V24, CMS/HCC V28) Discharge Disposition: Home or Self Care 06/23/2025 3:25 PM EDT - 06/23/2025 11:00 PM EDT Emergency [facility] Emergency [address] [place] [phone] Concetta Artis MD Goebel, Mathew, MD Chest pain, unspecified type (Primary Dx); Acute bilateral back pain, unspecified back location; Hypokalemia; Hypomagnesemia; Longstanding persistent atrial fibrillation (CMS/HCC V24, CMS/HCC V28); Dissection of aorta, unspecified portion of aorta (CMS/HCC V24, CMS/HCC V28); Aneurysm of 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 (CMS/HCC V24) Discharge Disposition: Another Health Care Institution Not Defined 06/16/2025 3:30 PM EDT Office Visit Adult Medicine [facility] [address] [place] [address] Julian Caro PA Aneurysm of 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 (CMS/HCC V24) (Primary Dx); Longstanding persistent atrial fibrillation (CMS/HCC V24, CMS/HCC V28); Primary hypertension; Prediabetes; Gas pain 04/10/2025 Telephone Adult [facility] [address] [place] [address] Magdalene Barba MD from Last [...] Pulse 86 2025 12:09 PM EST Temperature 36.8 C (98.2 F) 06/29/2025 12:22 PM EDT Respiratory Rate 18 2025 11:09 AM EST Oxygen Saturation 96% 2025 12:09 PM EST Inhaled Oxygen Concentration - - Weight 84.4 kg (186 lb) 2025 12:09 PM EST Height 180.3 cm (5' 11 ) 2025 12:09 PM EST Body Mass Index 25.94 2025 12:09 PM EST Plan of Treatment Upcoming Encounters Date Type Department Care Team (Late st Contact Info) Description 07/12/2025 1:40 PM EST Office Visit [facility] [address] [place] [address] Shelby Ramos NP [address] [place] [address] [address] [place] [address] [place] [address] 07/17/2025 9:30 AM EST Telemedicine Vascular Surgery - [facility] [address] [place] [address] Ambrocio Muñoz MD [address] [place] [address] [place] [address] 12/15/2025 2:30 PM EDT Office Visit Adult Medicine - [place] [address] [place] [address] Magdalene Barba MD [address] [place] [address] Health Maintenance Due Date Last Done Comments [...] Cholesterol Screening (Lipid Panel) 05/17/2030 05/17/2025, 05/15/2023 Influenza Vaccine Completed 06/16/2025, , 06/05/2023, Additional history exists Depression Screening Completed 2025 HIB Vaccines Aged Out No longer eligi [...] ACEMENT CATH Routine 06/23/2025 9:39 PM EDT PA CATHETERIZATION/CANNUL ATION ARTERIAL SAMPLE/MONITORING/MARTINEZ SFUSION PERC Routine 06/23/2025 9:39 PM EDT ACTIVATED PARTIAL THROMBOPLASTIN TIME STAT 06/23/2025 9:32 PM EDT PROTHROMBIN TIME WITH INR STAT 06/23/2025 9:32 PM EDT PA CRITICAL CARE 30-74 MINUTES Routine 06/23/2025 7:51 [...] LAB COAGULATION METHOD 06/29/2025 7:23 AM EDT [facility] INR 1.3(H) 0.8 - 1.1 LAB COAGULATION METHOD 06/29/2025 7:23 AM EDT [facility] Blood Venous blood specimen / Unknown Venipuncture / Unknown 06/29/2025 6:35 AM EDT 06/29/2025 6:54 AM EDT Narrative [facility] - 06/29/2025 7:23 AM EDT Std. Therapy 2.0-3.0 INR High Dose Therapy 3.0-4.5 INR Ranges may vary depending on clinical indications and protocol. us Garth NGUYỄN LAB BLOOD ORDERABLES Final Resul t [facility] [address] [place] [address], [place] [phone] * (ABNORMAL) Complete blood count (06/28/2025 5:36 AM EDT) Only the most recent of3 resultswithin the time period is included. WBC 9.6 4.0 - 10.5 K/mcL LAB HEMETOLOGY METHOD 06/28/2025 5:49 AM EDT [facility] RBC 3.84(L) 4.70 - 6.00 M/mcL LAB HEMETOLOGY METHOD 06/28/2025 5:49 AM EDT [facility] Hemoglobin 11.7(L) 13.5 - 18.0 g/dL LAB HEMETOLOGY METHOD 06/28/2025 5:49 AM EDT [facility] Hematocrit 36.1(L) 40.0 - 54.0 % LAB HEMETOLOGY METHOD 06/28/2025 5:49 AM EDT [facility] MCV 94.0 78.0 - 100.0 FL LAB HEMETOLOGY METHOD 06/28/2025 5:49 AM EDT [facility] MCH 30.6 25.0 - 33.0 pcg LAB HEMETOLOGY METHOD 06/28/2025 5:49 AM EDT [facility] MCHC 32.5 32.0 - 36.0 g/dL LAB HEMETOLOGY METHOD 06/28/2025 5:49 AM EDT [facility] RDW 15.0 12.1 - 17.7 % LAB HEMETOLOGY METHOD 06/28/2025 5:49 AM EDT [facility] Platelets 248 150 - 450 K/mcL LAB HEMETOLOGY METHOD 06/28/2025 5:49 AM EDT [facility] MPV 8.8 7.4 - 11.4 FL LAB HEMETOLOGY METHOD 06/28/2025 5:49 AM EDT [facility] Blood Venous blood specimen / Unknown Venipuncture / Unknown 06/28/2025 5:36 AM EDT 06/28/2025 5:43 AM EDT us Garth NGUYỄN LAB BLOOD ORDERABLES Final Resul t [facility] [address] [place] [address], [place] [phone] * Magnesium (06/28/2025 5:36 AM EDT) Only the most recent of4 resultswithin the time period is included. Magnesium 1.7 1.7 - 2.8 mg/dL LAB CHEMISTRY METHOD 06/28/2025 6:15 AM EDT [facility] Blood Venous blood specimen / Unknown Venipuncture / Unknown 06/28/2025 5:36 AM EDT 06/28/2025 5:42 AM EDT us Garth NGUYỄN LAB BLOOD ORDERABLES Final Resul t [facility] [address] [place] [address], [place] [phone] * (ABNORMAL) Basic metabolic panel (06/28/2025 5:36 AM EDT) Only the most recent of4 resultswithin the time period is included. Sodium 143 135 - 145 mmol/L LAB CHEMISTRY METHOD 06/28/2025 6:15 AM EDT [facility] Potassium 3.7 3.5 - 5.1 mmol/L LAB CHEMISTRY METHOD 06/28/2025 6:15 AM EDT [facility] Chloride 106 98 - 107 mmol/L LAB CHEMISTRY METHOD 06/28/2025 6:15 AM EDT [facility] CO2 27 24 - 32 mmol/L LAB CHEMISTRY METHOD 06/28/2025 6:15 AM EDT [facility] Anion Gap 10 5 - 14 LAB CHEMISTRY METHOD 06/28/2025 6:15 AM EDT [facility] Glucose 126 70 - 199 mg/dL LAB CHEMISTRY METHOD 06/28/2025 6:15 AM EDT [facility] BUN 16 9 - 20 mg/dL LAB CHEMISTRY METHOD 06/28/2025 6:15 AM EDT [facility] Creatinine 0.50(L) 0.70 - 1.30 mg/dL LAB CHEMISTRY METHOD 06/28/2025 6:15 AM EDT [facility] eGFR 101 >=60 mL/min/1. 73m2 LAB CHEMISTRY METHOD 06/28/2025 6:15 AM EDT [facility] Comment:Calculation based on the Chronic Kidney Disease Epidemiology Collaboration (CKD-EPI) equation refit without adjustment for race. BUN/Creatinine Ratio 32.0(H) 12.0 - 20.0 LAB CHEMISTRY METHOD 06/28/2025 6:15 AM EDT [facility] Calcium 8.7 8.4 - 10.2 mg/dL LAB CHEMISTRY METHOD 06/28/2025 6:15 AM EDT [facility] Blood Venous blood specimen / Unknown Venipuncture / Unknown 06/28/2025 5:36 AM EDT 06/28/2025 5:42 AM EDT Garth NGUYỄN LAB BLOOD ORDERABLES Final Resul t [facility] [address] [place] [address], [place] [phone] * CT Angio Chest/Abdomen/Pelvis wo and/or w [...] communicated to Unknown Provider SF via the iPling system on 06/26/2025 9:16 AM, Message ID [id number]. -------- FINAL REPORT -------- Dictated By: Harsh Perdomo Dictated Date: 06/26/2025 08:33 ET Assigned Physician: Harsh Perdomo Reviewed and Electronically Signed By: Harsh Perdomo Signed Date: 06/26/2025 09:16 ET Workstation ID: [id number] Transcribed By: Self Edit Transcribed Date: 06/26/2025 [...] been communicated to Unknown Provider SF via GeoPalz system on 06/26/2025 9:16 AM, Message ID [id number]. -------- FINAL REPORT -------- Dictated By: Harsh Perdomo Dictated Date: 06/26/2025 08:33 ET Assigned Physician: Harsh Perdomo Reviewed and Electronically Signed By: Harsh Perdomo Signed Date: 06/26/2025 09:16 ET Workstation ID: [id number] Transcribed By: Self Edit Transcribed Date: 06/26/2025 08:33 ET Pita NGUYỄN IMG CT PROCEDURES Final Re sult * (ABNORMAL) Phosphorus (06/25/2025 4:15 AM EDT) [facility] Phosphorus 2.4(L) 2.5 - 4.5 mg/dL LAB CHEMISTRY METHOD 06/25/2025 5:06 AM EDT [facility] Blood Venous blood specimen / Unknown Venipuncture / Unknown 06/25/2025 4:15 AM EDT 06/25/2025 4:35 AM EDT Derek NGUYỄN LAB BLOOD ORDERABLES Final Result [facility] [address] [place] [address], * (ABNORMAL) Calcium, ionized (06/25/2025 4:15 AM EDT) Only the most recent of2 resultswithin the time period is included. [facility] Calcium Ionized 1.09(L) 1.19 - 1.35 mg/dL LAB BLOOD GAS METHOD 06/25/2025 4:49 AM EDT [facility] Blood Venous blood specimen / Unknown Venipuncture / Unknown 06/25/2025 4:15 AM EDT 06/25/2025 4:35 AM EDT Derek NGUYỄN LAB BLOOD ORDERABLES Final Result [facility] [address] [place] [address], * (ABNORMAL) TRANSTHORACIC ECHOCARDIOGRAM (TTE) COMPLETE (06/24/2025 9:32 AM EDT) Pathologist [facility] Est. RA Pressure 8 mmHg CV PACS [...] 53 mL CV PACS Left Atrium Minor Reva 7.1 cm CV PACS Left Atrium Major Reva 6.3 cm CV PACS LA Area Sys [...] S' 10 cm/s CV PACS RA Major Reva 7.1 cm CV PACS Inferior Vena Cava [...] The underlying ECG rhythm was atrial fibrillation. Aiden NGUYỄN CV ECHO PROCEDURES Final Resul t * (ABNORMAL) CBC auto differential (06/24/2025 1:37 AM EDT) Only the most recent of3 resultswithin the time period is included. [facility] WBC 7.2 4.0 - 10.5 K/mcL LAB HEMETOLOGY METHOD 06/24/2025 1:52 AM EDT [facility] RBC 4.06(L) 4.70 - 6.00 M/mcL LAB HEMETOLOGY METHOD 06/24/2025 1:52 AM EDT [facility] Hemoglobin 12.7(L) 13.5 - 18.0 g/dL LAB HEMETOLOGY METHOD 06/24/2025 1:52 AM EDT [facility] Hematocrit 37.1(L) 40.0 - 54.0 % LAB HEMETOLOGY METHOD 06/24/2025 1:52 AM EDT [facility] MCV 91.4 78.0 - 100.0 FL LAB HEMETOLOGY METHOD 06/24/2025 1:52 AM EDT [facility] MCH 31.2 25.0 - 33.0 pcg LAB HEMETOLOGY METHOD 06/24/2025 1:52 AM EDT [facility] MCHC 34.1 32.0 - 36.0 g/dL LAB HEMETOLOGY METHOD 06/24/2025 1:52 AM EDT [facility] RDW 14.9 12.1 - 17.7 % LAB HEMETOLOGY METHOD 06/24/2025 1:52 AM EDT [facility] Platelets 231 150 - 450 K/mcL LAB HEMETOLOGY METHOD 06/24/2025 1:52 AM EDT [facility] MPV 8.6 7.4 - 11.4 FL LAB HEMETOLOGY METHOD 06/24/2025 1:52 AM EDT [facility] Neutrophils Relative 77.3(H) 44.0 - 74.0 % LAB HEMETOLOGY METHOD 06/24/2025 1:52 AM EDT [facility] Lymphocytes Relative 11.4(L) 20.0 - 48.0 % LAB HEMETOLOGY METHOD 06/24/2025 1:52 AM EDT [facility] Monocytes Relative 9.5 2.0 - 12.0 % LAB HEMETOLOGY METHOD 06/24/2025 1:52 AM EDT [facility] Eosinophils Relative 1.2 0.0 - 6.0 % LAB HEMETOLOGY METHOD 06/24/2025 1:52 AM EDT [facility] Basophils Relative 0.6 0.0 - 2.0 % LAB HEMETOLOGY METHOD 06/24/2025 1:52 AM EDT [facility] Neutrophils Absolute 5.50 1.80 - 7.80 K/mcL LAB HEMETOLOGY METHOD 06/24/2025 1:52 AM EDT [facility] Lymphocytes Absolute 0.80(L) 1.00 - 3.20 K/mcL LAB HEMETOLOGY METHOD 06/24/2025 1:52 AM EDT [facility] Monocytes Absolute 0.70 0.00 - 0.80 K/mcL LAB HEMETOLOGY METHOD 06/24/2025 1:52 AM EDT [facility] Eosinophils Absolute 0.10 0.00 - 0.50 K/mcL LAB HEMETOLOGY METHOD 06/24/2025 1:52 AM EDT [facility] Basophils Absolute 0.00 0.00 - 0.20 K/mcL LAB HEMETOLOGY METHOD 06/24/2025 1:52 AM EDT [facility] Blood Venous blood specimen / Unknown Venipuncture / Unknown 06/24/2025 1:37 AM EDT 06/24/2025 1:45 AM EDT us Aiden NGUYỄN LAB BLOOD ORDERABLES Final Res ult [facility] [address] [place] [address], [place] [phone] * Activated partial thromboplastin time (06/24/2025 1:37 AM EDT) Only the most recent of2 resultswithin the time period is included. aPTT 35.8 25.0 - 37.0 sec LAB COAGULATION METHOD 06/24/2025 2:09 AM EDT [facility] Blood Venous blood specimen / Unknown Venipuncture / Unknown 06/24/2025 1:37 AM EDT 06/24/2025 1:45 AM EDT us Aiden NGUYỄN LAB BLOOD ORDERABLES Final Res ult Performing Organization Address [facility] Co de Phone Number [facility] [address] [place] [address], [place] [phone] * Type and screen (06/24/2025 1:37 AM EDT) ABO Group A 06/24/2025 3:06 AM EDT [facility] Rh Type Positive 06/24/2025 3:06 AM EDT [facility] Antibody Screen Negative 06/24/2025 3:06 AM EDT [facility] Blood Venous blood specimen / Unknown Venipuncture / Unknown 06/24/2025 1:37 AM EDT 06/24/2025 1:45 AM EDT us Aiden NGUYỄN LAB BLOOD BANK TEST ORDERABLES Final Result [facility] [address] [place] [address], [place] [phone] * POCT Glucose, blood (06/24/2025 1:36 AM EDT) Glucose POCT 140 70 - 199 mg/dL 06/24/2025 1:38 AM EDT [facility] Comment: Fasting Reference Range: 70-99 mg/dL Non-Fasting Reference Range: 70-199 mg/dL Blood Capillary blood specimen / Unknown 06/24/2025 1:36 AM EDT 06/24/2025 1:39 AM EDT Benson Cartwright MD LAB POINT OF CAR E TEST DOCKED DEVICE UNSOLICITED RESULTS Final Result [facility] [address] [place] [address], [place] [phone] * ECG-Annotated (06/24/2025) Provider Onbase MD ECG ORDERABLES Final Result * PA CATHETERIZATION/CANNULATION ARTERIAL SAMPLE/MONITORING/TRANSFUSION PERC, HC INSERTION/REMOVAL/REPLACEMENT CATH [...] dressing applied CMS: Normal Procedure completion: Tolerated Pramod Sutton MD IV THERAPY ORDERABLES Edited Re sult - Final * PA CRITICAL CARE 30-74 MINUTES (06/23/2025 7:51 PM [...] discussed with: accepting provider at another facility Pramod Sutton MD IN CLINIC/BEDSIDE ORDERABLES Fi nal Result * ECG 12 lead (06/23/2025 4:28 PM EDT) Only the most recent of2 resultswithin the time period is included. Ventricular Rate ECG 91 BPM GEMUSE QRS Duration 90 ms GEMUSE Q-T Interval 370 ms GEMUSE QTc 455 ms GEMUSE R Reva 41 degrees GEMUSE T Reva 62 degrees GEMUSE ECG Interpretation Atrial fibrillation [...] of2 resultswithin the time period is included. [facility] High Sensitivity Troponin I 12 <=79 ng/L LAB CHEMISTRY METHOD 06/23/2025 5:30 PM EDT [facility] Blood Venous blood specimen / Unknown Venipuncture / Unknown 06/23/2025 4:26 PM EDT 06/23/2025 4:56 PM EDT Narrative [facility] - 06/23/2025 5:30 PM EDT High levels of biotin in samples may falsely decrease hsTroponin values. Use caution when interpreting hsTroponin results in patients taking biotin who exhibit renal impairment (eGFR <60) or in patients taking more than 20 mg/day of biotin. us Serge Newman MD LAB BLOOD ORDERABLES Final R esult Performing Organization Address City/[facility]/ZIP Co de Phone Number [facility] [address] [place] [address], [place] [phone] * (ABNORMAL) B-type natriuretic peptide (06/23/2025 3:20 PM EDT) [facility] BNP 227(H) <=100 pcg/mL LAB CHEMISTRY METHOD 06/23/2025 4:24 PM EDT [facility] Blood Venous blood specimen / Unknown Venipuncture / Unknown 06/23/2025 3:20 PM EDT 06/23/2025 3:30 PM EDT us Serge Newman MD LAB BLOOD ORDERABLES Final R esult Performing Organization Address City/[facility]/ZIP Co de Phone Number [facility] [address] [place] [address], [place] [phone] * Lipase (06/23/2025 3:20 PM EDT) [facility] Lipase 38 13 - 75 unit/L LAB CHEMISTRY METHOD 06/23/2025 4:17 PM EDT [facility] Blood Venous blood specimen / Unknown Venipuncture / Unknown 06/23/2025 3:20 PM EDT 06/23/2025 3:30 PM EDT us Serge Newman MD LAB BLOOD ORDERABLES Final R esult [facility] [address] [place] [address], [place] [phone] * (ABNORMAL) Comprehensive metabolic panel (06/23/2025 3:20 PM EDT) Only the most recent of2 resultswithin the time period is included. Sodium 139 133 - 145 mmol/L LAB CHEMISTRY METHOD 06/23/2025 4:20 PM [facility] Potassium 3.4(L) 3.5 - 5.5 mmol/L LAB CHEMISTRY METHOD 06/23/2025 4:20 PM [facility] Chloride 98 96 - 110 mmol/L LAB CHEMISTRY METHOD 06/23/2025 4:20 PM [facility] CO2 35(H) 21 - 32 mmol/L LAB CHEMISTRY METHOD 06/23/2025 4:20 PM [facility] Anion Gap 6 3 - 11 LAB CHEMISTRY METHOD 06/23/2025 4:20 PM [facility] Glucose 132(H) 70 - 100 mg/dL LAB CHEMISTRY METHOD 06/23/2025 4:20 PM [facility] BUN 20 5 - 25 mg/dL LAB CHEMISTRY METHOD 06/23/2025 4:20 PM [facility] Creatinine 0.92 0.70 - 1.30 mg/dL LAB CHEMISTRY METHOD 06/23/2025 4:20 PM [facility] eGFR 83 >=60 mL/min/1. 73m2 LAB CHEMISTRY METHOD 06/23/2025 4:20 PM EDT [facility] Comment:Calculation based on the Chronic Kidney Disease Epidemiology Collaboration (CKD-EPI) equation refit without adjustment for race. BUN/Creatinine Ratio 21.7 LAB CHEMISTRY METHOD 06/23/2025 4:20 PM EDT [facility] Calcium 9.0 8.5 - 10.5 mg/dL LAB CHEMISTRY METHOD 06/23/2025 4:20 PM EDT [facility] AST (SGOT) 26 10 - 42 unit/L LAB CHEMISTRY METHOD 06/23/2025 4:20 PM [facility] ALT (SGPT) 20 10 - 60 unit/L LAB CHEMISTRY METHOD 06/23/2025 4:20 PM [facility] Alkaline Phosphatase 84 42 - 121 unit/L LAB CHEMISTRY METHOD 06/23/2025 4:20 PM [facility] Total Protein 7.2 6.0 - 8.0 g/dL LAB CHEMISTRY METHOD 06/23/2025 4:20 PM [facility] Albumin 3.4 3.2 - 5.0 g/dL LAB CHEMISTRY METHOD 06/23/2025 4:20 PM [facility] Total Bilirubin 1.0 0.0 - 1.4 mg/dL LAB CHEMISTRY METHOD 06/23/2025 4:20 PM [facility] Blood Venous blood specimen / Unknown Venipuncture / Unknown 06/23/2025 3:20 PM EDT 06/23/2025 3:30 PM EDT us Serge Newman MD LAB BLOOD ORDERABLES Final R esult [facility] [address] [place] [address], [place] [phone] * Thyroid stimulating hormone with reflex to free t4 and free t3 (05/17/2025 12:04 PM EDT) TSH 2.75 0.40 - 4.00 mcIU/mL LAB CHEMISTRY METHOD 05/17/2025 2:26 PM EDT [facility] Blood Venous blood specimen / Unknown Venipuncture / Unknown 05/17/2025 12:04 PM EDT 05/17/2025 12:04 PM EDT us Magdalene Barba MD LAB BLOOD ORDERABLES F inal Result [facility] [address] [place] [address], [place] [phone] * Lipid panel with reflex to direct LDL (05/17/2025 12:04 PM EDT) Cholesterol 137 0 - 200 mg/dL LAB CHEMISTRY METHOD 05/17/2025 1:48 PM EDT [facility] Triglycerides 66 0 - 150 mg/dL LAB CHEMISTRY METHOD 05/17/2025 1:48 PM EDT [facility] HDL 63 >=40 mg/dL LAB CHEMISTRY METHOD 05/17/2025 1:48 PM EDT [facility] LDL Calculated 61 0 - 100 mg/dL LAB CHEMISTRY METHOD 05/17/2025 1:48 PM EDT [facility] Comment:Estimated LDL Calcul ated using equation: Total cholesterol - HDL cholesterol - (Triglycerides/5) VLDL Cholesterol Kavon 13.2 mg/dL LAB CHEMISTRY METHOD 05/17/2025 1:48 PM EDT [facility] Non HDL Chol. (LDL+VLDL) 74 <145 mg/dL LAB CHEMISTRY METHOD 05/17/2025 1:48 PM EDT [facility] Chol/HDL Ratio 2.2 0.0 - 4.4 LAB CHEMISTRY METHOD 05/17/2025 1:48 PM EDT [facility] Blood Venous blood specimen / Unknown Venipuncture / Unknown 05/17/2025 12:04 PM EDT 05/17/2025 12:04 PM EDT us Magdalene Barba MD LAB BLOOD ORDERABLES F inal Result [facility] [address] [place] [address], [place] [phone] * Hemoglobin A1c (05/17/2025 12:04 PM EDT) Hemoglobin A1C 6.3 <6.5 % LAB CHEMISTRY METHOD 05/17/2025 9:41 PM EDT [facility] Mean Bld Glu Estim. 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 Care Teams Salt Maker Relationship Specialty Start Date End Date Magdalene Barba MD [address] [place] [id number] PCP - General Internal Medicine 11/21/21
--- OUTSIDE RECORDS SUMMARY | 2025-07-11 15:41 | XMS_ITS | Encounter Summary ---
Author Organization [facility] Address [address] [place] [address] Care Team Providers Care Rod Filler Name Role Phone Magdalene Barba MD Primary Care Provider Reason for Visit * Reason Onset Date Comments [place] [facility]/2025 Encounter Details Date Type Department Care Team (Late st Contact Info) Description 07/03/2025 Telephone [facility] [address] [place] [address] SophiaArmando Solo MD [address] [place] [address] [address] [place] [address] Social History Tobacco Use Types [...] as of this encounter Progress Notes * Evangelina Martines RN - 07/11/2025 3:33 PM EST I spoke to Jennifer and informed her of the below message from Dr. Cortes. * Armando Gilbert MD - 07/11/2025 3:18 PM EST 1. Agree with holding warfarin tomorrow and . Recheck INR on Thursday. 2. If the patient has any episodes of bleeding he should go to the emergency room. 3. Will continue with plans to see the patient tomorrow in the office. * Evangelina Martines RN - 07/11/2025 3:04 PM EST I spoke to Jennifer who stated the patient's INR today was 5.0. He took Warfarin already today. She asked him to hold tomorrow's dose, hold 's dose, and recheck INR on Thursday. Jennifer stated the patient feels tired and short of breath; reported nothing new and there have been no changes in his symptoms. She reported telling the patient to go to the ER if he has any sudden changes or worsening condition. He refuses to undergo surgery or intervention. The patient has an appointment tomorrow, 07/12/25 @ 1:40 PM. She questioned if you'd want him to have his INR or other labs drawn at the lab after his visit. * Katie Short - 07/11/2025 2:23 PM EST Jennifer from [facility] called again and stated that the patient's INR was 5.0. She said the patien took his Warfarin today, but was advised to not take it on Thursday or , and they will check in with him on Thursday. Jennifer said she believes this is related to his lack of appetite. She said the patient has opted out of having surgical and cardiac intervention. Jennifer's phone number is [phone]. * Shelby Ramos NP - 07/03/2025 4:00 PM EDT I called and spoke with Radha the patient's daughter. We discussed his symptoms and given his ongoing back and chest pain, I recommend he be evaluated at the hospital. She agreed to go to [facility] for further evaluation with him. I attempted to call an expect. * Evangelina Martines RN - 07/03/2025 3:22 PM EDT Giovanni Brumfield is a 84 y.o. male, followed by Dr. Cortes/ [facility]CI Ramos with cardiac historyof permanent atrial fibrillation, ascending aorta aneurysm, and arterial hypertension. Recent [facility] visit 06/23/25 for CP and he was transferred to [facility] [place] [facility] for type B aortic dissection. He was [...] discovered during his recent hospital stay at [facility] this month (records in [facility]). * Armando Gilbert MD - 07/03/2025 2:22 PM EDT Triage team: Please investigate further. * Polina Cunningham MA - 07/03/2025 2:11 PM EDT Jennifer from [facility] called stating patient is partial aortic dissection and wanted to speak about INR value. Jennifer would like a call back and can be [phone] documented in this encounter Plan of Treatment Upcoming Encounters Date Type Department Care Team (Late st Contact Info) Description 07/12/2025 1:40 PM EST Office Visit [facility] [address] [place] [phone] Shelby Ramos NP [address] [place] [address] [address] [place] [address] 07/17/2025 9:30 AM EST Telemedicine Vascular Surgery - [place] [address] [place] [address] Ambrocio Muñoz MD [address] [place], [place] [id number] 12/15/2025 2:30 PM EDT Office Visit Adult Medicine - [place] [address] [place] [address] Magdalene Barba MD [address] [place] [phone] documented as of this encounter Visit Diagnoses Not on filedocumented in this encounter Additional Health Concerns Assessment Noted Time PHQ-9 Depression Total Score: 0 12/09/19 25 2:20 PM EDT documented as of this encounter Care Teams Rod Filler Relationship Specialty Start Date End Date Magdalene Barba MD [address] [place] [id number] PCP - General Internal Medicine 11/21/21 documented as of this encounter
== END 2025-07-11 13:27 | disposition home or self-care (01) ==
LOC: HO.ACS 13:01
PROVIDERS: PCP Family Medicine; Visit Provider Internal Medicine Medical Oncology
DX: Z79.01 Long term (current) use of anticoagulants (principal)

== ENCOUNTER → 2025-07-11 13:01 | Outpatient (BNVA) | payer MEDICARE, SELFPAY | PROVIDERS: PCP Family Medicine; Visit Provider Internal Medicine Medical Oncology | DX: Z79.01 Long term (current) use of anticoagulants (principal) | CPT/HCPCS: 85610; 99211 ==

== ENCOUNTER 2025-07-14 13:04 | Outpatient (AMB) | payer MEDICARE, SELFPAY ==
--- OUTSIDE RECORDS SUMMARY | 2025-07-10 11:15 | XMS_ITS | Encounter Summary ---
Author Organization [facility] Address [address] [place] [address] Care Team Providers Care Skid Worker Name Role Phone Magdalene Barba MD Primary Care Provider Reason for Visit * Reason Comments Follow-up To discuss possible surgery after Type B dissection Encounter Details Date Type Department Care Team (Late st Contact Info) Description 2025 11:15 AM EST Office Visit Vascular Surgery - [place] [address] [place] [phone] Ambrocio Muñoz MD [address] [place] [address] [place] [address] 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 (CMS/HCC [...] pulses, femoral pulses are palpable bilaterally. Labs: @[id number](na,k,bun,creatinine,cl,pps1cxtffihv,glucrandom,wbc,hematocrit,h emoglobin,pltcount,mg,phos,calciumioni,calcium,pt,pttheparinpr,inr)@ Imaging: No images are attached to the encounter. EKG: @SFCRESULTRCNTEKG(241Z)@ Other Studies: Problem List: @PROBLS@ Assessment / [...] ascending aortic aneurysm, as well as his integration assistant back at home later this week. I [...] this patient on the date of the [id number] encounter (including direct patient interaction, review of [...] Care Team (Late st Contact Info) Description 07/17/2025 9:15 AM EST Telemedicine Vascular Surgery - [place] [address] [place] [address] Ambrocio Muñoz MD [address] [place] [address] 07/21/2025 2:00 PM EST Ancillary Procedure [facility] Cardiology [facility] [address] [place] [phone] 07/28/2025 4:00 PM EST Office Visit [facility] Cardiology [facility] - [address] [place] [phone] Armando Gilbert MD [address] [place] [address] [address] [place] [phone] 12/15/2025 2:30 PM EDT Office Visit Adult Medicine - [place] [address] [place] [phone] Magdalene Barba MD [address] [place] [address] documented as of this encounter Visit Diagnoses Diagnosis 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, CMS/HCC V28)- Primary documented in this encounter Additional Health Concerns Assessment Noted Time PHQ-9 Depression Total Score: 0 07/10/20 25 11:10 AM EST documented as of this encounter Care Teams Skid Worker Relationship Specialty Start Date End Date Magdalene Barba MD [address] [facility] [address] [place] [address] PCP - General Internal Medicine 11/21/21 documented as of this encounter
--- OUTSIDE RECORDS SUMMARY | 2025-07-10 13:00 | XMS_ITS | Encounter Summary ---
Author Organization [facility] Address [address] [place] [address] Care Team Providers Care Cardiology Teacher Name Role Phone Magdalene Barba MD Primary Care Provider Encounter Details Date Type Department Care Team (Late st Contact Info) Description 2025 1:00 PM EST Office Visit Cardiothoracic Surgery - [place] [address] [place] [address] Shelbi Bowling MD [address] [place] [address] Aneurysm of 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 (CMS/HCC [...] 1:00 PM EST Cardiac surgery clinic visit Supervisor Incising: Dr Sophia Solo Reason for visit: Type [...] was referred to the emergency room at [facility] on 07/02/2025 due to persistent chest pressure. He has been experiencing shortness of breath after walking approximately 5 steps but does not report any associated chest pain. He just met w vascualr surgery to discuss TEVAR (TBE) but is hesitant about proceeding w any surgery considering his age. He also reports fatigue and lack of energy. He has a follow-up appointment with his visual inspector, Dr. Cortes, on Thursday. He has been [...] left pleuraleffusion on the CAT scan at [facility] per report. I offered a chest x-ray [...] Department Care Team (Tyler Contact Info) Description 07/17/2025 9:15 AM EST Telemedicine Vascular Surgery - [place] [address] [place] [address] Ambrocio Muñoz MD [address] [place] [address] 07/21/2025 2:00 PM EST Ancillary Procedure [facility] Cardiology [facility] [address] [place] [phone] 07/28/2025 4:00 PM EST Office Visit [facility] Cardiology [facility] - [address] [place] [phone] SophiaArmando Solo MD [address] [place] [address] [address] [place] [phone] 12/15/2025 2:30 PM EDT Office Visit Adult Medicine - [place] [address] [place] [address] Magdalene Barba MD [address] [place] [address] documented as of this encounter Visit Diagnoses Diagnosis Aneurysm of 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 (CMS/HCC V24)- Primary 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, CMS/HCC V28) documented in this encounter Additional Health Concerns Assessment Noted Time PHQ-9 Depression Total Score: 0 07/10/20 25 11:10 AM EST documented as of this encounter Care Teams Cardiology Teacher Relationship Specialty Start Date End Date Magdalene Barba MD [address] [place] [address] PCP - General Internal Medicine 11/21/21 documented as of this encounter
--- OUTSIDE RECORDS SUMMARY | 2025-07-12 14:00 | XMS_ITS | Encounter Summary ---
[facility] [address] [place] [address] Care Team Providers Care Blueprinting Machine Operator Name Role Phone Magdalene Barba MD Primary Care Provider Reason for Referral * Cardiac Stress Testing (Routine) - Authorized Specialty Diagnoses / Procedures Referred By Contac t Referred To Contact Cardiology Diagnoses Longstanding persistent atrial fibrillation (CMS/HCC V24, CMS/HCC V28) Procedures Cardiac holter monitor (<= 48 hours) MO ECG EXTERNAL UP TO 48 HOURS RECORDING MO ECG EXTERNAL < 48 HOURS CONTINUOUS RECORDING/STORAGE R&I BY A PHYS/QHP MO EXTERNAL ECG UP TO 48 HRS INCL RECORDING SCANNING ANLYS W REPORT Lake Carmichael MD [address] [place] [address] Dr [address] [place] [phone] Phone: tel: fax: [facility] Referral ID Status Reason Start Date Expiration Date V isits Requested Visits Authorized [id number] Authorized 07/12/2025 07/12/2026 1 1 Reason for Visit * Reason Comments Follow-up Encounter Details Date Type Department Care Team (Late st Contact Info) Description 07/12/2025 2:00 PM EST Office Visit [facility] [address] [place] [address] Lake Carmichael MD [address] [place] [address] Dr Arnold [address] [place] [phone] Chronic heart failure with preserved ejection fraction (HFpEF) (CMS/HCC V24, CMS/HCC V28) (Primary Dx); Primary hypertension; Longstanding persistent atrial fibrillation (CMS/HCC V24, CMS/HCC V28); 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, CMS/HCC V28); Aneurysm of 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 (CMS/HCC V24); Permanent atrial fibrillation (CMS/HCC V24, CMS/HCC V28) Social History Tobacco [...] Sign Reading Time Taken Comments Blood Pressure 108/70 07/12/2025 1:56 PM EST Pulse 97 07/12/2025 1:56 PM EST Temperature - - Respiratory Rate - - Oxygen Saturation 95% 07/12/2025 1:56 PM EST Inhaled Oxygen Concentration - - Weight 82.7 kg (182 lb 4.8 oz) 07/12/2025 1:56 P M EST Height 180.3 cm (5' 11 ) 07/12/2025 1:56 PM EST Body Mass Index 25.43 07/12/2025 1:56 PM EST documented in this encounter Ordered Prescriptions Prescription Sig Dispense Quantity Refills Last Filled Start Date End Date furosemide (LASIX) 20 mg tabletIndications: Chronic heart failure with preserved ejection fraction (HFpEF) (CMS/HCC V24, CMS/HCC V28),Longstanding persistent atrial fibrillation (CMS/HCC V24, CMS/HCC V28) Take 1 tablet (20 mg total) by mouth 1 (one) time each day. 30 each 07/12/2025 07/12/2026 documented in this encounter Progress Notes * Lake Carmichael MD - 07/12/2025 2:00 PM ESTAssociated Problem(s): Chronic heart failure with preserved ejection fraction (HFpEF) (CMS/HCC V24, CMS/HCC V28) The patient has been having symptoms of dyspnea and lower extremity edema. On physical examination today, there is evidence of bilateral lower extremity edema. On recent chest CT scan there is evidence of a small left sided pleural effusion. Recent echocardiogram showed a normal LVEF with reduced RV function. The echocardiogram also showed evidence of mild pulmonary hypertension. NT- proBNP level was recently noted to be elevated. The patient does have a history of A-fib which increases his riskof diastolic dysfunction. As such, the patient likely has HFpEF. The patient is agreeable to medical therapy to treat his HFpEF. Will start the patient on Lasix 20 mg orally daily. The patient will complete an updated chemistry panel 1 week after starting the Lasix. Orders: furosemide (LASIX) 20 mg tablet; Take 1 tablet (20 mg total) by mouth 1 (one) time each day. Basic metabolic panel; Future N-Terminal Probnp; Future * Lake Carmichael MD - 07/12/2025 2:00 PM ESTAssociated Problem(s): HTN (hypertension) The patient has a history of arterial hypertension. The patient's blood pressure today was noted corrine well controlled. We'll continue the current antihypertensive medication regimen. * Lake Carmichael MD - 07/12/2025 2:00 PM ESTAssociated Problem(s): Longstanding persistent atrial fibrillation (CMS/HCC V24, CMS/HCC V28) The patient has a history of atrial fibrillation. The patient continues on rate control therapy with beta sandra. Resting heart rate was noted to be adequate. However, we will order a Holter monitorto evaluate his heart rate control at home and determine when to make any adjustments in his beta-sandra therapy. Also, the patient has an increased [id number] score and continues on anticoagulation therapy withwarfarin. No episodes of abnormal bleeding have been noted. Will continue current therapy. Orders: furosemide (LASIX) 20 mg tablet; Take 1 tablet (20 mg total) by mouth 1 (one) time each day. 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 He was treated at [facility] in [facility]. The patient was treated medically and was discharged home with plans to consider outpatient TAVR. He has already been reevaluated by the vascular surgery service in the outpatient setting who recommended proceeding with a TEVAR. However, the patient stated that he would need some time to think about it and he is currently scheduled to have a follow- up call with the vascular surgery service next week. I had an extensive conversation with the patient, his daughter, and his granddaughter regarding themanagement of his type B aortic dissection. I recommended for the patient to continue with plans tocomplete a TEVAR as recommended by the vascular surgery service. Nevertheless, the patient adamantly stated that he does not want to undergo any surgical intervention. Specifically, he stated that he does not want to undergo a TEVAR. Also, he stated that he does not want to undergo any open heart surgery. I explained to the patient that without correction, his aorta aneurysm and aortic dissection may worsen leading to organ hypoperfusion or even aorta rupture which may lead to . Based on my evaluation, the patient has a good medical capacity to make medical decisions on his own. Despite my recom mendations to proceed with the surgery, the patient stated that he does not want to undergo the TEVAR or any other invasive procedures. He expressed that he is fully aware about the consequences of his decision including the potential for worsening of his aortic condition leading to . The patient's daughter and granddaughter both expressed support with regards to the patient's decision. Theyalso reaffirmed the patient's autonomy with regards to making his own medical decisions. The patient stated that he would like to create a DNR/DNI document. I will reach out to the patient's primary care physician in order to help facilitate this. On the other hand, the patient and his family are also interested in considering Perative care options. I will discuss this further with the patient's primary care physician in order for us to try toarrange for the patient to be evaluated by a community palliative care program. * Lake Carmichael MD - 07/12/2025 2:00 PM ESTAssociated Problem(s): Aneurysm of ascending aorta ([facility] V24) The patient has an aneurysm of the ascending aorta. The aneurysm measured 5.1 cm on the chest CTA done at [facility] on 06/25/2025 and 4.9 cm on the chest CTA done at [facility] on 07/03/2025. The patientwas reevaluated by the cardiac surgery service on 2025 and the note states that the patient still does not criteria for an ascending aorta repair which will require an open heart surgery. In anyevent, the patient is refusing any invasive procedures at this point. Will continue with beta-sandra therapy and ARB to maintain his blood pressure is well-controlled. The patient was instructed to avoid lifting any heavy objects given his ascending aorta aneurysm and chronic descending thoracic aorta dissection. The patient's daughter stated that the patient currently lives with his nephew who is completing all of the patient's ADLs in order to avoid for the patient to be doing anything physically strenuous. * Lake Carmichael MD - 07/12/2025 2:00 PM EST Images from the original note were not included. [facility] Outpatient Follow Up Note PCP: Magdalene Barba MD HPI: Giovanni Brumfield is a 85 y.o. old male with history of longstanding persistent atrial fibrillation, aorta aneurysm, hypertension hypertension, former smoker, and past COVID-19 infection, who underwent a follow-up evaluation today. The patient was hospitalized at [facility] [place] after presenting with symptoms of back discomfort that radiated to his chest. The patient was noted to havea type B aortic dissection. He was managed medically and was discharged home with plans to consideran outpatient TEVAR. The patient was discharged on 06/29/2025. On 07/03/2025, the patient presented to the [facility] ER with symptoms of persistent back pain and chest discomfort. Chest and abdomen CTA were done which showed the same type B aortic dissection fromthe level of the subclavian artery to just above the renal artery. The report mentions that the major branches are supplied by the true lumen and all appeared to be widely patent. The ascending aortawas found to measure 4.9 cm. Of note, serial high-sensitivity troponins were noted to be normal (20) x 2. NT-proBNP level was elevated at 2035. The lung portion of the chest CT scan showed evidence of extensive centrilobular emphysema and small left pleural effusion. The patient was reevaluated by the [facility] vascular surgery service on 2025. A TEVAR was recommended. Nevertheless, at the end of the conversation, it seems that the patient wanted some more time to think about whether he wanted to proceed with an intervention or not. On the other hand, the patient was also evaluated by the [facility] cardiac surgery service on 2025. His ascending aorta aneurysm was discussed. The cardiac surgery service stated that the patient does not yet meet criteria for open heart surgery to repair the ascending aorta aneurysm and they recommended continued CT scan monitoring. The patient comes in today for a follow-up appointment in our office. For today's visit, he is accompanied by his daughter as well as his granddaughter. Of note, the patient's granddaughter is a nurse. The patient states that he has not had any further episodes of chest discomfort after his visit to the [facility] ER. She denies any symptoms of chest discomfort or back discomfort at the time of the office visit today. However, the patient states that he has been noticing symptoms of shortness of breath with exertionas well as lower extremity edema. He denies any palpitations, dizziness, or syncope. ACTIVE MEDICATIONS: Medications Taking[1] ALLERGIES: Allergies[2] SOCIAL HISTORY: Social History Tobacco Use Smoking status: Former Current packs/day: 0.50 Types: Cigarettes Smokeless tobacco: Former Substance Use Topics Alcohol use: Yes Alcohol/week: 1.0 standard drink of alcohol REVIEW OF SYSTEMS: Review of Systems Constitutional: Negative for malaise/fatigue. Cardiovascular: Positive for dyspnea on exertion and leg swelling. Negative for chest pain, claudication, near-syncope, orthopnea, palpitations, paroxysmal nocturnal dyspnea and syncope. Respiratory: Negative for shortness of breath. Neurological: Negative for dizziness and light-headedness. PHYSICAL EXAM: Vitals: 07/12/25 1356 BP: 108/70 Pulse: 97 SpO2: 95% Body mass index is 25.43 kg/m??. Physical Exam Vitals reviewed. Constitutional: General: He is not in acute distress. Appearance: Normal appearance. He is not ill-appearing. HENT: Head: Normocephalic. Nose: Nose normal. Cardiovascular: Rate and Rhythm: Normal rate. Rhythm irregularly irregular. Heart sounds: Normal heart sounds. No murmur heard. No friction rub. No gallop. Pulmonary: Effort: No respiratory distress. Breath sounds: Normal breath sounds. Musculoskeletal: General: Swelling present. Right lower leg: Edema present. Left lower leg: Edema present. Comments: Pitting edema +1 in the lower extremities bilaterally. Skin: General: Skin is warm. Neurological: Mental Status: He is alert and oriented to person, place, and time. Mental status is at baseline. Psychiatric: Mood and Affect: Mood normal. Behavior: Behavior normal. EKG: Encounter Date: 07/12/25 ECG 12 lead Result Value Ventricular Rate ECG 97 Atrial Rate 241 QRS Duration 88 Q-T Interval 368 QTc 467 R [place] 74 T [place] 72 ECG Interpretation Atrial fibrillation Abnormal ECG When compared with ECG of 23-JUN-2025 16:28, No significant change was found Confirmed by LAKE CARMICHAEL ([id number]) on 07/14/2025 12:10:47 PM *Note: Due to a large number of results and/or encounters for the requested time period, some results have not been displayed. A complete set of results can be found in Results Review. LABORATORY TESTING: CARDIAC TESTIN06/24/25 TRANSTHORACIC ECHOCARDIOGRAM (TTE) COMPLETE (CONTRAST/BUBBLE/3D PRN) 06/24/2025 [...] Carly Call MD on 06/24/2025 11:49 AM ASSESSMENT/PLAN: Assessment & Plan Chronic heart failure with preserved ejection fraction (HFpEF) (CMS/HCC V24, CMS/HCC V28) The patient has been having symptoms of dyspnea and lower extremity edema. On physical examination today, there is evidence of bilateral lower extremity edema. On recent chest CT scan there is evidence of a small left sided pleural effusion. Recent echocardiogram showed a normal LVEF with reduced RV function. The echocardiogram also showed evidence of mild pulmonary hypertension. NT- proBNP level was recently noted to be elevated. The patient does have a history of A-fib which increases his riskof diastolic dysfunction. As such, the patient likely has HFpEF. The patient is agreeable to medical therapy to treat his HFpEF. Will start the patient on Lasix 20 mg orally daily. The patient will complete an updated chemistry panel 1 week after starting the Lasix. Orders: furosemide (LASIX) 20 mg tablet; Take 1 tablet (20 mg total) by mouth 1 (one) time each day. Basic metabolic panel; Future N-Terminal Probnp; Future Primary hypertension The patient has a history of arterial hypertension. The patient's blood pressure today was noted corrine well controlled. We'll continue the current antihypertensive medication regimen. Longstanding persistent atrial fibrillation (CMS/HCC V24, CMS/HCC V28) The patient has a history of atrial fibrillation. The patient continues on rate control therapy with beta sandra. Resting heart rate was noted to be adequate. However, we will order a Holter monitorto evaluate his heart rate control at home and determine when to make any adjustments in his beta-sandra therapy. Also, the patient has an increased [id number] score and continues on anticoagulation therapy withwarfarin. No episodes of abnormal bleeding have been noted. Will continue current therapy. Orders: furosemide (LASIX) 20 mg tablet; Take 1 tablet (20 mg total) by mouth 1 (one) time each day. 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 He was treated at [facility] in [facility]. The patient was treated medically and was discharged home with plans to consider outpatient TAVR. He has already been reevaluated by the vascular surgery service in the outpatient setting who recommended proceeding with a TEVAR. However, the patient stated that he would need some time to think about it and he is currently scheduled to have a follow- up call with the vascular surgery service next week. I had an extensive conversation with the patient, his daughter, and his granddaughter regarding themanagement of his type B aortic dissection. I recommended for the patient to continue with plans tocomplete a TEVAR as recommended by the vascular surgery service. Nevertheless, the patient adamantly stated that he does not want to undergo any surgical intervention. Specifically, he stated that he does not want to undergo a TEVAR. Also, he stated that he does not want to undergo any open heart surgery. I explained to the patient that without correction, his aorta aneurysm and aortic dissection may worsen leading to organ hypoperfusion or even aorta rupture which may lead to . Based on my evaluation, the patient has a good medical capacity to make medical decisions on his own. Despite my recom mendations to proceed with the surgery, the patient stated that he does not want to undergo the TEVAR or any other invasive procedures. He expressed that he is fully aware about the consequences of his decision including the potential for worsening of his aortic condition leading to . The patient's daughter and granddaughter both expressed support with regards to the patient's decision. Theyalso reaffirmed the patient's autonomy with regards to making his own medical decisions. The patient stated that he would like to create a DNR/DNI document. I will reach out to the patient's primary care physician in order to help facilitate this. On the other hand, the patient and his family are also interested in considering Perative care options. I will discuss this further with the patient's primary care physician in order for us to try toarrange for the patient to be evaluated by a community palliative care program. Aneurysm of 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 ([facility] V24) The patient has an aneurysm of the ascending aorta. The aneurysm measured 5.1 cm on the chest CTA done at [facility] on 06/25/2025 and 4.9 cm on the chest CTA done at [facility] on 07/03/2025. The patientwas reevaluated by the cardiac surgery service on 2025 and the note states that the patient still does not criteria for an ascending aorta repair which will require an open heart surgery. In anyevent, the patient is refusing any invasive procedures at this point. Will continue with beta-sandra therapy and ARB to maintain his blood pressure is well-controlled. The patient was instructed to avoid lifting any heavy objects given his ascending aorta aneurysm and chronic descending thoracic aorta dissection. The patient's daughter stated that the patient currently lives with his nephew who is completing all of the patient's ADLs in order to avoid for the patient to be doing anything physically strenuous. The [facility] team will continue to co-manage this patient following the plan of care as established by my initial visit and as per AHA guidelines for ongoing management and surveillance of the medical conditions described previously in this note. This will include medication titration, initiation of appropriate medications and further titration, and diagnostic studies to manage this disease process. I have applied the code G2211 to this patient???s visit as the provider managing A-fib and hypertension that is/are complex) leading to the extensive work up, ongoing monitoring, and management associated with the medical care of this patient.? I have a longitudinal relationship with the patient. Please be aware that the above note was completed using voice recognition software. If you have anyquestions please contact the author of this note for clarification. [1] Outpatient Medications Marked as Taking for the 07/12/25 encounter (Office Visit) with Lake Carmichael MD Medication Sig Dispense Refill acetaminophen (TYLENOL) 325 mg tablet Take 1 tablet (325 mg total) by mouth every 6 (six) hours if needed for mild pain, fever - temperature GREATER than 38 C (100.4 F), moderate pain or headaches for up to 10 days. labetaloL (NORMODYNE) 100 mg tablet Take 1 tablet (100 mg total) by mouth 3 (three) times a day. 90tablet 1 losartan (COZAAR) 50 mg tablet Take 1 tablet (50 mg total) by mouth 1 (one) time each day. 30 tablet 1 warfarin (COUMADIN) 5 mg tablet TAKE 1 TABLET BY MOUTH ONCE DAILY. *MAY CAUSE HEAVY BLEEDING. TAKE AT SAME TIME EVERY DAY. DO NOT CHANGE DIETARY HABITS* 90 tablet 1 [2] No Known Allergies documented in this encounter Plan of Treatment Upcoming Encounters Date Type Department Care Team (Late st Contact Info) Description 07/17/2025 9:15 AM EST Telemedicine Vascular Surgery - [place] [address] [facility] [place] [phone] Ambrocio Muñoz MD [address] [place] [address] [place] [id number] 07/21/2025 2:00 PM EST Ancillary Procedure [facility] [address] [place] [address] 07/28/2025 4:00 PM EST Office Visit [facility] [address] [place] [phone] Lake Carmichael MD [address] [place] [address] [address] [place] [phone] 12/15/2025 2:30 PM EDT Office Visit Adult Medicine - [place] [address] [place] [phone] Magdalene Barba MD [address] [facility] [place] [address] Scheduled Orders Name Type Priority Associated Diagnoses Orde r Schedule Basic metabolic panel Lab Routine Chronic heart failure with preserved ejection fraction (HFpEF) (CMS/HCC V24, CMS/HCC V28) Longstanding persistent atrial fibrillation (CMS/HCC V24, CMS/HCC V28) 1 Occurrences starting 07/12/2025 until 07/12/2026 N-Terminal Probnp Lab Routine Chronic heart failure with preserved ejection fraction (HFpEF) (CMS/HCC V24, CMS/HCC V28) Longstanding persistent atrial fibrillation (CMS/HCC V24, CMS/HCC V28) 1 Occurrences starting 07/12/2025 until 07/12/2026 Cardiac holter monitor (<= 48 hours) Cardiac Services Routine Longstanding persistent atrial fibrillation (CMS/HCC V24, CMS/HCC V28) Expected: 07/19/2025, Expires: 07/12/2027 documented as of this encounter Procedures Procedure Name Priority Date/Time Associated Diagnosis Comments ECG 12-LEAD Routine 07/12/2025 2:05 PM EST Permanent atrial fibrillation (CMS/HCC V24, CMS/HCC V28) documented in this encounter Results * ECG 12 lead (07/12/2025 2:05 PM EST) Ventricular Rate ECG 97 BPM GEMUSE Atrial Rate 241 BPM GEMUSE QRS Duration 88 ms GEMUSE Q-T Interval 368 ms GEMUSE QTc 467 ms GEMUSE R [place] 74 degrees GEMUSE T [place] 72 degrees GEMUSE ECG Interpretation Atrial fibrillation Abnormal ECG When compared with ECG of 23-JUN-2025 16:28, No significant change was found Confirmed by LAKE CARMICHAEL ([id number]) on 07/14/2025 12:10:47 PM GEMUSE 07/12/2025 2:05 PM EST 07/14/2025 12:10 PM EST Lake Carmichael MD ECG ORDERABLES Final Result GEMUSE documented in this encounter Visit Diagnoses Diagnosis Chronic heart failure with preserved ejection fraction (HFpEF) ([facility] V24, [facility] V28)- Primary Primary hypertension Unspecified essential hypertension Longstanding persistent atrial fibrillation ([facility] V24, [facility] V28) 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 ([facility] V24, [facility] V28) Aneurysm of 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 ([facility] V24) Permanent atrial fibrillation ([facility] V24, [facility] V28) Atrial fibrillation documented in this encounter Additional Health Concerns Assessment Noted Time PHQ-9 Depression Total Score: 0 07/10/20 25 11:10 AM EST documented as of this encounter Care Teams Blueprinting Machine Operator Relationship Specialty Start Date End Date Magdalene Barba MD [address] [place] [id number] PCP - General Internal Medicine 11/21/21 documented as of this encounter
[2025-07-14 13:17] LABS: Prothrombin Time Whole Bld POC 41.5 sec (11.1-13.5); ~PT, ~INR - Anti Coag Clinic 3.5 (0.9-1.1)
--- NOTE | 2025-07-14 13:34 | MHC.OFFVISCO ---
Intake Intake Visit Reasons: Anticoagulation Allergies No Known Allergies Allergy (Verified 07/14/25 13:11) Medication List - Last Reconciled 07/14/25 by Bozena Keane RN labetalol 100 mg PO TID losartan 50 mg PO DAILY metoprolol succinate ER 50 mg PO DAILY warfarin 5 mg See Protocol PO DAILY Nursing Note Pt to [facility] accompanied by his daughter. He is not feeling well today. He is having SOB with exertion and states he started on a water pill but not sure of the name of the med. INR: 3.5 out of therapeutic range of 2-3 Medications and supplements reviewed Medications or supplements: no changes other than water pill. Diet: usual diet although he states he is eating less. Denies any signs and symptoms of bleeding or clotting or unusual bruising Bleeding, bruising, clotting discussed. Dose: pt took today's dose already. Will hold tomorrow's dose of 5mg then weekly dose decreased next week to 5mg X 4 days and 2.5mg X 3 days (instead of 1 day) F/U INR Date: 07/21/25?? Patient and daughter verbalizing understanding of instructions with read back given. Coding Level of Care Code Est Patient Level 1 Diagnoses Current use of anticoagulant therapy Z79.01 Results AMB INR Fingerstick AMB INR Fingerstick 3.5 Last Edit by Bozena Keane, TRUDY on 07/14/25 13:33 interface delay Assessment & Plan Assessment & Plan (1) Current use of anticoagulant therapy: Code(s): Z79.01 - prison (current) use of anticoagulants Category: Medical
--- OUTSIDE RECORDS SUMMARY | 2025-07-14 15:13 | XMS_ITS | Encounter Summary ---
Author Organization [facility] Address [address] [place] [address] Care Team Providers Care Adjunct Political Science Instructor Name Role Phone Magdalene Barba MD Primary Care Provider Encounter Details Date Type Department Care Team (Late st Contact Info) Description 07/14/2025 Telephone Adult Medicine - [place] [address] [place] [address] Magdalene Barba MD [address] [place] [address] Social History Tobacco Use Types Packs/Day Years [...] as of this encounter Progress Notes * Edi Brar RN - 07/14/2025 12:47 PM EST Left message for pt to please return our call * Magdalene Barba MD - 07/14/2025 12:34 PM EST Please schedule appt with me with in the next week or so. documented in this encounter Plan of Treatment Upcoming Encounters Date Type Department Care Team (Late st Contact Info) Description 07/17/2025 9:15 AM EST Telemedicine Vascular Surgery - [place] [address] [place] [address] Ambrocio Muñoz MD [address] [place] [address] 07/21/2025 2:00 PM EST Ancillary Procedure [facility] Cardiology [facility] [address] [place] [phone] 07/28/2025 4:00 PM EST Office Visit [facility] Cardiology [facility] [address] [place] [address] [place] [address] Armando Gilbert MD [address] [place] [address] [address] [place] [phone] 12/15/2025 2:30 PM EDT Office Visit Adult Medicine - [place] [address] [place] [address] Magdalene Barba MD [address] [place] [address] documented as of this encounter Visit Diagnoses Not on filedocumented in this encounter Additional Health Concerns Assessment Noted Time PHQ-9 Depression Total Score: 0 07/10/20 25 11:10 AM EST documented as of this encounter Care Teams Adjunct Political Science Instructor Relationship Specialty Start Date End Date Magdalene Barba MD [address] [place] [address] PCP - General Internal Medicine 11/21/21 documented as of this encounter
--- OUTSIDE RECORDS SUMMARY | 2025-07-14 15:13 | XMS_ITS | Encounter Summary ---
Author Organization [facility] Address [address] [place] [address] Care Team Providers Care Sign Fabricator Name Role Phone Magdalene Barba MD Primary Care Provider Reason for Visit * Reason Onset Date Comments Call from [facility] Anticoagulation 07/03/2025 Encounter Details Date Type Department Care Team (Late st Contact Info) Description 07/03/2025 Telephone [facility] Associates [facility] [address] [place] [address] SophiaArmando Solo MD [address] [place] [address] [address] [place] [address] Social History Tobacco Use Types [...] - 07/11/2025 2:23 PM EST Jennifer from [facility] called again and stated that [...] and cardiac intervention. Jennifer's phone number is [phone]. * Shelby Ramos NP - 07/03/2025 4:00 PM EDT I called and spoke with Radha the patient's daughter. We discussed his symptoms and given his ongoing back and chest pain, I recommend he be evaluated at the hospital. She agreed to go to [facility] for further evaluation with him. I attempted to call an expect. * Evangelina Martines RN - 07/03/2025 3:22 PM EDT Giovanni Brumfield is a 84 y.o. male, followed by Dr. Cortes/ [facility] Ramos with cardiac historyof permanent atrial fibrillation, ascending aorta aneurysm, and arterial hypertension. Recent [facility] visit 06/23/25 for CP and he was transferred to [facility] for type B aortic dissection. He [...] discovered during [facility] [place] [facility] * Armando Gilbert MD - 07/03/2025 2:22 PM EDT Triage team: Please investigate further. * Polina Cunningham MA - 07/03/2025 2:11 PM EDT Jennifer from [facility] called stating patient is partial aortic dissection and wanted to speak about INR value. Jennifer would like a call back and can be [phone] documented in this encounter Plan of Treatment Upcoming Encounters Date Type Department Care Team (Late st Contact Info) Description 07/17/2025 9:15 AM EST Telemedicine Vascular Surgery - [place] [address] [place] [address] Ambrocio Muñoz MD [address] [place] [address] 07/21/2025 2:00 PM EST Ancillary Procedure [facility] Cardiology [facility] [address] [place] [phone] 07/28/2025 4:00 PM EST Office Visit [facility] Associates [facility] [address] [place] [phone] Armando Gilbert MD [address] [place] [address] [place] [phone] 12/15/2025 2:30 PM EDT Office Visit Adult Medicine - [place] [address] [place] [address] Magdalene Barba MD [address] [place] [address] documented as of this encounter Visit Diagnoses Not on filedocumented in this encounter Additional Health Concerns Assessment Noted Time PHQ-9 Depression Total Score: 0 12/09/19 25 2:20 PM EDT documented as of this encounter Care Teams Sign Fabricator Relationship Specialty Start Date End Date Magdalene Barba MD [address] [address] PCP - General Internal Medicine 11/21/21 documented as of this encounter
--- OUTSIDE RECORDS SUMMARY | 2025-07-14 15:13 | XMS_ITS | Clinical Summary ---
Author Organization LL [address] [facility] Address [address] [place] [address] Phone Care Team Providers Care Mobile Home Technician Name Role Phone Magdalene Barba MD [...] HABITS* 90 tablet 1 07/05/20 25 Active furosemide (LASIX) 20 mg tabletIndicatio ns:Chronic heart failure with preserved ejection fraction (HFpEF) (CMS/HCC V24, CMS/HCC V28),Longstandi ng persistent atrial fibrillation (CMS/HCC V24, CMS/HCC V28) Take 1 tablet (20 mg total) by mouth 1 (one) time each day. 30 each 11 07/12/20 25 2025 Active warfarin (COUMADIN) 5 mg tablet TAKE 1 TABLET BY MOUTH ONCE DAILY MAY CAUSE HEAVY BLEEDING. TAKE AT SAME TIME EVERY DAY. DO NOT CHANGE DIETARY HABITS 90 tablet 1 01/05/20 25 2024 Discontinued hydroCHLOROthia zide 12.5 mg tablet Take 1 tablet by mouth once daily 90 tablet 1 01/04/202024 Discontinued(S top Taking at Discharge) metoprolol succinate (TOPROL-XL) 50 mg 24 hr tablet Take 1 tablet by mouth once daily 90 tablet 1 05/04/202024 Discontinued(S top Taking at Discharge) dilTIAZem XR (DILT-XR) 180 mg 24 hr capsule Take 1 capsule by mouth once daily 90 capsule 1 05/04/202024 Discontinued(S top Taking at Discharge) labetaloL (NORMODYNE) 100 mg tablet Take 1 tablet (100 mg total) by mouth 2 (two) times a day. 2024 Discontinued(S top Taking at Discharge) acetaminophen (TYLENOL) 325 mg tablet Take 1 tablet (325 mg total) by mouth every 6 (six) hours if needed for mild pain, fever - temperature GREATER than 38 C (100.4 F), moderate pain or headaches for up to 10 days. 06/29/202024 Active Problems Problem Noted Date Diagnosed Date Elevated troponin 07/12/2025 Zi type B dissection o f aorta ([facility] V24, 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 V24, [facility] V28) 06/24/2025 Assessment & Plan (07/14/2025 12:23 PM EST): The patient suffered a type B aortic dissection. He was treated at [facility] in [facility]. The patient was treated medically and was discharged home with plans to consider outpatient TAVR. He has already been reevaluated by the vascular surgery service in the outpatient setting who recommended proceeding with a TEVAR. However, the patient stated that he would need some time to think about it and he is currently scheduled to have a follow-up call with the vascular surgery service next week. I had an extensive conversation with the patient, his daughter, and his granddaughter regarding the management of his type B aortic dissection. I recommended for the patient to continue with plans to complete a TEVAR as recommended by the vascular [...] medical decisions on his own. Despite my recommendations to proceed with the surgery, the patient stated that he does not want to undergo the TEVAR or any other invasive procedures. He expressed that he is fully aware about the consequences of his decision including the potential for worsening of his aortic condition leading to . The patient's daughter and granddaughter both expressed support with regards to the patient's decision. They also reaffirmed the patient's autonomy with regards to [...] physician in order for us to try to arrange for the patient to be evaluated by a community palliative care program. Permanent atrial fibrillation ([facility] V24, CMS/ [facility] V28) 06/24/2025 Chronic heart failure with p reserved ejection fraction (HFpEF) (CMS/[facility] V24, CMS/[facility] V28) 06/24/2025 Assessment & Plan (07/14/2025 12:23 PM EST): The patient has been having symptoms of dyspnea and lower extremity edema. On physical examination today, there is evidence of bilateral lower extremity edema. On recent chest CT scan there is evidence of a small left sided pleural effusion. Recent echocardiogram showed a normal LVEF with reduced RV function. The echocardiogram also showed evidence of mild pulmonary hypertension. NT-proBNP level was recently noted to be elevated. The patient does have a history of A-fib which increases his risk of diastolic dysfunction. As such, the patient likely [...] Basic metabolic panel; Future N-Terminal Probnp; Future Secondary hypercoagulable state ([facility] V24) Aneurysm of ascending aorta ([facility] V24) 2020 Overview (08/17/2024): Last Assessment & Plan: The patient has a history of ascending aortic aneurysm. His last echocardiogram in March 2022 showed ascending aorta dilation of 4.2 cm. We will update a new echocardiogram to reevaluate for progression. Assessment & Plan (07/14/2025 12:44 PM EST): The patient has an aneurysm of the ascending aorta. The aneurysm measured 5.1 cm on the chest CTA done at [place] on 06/25/2025 and 4.9 cm on the chest CTA done at [facility] on 07/03/2025. The patient was reevaluated by the cardiac surgery service on 2025 and the note states that the patient still does not criteria for an ascending aorta repair which will require an open heart surgery. In any event, the patient is refusing any invasive procedures [...] patient to be doing anything physically strenuous. COVID-19 virus infection 01/24/2021 Prediabetes 05/28/2020 Bilateral hearing loss 08/25/2019 HTN (hypertension) 08/25/2019 Overview (08/17/2024): Last Assessment & Plan: The patient has a history of arterial hypertension. The patient's blood pressure today was noted to be well controlled. We'll continue his current antihypertensive medication regimen. Assessment & Plan (07/14/2025 12:23 PM EST): The patient has a history of arterial hypertension. The patient's blood pressure today was noted to be well controlled. We'll continue the current antihypertensive medication regimen. Assessment & Plan [...] be adequate. Also, the patient has a AKP5VT2-LALb score of 3 and continues on anticoagulation therapy with warfarin. He denies any excessive bruising or bleeding. We will continue current therapies. Assessment & Plan (07/14/2025 12:23 PM EST): The patient has a history of atrial fibrillation. The patient continues on rate control therapy with beta sandra. Resting heart rate was noted to be adequate. However, we will order a Holter monitor to evaluate his heart rate control at home and determine when to make any adjustments in his beta-sandra therapy. Also, the patient has an increased IZP3UN5-QIYo score and continues on anticoagulation therapy with warfarin. No episodes of abnormal bleeding have been noted. Will continue current therapy. Orders: furosemide (LASIX) 20 mg tablet; Take 1 tablet (20 mg total) by mouth 1 (one) time each day. Basic metabolic panel; Future N-Terminal Probnp; Future Cardiac holter monitor (<= 48 hours); Future Resolved Problems Problem Noted Date Diagnosed Date Resolved Date Chest pain 07/12/2025 07/12/2025 Pleural effusion 07/12/2025 07/12/2025 Shortness of breath 02/08/2021 07/12/20 25 Overview (08/17/2024): Last Assessment & Plan: The patient has been noticing exertional dyspnea. Recent echocardiogram showed normal LV systolic function. The patient does have risk factors for CAD, including: Former smoker and I did hypertension. As such, I will order a stress test in order to evaluate for the possibility of ischemic heart disease as a cause of his exertional symptoms. 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, CMS/HCC V28); Aneurysm of 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 (CMS/HCC V24); Permanent atrial fibrillation (CMS/HCC V24, CMS/HCC V28) 2025 1:00 PM EST Office Visit Cardiothoracic Surgery - [facility] [address] [place] [address] Shelbi Bowling MD Aneurysm of 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 (CMS/HCC V24) (Primary Dx); 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, CMS/HCC V28); Permanent atrial fibrillation (CMS/HCC V24, CMS/HCC V28) Discharge Disposition: Home or Self Care 06/23/2025 3:25 PM EDT - 06/23/2025 11:00 PM EDT Emergency [facility] Emergency [address] [place] [phone] Concetta Artis MD Goebel, Mathew, MD Chest [...] 3:30 PM EDT Office Visit Adult Medicine [address] [phone] Julian Caro PA Aneurysm of 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 (CMS/HCC V24) (Primary Dx); Longstanding persistent atrial fibrillation (CMS/HCC V24, CMS/HCC V28); Primary hypertension; Prediabetes; Gas pain from Last 3 Months Immunizations Immunization Administration [...] Pulse 97 07/12/2025 1:56 PM EST Temperature 36.8 C (98.2 F) 06/29/2025 12:22 PM EDT Respiratory Rate 18 2025 11:09 AM EST Oxygen Saturation 95% 07/12/2025 1:56 PM EST Inhaled Oxygen Concentration - - Weight 82.7 kg (182 lb 4.8 oz) 07/12/2025 1:56 P M EST Height 180.3 cm (5' 11 ) 07/12/2025 1:56 PM EST Body Mass Index 25.43 07/12/2025 1:56 PM EST Plan of Treatment Upcoming Encounters Date Type Department Care Team (Late st Contact Info) Description 07/17/2025 9:15 AM EST Telemedicine Vascular Surgery - [facility] [address] [place] [phone] Ambrocio Muñoz MD [address] [place], [place] [phone] 07/21/2025 2:00 PM EST Ancillary Procedure [facility] - [address] [place] [address] 07/28/2025 4:00 PM EST Office Visit [facility] - Medical [facility] [address] [place] [phone] SophiaLake Solo MD [address] [place] [address] [address] [place] [phone] 12/15/2025 2:30 PM EDT Office Visit Adult Medicine - [place] [address] [place] [address] Magdalene Barba MD [address] [place], [place] [phone] Health Maintenance Due Date Last Done Comments [...] 06/28/2026 06/28/2025 Falls Risk Assessment 06/29/2026 06/29/2025, 04 025 Cholesterol Screening (Lipid Panel) 05/17/2030 05/17/2025, [...] 07/12/2025 2:05 PM EST Permanent atrial fibrillation ([facility] V24, CMS/[facility] V28) PROTHROMBIN TIME WITH INR Timed 06/29/2025 6:35 [...] V28) from Last 3 Months Results * ECG 12 lead (07/12/2025 2:05 PM EST) Only the most recent of3 resultswithin the time period is included. Ventricular Rate ECG 97 BPM GEMUSE Atrial Rate 241 BPM GEMUSE QRS Duration 88 ms GEMUSE Q-T Interval 368 ms GEMUSE QTc 467 ms GEMUSE R [place] 74 degrees GEMUSE T [place] 72 degrees GEMUSE ECG Interpretation Atrial fibrillation Abnormal ECG When compared with ECG of 23-JUN-2025 16:28, No significant change was found Confirmed by [place] GILBERT ([id number]) on 07/14/2025 12:10:47 PM GEMUSE 07/12/2025 2:05 PM EST 07/14/2025 12:10 PM EST us Lake Gilbert MD ECG ORDERABLES Final Result Performing Organization Address City/[facility] de Phone Number GEMUSE * (ABNORMAL) Prothrombin time with INR (06/29/2025 6:35 AM EDT) Only the most recent of8 resultswithin the time period is included. Protime 14.9(H) 10.5 - 13.3 sec LAB COAGULATION METHOD 06/29/2025 7:23 AM EDT [facility] INR 1.3(H) 0.8 - 1.1 LAB COAGULATION METHOD 06/29/2025 7:23 AM EDT [facility] Blood Venous blood specimen / Unknown Venipuncture / Unknown 06/29/2025 6:35 AM EDT 06/29/2025 6:54 AM EDT Narrative [facility] - 06/29/2025 7:23 AM EDT Std. Therapy 2.0-3.0 INR High Dose Therapy 3.0-4.5 INR Ranges may vary depending on clinical indications and protocol. us Garth NGUYỄN LAB BLOOD ORDERABLES Final Resul t Performing Organization Address City/[facility]/ZIP Co de Phone Number [facility] [address] [place] [address], [place] [phone] * (ABNORMAL) Complete blood count (06/28/2025 5:36 AM EDT) Only the most recent of3 resultswithin the time period is included. [facility] [address] WBC 9.6 4.0 - 10.5 K/mcL LAB HEMETOLOGY METHOD 06/28/2025 5:49 AM EDT [facility] RBC 3.84(L) 4.70 - 6.00 M/mcL LAB HEMETOLOGY METHOD 06/28/2025 5:49 AM EDT [facility] Hemoglobin 11.7(L) 13.5 - 18.0 g/dL LAB HEMETOLOGY METHOD 06/28/2025 5:49 AM EDT [facility] Hematocrit 36.1(L) 40.0 - 54.0 % LAB HEMETOLOGY METHOD 06/28/2025 5:49 AM EDT [facility] MCV 94.0 78.0 - 100.0 FL LAB HEMETOLOGY METHOD 06/28/2025 5:49 AM EDT [facility] MCH 30.6 25.0 - 33.0 pcg LAB HEMETOLOGY METHOD 06/28/2025 5:49 AM EDT [facility] MCHC 32.5 32.0 - 36.0 g/dL LAB HEMETOLOGY METHOD 06/28/2025 5:49 AM EDT [facility] RDW 15.0 12.1 - 17.7 % LAB HEMETOLOGY METHOD 06/28/2025 5:49 AM EDT [facility] Platelets 248 150 - 450 K/mcL LAB HEMETOLOGY METHOD 06/28/2025 5:49 AM EDT [facility] MPV 8.8 7.4 - 11.4 FL LAB HEMETOLOGY METHOD 06/28/2025 5:49 AM EDT [facility] Blood Venous blood specimen / Unknown Venipuncture / Unknown 06/28/2025 5:36 AM EDT 06/28/2025 5:43 AM EDT Garth Fleming AR LAB BLOOD ORDERABLES Final Resul t Performing Organization Address City/[facility]/ZIP Co de Phone Number [facility] [address] [place] [address], [place] [phone] * Magnesium (06/28/2025 5:36 AM EDT) Only the most recent of4 resultswithin the time period is included. Magnesium 1.7 1.7 - 2.8 mg/dL LAB CHEMISTRY METHOD 06/28/2025 6:15 AM EDT [facility] Blood Venous blood specimen / Unknown Venipuncture / Unknown 06/28/2025 5:36 AM EDT 06/28/2025 5:42 AM EDT Garth Fleming AR LAB BLOOD ORDERABLES Final Resul t Performing Organization Address City/[facility]/ZIP Co de Phone Number [facility] [address] [place] [address], [place] [phone] * (ABNORMAL) Basic metabolic panel (06/28/2025 5:36 AM EDT) Only the most recent of4 resultswithin the time period is included. Sodium 143 135 - 145 mmol/L LAB CHEMISTRY METHOD 06/28/2025 6:15 AM EDT [facility] Potassium 3.7 3.5 - 5.1 mmol/L LAB CHEMISTRY METHOD 06/28/2025 6:15 AM EDT [facility] Chloride 106 98 - 107 mmol/L LAB CHEMISTRY METHOD 06/28/2025 6:15 AM EDT [facility] CO2 27 24 - 32 mmol/L LAB CHEMISTRY METHOD 06/28/2025 6:15 AM EDT [facility] Anion Gap 10 5 - 14 LAB CHEMISTRY METHOD 06/28/2025 6:15 AM EDT [facility] Glucose 126 70 - 199 mg/dL LAB CHEMISTRY METHOD 06/28/2025 6:15 AM EDT [facility] BUN 16 9 - 20 mg/dL LAB CHEMISTRY METHOD 06/28/2025 6:15 AM EDT [facility] Creatinine 0.50(L) 0.70 - 1.30 mg/dL LAB CHEMISTRY METHOD 06/28/2025 6:15 AM EDT [facility] eGFR 101 >=60 mL/min/1. 73m2 LAB CHEMISTRY METHOD 06/28/2025 6:15 AM EDT [facility] Comment:Calculation based on the Chronic Kidney Disease Epidemiology Collaboration (CKD-EPI) equation refit without adjustment for race. BUN/Creatinine Ratio 32.0(H) 12.0 - 20.0 LAB CHEMISTRY METHOD 06/28/2025 6:15 AM EDT [facility] Calcium 8.7 8.4 - 10.2 mg/dL LAB CHEMISTRY METHOD 06/28/2025 6:15 AM EDT [facility] Blood Venous blood specimen / Unknown Venipuncture / Unknown 06/28/2025 5:36 AM EDT 06/28/2025 5:42 AM EDT us Garth NGUYỄN LAB BLOOD ORDERABLES Final Resul t [facility] [address] [place] [address], [place] [phone] * CT Angio Chest/Abdomen/Pelvis wo and/or w [...] communicated to Unknown Provider SF via the PublishThis system on 06/26/2025 9:16 AM, Message ID [id number]. -------- FINAL REPORT -------- Dictated By: Harsh Perdomo Dictated Date: 06/26/2025 08:33 ET Assigned Physician: Harsh Perdomo Reviewed and Electronically Signed By: Harsh Perdomo Signed Date: 06/26/2025 09:16 ET Workstation ID: [id number] Transcribed By: Self Edit Transcribed Date: 06/26/2025 [...] been communicated to Unknown Provider SF via Growlife system on 06/26/2025 9:16 AM, Message ID [id number]. -------- FINAL REPORT -------- Dictated By: Harsh Perdomo Dictated Date: 06/26/2025 08:33 ET Assigned Physician: Harsh Perdomo Reviewed and Electronically Signed By: Harsh Perdomo Signed Date: 06/26/2025 09:16 ET Workstation ID: [id number] Transcribed By: Self Edit Transcribed Date: 06/26/2025 08:33 ET us Pita NGUYỄN IMG CT PROCEDURES Final Re sult * (ABNORMAL) Phosphorus (06/25/2025 4:15 AM EDT) Phosphorus 2.4(L) 2.5 - 4.5 mg/dL LAB CHEMISTRY METHOD 06/25/2025 5:06 AM EDT [facility] Blood Venous blood specimen / Unknown Venipuncture / Unknown 06/25/2025 4:15 AM EDT 06/25/2025 4:35 AM EDT us Derek NGUYỄN LAB BLOOD ORDERABLES Final Result [facility] [address] [place] [address], [place] [phone] * (ABNORMAL) Calcium, ionized (06/25/2025 4:15 AM EDT) Only the most recent of2 resultswithin the time period is included. Pathologist [facility] Calcium Ionized 1.09(L) 1.19 - 1.35 mg/dL LAB BLOOD GAS METHOD 06/25/2025 4:49 AM EDT [facility] Blood Venous blood specimen / Unknown Venipuncture / Unknown 06/25/2025 4:15 AM EDT 06/25/2025 4:35 AM EDT Derek NGUYỄN LAB BLOOD ORDERABLES Final Result [facility] [address] [place] [address], [place] [phone] * (ABNORMAL) TRANSTHORACIC ECHOCARDIOGRAM (TTE) COMPLETE (06/24/2025 9:32 AM EDT) [facility] [address] Est. RA Pressure 8 mmHg CV PACS [...] 53 mL CV PACS Left Atrium Minor [place] 7.1 cm CV PACS Left Atrium Major [place] 6.3 cm CV PACS LA Area Sys [...] S' 10 cm/s CV PACS RA Major [place] 7.1 cm CV PACS Inferior Vena Cava [...] LAB HEMETOLOGY METHOD 06/24/2025 1:52 AM EDT [facility] RBC 4.06(L) 4.70 - 6.00 M/mcL LAB HEMETOLOGY METHOD 06/24/2025 1:52 AM EDT [facility] Hemoglobin 12.7(L) 13.5 - 18.0 g/dL LAB HEMETOLOGY METHOD 06/24/2025 1:52 AM EDT [facility] Hematocrit 37.1(L) 40.0 - 54.0 % LAB HEMETOLOGY METHOD 06/24/2025 1:52 AM EDT [facility] MCV 91.4 78.0 - 100.0 FL LAB HEMETOLOGY METHOD 06/24/2025 1:52 AM EDT [facility] MCH 31.2 25.0 - 33.0 pcg LAB HEMETOLOGY METHOD 06/24/2025 1:52 AM EDT [facility] MCHC 34.1 32.0 - 36.0 g/dL LAB HEMETOLOGY METHOD 06/24/2025 1:52 AM EDT [facility] RDW 14.9 12.1 - 17.7 % LAB HEMETOLOGY METHOD 06/24/2025 1:52 AM EDT [facility] Platelets 231 150 - 450 K/mcL LAB HEMETOLOGY METHOD 06/24/2025 1:52 AM EDT [facility] MPV 8.6 7.4 - 11.4 FL LAB HEMETOLOGY METHOD 06/24/2025 1:52 AM EDT [facility] Neutrophils Relative 77.3(H) 44.0 - 74.0 % LAB HEMETOLOGY METHOD 06/24/2025 1:52 AM EDT [facility] Lymphocytes Relative 11.4(L) 20.0 - 48.0 % LAB HEMETOLOGY METHOD 06/24/2025 1:52 AM EDT [facility] Monocytes Relative 9.5 2.0 - 12.0 % LAB HEMETOLOGY METHOD 06/24/2025 1:52 AM EDT [facility] Eosinophils Relative 1.2 0.0 - 6.0 % LAB HEMETOLOGY METHOD 06/24/2025 1:52 AM EDT [facility] Basophils Relative 0.6 0.0 - 2.0 % LAB HEMETOLOGY METHOD 06/24/2025 1:52 AM EDT [facility] Neutrophils Absolute 5.50 1.80 - 7.80 K/mcL LAB HEMETOLOGY METHOD 06/24/2025 1:52 AM EDT [facility] Lymphocytes Absolute 0.80(L) 1.00 - 3.20 K/mcL LAB HEMETOLOGY METHOD 06/24/2025 1:52 AM EDT [facility] Monocytes Absolute 0.70 0.00 - 0.80 K/mcL LAB HEMETOLOGY METHOD 06/24/2025 1:52 AM EDT [facility] Eosinophils Absolute 0.10 0.00 - 0.50 K/mcL LAB HEMETOLOGY METHOD 06/24/2025 1:52 AM EDT [facility] Basophils Absolute 0.00 0.00 - 0.20 K/mcL LAB HEMETOLOGY METHOD 06/24/2025 1:52 AM EDT [facility] Blood Venous blood specimen / Unknown Venipuncture / Unknown 06/24/2025 1:37 AM EDT 06/24/2025 1:45 AM EDT us Aiden NGUYỄN LAB BLOOD ORDERABLES Final Res ult [facility] [address] [place] [address], [place] [phone] * Activated partial thromboplastin time (06/24/2025 1:37 AM EDT) Only the most recent of2 resultswithin the time period is included. aPTT 35.8 25.0 - 37.0 sec LAB COAGULATION METHOD 06/24/2025 2:09 AM EDT [facility] Blood Venous blood specimen / Unknown Venipuncture / Unknown 06/24/2025 1:37 AM EDT 06/24/2025 1:45 AM EDT us Aiden NGUYỄN LAB BLOOD ORDERABLES Final Res ult Performing Organization Address [facility]/ZIP Co de Phone Number [facility] [address] [place] [address], [place] [phone] * Type and screen (06/24/2025 1:37 AM EDT) ABO Group A 06/24/2025 3:06 AM EDT [facility] Rh Type Positive 06/24/2025 3:06 AM EDT [facility] Antibody Screen Negative 06/24/2025 3:06 AM EDT [facility] Blood Venous blood specimen / Unknown Venipuncture / Unknown 06/24/2025 1:37 AM EDT 06/24/2025 1:45 AM EDT us Aiden NGUYỄN LAB BLOOD BANK TEST ORDERABLES Final Result Performing Organization Address [facility] de Phone Number [facility] [address] [place] [address], [place] [phone] * POCT Glucose, blood (06/24/2025 1:36 AM EDT) Glucose POCT 140 70 - 199 mg/dL 06/24/2025 1:38 AM EDT [facility] Comment: Fasting Reference Range: 70-99 mg/dL Non-Fasting Reference Range: 70-199 mg/dL Blood Capillary blood specimen / Unknown 06/24/2025 1:36 AM EDT 06/24/2025 1:39 AM EDT us Benson Cartwright MD LAB POINT OF CAR E TEST DOCKED DEVICE UNSOLICITED RESULTS Final Result [facility] [address] [place] [address], [place] [phone] * ECG-Annotated (06/24/2025) us Provider Onbase MD ECG ORDERABLES Final Result * PA CATHETERIZATION/CANNULATION ARTERIAL SAMPLE/MONITORING/TRANSFUSION PERC, HC INSERTION/REMOVAL/REPLACEMENT CATH (06/23/2025 9:39 PM EDT) Pramod Green MD - 06/23/2025 9:39 PM EDT Pramod [...] IN CLINIC/BEDSIDE ORDERABLES Fi nal Result * Troponin I high sensitivity (06/23/2025 4:26 PM EDT) Only the most recent of2 resultswithin the time period is included. [facility] - [place] [address] High Sensitivity Troponin I 12 <=79 ng/L [...] taking more than 20 mg/day of biotin. Serge Newman MD LAB BLOOD ORDERABLES Final R esult Performing Organization Address City/[facility] Co de Phone Number [facility] [address] [place] [address], * (ABNORMAL) B-type natriuretic peptide (06/23/2025 3:20 PM EDT) [facility] [address] BNP 227(H) <=100 pcg/mL LAB CHEMISTRY METHOD 06/23/2025 4:24 PM EDT [facility] Blood Venous blood specimen / Unknown Venipuncture / Unknown 06/23/2025 3:20 PM EDT 06/23/2025 3:30 PM EDT Serge Newman MD LAB BLOOD ORDERABLES Final R esult [facility] [address] [place] [address], [place] [phone] * Lipase (06/23/2025 3:20 PM EDT) [facility] [address] Lipase 38 13 - 75 unit/L LAB CHEMISTRY METHOD 06/23/2025 4:17 PM EDT [facility] Blood Venous blood specimen / Unknown Venipuncture / Unknown 06/23/2025 3:20 PM EDT 06/23/2025 3:30 PM EDT us Serge Newman MD LAB BLOOD ORDERABLES Final R esult [facility] [address] [place] [address], [place] [phone] * (ABNORMAL) Comprehensive metabolic panel (06/23/2025 3:20 PM EDT) Only the most recent of2 resultswithin the time period is included. [facility] [address] Sodium 139 133 - 145 mmol/L LAB CHEMISTRY METHOD 06/23/2025 4:20 PM EDT [facility] Potassium 3.4(L) 3.5 - 5.5 mmol/L LAB CHEMISTRY METHOD 06/23/2025 4:[address] [facility] Chloride 98 96 - 110 mmol/L LAB CHEMISTRY METHOD 06/23/2025 4:[address] [facility] CO2 35(H) 21 - 32 mmol/L LAB CHEMISTRY METHOD 06/23/2025 4:[address] [facility] Anion Gap 6 3 - 11 LAB CHEMISTRY METHOD 06/23/2025 4:[address] [facility] Glucose 132(H) 70 - 100 mg/dL LAB CHEMISTRY METHOD 06/23/2025 4:[address] [facility] BUN 20 5 - 25 mg/dL LAB CHEMISTRY METHOD 06/23/2025 4:[address] [facility] Creatinine 0.92 0.70 - 1.30 mg/dL LAB CHEMISTRY METHOD 06/23/2025 4:[address] [facility] eGFR 83 >=60 mL/min/1. 73m2 LAB CHEMISTRY METHOD 06/23/2025 4:[address] [facility] Comment:Calculation based on the Chronic Kidney Disease Epidemiology Collaboration (CKD-EPI) equation refit without adjustment for race. BUN/Creatinine Ratio 21.7 LAB CHEMISTRY METHOD 06/23/2025 4:[address] [facility] Calcium 9.0 8.5 - 10.5 mg/dL LAB CHEMISTRY METHOD 06/23/2025 4:[address] [facility] AST (SGOT) 26 10 - 42 unit/L LAB CHEMISTRY METHOD 06/23/2025 4:[address] [facility] ALT (SGPT) 20 10 - 60 unit/L LAB CHEMISTRY METHOD 06/23/2025 4:[address] [facility] Alkaline Phosphatase 84 42 - 121 unit/L LAB CHEMISTRY METHOD 06/23/2025 4:[address] [facility] Total Protein 7.2 6.0 - 8.0 g/dL LAB CHEMISTRY METHOD 06/23/2025 4:[address] [facility] Albumin 3.4 3.2 - 5.0 g/dL LAB CHEMISTRY METHOD 06/23/2025 4:[address] [facility] Total Bilirubin 1.0 0.0 - 1.4 mg/dL LAB CHEMISTRY METHOD 06/23/2025 4:[address] [facility] Blood Venous blood specimen / Unknown Venipuncture / Unknown 06/23/2025 3:20 PM EDT 06/23/2025 3:30 PM EDT us Serge Newman MD LAB BLOOD ORDERABLES Final R esult [facility] [address] [place] [address], [place] [phone] * Thyroid stimulating hormone with reflex to free t4 and free t3 (05/17/2025 12:04 PM EDT) [facility] [address] TSH 2.75 0.40 - 4.00 mcIU/mL LAB CHEMISTRY METHOD 05/17/2025 2:26 PM EDT [facility] Blood Venous blood specimen / Unknown Venipuncture / Unknown 05/17/2025 12:04 PM EDT 05/17/2025 12:04 PM EDT Magdalene Barba MD LAB BLOOD ORDERABLES F inal Result [facility] [address] [place] [address], [place] [phone] * Lipid panel with reflex to direct LDL (05/17/2025 12:04 PM EDT) [facility] [address] Cholesterol 137 0 - 200 mg/dL LAB [...] ORDERABLES F inal Result Performing Organization Address [facility]/ZIP Co de Phone Number [facility] [address] [place] [address], [place] [phone] * Hemoglobin A1c (05/17/2025 12:04 PM EDT) [facility] [address] Hemoglobin A1C 6.3 <6.5 % LAB CHEMISTRY [...] ORDERABLES F inal Result Performing Organization Address City/[facility]/ZIP Co de Phone Number [facility] [address] [place] [address], [place] [phone] from Last 3 Months Insurance [place] [address] Advance Directives Documents on File Type Date Recorded 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 Care Teams Mobile Home Technician Relationship Specialty Start Date End Date Magdalene Barba MD [address] [place] [phone] PCP - General Internal Medicine 11/21/21
== END 2025-07-14 13:41 | disposition home or self-care (01) ==
LOC: HO.ACS 13:04
PROVIDERS: PCP Family Medicine; Visit Provider Internal Medicine Medical Oncology
DX: Z79.01 Long term (current) use of anticoagulants (principal)

== ENCOUNTER → 2025-07-14 13:04 | Outpatient (BNVA) | payer MEDICARE, SELFPAY | PROVIDERS: PCP Family Medicine; Visit Provider Internal Medicine Medical Oncology | DX: Z79.01 Long term (current) use of anticoagulants (principal) | CPT/HCPCS: 85610; 99211 ==

== ENCOUNTER 2025-07-21 12:59 | Outpatient (AMB) | payer MEDICARE, SELFPAY ==
[2025-07-21 13:10] LABS: Prothrombin Time Whole Bld POC 39.4 sec (11.1-13.5); ~PT, ~INR - Anti Coag Clinic 3.3 (0.9-1.1)
--- NOTE | 2025-07-21 13:19 | MHC.OFFVISCO ---
Intake Intake Visit Reasons: Anticoagulation Allergies No Known Allergies Allergy (Verified 07/21/25 13:04) Medication List - Last Reconciled 07/21/25 by Jennifer Tolentino RN furosemide 20 mg PO DAILY labetalol 100 mg PO TID losartan 50 mg PO DAILY metoprolol succinate ER 50 mg PO DAILY warfarin 5 mg See Protocol PO DAILY Nursing Note INR: 3.3 out of therapeutic range 2.0-3.0 has dissecting Aorta and does not want any surgical intervention Going for heart monitor per his assisted living nursing director Medications and supplements reviewed- pt started on furosemide *Has decreased appetite and energy *States his grandson lives with him and tries to take care of him - neither cook and his been eating a lot of pasta Denies any signs and symptoms of bleeding or bruising or clotting. Bleeding, bruising, clotting discussed Nutritional guidance given - try to eat a mix of fruits and vegetables you enjoy Dose: hold warfarin today then decrease weekly dose to 2.5mg x 4 days/ 5mg x 3 days F/U INR: 10 days - daughter has too many appt next week Patient and daughter verbalizes understanding of instructions given Relatioship between daughter and patient seemed strained - daughter and patient seem irritated with the situation Will call daughter for meals on wheels for him 1421- t/c to daughter regarding meals on wheels - she said she will look into it for him Coding Level of Care Code Est Patient Level 1 Diagnoses Current use of anticoagulant therapy Z79.01 Results AMB INR Fingerstick AMB INR Fingerstick 3.3 Last Edit by Jennifer Tolentino RN on 07/21/25 13:10 manual entry Assessment & Plan Assessment & Plan (1) Current use of anticoagulant therapy: Code(s): Z79.01 - intermediate (current) use of anticoagulants Category: Medical
== END 2025-07-21 13:25 | disposition home or self-care (01) ==
LOC: HO.ACS 12:59
PROVIDERS: PCP Family Medicine; Visit Provider Internal Medicine Medical Oncology
DX: Z79.01 Long term (current) use of anticoagulants (principal)

== ENCOUNTER → 2025-07-21 12:59 | Outpatient (BNVA) | payer MEDICARE, SELFPAY | PROVIDERS: PCP Family Medicine; Visit Provider Internal Medicine Medical Oncology | DX: I48.20 Chronic atrial fibrillation, unspecified (principal); Z51.81 Encounter for therapeutic drug level monitoring; Z79.01 Long term (current) use of anticoagulants | CPT/HCPCS: 85610; 99211 ==

== ENCOUNTER 2025-07-31 13:12 | Outpatient (AMB) | payer MEDICARE, SELFPAY ==
--- OUTSIDE RECORDS SUMMARY | 2025-07-28 10:30 | XMS_ITS | Encounter Summary ---
Author Organization [facility] [address] Address [address] [place] [address] Care Team Providers Care Glove Wrapper Name Role Phone Magdalene Barba MD Primary Care Provider Reason for Referral * Consultation (Routine) - Authorized Specialty Diagnoses / Procedures Referred By Angelina ferguson Referred To Contact Podiatry / Orthopaedic Surgery Diagnoses Aneurysm of 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 (CMS/HCC V24) Primary hypertension Longstanding persistent atrial fibrillation (CMS/HCC V24, CMS/HCC V28) Gait abnormality Advance care planning Macular degeneration of left eye, unspecified type Pre-diabetes Onychomycosis Dystrophic nail Magdalene Barba MD [address] [place] [address] Phone: tel: fax: Orthopedic Surgery [address] [address] Phone: tel: fax: Referral ID Status Reason Start Date Expiration Date Visits Requested Visits Authorized [id number] Authorized Specialty Services Required 07/28/2026 1 1 * Consultation (Routine) - Pending Review Specialty Diagnoses / Procedures Referred By Contac t Referred To Contact Ophthalmology Diagnoses Aneurysm of 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 (CMS/HCC V24) Primary hypertension Longstanding persistent atrial fibrillation (CMS/HCC V24, CMS/HCC V28) Gait abnormality Advance care planning Macular degeneration of left eye, unspecified type Pre-diabetes Magdalene Barba MD [address] [place] [address] Phone: tel: fax: [facility] [address] [facility] [address] [place], [place] Phone: tel: fax: Referral ID Status Reason Start Date Expiration Date Visits Requested Visits Authorized [id number] Pending Review Specialty Services Required 07/28/2026 6 6 Reason for Visit * Reason Comments Chronic Care Visit (CCV) Follow-up Encounter Details Date Type Department Care Team (Late st Contact Info) Description 07/28/2025 10:30 AM EST Office Visit Adult Medicine - [place] [address] [place] [phone] Magdalene Barba MD [address] [place], [place] Primary hypertension (Primary Dx); Aneurysm of 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 (CMS/HCC V24); Longstanding persistent atrial fibrillation (CMS/HCC V24, CMS/HCC V28); Gait abnormality; Advance care planning; Macular degeneration of left eye, unspecified type; Pre-diabetes; Onychomycosis; Dystrophic nail; Exertional dyspnea; DNR (do not resuscitate); Zi type B dissection of aorta (CMS/[facility] V24, CMS/[facility] V28) Social History Tobacco Use Types Packs/Day [...] Sign Reading Time Taken Comments Blood Pressure 100/60 07/28/2025 10:26 AM EST Pulse 93 07/28/2025 10:26 AM EST Temperature 36.1 C (97 F) 07/28/2025 10:26 AM EST Respiratory Rate 16 07/28/2025 10:2 6 AM EST Oxygen Saturation - - Inhaled Oxygen Concentration - - Weight 80.2 kg (176 lb 12.8 oz) 025 10:26 AM EST Height 179 cm (5' 10.47 ) 07/28/2025 10 :26 AM EST Body Mass Index 25.03 07/28/2025 10:26 AM EST documented in this encounter Progress Notes * Magdalene Barba MD - 07/28/2025 10:30 AM EST CHIEF COMPLAINT: Chronic Care Visit (CCV) and Follow-up IDENTIFIER: Giovanni Brumfield is a 85 y.o. old male. HPI: Patient presents today for fu. Is here today with daughter Anastacio. He lives with his grandson. Is independent with ADLs ( declined to have a shower bcoz it is too much effort- getting in out of the tub). Needs assistance with cooking meals, laundry and house keeping. Daughter helps pay the bills. Climbs upstairs ( has 13 steps) 4-5 times a day to use the bathroom. Gets SOB after every couple ofsteps. Gets SOB after walking 10 ft, will benefit from having a walker with seat. Hardly gets any exercise. Self admnisters his medications. Noticed he has lost weight 7 lbs in the past 7months. Doesn't want anything done. Since his last visit us, had been at [facility] for back pain radiating to the chst. 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 Was advised to have TEVAR as out pt. Met with the vascular surgeon and wireless telegrapher- decided not to pursue any treatment. Today he tells me he understands the consequences of untreated type B dissection. Atrial fibrillation-rate controlled on labetolol, losartan and lasix. On coumadin for anticoagulation( inr checks at [place]). Fby cardio on aneurysm of ascending aorta HTN- BP today normal. Denies any CP, SOB, palpitations. He is prediabetic. Was told he has poor vision in left eye- has not seen anyone since nursing home. Requesting a referral to manager transportation planning since he can no longer cut his toe nails. Met with the patient,who is willing to discuss advance care planning. Our advance care planning conversation included discussion about the value and importance of advance care planning. Experiences with loved ones who have been seriously ill or have . Exploration of personal,cultural or spiritual believes that might influence medical decision. Explorations of goals of care in the event of sudden injury or illness. Identification of a healthcare agent. Review and update,or completion of, and advance directive; DNR,DNI Total time in ACP: 18 minutes ROS: GENERAL: No malaise or fever NECK: No lumps, goiter, pain or significant neck swelling RESPIRATORY: No cough, wheezing CARDIOVASCULAR: No chest pain, leg swelling or palpitations GI: No constipation/diarrhea. No abdominal discomfort, blood in stools or black stools : No dysuria, frequency or incontinence PSYCH: No sleep disturbance, mood disorder or recent psychosocial stressors. NEURO: No persistent headache, syncope, seizures, weakness or numbness The remainder of review of systems is noncontributory. 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 ([facility] V24, [facility] V28) 06/24/2025 Permanent atrial fibrillation ([facility] V24, [facility] V28) 06/24/2025 Chronic heart failure with preserved ejection fraction (HFpEF) ([facility] V24, [facility] V28) 06/24/2025 Secondary hypercoagulable state ([facility] V24) 06/24/2025 Aneurysm of ascending aorta ([facility] V24) 06/28/2021 COVID-19 virus infection 01/24/2021 Prediabetes 05/28/2020 Bilateral hearing loss 08/25/2019 HTN (hypertension) 08/25/2019 Longstanding persistent atrial fibrillation ([facility] V24, [facility] V28) 08/25/2019 SOCIAL HISTORY: Social History Tobacco Use Smoking status: Former Current packs/day: 0.50 Types: Cigarettes Smokeless tobacco: Former Substance Use Topics Alcohol use: Yes Alcohol/week: 1.0 standard drink of alcohol FAMILY HISTORY: Family Status Relation Name Status Neg Hx (Not Specified) Sister Alive Daughter Alive Mother Father No partnership data on file Family History[1] ACTIVE MEDICATIONS: Medications Taking[2] ALLERGIES: Patient has no known allergies. PHYSICAL EXAM: Blood pressure 100/60, pulse 93, temperature 36.1 ??C (97 ??F), temperature source Temporal, resp. rate 16, height 1.79 m (70.47 ), weight 80.2 kg (176 lb 12.8 oz). Body mass index is 25.03 kg/m??. BMI is greater than 25.0 (above the normal range) - see Plan APPEARANCE: Alert and in no acute distress HEART: RRR with normal S1 and S2, no murmurs LUNG: Clear to auscultation bilaterally. No accessory muscle use. No wheeze or crackles GAIT: using walker( borrowed from a friend). NEURO: Alert and oriented x 3. No focal deficits Bilateral LE proximal muscle weakness Ex feet; long thick dystrophic toe nails. IMPRESSION: 1. Primary hypertension 2. Aneurysm of 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 ([facility] V24) 3. Longstanding persistent atrial fibrillation ([facility] V24, [facility] V28) 4. Gait abnormality 5. Advance care planning 6. Macular degeneration of left eye, unspecified type 7. Pre-diabetes 8. Onychomycosis 9. Dystrophic nail 10. Exertional dyspnea 11. DNR (do not resuscitate) 12. [place] type B dissection of aorta ([facility] V24, [facility] V28) PLAN: BP well controlled on current regimen. Keep fu with wireless telegrapher. Refer to podiatry for foot care. I have referred him to [facility] forms completed and signed- DNR, DNI His exertional SOB could be related to lack of physical activity. He denies being depressed, but tells me he is waiting for his call. Declined in home physical therapy Due to patient's condition he requires to use a walker with seat to enable him to take frequent rest breaks when ambulating. Fu in 6months. Orders Placed This Encounter Procedures Ambulatory referral to Ophthalmology Standing Status: Future Expected Date: 07/28/2025 Expiration Date: 07/28/2026 Referral Priority: Routine Referral Type: Consultation Referral Reason: Specialty Services Required Referral Location: [facility] Requested Specialty: Ophthalmology Number of Visits Requested: 6 Ambulatory referral to Podiatry Standing Status: Future Expiration Date: 07/28/2026 Referral Priority: Routine Referral Type: Consultation Referral Reason: Specialty Services Required Requested Specialty: Podiatry Number of Visits Requested: 1 Magdalene Barba MD on 07/28/2025 at 12:49 PM EST [1] Family History Problem Relation Name Age of Onset Colon cancer Neg Hx [2] Outpatient Medications Marked as Taking for the 07/28/25 encounter (Office Visit) with Magdalene Lemon MD Medication Sig Dispense Refill furosemide (LASIX) 20 mg tablet Take 1 tablet (20 mg total) by mouth 1 (one) time each day. 30 each11 labetaloL (NORMODYNE) 100 mg tablet Take 1 [...] NOT CHANGE DIETARY HABITS* 90 tablet 1 documented in this encounter Plan of Treatment Upcoming Encounters Date Type Department Care Team (Late st Contact Info) Description 09/05/2025 11:20 AM EST Office Visit [facility] [address] [place] [phone] Armando Gilbert MD [address] [place] [address] [address] [place] [address] 12/15/2025 2:30 PM EDT Office Visit Adult Medicine [address] [address] Magdalene Barba MD [address] [place] [address] Scheduled Referrals Name Type Priority Associated Diagnoses Order Schedule Ambulatory referral to Ophthalmology Outpatient Referral Routine Aneurysm of 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 ([facility] V24) Primary hypertension Longstanding persistent atrial fibrillation ([facility] V24, [facility] V28) Gait abnormality Advance care planning Macular degeneration of left eye, unspecified type Pre-diabetes Expected: 07/28/2025 (Approximate), Expires: 07/28/2026 Ambulatory referral to Podiatry Outpatient Referral Routine Aneurysm of 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 ([facility] V24) Primary hypertension Longstanding persistent atrial fibrillation ([facility] V24, [facility] V28) Gait abnormality Advance care planning Macular degeneration of left eye, unspecified type Pre-diabetes Onychomycosis Dystrophic nail 1 Occurrences starting 07/28/2025 until 07/28/2026 documented as of this encounter Visit Diagnoses Diagnosis Primary hypertension- Primary Unspecified essential hypertension Aneurysm of 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 ([facility] V24) Longstanding persistent atrial fibrillation ([facility] V24, [facility] V28) Gait abnormality Abnormality of gait Advance care planning Other specified counseling Macular degeneration of left eye, unspecified type Pre-diabetes Other abnormal glucose Onychomycosis Dermatophytosis of nail Dystrophic nail Other specified disease of nail Exertional dyspnea Other dyspnea and respiratory abnormality DNR (do not resuscitate) Other specified conditions influencing health status [place] type B dissection of aorta ([facility] V24, [facility] V28) documented in this encounter Additional Health Concerns Assessment Noted Time PHQ-9 Depression Total Score: 0 07/10/20 25 11:10 AM EST documented as of this encounter Care Teams Glove Wrapper Relationship Specialty Start Date End Date Magdalene Barba MD [address] [place] [phone] PCP - General Internal Medicine 11/21/21 documented as of this encounter
--- OUTSIDE RECORDS SUMMARY | 2025-07-28 16:00 | XMS_ITS | Encounter Summary ---
Author Organization [facility] Address [address] [place] [address] Care Team Providers Care Coronary Care Unit Nurse Name Role Phone Magdalene Barba MD Primary Care Provider Reason for Visit * Reason Comments Follow-up Encounter Details Date Type Department Care Team (Late st Contact Info) Description 07/28/2025 4:00 PM EST Office Visit [facility] Cardiology [facility] [address] [place] [phone] Armando Gilbert MD [address] [place] [address] [address] [place] [phone] Chronic heart failure with preserved ejection fraction (HFpEF) (CMS/HCC V24, CMS/HCC V28) (Primary Dx) Social [...] Sign Reading Time Taken Comments Blood Pressure 110/80 07/28/2025 3:56 PM EST Pulse 80 07/28/2025 3:56 PM EST Temperature - - Respiratory Rate - - Oxygen Saturation 97% 07/28/2025 3:56 PM EST Inhaled Oxygen Concentration - - Weight 79.4 kg (175 lb) 07/28/2025 3:56 PM EST Height 180.3 cm (5' 11 ) 07/28/2025 3:56 PM EST Body Mass Index 24.41 07/28/2025 3:56 PM EST documented in this encounter Progress Notes * Armando Gilbert MD - 07/28/2025 4:00 PM ESTAssociated Problem(s): Chronic heart failure with preserved ejection fraction (HFpEF) (CMS/HCC V24, CMS/HCC V28) Orders: CBC and differential; Future documented in this encounter Plan of Treatment Upcoming Encounters Date Type Department Care Team (Late st Contact Info) Description 09/05/2025 11:20 AM EST Office Visit [facility] [address] [place] [phone] Armando Gilbert MD [address] [place] [address] [address] [place] [phone] 12/15/2025 2:30 PM EDT Office Visit Adult Medicine - [address] [phone] Magdalene Barba MD [address] [place] [address] Scheduled Orders Name Type Priority Associated Diagnoses Orde r Schedule CBC and differential Lab Routine Chronic heart failure with preserved ejection fraction (HFpEF) (CMS/HCC V24, CMS/HCC V28) 1 Occurrences starting 07/28/2025 until 07/28/2026 CBC auto differential Lab Routine Chronic heart failure with preserved ejection fraction (HFpEF) ([facility] V24, [facility] V28) Ordered: 07/28/2025 documented as of this encounter Visit Diagnoses Diagnosis Chronic heart failure with preserved ejection fraction (HFpEF) ([facility] V24, [facility] V28)- Primary documented in this encounter Additional Health Concerns Assessment Noted Time PHQ-9 Depression Total Score: 0 07/10/20 25 11:10 AM EST documented as of this encounter Care Teams Coronary Care Unit Nurse Relationship Specialty Start Date End Date Magdalene Barba MD [address] [place] [id number] PCP - General Internal Medicine 11/21/21 documented as of this encounter
--- NOTE | 2025-07-31 13:40 | MHC.OFFVISCO ---
Intake Intake Visit Reasons: Anticoagulation Allergies No Known Allergies Allergy (Verified 07/31/25 13:29) Medication List - Last Reconciled 07/31/25 by Jennifer Tolentino RN furosemide 20 mg PO DAILY labetalol 100 mg PO TID losartan 50 mg PO DAILY metoprolol succinate ER 50 mg PO DAILY warfarin 5 mg See Protocol PO DAILY Nursing Note Has current dissecting aorta class b INR 3.1? out of therapeutic range Medications and supplements reviewed Patient status: able to still ambulate to [facility] with daughter Medications or supplements: no changes post heart monitor Diet: fair - not eating as much Denies any signs and symptoms of bleeding or clotting or unusual bruising Bleeding, bruising, clotting discussed Nutritional guidance given: keep eating a mix of fruits and vegetables Dose: decrese weekly amt due to diagnosis 5mg tue and fri/ 2.5mg x 5 days F/U INR Date: 2 weeks to give pt and family a break ?? Patient verbalizing understanding of instructions given. Coding Level of Care Code Est Patient Level 1 Diagnoses Current use of anticoagulant therapy Z79.01 Results AMB INR Fingerstick AMB INR Fingerstick 3.1 Last Edit by Jennifer Tolentino RN on 07/31/25 13:35 Assessment & Plan Assessment & Plan (1) Current use of anticoagulant therapy: Code(s): Z79.01 - rn long term care (current) use of anticoagulants Category: Medical
--- OUTSIDE RECORDS SUMMARY | 2025-07-31 17:50 | XMS_ITS | Encounter Summary ---
Author Organization [facility] Address [address] [place] [address] Care Team Providers Care Trumpet Teacher Name Role Phone Magdalene Barba MD Primary Care Provider Reason for Visit * Reason Onset Date Comments Fitting for DME 07/28/2025 Encounter Details Date Type Department Care Team (Late st Contact Info) Description 07/28/2025 Telephone Adult Medicine - [place] [address] [place] [phone] Magdalene Barba MD [address] [place] [address] Social History Tobacco Use Types Packs/Day Years [...] as of this encounter Progress Notes * Natalia Pagan - 07/28/2025 4:45 PM EST Durable medical equipment prescription request has been faxed to the DME Company : [employer] for a walker With cover sheet, demographics and chilo notes Confirmation was received documented in this encounter Plan of Treatment Upcoming Encounters Date Type Department Care Team (Late st Contact Info) Description 09/05/2025 11:20 AM EST Office Visit [facility] [address] [place] [address] Armando Gilbert MD [address] [place] [address] [address] [place] [phone] 12/15/2025 2:30 PM EDT Office Visit Adult Medicine - [place] [address] [place] [phone] Magdalene Barba MD [address] [place] [address] documented as of this encounter Visit Diagnoses Diagnosis Congestive heart failure, unspecified HF chronicity, unspecified heart failure type (CMS/HCC V24, 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 (CMS/HCC V24) Longstanding persistent atrial fibrillation (CMS/HCC V24, CMS/HCC V28) Permanent atrial fibrillation (CMS/HCC V24, CMS/HCC V28) Atrial fibrillation Chronic heart failure with preserved ejection fraction (HFpEF) (CMS/HCC V24, CMS/HCC V28) documented in this encounter Orders General Supply Count Last Ordered Date First Or dered Date WALKER 1 07/28/2025 documented in this encounter Additional Health Concerns Assessment Noted Time PHQ-9 Depression Total Score: 0 07/10/20 25 11:10 AM EST documented as of this encounter Care Teams Trumpet Teacher Relationship Specialty Start Date End Date Magdalene Barba MD [address] [facility] [address] [place] [address] PCP - General Internal Medicine 11/21/21 documented as of this encounter
--- OUTSIDE RECORDS SUMMARY | 2025-07-31 17:50 | XMS_ITS | Clinical Summary ---
Author Organization LL [address] [facility] Address [address] [place] [address] Phone Care Team Providers Care Transplanter Name Role Phone Magdalene Barba MD Primary [...] each day. 30 each 11 07/12/20 25 026 Active warfarin (COUMADIN) 5 mg tablet TAKE 1 TABLET BY MOUTH ONCE DAILY MAY CAUSE HEAVY BLEEDING. TAKE AT SAME TIME EVERY DAY. DO NOT CHANGE DIETARY HABITS 90 tablet 1 04 025 Discontinued acetaminophen (TYLENOL) 325 mg tablet Take 1 tablet (325 mg total) by mouth every 6 (six) hours if needed for mild pain, fever - temperature GREATER than 38 C (100.4 F), moderate pain or headaches for up to 10 days. 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 He was treated at [facility] in [facility]. The patient was treated medically [...] community palliative care program. Permanent atrial fibrillation ([facility] V24, [facility] V28) 06/24/2025 Chronic heart failure with p reserved ejection fraction (HFpEF) ([facility] V24, [facility] V28) 06/24/2025 Assessment & Plan (07/28/2025 4:31 PM EST): Orders: CBC and differential; Future Assessment & Plan (07/14/2025 12:23 PM EST): [...] Future N-Terminal Probnp; Future Secondary hypercoagulable state ([facility] V24) Aneurysm of ascending aorta ([facility] V24) 2020 Overview (08/17/2024): Last [...] cm on the chest CTA done at [place] on 06/25/2025 and 4.9 cm on the chest CTA done at [facility] on 07/03/2025. The patient was reevaluated by [...] be adequate. Also, the patient has a [id number] score of 3 and continues on anticoagulation [...] therapy. Also, the patient has an increased [id number] score and continues on anticoagulation therapy with [...] Encounters Date Type Department Care Team Description 07/28/2025 4:00 PM EST Office Visit [facility] [address] [place] [phone] Lake Gilbert MD Chronic heart failure with preserved ejection fraction (HFpEF) (CMS/HCC V24, CMS/HCC V28) (Primary Dx) 07/28/2025 10:30 AM EST Office Visit Adult Medicine [address] [phone] Magdalene Barba MD Primary hypertension (Primary Dx); Aneurysm of 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 (CMS/HCC V24); Longstanding persistent atrial fibrillation (CMS/HCC V24, CMS/HCC V28); Gait abnormality; Advance care planning; Macular degeneration of left eye, unspecified type; Pre-diabetes; Onychomycosis; Dystrophic nail; Exertional dyspnea; DNR (do not resuscitate); [place] type B dissection of aorta (CMS/HCC V24, CMS/HCC V28) 07/28/2025 Telephone Adult [address] [phone] Magdalene Barba MD 07/21/2025 2:00 PM EST Ancillary Procedure [facility] - [facility] [address] [place] [address] Longstanding persistent atrial fibrillation (CMS/HCC V24, CMS/HCC V28) 07/17/2025 9:15 AM EST Telemedicine Vascular Surgery - [place] [address] [place] [address] Ambrocio Muñoz MD 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, CMS/HCC V28) (Primary Dx) 07/14/2025 Telephone Adult [address] [phone] Magdalene Barba MD 07/12/2025 2:00 PM EST Office Visit [facility] - [address] [place] [phone] SophiaLake De Anda MD Chronic heart failure with preserved ejection fraction (HFpEF) (CMS/HCC V24, CMS/HCC V28) (Primary Dx); Primary hypertension; Longstanding persistent atrial fibrillation (CMS/HCC V24, CMS/HCC V28); 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, CMS/HCC V28); Aneurysm of 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 (CMS/HCC V24); Permanent atrial fibrillation (CMS/HCC V24, CMS/HCC V28) 2025 1:00 PM EST Office Visit Cardiothoracic Surgery [facility] [address] [place] [address] Shelbi Bowling MD Aneurysm of 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 (CMS/HCC V24) (Primary Dx); 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, CMS/HCC V28) 2025 11:15 AM EST Office Visit Vascular Surgery [facility] [address] [place] [address] Ambrocio Muñoz MD 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, CMS/HCC V28) (Primary Dx) 07/03/2025 Telephone [facility] - [address] [place] [phone] Lake Gilbert MD 06/29/2025 Telephone [facility] - [address] [place] [phone] Lake Gilbert MD 06/24/2025 12:13 AM EDT - 06/29/2025 2:00 PM EDT Hospital Encounter [facility] CV Surg Card 8-[address] [place] [address] Benson Cartwright MD Aneurysm of 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 (CMS/HCC V24) (Primary Dx); 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, CMS/HCC V28); Permanent atrial fibrillation (CMS/HCC V24, CMS/HCC V28) Discharge Disposition: Home or Self Care 06/23/2025 3:25 PM EDT - 06/23/2025 11:00 PM EDT Emergency [facility] Emergency [address] [place] [phone] Concetta Artis MD Goebel, Mathew, MD Chest pain, unspecified type (Primary Dx); Acute bilateral back pain, unspecified back location; Hypokalemia; Hypomagnesemia; Longstanding persistent atrial fibrillation (CMS/HCC V24, CMS/HCC V28); Dissection of aorta, unspecified portion of aorta (CMS/HCC V24, CMS/HCC V28); Aneurysm of 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 ([facility]/HCC V24) Discharge Disposition: Another Health Care Institution Not Defined 06/16/2025 3:30 PM EDT Office Visit Adult Medicine [address] [phone] Julian Caro PA Aneurysm of 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 ([facility] V24) (Primary Dx); Longstanding persistent atrial fibrillation (CMS/HCC V24, CMS/HCC V28); Primary hypertension; Prediabetes; Gas pain from Last 3 Months Immunizations Immunization Administration Dates Next Due COVID-19 (Moderna/Spikevax) 12yo and older 06/16/2024,2023 Influenza trivalent, 0.5mL ( Fluad) 65yo and older 06/16/2025,06/08/2024,06/05/2023,05/30,07/08/2021,06/13/2020 06/17/2027 [employer] SARS-CoV-2 COVID-19, mRNA, LNP-S, preservative free 01/07/2022,08/07/2021,01/04/2021,11/26 Surgical History Surgery Date Site/Laterality Comments CATARACT EXTRACTION Left PROCEDURE: HISTORICAL CATARACT REMOVAL; COMMENT: 03/22/2020 Medical History Medical History Date Comments Hypertension DX:Hypertension Atrial fibrillation ([facility] V24, [facility] V28) DX:Atrial fibrillation (HCC) History [...] Pulse 80 07/28/2025 3:56 PM EST Temperature 36.1 C (97 F) 07/28/2025 10:26 AM EST Respiratory Rate 16 07/28/2025 10:26 AM EST Oxygen Saturation 97% 07/28/2025 3:56 PM EST Inhaled Oxygen Concentration - - Weight 79.4 kg (175 lb) 07/28/2025 3:56 PM EST Height 180.3 cm (5' 11 ) 07/28/2025 3:56 PM EST Body Mass Index 24.41 07/28/2025 3:56 PM EST Plan of Treatment Upcoming Encounters Date Type Department Care Team (Late st Contact Info) Description 09/05/2025 11:20 AM EST Office Visit [facility] [address] [place] [address] [address] [place] [address] Lake Gilbert MD [address] [place] [address] [address] [place] [address] 12/15/2025 2:30 PM EDT Office Visit Adult Medicine - [place] [address] [place] [phone] Magdalene Barba MD [address] [place] [address] Health Maintenance Due Date Last Done Comments [...] Procedure Name Priority Date/Time Associated Diagnosis Comments CARDIAC HOLTER MONITOR (REPORT GENERATED IN HOUSE) Routine 07/21/2025 1:56 PM EST Longstanding persistent atrial fibrillation (CMS/HCC V24, CMS/HCC V28) ECG 12-LEAD Routine 07/12/2025 2:05 PM EST Permanent atrial fibrillation (CMS/HCC V24, CMS/HCC V28) PROTHROMBIN TIME WITH INR Timed 06/29/2025 [...] ACEMENT CATH Routine 06/23/2025 9:39 PM EDT CA CATHETERIZATION/CANNUL ATION ARTERIAL SAMPLE/MONITORING/MARTINEZ SFUSION PERC Routine 06/23/2025 9:39 PM EDT ACTIVATED PARTIAL THROMBOPLASTIN TIME STAT 06/23/2025 9:32 PM EDT PROTHROMBIN TIME WITH INR STAT 06/23/2025 9:32 PM EDT CA CRITICAL CARE 30-74 MINUTES Routine 06/23/2025 7:51 [...] V28) from Last 3 Months Results * CARDIAC HOLTER MONITOR (REPORT GENERATED IN HOUSE) (07/21/2025 1:56 PM EST) Anatomical Region Laterality Modality Cardiac Diagnost ic Narrative 07/28/2025 7:59 AM EST [facility] DI[facility]NOSTIC TESTING DEPARTMENT [address] [place] [address] TEL: FAX: Type of test: 48 hour Holter Monitor Date of test: 07/21/25 Ordering provider: Lake Cortes MD Reason for Test: Atrial Fibrillation Findings: 1: The predominant rhythm was atrial fibrillation. 2: Ventricular rate range was 44- 154 bpm with an average of 86 bpm. 3: Occasional PVCs with rare couplets and one triplet. 4: No pauses noted. Longest R-R 2.3 sec. 5: Diary returned with no entries. us Lake Gilbert MD CV CARDIAC SERVICES CA OCEDURES Final Result * ECG 12 lead (07/12/2025 2:05 PM EST) Only the most recent of3 resultswithin the time period is included. Ventricular Rate ECG 97 BPM GEMUSE Atrial Rate 241 BPM GEMUSE QRS Duration 88 ms GEMUSE Q-T Interval 368 ms GEMUSE QTc 467 ms GEMUSE R Gilmer 74 degrees GEMUSE T Gilmer 72 degrees GEMUSE ECG Interpretation Atrial fibrillation Abnormal ECG When compared with ECG of 23-JUN-2025 16:28, No significant change was found Confirmed by LAKE GILBERT ([id number]) on 07/14/2025 12:10:47 PM GEMUSE 07/12/2025 2:05 PM EST 07/14/2025 12:10 PM EST us Lake Gilbert MD ECG ORDERABLES Final Result Performing Organization Address City/[facility]/ZIP Co de Phone Number GEMUSE * (ABNORMAL) Prothrombin time with INR (06/29/2025 6:35 AM EDT) Only the most recent of8 resultswithin the time period is included. Protime 14.9(H) 10.5 - 13.3 sec LAB COAGULATION METHOD 06/29/2025 7:23 AM EDT [facility] INR 1.3(H) 0.8 - 1.1 LAB COAGULATION METHOD 06/29/2025 7:23 AM EDT [facility] Blood Venous blood specimen / Unknown Venipuncture / Unknown 06/29/2025 6:35 AM EDT 06/29/2025 6:54 AM EDT Narrative [facility] - 06/29/2025 7:23 AM EDT Std. Therapy 2.0-3.0 INR High Dose Therapy 3.0-4.5 INR Ranges may vary depending on clinical indications and protocol. Garth NGUYỄN LAB BLOOD ORDERABLES Final Resul t Performing Organization Address City/[facility]/ZIP Co de Phone Number [facility] [address] [place] [address], [place] [phone] * (ABNORMAL) Complete blood count (06/28/2025 5:36 AM EDT) Only the most recent of3 resultswithin the time period is included. WBC 9.6 4.0 - 10.5 K/mcL LAB HEMETOLOGY METHOD 06/28/2025 5:49 AM EDT [facility] RBC 3.84(L) 4.70 - 6.00 M/mcL LAB HEMETOLOGY METHOD 06/28/2025 5:49 AM EDT [facility] Hemoglobin 11.7(L) 13.5 - 18.0 g/dL LAB HEMETOLOGY METHOD 06/28/2025 5:49 AM EDT [facility] Hematocrit 36.1(L) 40.0 - 54.0 % LAB HEMETOLOGY METHOD 06/28/2025 5:49 AM EDT [facility] MCV 94.0 78.0 - 100.0 FL LAB HEMETOLOGY METHOD 06/28/2025 5:49 AM EDT [facility] MCH 30.6 25.0 - 33.0 pcg LAB HEMETOLOGY METHOD 06/28/2025 5:49 AM EDT [facility] MCHC 32.5 32.0 - 36.0 g/dL LAB HEMETOLOGY METHOD 06/28/2025 5:49 AM EDT [facility] RDW 15.0 12.1 - 17.7 % LAB HEMETOLOGY METHOD 06/28/2025 5:49 AM EDT [facility] Platelets 248 150 - 450 K/mcL LAB HEMETOLOGY METHOD 06/28/2025 5:49 AM EDT [facility] MPV 8.8 7.4 - 11.4 FL LAB HEMETOLOGY METHOD 06/28/2025 5:49 AM EDT [facility] Blood Venous blood specimen / Unknown Venipuncture / Unknown 06/28/2025 5:36 AM EDT 06/28/2025 5:43 AM EDT Garth Fleming [place] LAB BLOOD ORDERABLES Final Resul t Performing Organization Address City/[facility]/ZIP Co de Phone Number [facility] [address] [place] [address], [place] [phone] * Magnesium (06/28/2025 5:36 AM EDT) Only the most recent of4 resultswithin the time period is included. Magnesium 1.7 1.7 - 2.8 mg/dL LAB CHEMISTRY METHOD 06/28/2025 6:15 AM EDT [facility] Blood Venous blood specimen / Unknown Venipuncture / Unknown 06/28/2025 5:36 AM EDT 06/28/2025 5:42 AM EDT Garth Fleming [place] LAB BLOOD ORDERABLES Final Resul t Performing Organization Address [facility]/ZIP Co de Phone Number [facility] [address] [place] [address], [place] [phone] * (ABNORMAL) Basic metabolic panel (06/28/2025 5:36 AM EDT) Only the most recent of4 resultswithin the time period is included. Sodium 143 135 - 145 mmol/L LAB CHEMISTRY METHOD 06/28/2025 6:15 AM EDT [facility] Potassium 3.7 3.5 - 5.1 mmol/L LAB CHEMISTRY METHOD 06/28/2025 6:15 AM EDT [facility] Chloride 106 98 - 107 mmol/L LAB CHEMISTRY METHOD 06/28/2025 6:15 AM EDT [facility] CO2 27 24 - 32 mmol/L LAB CHEMISTRY METHOD 06/28/2025 6:15 AM EDT [facility] Anion Gap 10 5 - 14 LAB CHEMISTRY METHOD 06/28/2025 6:15 AM EDT [facility] Glucose 126 70 - 199 mg/dL LAB CHEMISTRY METHOD 06/28/2025 6:15 AM EDT [facility] BUN 16 9 - 20 mg/dL LAB CHEMISTRY METHOD 06/28/2025 6:15 AM EDT [facility] Creatinine 0.50(L) 0.70 - 1.30 mg/dL LAB CHEMISTRY METHOD 06/28/2025 6:15 AM EDT [facility] eGFR 101 >=60 mL/min/1. 73m2 LAB CHEMISTRY METHOD 06/28/2025 6:15 AM EDT [facility] Comment:Calculation based on the Chronic Kidney Disease Epidemiology Collaboration (CKD-EPI) equation refit without adjustment for race. BUN/Creatinine Ratio 32.0(H) 12.0 - 20.0 LAB CHEMISTRY METHOD 06/28/2025 6:15 AM EDT [facility] Calcium 8.7 8.4 - 10.2 mg/dL LAB CHEMISTRY METHOD 06/28/2025 6:15 AM EDT [facility] Blood Venous blood specimen / Unknown Venipuncture / Unknown 06/28/2025 5:36 AM EDT 06/28/2025 5:42 AM EDT Garth NGUYỄN LAB BLOOD ORDERABLES Final Resul t [facility] [address] [place] [address], * CT Angio Chest/Abdomen/Pelvis wo and/or w [...] communicated to Unknown Provider SF via the [email or web address] system on 06/26/2025 9:16 AM, Message ID [id number]. -------- FINAL REPORT -------- Dictated By: Harsh Perdomo Dictated Date: 06/26/2025 08:33 ET Assigned Physician: Harsh Perdomo Reviewed and Electronically Signed By: Harsh Perdomo Signed Date: 06/26/2025 09:16 ET Workstation ID: [id number] Transcribed By: Self Edit Transcribed Date: 06/26/2025 [...] been communicated to Unknown Provider SF via [employer] system on 06/26/2025 9:16 AM, Message ID [id number]. -------- FINAL REPORT -------- Dictated By: Harsh Perdomo Dictated Date: 06/26/2025 08:33 ET Assigned Physician: Harsh Perdomo Reviewed and Electronically Signed By: Harsh Perdomo Signed Date: 06/26/2025 09:16 ET Workstation ID: [id number] Transcribed By: Self Edit Transcribed Date: 06/26/2025 08:33 ET us Pita NGUYỄN IMG CT PROCEDURES Final Re sult * (ABNORMAL) Phosphorus (06/25/2025 4:15 AM EDT) [facility] Signature Phosphorus 2.4(L) 2.5 - 4.5 mg/dL LAB CHEMISTRY METHOD 06/25/2025 5:06 AM EDT [facility] Blood Venous blood specimen / Unknown Venipuncture / Unknown 06/25/2025 4:15 AM EDT 06/25/2025 4:35 AM EDT us Derek NGUYỄN LAB BLOOD ORDERABLES Final Result [facility] [address] [place] [address], [place] [phone] * (ABNORMAL) Calcium, ionized (06/25/2025 4:15 AM EDT) Only the most recent of2 resultswithin the time period is included. Calcium Ionized 1.09(L) 1.19 - 1.35 mg/dL LAB BLOOD GAS METHOD 06/25/2025 4:49 AM EDT [facility] Blood Venous blood specimen / Unknown Venipuncture / Unknown 06/25/2025 4:15 AM EDT 06/25/2025 4:35 AM EDT us Derek NGUYỄN LAB BLOOD ORDERABLES Final Result [facility] [address] [place] [address], [place] [phone] * (ABNORMAL) TRANSTHORACIC ECHOCARDIOGRAM (TTE) COMPLETE (06/24/2025 9:32 AM EDT) Pathologist [facility] Est. RA Pressure 8 mmHg CV PACS [...] 53 mL CV PACS Left Atrium Minor Gilmer 7.1 cm CV PACS Left Atrium Major Gilmer 6.3 cm CV PACS LA Area Sys [...] S' 10 cm/s CV PACS RA Major Gilmer 7.1 cm CV PACS Inferior Vena Cava [...] LAB HEMETOLOGY METHOD 06/24/2025 1:52 AM EDT [facility] RBC 4.06(L) 4.70 - 6.00 M/mcL LAB HEMETOLOGY METHOD 06/24/2025 1:52 AM EDT [facility] Hemoglobin 12.7(L) 13.5 - 18.0 g/dL LAB HEMETOLOGY METHOD 06/24/2025 1:52 AM EDT [facility] Hematocrit 37.1(L) 40.0 - 54.0 % LAB HEMETOLOGY METHOD 06/24/2025 1:52 AM EDT [facility] MCV 91.4 78.0 - 100.0 FL LAB HEMETOLOGY METHOD 06/24/2025 1:52 AM EDT [facility] MCH 31.2 25.0 - 33.0 pcg LAB HEMETOLOGY METHOD 06/24/2025 1:52 AM EDT [facility] MCHC 34.1 32.0 - 36.0 g/dL LAB HEMETOLOGY METHOD 06/24/2025 1:52 AM EDT [facility] RDW 14.9 12.1 - 17.7 % LAB HEMETOLOGY METHOD 06/24/2025 1:52 AM EDT [facility] Platelets 231 150 - 450 K/mcL LAB HEMETOLOGY METHOD 06/24/2025 1:52 AM EDT [facility] MPV 8.6 7.4 - 11.4 FL LAB HEMETOLOGY METHOD 06/24/2025 1:52 AM EDT [facility] Neutrophils Relative 77.3(H) 44.0 - 74.0 % LAB HEMETOLOGY METHOD 06/24/2025 1:52 AM EDT [facility] Lymphocytes Relative 11.4(L) 20.0 - 48.0 % LAB HEMETOLOGY METHOD 06/24/2025 1:52 AM EDT [facility] Monocytes Relative 9.5 2.0 - 12.0 % LAB HEMETOLOGY METHOD 06/24/2025 1:52 AM EDT [facility] Eosinophils Relative 1.2 0.0 - 6.0 % LAB HEMETOLOGY METHOD 06/24/2025 1:52 AM EDT [facility] Basophils Relative 0.6 0.0 - 2.0 % LAB HEMETOLOGY METHOD 06/24/2025 1:52 AM EDT [facility] Neutrophils Absolute 5.50 1.80 - 7.80 K/mcL LAB HEMETOLOGY METHOD 06/24/2025 1:52 AM EDT [facility] Lymphocytes Absolute 0.80(L) 1.00 - 3.20 K/mcL LAB HEMETOLOGY METHOD 06/24/2025 1:52 AM EDT [facility] Monocytes Absolute 0.70 0.00 - 0.80 K/mcL LAB HEMETOLOGY METHOD 06/24/2025 1:52 AM EDT [facility] Eosinophils Absolute 0.10 0.00 - 0.50 K/mcL LAB HEMETOLOGY METHOD 06/24/2025 1:52 AM EDT [facility] Basophils Absolute 0.00 0.00 - 0.20 K/mcL LAB HEMETOLOGY METHOD 06/24/2025 1:52 AM EDT [facility] Blood Venous blood specimen / Unknown Venipuncture / Unknown 06/24/2025 1:37 AM EDT 06/24/2025 1:45 AM EDT us Aiden NGUYỄN LAB BLOOD ORDERABLES Final Res ult Performing Organization Address City/State/[facility] Co de Phone Number [facility] [address] [place] [address], [place] [phone] * Activated partial thromboplastin time (06/24/2025 1:37 AM EDT) Only the most recent of2 resultswithin the time period is included. aPTT 35.8 25.0 - 37.0 sec LAB COAGULATION METHOD 06/24/2025 2:09 AM EDT [facility] Blood Venous blood specimen / Unknown Venipuncture / Unknown 06/24/2025 1:37 AM EDT 06/24/2025 1:45 AM EDT us Aiden NGUYỄN LAB BLOOD ORDERABLES Final Res ult [facility] [address] [place] [address], [place] [phone] * Type and screen (06/24/2025 1:37 AM EDT) Pathologist [facility] ABO Group A 06/24/2025 3:06 AM EDT [facility] Rh Type Positive 06/24/2025 3:06 AM EDT [facility] Antibody Screen Negative 06/24/2025 3:06 AM EDT [facility] Blood Venous blood specimen / Unknown Venipuncture / Unknown 06/24/2025 1:37 AM EDT 06/24/2025 1:45 AM EDT Aiden NGUYỄN LAB BLOOD BANK TEST ORDERABLES Final Result Performing Organization Address [facility] Co de Phone Number [facility] [address] [place] [address], [place] [phone] * POCT Glucose, blood (06/24/2025 1:36 AM EDT) [facility] Glucose POCT 140 70 - 199 mg/dL 06/24/2025 1:38 AM EDT [facility] Comment: Fasting Reference Range: 70-99 mg/dL Non-Fasting Reference Range: 70-199 mg/dL Blood Capillary blood specimen / Unknown 06/24/2025 1:36 AM EDT 06/24/2025 1:39 AM EDT Benson Cartwright MD LAB POINT OF CAR E TEST DOCKED DEVICE UNSOLICITED RESULTS Final Result Performing Organization Address [facility]/ZIP Co de Phone Number [facility] [address] [place] [address], [place] [phone] * ECG-Annotated (06/24/2025) us Provider Onbase ECG ORDERABLES Final Result * CA CATHETERIZATION/CANNULATION ARTERIAL SAMPLE/MONITORING/TRANSFUSION PERC, HC INSERTION/REMOVAL/REPLACEMENT CATH [...] ORDERABLES Edited Re sult - Final * CA CRITICAL CARE 30-74 MINUTES (06/23/2025 7:51 PM EDT) Pramod Green MD - 06/23/2025 7:51 PM EDT Pramod [...] the time period is included. [facility] High Sensitivity Troponin I 12 <=79 ng/L LAB CHEMISTRY METHOD 06/23/2025 5:30 PM EDT [facility] Blood Venous blood specimen / Unknown Venipuncture / Unknown 06/23/2025 4:26 PM EDT 06/23/2025 4:56 PM EDT Narrative [facility] - 06/23/2025 5:30 PM EDT High levels of biotin in samples may falsely decrease hsTroponin values. Use caution when interpreting hsTroponin results in patients taking biotin who exhibit renal impairment (eGFR <60) or in patients taking more than 20 mg/day of biotin. us Serge Newman MD LAB BLOOD ORDERABLES Final R esult Performing Organization Address City/[facility]/ZIP Co de Phone Number [facility] [address] [place] [address], [place] [phone] * (ABNORMAL) B-type natriuretic peptide (06/23/2025 3:20 PM EDT) [facility] BNP 227(H) <=100 pcg/mL LAB CHEMISTRY METHOD 06/23/2025 4:24 PM EDT [facility] Blood Venous blood specimen / Unknown Venipuncture / Unknown 06/23/2025 3:20 PM EDT 06/23/2025 3:30 PM EDT us Serge Newman MD LAB BLOOD ORDERABLES Final R esult Performing Organization Address City/[facility]/ZIP Co de Phone Number [facility] [address] [place] [address], [place] [phone] * Lipase (06/23/2025 3:20 PM EDT) [facility] Lipase 38 13 - 75 unit/L LAB CHEMISTRY METHOD 06/23/2025 4:17 PM T [facility] Blood Venous blood specimen / Unknown Venipuncture / Unknown 06/23/2025 3:20 PM EDT 06/23/2025 3:30 PM EDT us Serge Newman MD LAB BLOOD ORDERABLES Final R esult [facility] [address] [place] [address], [place] [phone] * (ABNORMAL) Comprehensive metabolic panel (06/23/2025 3:20 PM EDT) Only the most recent of2 resultswithin the time period is included. [facility] Sodium 139 133 - 145 mmol/L LAB CHEMISTRY METHOD 06/23/2025 4:20 PM [facility] Potassium 3.4(L) 3.5 - 5.5 mmol/L LAB CHEMISTRY METHOD 06/23/2025 4:20 PM [facility] Chloride 98 96 - 110 mmol/L LAB CHEMISTRY METHOD 06/23/2025 4:20 PM [facility] CO2 35(H) 21 - 32 mmol/L LAB CHEMISTRY METHOD 06/23/2025 4:20 PM [facility] [facility] Anion Gap 6 3 - 11 LAB CHEMISTRY METHOD 06/23/2025 4:20 PM [facility] Glucose 132(H) 70 - 100 mg/dL LAB CHEMISTRY METHOD 06/23/2025 4:20 PM [facility] BUN 20 5 - 25 mg/dL LAB CHEMISTRY METHOD 06/23/2025 4:20 PM [facility] Creatinine 0.92 0.70 - 1.30 mg/dL LAB CHEMISTRY METHOD 06/23/2025 4:20 PM [facility] eGFR 83 >=60 mL/min/1. 73m2 LAB CHEMISTRY METHOD 06/23/2025 4:20 PM EDT [facility] Comment:Calculation based on the Chronic Kidney Disease Epidemiology Collaboration (CKD-EPI) equation refit without adjustment for race. BUN/Creatinine Ratio 21.7 LAB CHEMISTRY METHOD 06/23/2025 4:20 PM EDT [facility] Calcium 9.0 8.5 - 10.5 mg/dL LAB CHEMISTRY METHOD 06/23/2025 4:20 PM EDT [facility] AST (SGOT) 26 10 - 42 unit/L LAB CHEMISTRY METHOD 06/23/2025 4:20 PM [facility] ALT (SGPT) 20 10 - 60 unit/L LAB CHEMISTRY METHOD 06/23/2025 4:20 PM [facility] Alkaline Phosphatase 84 42 - 121 unit/L LAB CHEMISTRY METHOD 06/23/2025 4:20 PM [facility] Total Protein 7.2 6.0 - 8.0 g/dL LAB CHEMISTRY METHOD 06/23/2025 4:20 PM [facility] Albumin 3.4 3.2 - 5.0 g/dL LAB CHEMISTRY METHOD 06/23/2025 4:20 PM [facility] Total Bilirubin 1.0 0.0 - 1.4 mg/dL LAB CHEMISTRY METHOD 06/23/2025 4:20 PM T [facility] Blood Venous blood specimen / Unknown Venipuncture / Unknown 06/23/2025 3:20 PM EDT 06/23/2025 3:30 PM EDT us Serge Newman MD LAB BLOOD ORDERABLES Final R esult [facility] [address] [place] [address], * Thyroid stimulating hormone with reflex to free t4 and free t3 (05/17/2025 12:04 PM EDT) TSH 2.75 0.40 - 4.00 mcIU/mL LAB CHEMISTRY METHOD 05/17/2025 2:26 PM EDT [facility] Blood Venous blood specimen / Unknown Venipuncture / Unknown 05/17/2025 12:04 PM EDT 05/17/2025 12:04 PM EDT Magdalene Barba MD LAB BLOOD ORDERABLES F inal Result [facility] [address] [place] [address], [place] [phone] * Lipid panel with reflex to direct LDL (05/17/2025 12:04 PM EDT) Cholesterol 137 0 - 200 mg/dL LAB CHEMISTRY METHOD 05/17/2025 1:48 PM EDT [facility] Triglycerides 66 0 - 150 mg/dL LAB CHEMISTRY METHOD 05/17/2025 1:48 PM EDT [facility] HDL 63 >=40 mg/dL LAB CHEMISTRY METHOD 05/17/2025 1:48 PM EDT [facility] LDL Calculated 61 0 - 100 mg/dL LAB CHEMISTRY METHOD 05/17/2025 1:48 PM EDT [facility] Comment:Estimated LDL Calcul ated using equation: Total cholesterol - HDL cholesterol - (Triglycerides/5) VLDL Cholesterol Kavon 13.2 mg/dL LAB CHEMISTRY METHOD 05/17/2025 1:48 PM EDT [facility] Non HDL Chol. (LDL+VLDL) 74 <145 mg/dL LAB CHEMISTRY METHOD 05/17/2025 1:48 PM EDT [facility] Chol/HDL Ratio 2.2 0.0 - 4.4 LAB CHEMISTRY METHOD 05/17/2025 1:48 PM EDT [facility] Blood Venous blood specimen / Unknown Venipuncture / Unknown 05/17/2025 12:04 PM EDT 05/17/2025 12:04 PM EDT Magdalene Barba MD LAB BLOOD ORDERABLES F inal Result [facility] [address] [place] [address], [place] [phone] * Hemoglobin A1c (05/17/2025 12:04 PM EDT) [facility] Hemoglobin A1C 6.3 <6.5 % LAB CHEMISTRY METHOD 05/17/2025 9:41 PM EDT [facility] Mean Bld Glu Estim. 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 Advance Directives and Living Will 07/28/2025 11:10 AM Molst 07/28/2025 Health Care Decision (hx) 12/15/2020 ADVANCE DIRECTIVE Health Care Decision (hx) 12/15/2020 ADVANCE DIRECTIVE Health Care Decision (hx) 12/15/2020 ADVANCE DIRECTIVE Health Care Decision (hx) 12/15/2020 ADVANCE DIRECTIVE Health Care Decision (hx) 12/15/2020 ADVANCE DIRECTIVE Health Care Decision (hx) 12/15/2020 ADVANCE DIRECTIVE * Full Code - Confirmed (Latest Code Status on File) Date Activated Date Inactivated Comments 06/24/2025 1:43 AM 06/29/2025 4:01 PM This code status was ascertained in the following way: Code status discussion: discussion with patient To update the patient's code status, place a code status order. Do not modify or discontinue any currently active code status orders. Care Teams Transplanter Relationship Specialty Start Date End Date Magdalene Barba MD [address] [place] [id number] PCP - General Internal Medicine 11/21/21
[2025-08-01 08:18] LABS: Prothrombin Time Whole Bld POC 36.7 sec (11.1-13.5); ~PT, ~INR - Anti Coag Clinic 3.1 (0.9-1.1)
== END 2025-07-31 13:46 | disposition home or self-care (01) ==
LOC: HO.ACS 13:12
PROVIDERS: PCP Family Medicine; Visit Provider Internal Medicine Medical Oncology
DX: Z79.01 Long term (current) use of anticoagulants (principal)

== ENCOUNTER → 2025-07-31 13:12 | Outpatient (BNVA) | payer MEDICARE, SELFPAY | PROVIDERS: PCP Family Medicine; Visit Provider Internal Medicine Medical Oncology | DX: I48.20 Chronic atrial fibrillation, unspecified (principal); Z51.81 Encounter for therapeutic drug level monitoring; Z79.01 Long term (current) use of anticoagulants | CPT/HCPCS: 85610; 99211 ==

== ENCOUNTER 2025-08-14 13:25 | Outpatient (AMB) | payer MEDICARE, SELFPAY ==
[2025-08-14 13:31] LABS: Prothrombin Time Whole Bld POC 32.1 sec (11.1-13.5); ~PT, ~INR - Anti Coag Clinic 2.7 (0.9-1.1)
--- NOTE | 2025-08-14 13:36 | MHC.OFFVISCO ---
Intake Intake Visit Reasons: Anticoagulation Allergies No Known Allergies Allergy (Verified 08/14/25 13:26) Medication List - Last Reconciled 08/14/25 by Jennifer Tolentino RN furosemide 20 mg PO DAILY labetalol 100 mg PO TID losartan 50 mg PO DAILY metoprolol succinate ER 50 mg PO DAILY warfarin 5 mg See Protocol PO DAILY Nursing Note INR: 2.7 in therapeutic range Medications and supplements reviewed No changes in health, diet, medications, or supplements, Denies any signs and symptoms of bleeding or bruising or clotting. 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
--- OUTSIDE RECORDS SUMMARY | 2025-08-14 22:09 | XMS_ITS | Clinical Summary ---
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 90 tablet 1 06/29/2025 1:51 PM EDT 5 Active losartan (COZAAR) 50 mg tablet Take 1 tablet (50 mg total) by mouth 1 (one) time each day. 30 tablet 1 06/29/2025 1:51 PM EDT 5 Active warfarin (COUMADIN) 5 mg tablet TAKE 1 TABLET BY MOUTH ONCE DAILY. *MAY CAUSE HEAVY BLEEDING. TAKE AT SAME TIME EVERY DAY. DO NOT CHANGE DIETARY HABITS* 90 tablet 1 5 Active furosemide (LASIX) 20 mg tabletIndications :Chronic heart failure with preserved ejection fraction (HFpEF) (CMS/HCC V24, CMS/HCC V28),Longstanding persistent atrial fibrillation (CMS/HCC V24, CMS/HCC V28) Take 1 tablet (20 mg total) by mouth 1 (one) time each day. 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 He was treated at [facility] in [facility]. The patient was treated medically and [...] community palliative care program. Permanent atrial fibrillation 06/24/2025 Chronic heart failure with p reserved ejection fraction (HFpEF) 06/24/2025 Assessment & Plan (07/28/2025 4:31 PM [...] Future N-Terminal Probnp; Future Secondary hypercoagulable state 06/24/2025 Aneurysm of ascending aorta 06/28/2021 Overview (08/17/2024): [...] cm on the chest CTA done at [facility] on 06/25/2025 and 4.9 cm on the chest CTA done at [facility] on 07/03/2025. The patient was reevaluated by [...] be adequate. Also, the patient has a [id number] score of 3 and continues on anticoagulation [...] therapy. Also, the patient has an increased [id number] score and continues on anticoagulation therapy with [...] Description 07/28/2025 4:00 PM EST Office Visit [facility] [address] [place] [phone] Lake Gilbert MD Chronic heart failure with preserved ejection fraction (HFpEF) (CMS/HCC V24, CMS/HCC V28) (Primary Dx) 07/28/2025 10:30 AM EST Office Visit Adult Medicine [facility] [address] [place] [address] Magdalene Barba MD Primary hypertension (Primary Dx); Aneurysm of 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 (CMS/HCC V24); Longstanding persistent atrial fibrillation (CMS/HCC V24, CMS/HCC V28); Gait abnormality; Advance care planning; Macular degeneration of left eye, unspecified type; Pre-diabetes; Onychomycosis; Dystrophic nail; Exertional dyspnea; DNR (do not resuscitate); Zi type B dissection of aorta (CMS/HCC V24, CMS/HCC V28) 07/28/2025 Telephone Adult Medicine [facility] [address] [place] [address] Magdalene Barba MD 07/21/2025 2:00 PM EST Ancillary Procedure [facility] - [address] [place] [phone] Longstanding persistent atrial fibrillation (CMS/HCC V24, CMS/HCC V28) 07/17/2025 9:15 AM EST Telemedicine Vascular Surgery - [facility] [address] [place] [address] Ambrocio Muñoz MD 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, CMS/HCC V28) (Primary Dx) 07/14/2025 [facility] - [address] [address] Magdalene Barba MD 07/12/2025 2:00 PM EST Office Visit [facility] - [facility] [address] [place] [phone] Lake Gilbert MD Chronic heart failure with preserved ejection fraction (HFpEF) (CMS/HCC V24, CMS/HCC V28) (Primary Dx); Primary hypertension; Longstanding persistent atrial fibrillation (CMS/HCC V24, CMS/HCC V28); 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, CMS/HCC V28) (Primary Dx) 07/03/2025 Telephone [facility] - [facility] [address] [place] [phone] Lake Gilbert MD 06/29/2025 Telephone [facility] - [address] [place] [phone] Lake Gilbert MD 06/24/2025 12:13 AM EDT - 06/29/2025 2:00 PM EDT Hospital Encounter [facility] CV Surg Card 8-9 [address] [place] [address] Benson Cartwright MD Aneurysm of 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 (CMS/HCC V24) (Primary Dx); 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, CMS/HCC V28); Permanent atrial fibrillation (CMS/HCC V24, CMS/HCC V28) Discharge Disposition: Home or Self Care 06/23/2025 3:25 PM EDT - 06/23/2025 11:00 PM EDT Emergency [facility] Emergency [address] [place] [phone] Concetta Artis MD Goebel, Mathew, MD Chest [...] 3:30 PM EDT Office Visit Adult Medicine [address] [phone] Julian Caro PA Aneurysm of ascending aorta [...] on file Sexual Orientation Not on file Last Filed Vital Signs Vital Sign Reading [...] Description 09/05/2025 11:20 AM EST Office Visit [facility] - [facility] [address] [place] [address] Sophia-Lake Solo MD [address] [place] [address] [address] [place] [address] 12/15/2025 2:30 PM EDT Office Visit Adult Medicine - [place] [address] [place] [phone] Magdalene Barba MD [address] [place] [address] Health Maintenance Due Date Last Done Comments [...] ACEMENT CATH Routine 06/23/2025 9:39 PM EDT LA CATHETERIZATION/CANNUL ATION ARTERIAL SAMPLE/MONITORING/MARTINEZ SFUSION PERC Routine 06/23/2025 9:39 PM EDT ACTIVATED PARTIAL THROMBOPLASTIN TIME STAT 06/23/2025 9:32 PM EDT PROTHROMBIN TIME WITH INR STAT 06/23/2025 9:32 PM EDT LA CRITICAL CARE 30-74 MINUTES Routine 06/23/2025 7:51 [...] Diagnost ic Narrative 07/28/2025 7:59 AM EST [facility] DIAGNOSTIC TESTING DEPARTMENT [address] [facility], [address] [address] TEL: FAX: Type of test: 48 hour [...] sec. 5: Diary returned with no entries. Lake Gilbert MD CV CARDIAC SERVICES LA OCEDURES Final Result * ECG 12 lead (07/12/2025 2:05 PM EST) Only the most recent of3 resultswithin the time period is included. Ventricular Rate ECG 97 BPM GEMUSE Atrial Rate 241 BPM GEMUSE QRS Duration 88 ms GEMUSE Q-T Interval 368 ms GEMUSE QTc 467 ms GEMUSE R [place] 74 degrees GEMUSE T [place] 72 degrees GEMUSE ECG Interpretation Atrial fibrillation Abnormal ECG When compared with ECG of 23-JUN-2025 16:28, No significant change was found Confirmed by LA[place] GILBERT ([id number]) on 07/14/2025 12:10:47 PM GEMUSE 07/12/2025 2:05 PM EST 07/14/2025 12:10 PM EST us Lake Gilbert MD ECG ORDERABLES Final Result GEMUSE * (ABNORMAL) Prothrombin time with INR (06/29/2025 6:35 AM EDT) Only the most recent of8 resultswithin the time period is included. Pathologist [facility] Protime 14.9(H) 10.5 - 13.3 sec LAB COAGULATION METHOD 06/29/2025 7:23 AM EDT [facility] INR 1.3(H) 0.8 - 1.1 LAB COAGULATION METHOD 06/29/2025 7:23 AM EDT [facility] Blood Venous blood specimen / Unknown Venipuncture / Unknown 06/29/2025 6:35 AM EDT 06/29/2025 6:54 AM EDT Narrative [facility] - 06/29/2025 7:23 AM EDT Std. Therapy 2.0-3.0 INR High Dose Therapy 3.0-4.5 INR Ranges may vary depending on clinical indications and protocol. us Garth NGUYỄN LAB BLOOD ORDERABLES Final Resul t [facility] [address] [place] [address], [place] [phone] * (ABNORMAL) Complete blood count (06/28/2025 5:36 AM EDT) Only the most recent of3 resultswithin the time period is included. [facility] WBC 9.6 4.0 - 10.5 K/mcL LAB HEMETOLOGY METHOD 06/28/2025 5:49 AM EDT [facility] RBC 3.84(L) 4.70 - 6.00 M/mcL LAB HEMETOLOGY METHOD 06/28/2025 5:49 AM EDT [facility] Hemoglobin 11.7(L) 13.5 - 18.0 g/dL LAB HEMETOLOGY METHOD 06/28/2025 5:49 AM EDT [facility] Hematocrit 36.1(L) 40.0 - 54.0 % LAB HEMETOLOGY METHOD 06/28/2025 5:49 AM EDT [facility] MCV 94.0 78.0 - 100.0 FL LAB HEMETOLOGY METHOD 06/28/2025 5:49 AM EDT [facility] MCH 30.6 25.0 - 33.0 pcg LAB HEMETOLOGY METHOD 06/28/2025 5:49 AM EDT [facility] MCHC 32.5 32.0 - 36.0 g/dL LAB HEMETOLOGY METHOD 06/28/2025 5:49 AM EDT [facility] RDW 15.0 12.1 - 17.7 % LAB HEMETOLOGY METHOD 06/28/2025 5:49 AM EDT [facility] Platelets 248 150 - 450 K/mcL LAB HEMETOLOGY METHOD 06/28/2025 5:49 AM EDT [facility] MPV 8.8 7.4 - 11.4 FL LAB HEMETOLOGY METHOD 06/28/2025 5:49 AM EDT [facility] Blood Venous blood specimen / Unknown Venipuncture / Unknown 06/28/2025 5:36 AM EDT 06/28/2025 5:43 AM EDT us Garth NGUYỄN LAB BLOOD ORDERABLES Final Resul t [facility] [address] [place] [address], [place] [phone] * Magnesium (06/28/2025 5:36 AM EDT) Only the most recent of4 resultswithin the time period is included. Magnesium 1.7 1.7 - 2.8 mg/dL LAB CHEMISTRY METHOD 06/28/2025 6:15 AM EDT [facility] Blood Venous blood specimen / Unknown Venipuncture / Unknown 06/28/2025 5:36 AM EDT 06/28/2025 5:42 AM EDT us Garth NGUYỄN LAB BLOOD ORDERABLES Final Resul t [facility] [address] [place] [address], [place] [phone] * (ABNORMAL) Basic metabolic panel (06/28/2025 5:36 AM EDT) Only the most recent of4 resultswithin the time period is included. Sodium 143 135 - 145 mmol/L LAB CHEMISTRY METHOD 06/28/2025 6:15 AM EDT [facility] Potassium 3.7 3.5 - 5.1 mmol/L LAB CHEMISTRY METHOD 06/28/2025 6:15 AM EDT [facility] Chloride 106 98 - 107 mmol/L LAB CHEMISTRY METHOD 06/28/2025 6:15 AM EDT [facility] CO2 27 24 - 32 mmol/L LAB CHEMISTRY METHOD 06/28/2025 6:15 AM EDT [facility] Anion Gap 10 5 - 14 LAB CHEMISTRY METHOD 06/28/2025 6:15 AM EDT [facility] Glucose 126 70 - 199 mg/dL LAB CHEMISTRY METHOD 06/28/2025 6:15 AM EDT [facility] BUN 16 9 - 20 mg/dL LAB CHEMISTRY METHOD 06/28/2025 6:15 AM EDT [facility] Creatinine 0.50(L) 0.70 - 1.30 mg/dL LAB CHEMISTRY METHOD 06/28/2025 6:15 AM EDT [facility] eGFR 101 >=60 mL/min/1. 73m2 LAB CHEMISTRY METHOD 06/28/2025 6:15 AM EDT [facility] Comment:Calculation based on the Chronic Kidney Disease Epidemiology Collaboration (CKD-EPI) equation refit without adjustment for race. BUN/Creatinine Ratio 32.0(H) 12.0 - 20.0 LAB CHEMISTRY METHOD 06/28/2025 6:15 AM EDT [facility] Calcium 8.7 8.4 - 10.2 mg/dL LAB CHEMISTRY METHOD 06/28/2025 6:15 AM EDT [facility] Blood Venous blood specimen / Unknown Venipuncture / Unknown 06/28/2025 5:36 AM EDT 06/28/2025 5:42 AM EDT us Garth NGUYỄN LAB BLOOD ORDERABLES Final Resul t [facility] [address] [place] [address], [place] [phone] * CT Angio Chest/Abdomen/Pelvis wo and/or w [...] communicated to Unknown Provider SF via the [email or web address] system on 06/26/2025 9:16 AM, Message ID [id number]. -------- FINAL REPORT -------- Dictated By: Harsh Perdomo Dictated Date: 06/26/2025 08:33 ET Assigned Physician: Harsh Perdomo Reviewed and Electronically Signed By: Harsh Perdomo Signed Date: 06/26/2025 09:16 ET Workstation ID: [id number] Transcribed By: Self Edit Transcribed Date: 06/26/2025 [...] been communicated to Unknown Provider SF via [employer] system on 06/26/2025 9:16 AM, Message ID [id number]. -------- FINAL REPORT -------- Dictated By: Harsh Perdomo Dictated Date: 06/26/2025 08:33 ET Assigned Physician: Harsh Perdomo Reviewed and Electronically Signed By: Harsh Perdomo Signed Date: 06/26/2025 09:16 ET Workstation ID: [id number] Transcribed By: Self Edit Transcribed Date: 06/26/2025 08:33 ET us Pita NGUYỄN IMG CT PROCEDURES Final Re sult * (ABNORMAL) Phosphorus (06/25/2025 4:15 AM EDT) [facility] Phosphorus 2.4(L) 2.5 - 4.5 mg/dL LAB CHEMISTRY METHOD 06/25/2025 5:06 AM EDT [facility] Blood Venous blood specimen / Unknown Venipuncture / Unknown 06/25/2025 4:15 AM EDT 06/25/2025 4:35 AM EDT Derek NGUYỄN LAB BLOOD ORDERABLES Final Result Performing Organization Address City/[facility]/ZIP Co de Phone Number [facility] [address] [place] [address], * (ABNORMAL) Calcium, ionized (06/25/2025 4:15 AM EDT) Only the most recent of2 resultswithin the time period is included. [facility] Calcium Ionized 1.09(L) 1.19 - 1.35 mg/dL LAB BLOOD GAS METHOD 06/25/2025 4:49 AM EDT [facility] Blood Venous blood specimen / Unknown Venipuncture / Unknown 06/25/2025 4:15 AM EDT 06/25/2025 4:35 AM EDT us Derek NGUYỄN LAB BLOOD ORDERABLES Final Result Performing Organization Address City/[facility]/ZIP Co de Phone Number [facility] [address] [place] [address], * (ABNORMAL) TRANSTHORACIC ECHOCARDIOGRAM (TTE) COMPLETE (06/24/2025 9:32 AM EDT) [facility] Est. RA Pressure 8 mmHg CV [...] 53 mL CV PACS Left Atrium Minor [place] 7.1 cm CV PACS Left Atrium Major [place] 6.3 cm CV PACS LA Area Sys [...] S' 10 cm/s CV PACS RA Major [place] 7.1 cm CV PACS Inferior Vena Cava [...] of3 resultswithin the time period is included. [facility] Signature WBC 7.2 4.0 - 10.5 K/mcL LAB HEMETOLOGY METHOD 06/24/2025 1:52 AM EDT [facility] RBC 4.06(L) 4.70 - 6.00 M/mcL LAB HEMETOLOGY METHOD 06/24/2025 1:52 AM EDT [facility] Hemoglobin 12.7(L) 13.5 - 18.0 g/dL LAB HEMETOLOGY METHOD 06/24/2025 1:52 AM EDT [facility] Hematocrit 37.1(L) 40.0 - 54.0 % LAB HEMETOLOGY METHOD 06/24/2025 1:52 AM EDT [facility] MCV 91.4 78.0 - 100.0 FL LAB HEMETOLOGY METHOD 06/24/2025 1:52 AM EDT [facility] MCH 31.2 25.0 - 33.0 pcg LAB HEMETOLOGY METHOD 06/24/2025 1:52 AM EDT [facility] MCHC 34.1 32.0 - 36.0 g/dL LAB HEMETOLOGY METHOD 06/24/2025 1:52 AM EDT [facility] RDW 14.9 12.1 - 17.7 % LAB HEMETOLOGY METHOD 06/24/2025 1:52 AM EDT [facility] Platelets 231 150 - 450 K/mcL LAB HEMETOLOGY METHOD 06/24/2025 1:52 AM EDT [facility] MPV 8.6 7.4 - 11.4 FL LAB HEMETOLOGY METHOD 06/24/2025 1:52 AM EDT [facility] Neutrophils Relative 77.3(H) 44.0 - 74.0 % LAB HEMETOLOGY METHOD 06/24/2025 1:52 AM EDT [facility] Lymphocytes Relative 11.4(L) 20.0 - 48.0 % LAB HEMETOLOGY METHOD 06/24/2025 1:52 AM EDT [facility] Monocytes Relative 9.5 2.0 - 12.0 % LAB HEMETOLOGY METHOD 06/24/2025 1:52 AM EDT [facility] Eosinophils Relative 1.2 0.0 - 6.0 % LAB HEMETOLOGY METHOD 06/24/2025 1:52 AM EDT [facility] Basophils Relative 0.6 0.0 - 2.0 % LAB HEMETOLOGY METHOD 06/24/2025 1:52 AM EDT [facility] Neutrophils Absolute 5.50 1.80 - 7.80 K/mcL LAB HEMETOLOGY METHOD 06/24/2025 1:52 AM EDT [facility] Lymphocytes Absolute 0.80(L) 1.00 - 3.20 K/mcL LAB HEMETOLOGY METHOD 06/24/2025 1:52 AM EDT [facility] Monocytes Absolute 0.70 0.00 - 0.80 K/mcL LAB HEMETOLOGY METHOD 06/24/2025 1:52 AM EDT [facility] Eosinophils Absolute 0.10 0.00 - 0.50 K/mcL LAB HEMETOLOGY METHOD 06/24/2025 1:52 AM EDT [facility] Basophils Absolute 0.00 0.00 - 0.20 K/mcL LAB HEMETOLOGY METHOD 06/24/2025 1:52 AM EDT [facility] Blood Venous blood specimen / Unknown Venipuncture / Unknown 06/24/2025 1:37 AM EDT 06/24/2025 1:45 AM EDT us Aiden NGUYỄN LAB BLOOD ORDERABLES Final Res ult Performing Organization Address City/[facility]/ZIP Co de Phone Number [facility] [address] [place] [address], [place] [phone] * Activated partial thromboplastin time (06/24/2025 1:37 AM EDT) Only the most recent of2 resultswithin the time period is included. aPTT 35.8 25.0 - 37.0 sec LAB COAGULATION METHOD 06/24/2025 2:09 AM EDT [facility] Blood Venous blood specimen / Unknown Venipuncture / Unknown 06/24/2025 1:37 AM EDT 06/24/2025 1:45 AM EDT us Aiden NGUYỄN LAB BLOOD ORDERABLES Final Res ult Performing Organization Address [facility] Co de Phone Number [facility] [address] [place] [address], [place] [phone] * Type and screen (06/24/2025 1:37 AM EDT) Pathologist [facility] A 06/24/2025 3:06 AM EDT [facility] Rh Type Positive 06/24/2025 3:06 AM EDT [facility] Antibody Screen Negative 06/24/2025 3:06 AM EDT [facility] Blood Venous blood specimen / Unknown Venipuncture / Unknown 06/24/2025 1:37 AM EDT 06/24/2025 1:45 AM EDT us Aiden NGUYỄN LAB BLOOD BANK TEST ORDERABLES Final Result Performing Organization Address City/[facility]/ZIP Co de Phone Number [facility] [address] [place] [address], [place] [phone] * POCT Glucose, blood (06/24/2025 1:36 AM EDT) Glucose POCT 140 70 - 199 mg/dL 06/24/2025 1:38 AM EDT [facility] Comment: Fasting Reference Range: 70-99 mg/dL Non-Fasting Reference Range: 70-199 mg/dL Blood Capillary blood specimen / Unknown 06/24/2025 1:36 AM EDT 06/24/2025 1:39 AM EDT Benson Cartwright MD LAB POINT OF CAR E TEST DOCKED DEVICE UNSOLICITED RESULTS Final Result Performing Organization Address [facility]/ZIP Co de Phone Number [facility] [address] [place] [address], [place] [phone] * ECG-Annotated (06/24/2025) Provider Onbase MD ECG ORDERABLES Final Result * LA CATHETERIZATION/CANNULATION ARTERIAL SAMPLE/MONITORING/TRANSFUSION PERC, HC INSERTION/REMOVAL/REPLACEMENT CATH (06/23/2025 9:39 PM EDT) Narrative Parmod Sutton MD - 06/23/2025 9:39 PM EDT [...] ORDERABLES Edited Re sult - Final * LA CRITICAL CARE 30-74 MINUTES (06/23/2025 7:51 PM [...] of2 resultswithin the time period is included. [facility] High Sensitivity Troponin I 12 <=79 ng/L LAB CHEMISTRY METHOD 06/23/2025 5:30 PM EDT [facility] Blood Venous blood specimen / Unknown Venipuncture / Unknown 06/23/2025 4:26 PM EDT 06/23/2025 4:56 PM EDT [facility] - 06/23/2025 5:30 PM EDT High levels of biotin in samples may falsely decrease hsTroponin values. Use caution when interpreting hsTroponin results in patients taking biotin who exhibit renal impairment (eGFR <60) or in patients taking more than 20 mg/day of biotin. Serge Newman MD LAB BLOOD ORDERABLES Final R esult Performing Organization Address [facility] Co de Phone Number [facility] [address] [place] [address], [place] [phone] * (ABNORMAL) B-type natriuretic peptide (06/23/2025 3:20 PM EDT) [facility] BNP 227(H) <=100 pcg/mL LAB CHEMISTRY METHOD 06/23/2025 4:24 PM EDT [facility] Blood Venous blood specimen / Unknown Venipuncture / Unknown 06/23/2025 3:20 PM EDT 06/23/2025 3:30 PM EDT Serge Newman MD LAB BLOOD ORDERABLES Final R esult Performing Organization Address [facility] de Phone Number [facility] [address] [place] [address], [place] [phone] * Lipase (06/23/2025 3:20 PM EDT) [facility] Lipase 38 13 - 75 unit/L LAB CHEMISTRY METHOD 06/23/2025 4:17 PM EDT [facility] Blood Venous blood specimen / Unknown Venipuncture / Unknown 06/23/2025 3:20 PM EDT 06/23/2025 3:30 PM EDT us Serge Newman MD LAB BLOOD ORDERABLES [facility] Performing Organization Address [facility] Co de Phone Number [facility] [address] [place] [address], [place] [phone] * (ABNORMAL) Comprehensive metabolic panel (06/23/2025 3:20 PM EDT) Only the most recent of2 resultswithin the time period is included. [facility] Sodium 139 133 - 145 mmol/L LAB CHEMISTRY METHOD 06/23/2025 4:20 PM [facility] Potassium 3.4(L) 3.5 - 5.5 mmol/L LAB CHEMISTRY METHOD 06/23/2025 4:20 PM [facility] Chloride 98 96 - 110 mmol/L LAB CHEMISTRY METHOD 06/23/2025 4:20 PM [facility] CO2 35(H) 21 - 32 mmol/L LAB CHEMISTRY METHOD 06/23/2025 4:20 PM [facility] Anion Gap 6 3 - 11 LAB CHEMISTRY METHOD 06/23/2025 4:20 PM [facility] Glucose 132(H) 70 - 100 mg/dL LAB CHEMISTRY METHOD 06/23/2025 4:20 PM [facility] BUN 20 5 - 25 mg/dL LAB CHEMISTRY METHOD 06/23/2025 4:20 PM [facility] Creatinine 0.92 0.70 - 1.30 mg/dL LAB CHEMISTRY METHOD 06/23/2025 4:20 PM [facility] eGFR 83 >=60 mL/min/1. 73m2 LAB CHEMISTRY METHOD 06/23/2025 4:20 PM [facility] Comment:Calculation based on the Chronic Kidney Disease Epidemiology Collaboration (CKD-EPI) equation refit without adjustment for race. BUN/Creatinine Ratio 21.7 LAB CHEMISTRY METHOD 06/23/2025 4:20 PM [facility] Calcium 9.0 8.5 - 10.5 mg/dL LAB CHEMISTRY METHOD 06/23/2025 4:20 PM [facility] AST (SGOT) 26 10 - 42 unit/L LAB CHEMISTRY METHOD 06/23/2025 4:20 PM [facility] ALT (SGPT) 20 10 - 60 unit/L LAB CHEMISTRY METHOD 06/23/2025 4:20 PM [facility] Alkaline Phosphatase 84 42 - 121 unit/L LAB CHEMISTRY METHOD 06/23/2025 4:20 PM EDT [facility] Total Protein 7.2 6.0 - 8.0 g/dL LAB CHEMISTRY METHOD 06/23/2025 4:20 PM EDT [facility] Albumin 3.4 3.2 - 5.0 g/dL LAB CHEMISTRY METHOD 06/23/2025 4:20 PM EDT [facility] Total Bilirubin 1.0 0.0 - 1.4 mg/dL LAB CHEMISTRY METHOD 06/23/2025 4:20 PM EDT [facility] Blood Venous blood specimen / Unknown Venipuncture / Unknown 06/23/2025 3:20 PM EDT 06/23/2025 3:30 PM EDT Serge Newman MD LAB BLOOD ORDERABLES Final R esult Performing Organization Address City/[facility]/ZIP Co de Phone Number [facility] [address] [place] [address], [place] [phone] * Thyroid stimulating hormone with reflex to free t4 and free t3 (05/17/2025 12:04 PM EDT) [facility] TSH 2.75 0.40 - 4.00 mcIU/mL LAB CHEMISTRY METHOD 05/17/2025 2:26 PM EDT [facility] Blood Venous blood specimen / Unknown Venipuncture / Unknown 05/17/2025 12:04 PM EDT 05/17/2025 12:04 PM EDT Magdalene Barba MD LAB BLOOD ORDERABLES F inal Result [facility] [address] [place] [address], [place] [phone] * Lipid panel with reflex to direct LDL (05/17/2025 12:04 PM EDT) Cholesterol 137 0 - 200 mg/dL LAB CHEMISTRY METHOD 05/17/2025 1:48 PM EDT [facility] Triglycerides 66 0 - 150 mg/dL LAB CHEMISTRY METHOD 05/17/2025 1:48 PM EDT [facility] HDL 63 >=40 mg/dL LAB CHEMISTRY METHOD 05/17/2025 1:48 PM EDT [facility] LDL Calculated 61 0 - 100 mg/dL LAB CHEMISTRY METHOD 05/17/2025 1:48 PM EDT [facility] Comment:Estimated LDL Calcul ated using equation: Total cholesterol - HDL cholesterol - (Triglycerides/5) VLDL Cholesterol Kavon 13.2 mg/dL LAB CHEMISTRY METHOD 05/17/2025 1:48 PM EDT [facility] Non HDL Chol. (LDL+VLDL) 74 <145 mg/dL LAB CHEMISTRY METHOD 05/17/2025 1:48 PM EDT [facility] Chol/HDL Ratio 2.2 0.0 - 4.4 LAB CHEMISTRY METHOD 05/17/2025 1:48 PM EDT [facility] Blood Venous blood specimen / Unknown Venipuncture / Unknown 05/17/2025 12:04 PM EDT 05/17/2025 12:04 PM EDT us Magdalene Barba MD LAB BLOOD ORDERABLES F inal Result [facility] [address] [place] [address], * Hemoglobin A1c (05/17/2025 12:04 PM EDT) [facility] Hemoglobin A1C 6.3 <6.5 % LAB CHEMISTRY METHOD 05/17/2025 9:41 PM EDT [facility] Mean Bld Glu Estim. 134 mg/dL LAB CHEMISTRY METHOD 05/17/2025 9:41 PM EDT [facility] Blood Venous blood specimen / Unknown Venipuncture / Unknown 05/17/2025 12:04 PM EDT 05/17/2025 12:04 PM EDT us Magdalene Barba MD LAB BLOOD ORDERABLES F inal Result [facility]) 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
== END 2025-08-14 13:38 | disposition home or self-care (01) ==
LOC: HO.ACS 13:25
PROVIDERS: PCP Family Medicine; Visit Provider Internal Medicine Medical Oncology
DX: Z79.01 Long term (current) use of anticoagulants (principal)

== ENCOUNTER → 2025-08-14 13:25 | Outpatient (BNVA) | payer MEDICARE, SELFPAY | PROVIDERS: PCP Family Medicine; Visit Provider Internal Medicine Medical Oncology | DX: Z79.01 Long term (current) use of anticoagulants (principal) | CPT/HCPCS: 85610; 99211 ==